=== PATIENT | female | born 1945 | race Caucasian/White ===

== ENCOUNTER 2020-09-21 19:47 | Emergency (ER) | payer MEDICARE, OTHER, SELFPAY ==
[2020-09-21] VITALS (7 sets, daily range): BP systolic 141–183; BP diastolic 70–119; PULSE 61–80; RESP 14–19; TEMP 36.8; O2SAT 96–98; BMI 27.3
--- NOTE | 2020-09-21 20:21 | XR_ITS ---
WS: [id number] Portable AP upright chest, 09/21/2020 Clinical Data: cp Comparison: PA and lateral chest, 03/04/2018. Findings: No nodules, masses or effusions are seen. The heart is normal. The pulmonary vascularity is not increased. No pneumonia or pneumothorax is seen. The aortic arch and descending aorta show tortu osity XR/XR chest 1V portable [id number] Impression: Atherosclerosis.
--- NOTE | 2020-09-21 20:22 | ECG_ITS ---
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: 1945 Requested By: Awa Carrion Order Number: [id number] Reading MD: KOJO CEDILLO Measurements Intervals [place] Rate: 66 P: 72 CO: 173 QRS: -56 QRSD: 91 T: 26 QT: 383 QTc: 404 Interpretive Statements SINUS RHYTHM POSSIBLE LEFT ATRIAL ENLARGEMENT [-0.1mV P WAVE IN V1/V2] LEFT ANTERIOR FASCICULAR BLOCK [QRS AXIS <= -45, QR IN I, RS IN II] ANTEROSEPTAL MYOCARDIAL INFARCTION [40+ ms Q WAVE IN V1-V4], OF INDETERMINATE AGE No previous ECG available for comparison Electronically Signed On 09-22-2020 18:02:01 VEHICLE CHECK IN CLERK by KOJO CEDILLO [email or web address] Semiconductorwinston medical centerNanotether Discovery Servicesselect [email or web address]/[id number]
[2020-09-21] MEDS: labetalol 5 mg/mL SDV 20mL 10 MG IVP (20:55)
[2020-09-21 21:33] LABS: Alanine Aminotransferase 20 U/L (0-33); Albumin Level 4.1 g/dL (3.5-5.2); Alkaline Phosphatase 79 IU/L (35-105); Anion Gap 12.2 (5-19); Aspartate Amino Transferase 21 U/L (0-32); Blood Urea Nitrogen 13 mg/dL (8-23); Calcium 9.2 mg/dL (8.5-10.5); Carbon Dioxide 30 mmol/L (22-29); Chloride 97 mmol/L (98-107); Globulin 2.6 g/dL (1.3-4.6); Glucose 130 mg/dL (65-115); Osmolality Calculated 282 mOsm/kg (285-295); Potassium 4.2 mmol/L (3.5-5.1); Sodium 135 mmol/L (136-145); Total Bilirubin 0.2 mg/dL (0.15-1.2); Total Protein 6.7 g/dL (6.6-8.7)
--- NOTE | 2020-09-21 21:41 | W.ED.GENADLT ---
HPI - General Adult General: Chief complaint: General Medical Stated complaint: elevated BP Time Seen by Provider: 09/21/20 20:20 Source: patient Mode of arrival: ambulatory Limitations: no limitations History of Present Illness: Associated symptoms: Reports chest pain; Deny dyspnea, headache(s), nausea, rash or vomiting Review of Systems Const: Denies: fever(s), chills, body aches or change in appetite Eyes: Denies: blurry vision or eye discomfort ENMT: Denies: throat pain or dental pain Card: Reports: chest pain Resp: Denies: dyspnea GI: Denies: abdominal pain, nausea, vomiting or diarrhea : Denies: dysuria Musc: Denies: neck pain or back pain Skin/Breast: Denies: rash Neuro: Denies: headache(s) Psych: Denies: depression Rojelio/Lymph: Denies: easy bruising All/Imm: Denies: urticaria PFSH ED PFSH: Medical History Anxiety Chest pressure Cholecystectomy planned VERONICA on CPAP Palpitations Panic disorder SVT (supraventricular tachycardia) Tonsillectomy planned Surgical History History of facelift S/P breast biopsy S/P D&C (status post dilation and curettage) Family History Mother Hypertension Social History Smoking and tobacco status: former smoker Alcohol intake: never Household members: spouse Marital status: service: No Current occupational status: retired Current gender identity: Female Lee Ann/Catholic: Zoroastrianism Physical Exam Const: COMMON NORMALS: no acute distress, patient oriented x3 and healthy appearing HENMT: COMMON NORMALS: normocephalic and atraumatic HEAD & SCALP: normocephalic and atraumatic Eye: COMMON NORMALS: Equal, round and reactive pupils present and EOMs intact bilaterally PUPIL: Yes Equal, round and reactive pupils present Neck/C-Spine: COMMON NORMALS: full ROM and supple Chest: COMMONS NORMALS: normal inspection of the chest and normal palpation of entire chest wall Resp: COMMON NORMALS: normal respiratory effort, No retractions, No use of accessory muscles and clear to auscultation bilaterally AUSCULTATION: clear to auscultation bilaterally Cardio: COMMON NORMALS: regular rate, regular rhythm and No murmurs present (Cardio) RATE: regular rate RHYTHM: regular rhythm GI: COMMON NORMALS: Normal to inspection, nondistended, normoactive bowel sounds present, Soft to palpation, non-tender and no masses PALPATION: Yes Soft to palpation Extremity: COMMON NORMALS: normal to inspection and full ROM Neuro: COMMON NORMALS: patient oriented x3, moves all extremities and no focal motor deficits Psych: COMMON NORMALS: mental status grossly normal, Normal thought process present and cooperative THOUGHT PROCESS: Normal thought process present Skin: COMMON NORMALS: no rashes or lesions noted and no wounds GENERAL SKIN EXAM: no rashes or lesions noted Course Vital Signs: Vital signs: Vital Signs Temperature 98.3 F 09/21/20 20:15 Pulse Rate 65 09/21/20 22:54 Respiratory Rate 14 09/21/20 22:54 Blood Pressure 183/73 09/21/20 22:54 Pulse Oximetry 97 09/21/20 22:54 MDM - General Adult MDM Narrative: Medical decision making narrative: Sheri presents here with chest pain ulnar syncope that is atypical in nature. She is pain-free here. She is stable for discharge at this time. Patient's initial repeat troponins are normal. She has no signs of pulmonary Dania. She is stable for discharge and is return if worsening. We will start her on lisinopril for her hypertension. Lab Data: Labs: Lab Results 09/21/20 09/21/20 09/21/20 Range/Units 20:49 20:49 20:49 WBC 9.2 (4.0-10.0) 10^3/ uL RBC 4.10 (4.1-5.3) 10^6/u L Hgb 12.7 (11.5-15.3) g/dL Hct 38.3 (37.0-47.0) % MCV 93.4 (81-99) fL MCH 31.0 (28.0-34.0) pg MCHC 33.2 (30.0-36.0) g/dL RDW 13.0 (12.1-15.1) % Plt Count 313 (130-400) 10^3/c mm MPV 10.5 H (7.4-10.4) fL Neut % (Auto) 70.6 % Lymph % (Auto) 20.2 % [place] % (Auto) 7.0 % Eos % (Auto) 1.3 % Baso % (Auto) 0.5 % Neut # (Auto) 6.49 (1.8-7.7) 10^3/u L Lymph # (Auto) 1.9 (0.8-4.8) 10^3/u L [place] # (Auto) 0.6 (0.2-0.9) 10^3/u L Eos # (Auto) 0.1 (0.0-0.8) 10^3/u L Baso # (Auto) 0.1 (0.0-0.1) 10^3/u L Nucleated RBC % (a uto) 0 % Nucleated RBCs # 0.0 /100WBC Sodium 135 L (136-145) mmol/L Potassium 4.2 (3.5-5.1) mmol/L Chloride 97 L (98-107) mmol/L Carbon Dioxide 30 H (22-29) mmol/L Anion Gap 12.2 (5-19) BUN 13 (8-23) mg/dL Creatinine 0.7 (0.5-0.9) mg/dL GFR Calculation Not Reportable Glucose 130 H (65-115) mg/dL Calculated Osmolal ity 282 L (285-295) mOsm/k g Calcium 9.2 (8.5-10.5) mg/dL Total Bilirubin 0.2 (0.15-1.2) mg/dL AST 21 (0-32) U/L ALT 20 (0-33) U/L Alkaline Phosphata se 79 (35-105) IU/L Troponin T Baselin e 7 (0-10) ng/L Troponin T 120 Min nancy (0-10) ng/L Delta Troponin T (0-10) ABS# Total Protein 6.7 (6.6-8.7) g/dL Albumin 4.1 (3.5-5.2) g/dL Globulin 2.6 (1.3-4.6) g/dL 09/21/20 Range/Units 22:35 WBC (4.0-10.0) 10^3/ uL RBC (4.1-5.3) 10^6/u L Hgb (11.5-15.3) g/dL Hct (37.0-47.0) % MCV (81-99) fL MCH (28.0-34.0) pg MCHC (30.0-36.0) g/dL RDW (12.1-15.1) % Plt Count (130-400) 10^3/c mm MPV (7.4-10.4) fL Neut % (Auto) % Lymph % (Auto) % [place] % (Auto) % Eos % (Auto) % Baso % (Auto) % Neut # (Auto) (1.8-7.7) 10^3/u L Lymph # (Auto) (0.8-4.8) 10^3/u L [place] # (Auto) (0.2-0.9) 10^3/u L Eos # (Auto) (0.0-0.8) 10^3/u L Baso # (Auto) (0.0-0.1) 10^3/u L Nucleated RBC % (a uto) % Nucleated RBCs # /100WBC Sodium (136-145) mmol/L Potassium (3.5-5.1) mmol/L Chloride (98-107) mmol/L Carbon Dioxide (22-29) mmol/L Anion Gap (5-19) BUN (8-23) mg/dL Creatinine (0.5-0.9) mg/dL GFR Calculation Glucose (65-115) mg/dL Calculated Osmolal ity (285-295) mOsm/k g Calcium (8.5-10.5) mg/dL Total Bilirubin (0.15-1.2) mg/dL AST (0-32) U/L ALT (0-33) U/L Alkaline Phosphata se (35-105) IU/L Troponin T Baselin e (0-10) ng/L Troponin T 120 Min nancy 7.72 (0-10) ng/L Delta Troponin T 0.72 (0-10) ABS# Total Protein (6.6-8.7) g/dL Albumin (3.5-5.2) g/dL Globulin (1.3-4.6) g/dL Imaging Data^: CXR: Attestation: I personally reviewed and interpreted this imaging study as follows: My impression: no acute abnormality EKG Data^: EKG 1: Attestation: I personally reviewed and interpreted this EKG as follows: EKG interpretation date: 09/21/20 EKG interpretation time: 20:14 Interpretation: nsr hr [address] or t wave abnormalities qrs 91 qtc 397 Discharge Plan Discharge Patient Disposition: Home Clinical Impression: Chest pain Qualifiers: Chest pain type: unspecified Qualified Code(s): R07.9 - Chest pain, unspecified Hypertension Qualifiers: Hypertension type: unspecified Qualified Code(s): I10 - Essential (primary) hypertension Condition: Stable Prescriptions: New lisinopril 10 mg tablet 10 mg PO DAILY Qty: 30 RF: 0 No Action fluoxetine [Prozac] 20 mg capsule 20 mg PO DAILY@0700 RF: 0 nadolol 40 mg tablet 40 mg PO DAILY@0700 RF: 0 cetirizine [Zyrtec] 10 mg tablet 5 mg PO DAILY@0700 RF: 0 ketorolac 0.5 % drops 0.5 drp ophthalmic (eye) DAILY@0700 RF: 0 Multivitamin 50 Plus Tablet 1 tab PO DAILY@0700 RF: 0 Collagen Plus Vitamin C 125-740 mg Capsule 1 cap PO DAILY@0700 RF: 0 Immunicare 15-15-10 mg-unit-mcg Capsule 1 cap PO DAILY@0700 RF: 0 Glucosamine 1 tab PO DAILY@0700 RF: 0 Vitamin D3 1 tab PO DAILY@0700 RF: 0 Discharge Orders: Discharge ED (Routine); Ordered 09/21/20 Ordered By: Awa Carrion Referrals: Mikayla Webb DO [Primary Care Provider] - 1-3 days Discharge Diet: Advance as tolerated Discharge Activity: Resume usual activity Patient Instructions: Chest Pain (ED) Coding Level of Care Code ED Ladle Pourer for Chg Fwd Exam Comprehensive
[2020-09-21 21:42] LABS: Troponin(5th) Baseline 7 ng/L (0-10)
[2020-09-21 21:45] LABS: Basophils # 0.1 10^3/uL (0.0-0.1); Basophils % 0.5 %; Eosinophils # 0.1 10^3/uL (0.0-0.8); Eosinophils % 1.3 %; Hematocrit 38.3 % (37.0-47.0); Hemoglobin 12.7 g/dL (11.5-15.3); Lymphocytes # 1.9 10^3/uL (0.8-4.8); Lymphocytes % 20.2 %; Mean Corpuscular HGB Conc 33.2 g/dL (30.0-36.0); Mean Corpuscular Volume 93.4 fL (81-99); Mean Platelet Volume 10.5 fL (7.4-10.4); Monocytes # 0.6 10^3/uL (0.2-0.9); Neutrophils # 6.49 10^3/uL (1.8-7.7); Neutrophils % 70.6 %; Nucleated Red Blood Cells % 0 %; Platelet Count 313 10^3/cmm (130-400); White Blood Count 9.2 10^3/uL (4.0-10.0)
[2020-09-21 23:02] LABS: Troponin 5 2HR 7.72 ng/L (0-10); Troponin 5 2HR Delta 0.72 ABS# (0-10)
== END 2020-09-21 23:18 | disposition home or self-care (01) ==
PROVIDERS: Emergency Provider Emergency Medicine; PCP Family Medicine
DX: I10 Essential (primary) hypertension (principal); R07.9 Chest pain, unspecified; Z87.891 Personal history of nicotine dependence
CPT/HCPCS: 12345; 36415; 71045; 80053; 84484; 85025; 93005; 96374; 99283; J3490

== ENCOUNTER → 2021-02-10 12:11 | Outpatient (BNVA) | payer MEDICARE, OTHER, SELFPAY | PROVIDERS: PCP Family Medicine; Visit Provider Internal Medicine Pulmonary Disease | DX: Z01.812 Encounter for preprocedural laboratory examination (principal); Z20.822 Contact with and (suspected) exposure to COVID-19 | CPT/HCPCS: 87635 ==

== ENCOUNTER 2021-02-16 08:03 | Outpatient (CLI) | payer MEDICARE, OTHER, SELFPAY ==
--- NOTE | 2021-02-16 08:52 | PFTS_ITS ---
Date of Study:02/16/21 Date of Dictation: 02/21/21 MECHANICS: Pre bronchodilator Forced vital capacity (FVC) is normal . Pre bronchodilator Forced expiratory volume in one second (FEV1) is mildly reduced 69% FEV1/FVC is reduced. There is no post bronchodialator study. FLOW VOLUME LOOP: normal . LUNG VOLUMES: Not measured DIFFUSING CAPACITY FOR CARBON MONOXIDE: normal . INTERPRETATION: The Spirometry suggestive mild obstructive ventilatory defect. Lung volumes are not measured. Normal gas transfer. Clinical correlation recommended. MTDD
== END 2021-02-16 08:04 | disposition home or self-care (01) ==
LOC: RT 08:07
PROVIDERS: PCP Family Medicine; Visit Provider Internal Medicine Pulmonary Disease
DX: R06.00 Dyspnea, unspecified (principal)
CPT/HCPCS: 94010; 94729

== ENCOUNTER 2021-05-29 12:53 | Outpatient (CLI) | payer MEDICARE, OTHER, SELFPAY ==
--- NOTE | 2021-05-29 12:30 | CT_ITS ---
WS: [id number] CT ABDOMEN PELVIS TECHNIQUE: Contrast-enhanced CT of the abdomen and pelvis with coronal and sagittal reformatted image s. CLINICAL INFORMATION: NAUSEA, BILATERAL PPER ABDOMINAL PAIN COMPARISON: DLP: 852.[address] scans at [facility] use at least one of these dose optimization techniques: automated e xposure control; mA and/or kV adjustment per patient size (includes targeted exams where dose is matc hed to clinical indication); or iterative reconstruction. FINDINGS: Diffuse fatty infiltration of the liver. Prior cholecystectomy. Dilated common bile duct unchanged si nce 2010 likely physiologic postcholecystectomy. Lung bases are well aerated. Pectus excavatum. Cardiomegaly. Normal GE junction. Adrenal glands are n ormal. Normal portal vein and splenic vein. Fatty atrophy of the pancreas. Normal renal parenchymal e nhancement. No hydronephrosis. A few tiny renal cysts. Exophytic left renal cyst measuring 15 mm. Normal caliber abdominal aorta. Urine distended bladder. No abdominal or pelvic lymphadenopathy. No i nguinal lymphadenopathy. Disc space narrowing L5-S1. CT/CT abdomen pelvis w con* [id number] IMPRESSION: 1. Mild diffuse fatty infiltration of the liver 2. Prior cholecystectomy. Stable dilatation common bile duct unchanged since 3. Exophytic left renal cyst measuring 15 mm. 4. No hydronephrosis in either kidney. 5. No evidence of high-grade small or large bowel obstruction. 6. Cardiomegaly with pectus excavatum.
[2021-05-29] MEDS: iohexol 300 mg/mL 50 mL Btl PO (13:23)
[2021-05-29] MEDS: iohexol 300 mg/mL 100 mL Btl IV (14:06)
[2021-05-29 15:02] LABS: Blood Urea Nitrogen 7 mg/dL (8-23)
== END 2021-05-29 12:54 | disposition home or self-care (01) ==
PROVIDERS: PCP Family Medicine; Visit Provider Family Medicine
DX: R10.11 Right upper quadrant pain (principal); R10.12 Left upper quadrant pain; R11.0 Nausea; K76.0 Fatty (change of) liver, not elsewhere classified; N28.1 Cyst of kidney, acquired; I51.7 Cardiomegaly
CPT/HCPCS: 74177; 82565; 84520; Q9967

== ENCOUNTER 2021-07-25 09:36 | Outpatient (CLI) | payer MEDICARE, OTHER, SELFPAY ==
--- NOTE | 2021-07-25 09:30 | USCV_ITS ---
Sheri Lopez Age: 75 Gender: F : 1945 Exam Date: 07/25/2021 10:02 Ordering Phys: Pipo Tamayo M.D ([email or web address]) Technologist: Real Reynoso Exam Location: [facility] [place] Indication: SOB BP: 160 / 74 HR: 81 Rhythm: Sinus Technical Quality: Adequate MEASUREMENTS (Male / Female) Normal Values 2D ECHO LV Diastolic Diameter PLAX 2.8 cm 4.2 - 5.9 / 3.9 - 5.3 cm LV Systolic Diameter PLAX 2.0 cm IVS Diastolic Thickness 0.9 cm 0.6 - 1.0 / 0.6 - 0.9 cm IVS Systolic Thickness 1.0 cm LVPW Diastolic Thickness 1.6 cm 0.6 - 1.0 / 0.6 - 0.9 cm LVPW Systolic Thickness 1.8 cm LVOT Diameter 2.0 cm LV Ejection Fraction 2D Teich 55.7 % LV Ejection Fraction MOD 2C 58.9 % LV Ejection Fraction 2C AL 59.6 % LA Diameter 3.2 cm LA Width 3.3 cm LA Height 4.0 cm RA Width 3.3 cm RA Height 4.4 cm Aorta at Sinotubular Diameter 2.7 cm M-MODE MV E Point Septal Separation 0.8 cm DOPPLER AV Peak Velocity 142.0 cm/s LVOT Peak Velocity 113.0 cm/s AV Area Cont Eq vti 2.7 cm squared AV Area Cont Eq pk 2.5 cm squared MV Area PHT 5.0 cm squared Mitral E to A Ratio 1.1 MV E' Velocity 32.0 cm/s Mitral E to LV E' Lateral Ratio 8.3 TR Peak Velocity 265.4 cm/s TR Peak Gradient 28.2 mmHg TR Mean Velocity 171.7 cm/s TR Mean Gradient 13.8 mmHg TR Velocity Time Integral 61.5 cm RV Acceleration Time 0.2 s RV Ejection Time 0.3 s RV AcT/ET 0.5 FINDINGS Left Ventricle Normal left ventricular size. LV systolic function is normal with EF of 55-60%. No regional wall motion abnormalities. Normal diastolic filling pattern. Right Ventricle The right ventricle is normal in size and function. Right Atrium The right atrium is normal in size. Left Atrium The left atrium is normal in size. Mitral Valve Structurally normal mitral valve without significant stenosis or prolapse. There is mild mitral regurgitation. Aortic Valve Structurally normal aortic valve without significant sclerosis or stenosis. There is no aortic regurgitation. Tricuspid Valve Structurally normal tricuspid valve without significant stenosis. Trace tricuspid regurgitation. Insufficient TR jet to calculate RVSP Pulmonic Valve Structurally normal pulmonic valve without significant stenosis. There is no pulmonic regurgitation. Pericardium Normal pericardium without effusion. Aorta Normal ascending aorta dimension. CONCLUSIONS LV systolic function is normal with EF of 55-60% Disatolic function is normal Mild mitral regurgitation No comparison studies are available Pipo Tamayo MD (Electronically Signed) Final Date: 02 August 2021 18:08 S
== END 2021-07-25 09:37 | disposition home or self-care (01) ==
LOC: US 09:37
PROVIDERS: PCP Family Medicine; Visit Provider Internal Medicine
DX: R06.02 Shortness of breath (principal); I34.0 Nonrheumatic mitral (valve) insufficiency
CPT/HCPCS: 93306

== ENCOUNTER 2021-07-26 13:26 | Outpatient (CLI) | payer MEDICARE, OTHER, SELFPAY ==
--- NOTE | 2021-07-26 13:33 | US_ITS ---
WS: [id number] RENAL ULTRASOUND HISTORY: RENAL CYST COMPARISON: CT abdomen 05/29/2021 TECHNIQUE: 2-D and color Doppler imaging of the kidney submitted. Right kidney: 9.4 cm x 4.1 cm x 4.6 cm. Normal echogenicity with no hydronephrosis or mass. Left kidney: 11.1 cm x 5.3 cm x 3.8 cm. Normal echogenicity with no hydronephrosis or mass. Benign exophytic cyst from the inferior pole neal ures 1.5 x 1.5 x 1.4 cm. Stable since 05/29/2021. Aorta: Not visualized. Urinary Bladder: Normal distention. US/US renal BI* [id number] IMPRESSION: 1. No hydronephrosis or solid mass. 2. Stable exophytic LEFT renal cyst measures 1.5 cm.
== END 2021-07-26 13:27 | disposition home or self-care (01) ==
LOC: US 13:27
PROVIDERS: PCP Family Medicine; Visit Provider Family Medicine
DX: N28.1 Cyst of kidney, acquired (principal)
CPT/HCPCS: 76770

== ENCOUNTER → 2021-08-17 10:50 | Outpatient (BNVA) | payer MEDICARE, OTHER, SELFPAY | PROVIDERS: PCP Family Medicine; Visit Provider Internal Medicine | DX: Z01.812 Encounter for preprocedural laboratory examination (principal) | CPT/HCPCS: 87635 ==

== ENCOUNTER 2021-11-14 06:52 | Emergency (ER) | payer MEDICARE, OTHER, SELFPAY ==
[2021-11-14 06:59] VITALS: BP 164/74; PULSE 117; RESP 18; TEMP 35.9; O2SAT 99; BMI 26.9
[2021-11-14 07:06] VITALS: BP 137/77; PULSE 105; RESP 22; O2SAT 96
--- NOTE | 2021-11-14 07:29 | ECG_ITS ---
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 Measurements Intervals [place] Rate: 103 P: 73 WI: 148 QRS: -75 QRSD: 93 T: 61 QT: 338 QTc: 443 Interpretive Statements SINUS TACHYCARDIA WITH OCCASIONAL VENTRICULAR PREMATURE COMPLEXES LEFT ANTERIOR FASCICULAR BLOCK [QRS AXIS <= -45, QR IN I, RS IN II] ANTEROSEPTAL MYOCARDIAL INFARCTION , OF INDETERMINATE AGE [40+ ms Q WAVE IN V1-V4] Compared to ECG 09/21/2020 20:14:04 Ventricular premature complex(es) now present Sinus rhythm no longer present Myocardial infarct finding still present Electronically Signed On 11-15-2021 18:49:55 CDT by Pipo Tamayo M.D. [id number]
--- NOTE | 2021-11-14 07:29 | XR_ITS ---
WS: [id number] XR chest 1V portable [id number] REASON FOR EXAM: dyspnea/cough FINDINGS: The chest is unchanged compared to 09/21/2020. Normal aorta for age. Heart size at the upper limits of normal. Calcified granulomatous disease in both hemithoraces. 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 No acute pulmonary parenchymal or pleural abnormality. Chronic interstitial opacities in both lower l lizzette langford. Moderate degenerative spondylosis in the mid and lower thoracic spine. Moderate to severe osteoarthri tis arthropathy in both shoulder joints. XR/XR chest 1V portable [id number] IMPRESSION: No acute chest abnormality.
--- NOTE | 2021-11-14 07:29 | ED_ITS ---
HPI - Arrhythmia/Palpitations General: Chief Complaint: Arrhythmia/Palpitations Stated Complaint: Heart problem Time Seen by Provider: 11/14/21 07:18 Source: patient Mode of arrival: ambulatory Limitations: no limitations History of Present Illness: 76-year-old female presents to the emergency room with complaints of palpitations. She said problems in the past remotely with SVT per her report but more recently she had a Holter monitor that showed short runs of V. tach 1 was 9 seconds the other was 5 beats. She was previously on nadolol that did seem to control it better more recently she has been switched to Toprol and they had added a low-dose of diltiazem. Her initial dose was quite a bit higher than a change to the lower dose because she could not tolerate a higher dose. She not had any chest pain or shortness of breath but she has almost felt presyncopal at times. On arrival here she has episodes of PVCs and PACs but there is no V. tach. She not been ill recently she is not had any shortness of breath or chest pain. MD complaint: rapid heart beat and heart racing Onset (ago): month(s) Duration: intermittent Severity: mild Context: occurred during rest Arrhythmia history: SVT and other (Nonsustained V. tach on Holter monitor) Associated symptoms: Reports anxiety, pre-syncope and sense of impending doom; Deny cough, diaphoresis, muscle cramps, nausea, paresthesias or vomiting Treatments prior to arrival: beta-ravi Review of Systems Const: Denies: diaphoresis ENMT: Denies: throat pain, ear or mastoid pain, nasal discharge or nasal conge stion Card: Reports: pre-syncope Resp: Denies: dyspnea, productive cough or non-productive cough GI: Denies: nausea or vomiting : Denies: flank pain, difficulty voiding, dysuria, urinary frequency or urinary urgency Musc: Denies: muscle cramps Skin/Breast: Denies: rash or pruritus Psych: Reports: anxiety PFSH ED PFSH: Medical History Anxiety VERONICA on CPAP Panic disorder SVT (supraventricular tachycardia) Surgical History History of colonoscopy with polypectomy 2005 History of esophagogastroduodenoscopy (EGD) 2016 History of facelift S/P breast biopsy S/P D&C (status post dilation and curettage) S/P tonsillectomy Status post laparoscopic cholecystectomy Family History Mother Hypertension Social History Smoking and tobacco status: former smoker Quit status (tobacco): has quit using tobacco Year quit tobacco: 1995 [id number] Second hand smoke exposure: No Smoking risk assessment/counseling performed?: Yes Alcohol intake: never Lives independently: Yes Household members: spouse Marital status: service: No Current occupational status: retired Pets and animals: Yes History of recent travel: No Current gender identity: Female Lee Ann/Jewish: Zoroastrianism Physical Exam Const: GENERAL APPEARANCE: cooperative and comfortable ORIENTATION/CONSCIOUSNESS: Yes awake, Yes oriented to person, Yes oriented to place and Yes oriented to time HENMT: COMMON NORMALS: normocephalic, atraumatic and hearing grossly normal b ilaterally HEAD & SCALP: normocephalic and atraumatic Neck/C-Spine: COMMON NORMALS: full ROM, no lymphadenopathy, supple and no JVD Cardio: COMMON NORMALS: no JVD, regular rate, regular rhythm and No murmurs present (Cardio) RATE: regular rate RHYTHM: regular rhythm Extremity: COMMON NORMALS: normal to inspection, capillary refill normal, no clubbing, cyanosis or edema, no calf tenderness and no pedal edema Neuro: SENSORIUM/ORIENTATION: Yes oriented to person, Yes oriented to place and Yes oriented to time Skin: COMMON NORMALS: no rashes or lesions noted GENERAL SKIN EXAM: no rashes or lesions noted Course Vital Signs: Vital signs: Vital Signs Temperature 96.7 F L 11/14/21 06:59 Pulse Rate 82 11/14/21 08:30 Respiratory Rate 16 11/14/21 08:30 Blood Pressure 149/60 11/14/21 08:30 Pulse Oximetry 99 11/14/21 08:30 MDM - Arrhythmia/Palpitations Medical Decision Making EKG does not show anything acute. She had several PVCs and PACs while here but no V. tach episodes. Since the nadolol seem to work well in the past we will increase her Toprol to 37-1/2 daily. Certainly is room in her blood pressure and her heart rate for the increase. Encourage her to follow-up with cardiology within the next week. We will also get her set up for a Holter monitor to make sure she is not having recurrences of SVT or more prolonged episodes of's ventricular tachycardia. Medical Records I reviewed the patient's medical records. Lab Data I reviewed the patient's lab results. : 11/14/21 07:20 11/14/21 07:20 Radiology Impressions Chest X-Ray 11/14/21 07:29 IMPRESSION: No acute chest abnormality. Laboratory Results WBC 6.4 10^3/uL (4.0-10.0) 11/14/21 07:20 RBC 4.66 10^6/uL (4.1-5.3) 11/14/21 07:20 Hgb 14.1 g/dL (11.5-15.3) 11/14/21 07:20 Hct 43.2 % (37.0-47.0) 11/14/21 07:20 MCV 92.7 fl (81-99) 11/14/21 07:20 MCH 30.3 pg (28.0-34.0) 11/14/21 07:20 MCHC 32.6 g/dL (30.0-36.0) 11/14/21 07:20 RDW 12.8 % (12.1-15.1) 11/14/21 07:20 Plt Count 348 10^3/cmm (130-400) 11/14/21 07:20 MPV 9.8 fL (7.4-10.4) 11/14/21 07:20 Neut % (Auto) 68.6 % 11/14/21 07:20 Lymph % (Auto) 21.8 % 11/14/21 07:20 [place] % (Auto) 6.6 % 11/14/21 07:20 Eos % (Auto) 2.0 % 11/14/21 07:20 Baso % (Auto) 0.8 % 11/14/21 07:20 Neut # (Auto) 4.39 10^3/uL (1.8-7.7) 11/14/21 07:20 Lymph # (Auto) 1.4 10^3/uL (0.8-4.8) 11/14/21 07:20 [place] # (Auto) 0.4 10^3/uL (0.2-0.9) 11/14/21 07:20 Eos # (Auto) 0.1 10^3/uL (0.0-0.8) 11/14/21 07:20 Baso # (Auto) 0.1 10^3/uL (0.0-0.1) 11/14/21 07:20 Nucleated RBC % (auto) 0 % 11/14/21 07:20 Nucleated RBCs # 0.0 /100WBC 11/14/21 07:20 Sodium 138 mmol/L (136-145) 11/14/21 07:20 Potassium 3.6 mmol/L (3.5-5.1) 11/14/21 07:20 Chloride 100 mmol/L (98-107) 11/14/21 07:20 Carbon Dioxide 28 mmol/L (22-29) 11/14/21 07:20 Anion Gap 13.6 (5-19) 11/14/21 07:20 BUN 7 mg/dL (8-23) L 11/14/21 07:20 Creatinine 0.6 mg/dL (0.5-0.9) 11/14/21 07:20 GFR Calculation Not Reportable 11/14/21 07:20 Glucose 115 mg/dL (65-115) 11/14/21 07:20 Calculated Osmolality 285 mOsm/kg (285-295) 11/14/21 07:20 Calcium 9.2 mg/dL (8.5-10.5) 11/14/21 07:20 Discharge Plan Discharge Patient Disposition: Home Clinical Impression: Ventricular premature beats Condition: Stable Prescriptions: Changed metoprolol succinate 25 mg tablet extended release 24 hr 37.5 mg PO DAILY Qty: 90 3RF No Action diltiazem HCl 30 mg tablet 30 mg PO Q8H PRN (Reason: SVT) Qty: 30 2RF Rx Instructions: can take as often as three times in a day fluticasone propionate [Flonase Allergy Relief] 50 mcg/actuation spra y,suspension 1 spray intranasal BID Qty: 50 3RF Rx Instructions: administer into each nostril Zyrtec 10 mg capsule 10 mg PO DAILY PRN (Reason: allergy symptoms) Qty: 20 2RF lactulose 10 gram/15 mL solution 15 ml PO BID Qty: 473 0RF ketorolac 0.5 % drops 0.5 drp ophthalmic (eye) DAILY@0700 0RF Multivitamin 50 Plus Tablet 1 tab PO DAILY@0700 0RF Collagen Plus Vitamin C 125-740 mg Capsule 1 cap PO DAILY@0700 0RF Immunicare 15-15-10 mg-unit-mcg Capsule 1 cap PO DAILY@0700 0RF Vitamin D3 1 tab PO DAILY@0700 0RF Discharge Orders: Discharge ED (Routine); Ordered 11/14/21 Ordered By: Jon Leonard Referrals: Mikayla Webb, [Primary Care Provider] - Discharge Diet: Usual diet Discharge Activity: Resume usual activity Patient Instructions: Opioid Safety Activity Restrictions/Additional Instructions: legal operations manager will make arrangements for you to have another Holter monitor and then follow-up with cardiology. Increase your metoprolol to 37-1/2 mg (1 1/2 tablets) daily. 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
[2021-11-14 07:36] LABS: Basophils # 0.1 10^3/uL (0.0-0.1); Basophils % 0.8 %; Eosinophils # 0.1 10^3/uL (0.0-0.8); Hematocrit 43.2 % (37.0-47.0); Hemoglobin 14.1 g/dL (11.5-15.3); Lymphocytes # 1.4 10^3/uL (0.8-4.8); Lymphocytes % 21.8 %; Mean Corpuscular HGB Conc 32.6 g/dL (30.0-36.0); Mean Corpuscular Hemoglobin 30.3 pg (28.0-34.0); Mean Corpuscular Volume 92.7 fl (81-99); Mean Platelet Volume 9.8 fL (7.4-10.4); Monocytes # 0.4 10^3/uL (0.2-0.9); Monocytes % 6.6 %; Neutrophils # 4.39 10^3/uL (1.8-7.7); Neutrophils % 68.6 %; Nucleated Red Blood Cells % 0 %; Platelet Count 348 10^3/cmm (130-400); Red Blood Count 4.66 10^6/uL (4.1-5.3); Red Cell Distribution Width 12.8 % (12.1-15.1); White Blood Count 6.4 10^3/uL (4.0-10.0)
[2021-11-14 07:42] VITALS: BP 137/77; PULSE 105; RESP 22; O2SAT 96
[2021-11-14 07:57] LABS: Anion Gap 13.6 (5-19); Blood Urea Nitrogen 7 mg/dL (8-23); Calcium 9.2 mg/dL (8.5-10.5); Carbon Dioxide 28 mmol/L (22-29); Chloride 100 mmol/L (98-107); Glucose 115 mg/dL (65-115); Osmolality Calculated 285 mOsm/kg (285-295); Potassium 3.6 mmol/L (3.5-5.1); Sodium 138 mmol/L (136-145)
[2021-11-14] MEDS: metoprolol succinate ER (24 HR) 25 mg Tablet 12.5 MG PO (08:21)
[2021-11-14] MEDS: metoprolol tartrate 1 mg/1 mL SDV 5 mL 2.5 MG IVP (08:22)
[2021-11-14 08:30] VITALS: BP 149/60; PULSE 82; RESP 16; O2SAT 99
--- NOTE | 2021-11-16 06:57 | DCPLANNER ---
Addendum entered by Nena Vasquez 11/30/21 08:53: Patient had an appointment scheduled for 11.21.21 with [facility] - patient did attend appointment. Addendum entered by Nena Vasquez 11/21/21 08:05: Patient has a follow up appointment scheduled for Sunday, November 21, 2021 at 2:[facility] for a 30 day event monitor. Clinic will call patient with appointment information. Original Note: enterprise services manager had message to schedule an outpatient 30 day event monitor for patient. enterprise services manager faxed signed order to [facility], who will call patient with appointment information.
== END 2021-11-14 08:50 | disposition home or self-care (01) ==
PROVIDERS: Emergency Provider Family Medicine; PCP Family Medicine
DX: I49.3 Ventricular premature depolarization (principal); Z87.891 Personal history of nicotine dependence
CPT/HCPCS: 71045; 80048; 85025; 93005; 96374; 99284; J3490

== ENCOUNTER → 2021-11-21 14:06 | Outpatient (BNVA) | payer MEDICARE, OTHER, SELFPAY | PROVIDERS: PCP Family Medicine; Visit Provider Internal Medicine Cardiovascular Disease | DX: I49.3 Ventricular premature depolarization (principal); Z87.891 Personal history of nicotine dependence | CPT/HCPCS: 99213 ==

== ENCOUNTER → 2022-02-15 11:30 | Outpatient (BNVA) | payer MEDICARE, OTHER, SELFPAY | PROVIDERS: PCP Family Medicine; Visit Provider Internal Medicine | DX: R00.2 Palpitations (principal); R55 Syncope and collapse; R00.0 Tachycardia, unspecified; R00.1 Bradycardia, unspecified | CPT/HCPCS: 93229 ==

== ENCOUNTER → 2022-03-14 10:24 | Outpatient (BNVA) | payer MEDICARE, OTHER, SELFPAY | PROVIDERS: PCP Family Medicine; Visit Provider Internal Medicine Pulmonary Disease | DX: G47.33 Obstructive sleep apnea (adult) (pediatric) (principal); J98.4 Other disorders of lung; R00.2 Palpitations | CPT/HCPCS: 99214 ==

== ENCOUNTER 2022-05-10 10:38 | Outpatient (CLI) | payer MEDICARE, OTHER, SELFPAY ==
--- NOTE | 2022-05-10 10:53 | US_ITS ---
WS: [id number] ULTRASOUND RENAL TECHNIQUE: Ultrasound examination of both kidneys. CLINICAL INFORMATION: RENAL CYST COMPARISON: Ultrasound July 26, 2021 FINDINGS: RIGHT: Right kidney is normal in size and appearance. Echogenicity: Normal. Cortical thickness: 1.0 cm; Normal. Hydronephrosis: None. Perinephric fluid: None. Right kidney measures: 10.8 cm x 5.1 cm x 3.9 cm. LEFT: Inferior pole simple LEFT renal cyst measuring 1.3 x 1.2 x 1.6 CM. Left kidney is normal in size and appearance. Echogenicity: Normal. Cortical thickness: 1.0 cm; Normal. Hydronephrosis: None. Perinephric fluid: None. Left kidney measures: 10.7 cm x 4.4 cm x 4.6 cm. Normal visualized aorta. Moderate amount of echogenic debris or hematoma within the bladder. Recommen d correlation for UTI. US/US renal BI* [id number] IMPRESSION: 1. Both kidneys are normal in appearance. No hydronephrosis. 2. Inferior pole simple LEFT renal cyst measuring 1.3 x 1.2 x 1.6 CM unchanged 3. Moderate amount of echogenic material within the dependent bladder may repr esent proteinaceous debris or hematoma. Recommend correlation for UTI. This is new since July 26, 2021
== END 2022-05-10 10:39 | disposition home or self-care (01) ==
LOC: RAD 10:41
PROVIDERS: PCP Family Medicine; Visit Provider Family Medicine
DX: N28.1 Cyst of kidney, acquired (principal)
CPT/HCPCS: 76770

== ENCOUNTER 2022-05-16 08:03 | Emergency (ER) | payer MEDICARE, OTHER, SELFPAY ==
--- NOTE | 2022-05-16 08:19 | XR_ITS ---
WS: [id number] XR chest 1V portable [id number] REASON FOR EXAM: dyspnea FINDINGS: Compared to the examination of 11/14/2021, there is increased opacity in the left lower chest which ap pears to be a combination of lung consolidation/atelectasis and left pleural effusion. The right lung field is clear however there may be a small right pleural effusion. No other significant interval change or new finding compared to the previous study. XR/XR chest 1V portable [id number] IMPRESSION: Interval development of opacity in the left lower chest as above.
--- NOTE | 2022-05-16 08:24 | ECG_ITS ---
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 Measurements Intervals [place] Rate: 122 P: 81 OR: 164 QRS: -71 QRSD: 101 T: 80 QT: 306 QTc: 436 Interpretive Statements SINUS TACHYCARDIA LEFT ANTERIOR FASCICULAR BLOCK [QRS AXIS <= -45, QR IN I, RS IN II] ANTEROSEPTAL MYOCARDIAL INFARCTION , OF INDETERMINATE AGE [40+ ms Q WAVE IN V1-V4] Compared to ECG 11/14/2021 07:13:44 Ventricular premature complex(es) no longer present Myocardial infarct finding still present Electronically Signed On 05-17-2022 10:36:40 CDT by Pipo Tamayo M.D. [id number] f
[2022-05-16 08:31] VITALS: BP 116/74; PULSE 115; RESP 16; TEMP 36.9; O2SAT 94; BMI 26.6
--- NOTE | 2022-05-16 08:41 | ED_ITS ---
HPI - General Adult General: Chief complaint: General Medical Stated complaint: SOB, possible heart problems Time Seen by Provider: 05/16/22 08:19 Source: patient Mode of arrival: ambulatory Limitations: no limitations History of Present Illness: 76 yo female Onset (ago): minute(s) Severity: mild Quality: burning Pain Consistency: constant Relieving factors: none Exacerbating factors: none Associated symptoms: Deny chest pain, confusion, cough, diaphoresis, decreased appetite, dyspnea, fevers/chills, headache(s), malaise, nausea, rash, palpitations, seizures, short of breath, syncope, vomiting or weakness Treatments prior to arrival: none Review of Systems Const: Denies: fever(s), chills, fatigue, malaise or diaphoresis ENMT: Denies: throat pain, ear or mastoid pain, nasal discharge or nasal congestion Card: Denies: chest pain, palpitations or syncope Resp: Denies: dyspnea GI: Denies: abdominal pain, nausea or vomiting : Denies: flank pain, difficulty voiding, dysuria, urinary frequency or urinary urgency Skin/Breast: Denies: rash Neuro: Denies: headache(s) or confusion PFSH ED PFSH: Medical History Anxiety VERONICA on CPAP Panic disorder SVT (supraventricular tachycardia) Surgical History History of colonoscopy with polypectomy 2005 History of esophagogastroduodenoscopy (EGD) 2015 History of facelift S/P breast biopsy S/P D&C (status post dilation and curettage) S/P tonsillectomy Status post laparoscopic cholecystectomy Family History Mother Hypertension Social History Smoking and tobacco status: former smoker Quit status (tobacco): has quit using tobacco Year quit tobacco: 1995 [id number] Second hand smoke exposure: No Smoking risk assessment/counseling performed?: Yes Alcohol intake: never Lives independently: Yes Household members: spouse Marital status: service: No Current occupational status: retired Pets and animals: Yes History of recent travel: No Current gender identity: Female [place]/Lutheran: Evangelical Physical Exam Const: COMMON NORMALS: no acute distress GENERAL APPEARANCE: cooperative and comfortable ORIENTATION/CONSCIOUSNESS: Yes awake, Yes oriented to person, Yes oriented to place and Yes oriented to time HENMT: COMMON NORMALS: normocephalic, atraumatic and hearing grossly normal bilaterally HEAD & SCALP: normocephalic and atraumatic Resp: AUSCULTATION: crackles Laterality: bilateral Cardio: COMMON NORMALS: regular rate, regular rhythm and No murmurs present (Cardio) RATE: regular rate RHYTHM: regular rhythm GI: COMMON NORMALS: Soft to palpation and No hepatosplenomegaly present A USCULTATION: Yes normoactive bowel sounds PALPATION: Yes Soft to palpation, No Tenderness to palpation present (GI), No Guarding due to palpation present (GI) and Yes No hepatosplenomegaly present Extremity: COMMON NORMALS: normal to inspection, capillary refill normal, no clubbing, cyanosis or edema, no calf tenderness and no pedal edema Neuro: SENSORIUM/ORIENTATION: Yes oriented to person, Yes oriented to place and Yes oriented to time Skin: COMMON NORMALS: no rashes or lesions noted GENERAL SKIN EXAM: no rashes or lesions noted Course Vital Signs: Vital signs: Vital Signs Temperature 98.4 F 05/16/22 08:31 Pulse Rate 102 H 05/16/22 13:36 Respiratory Rate 17 05/16/22 13:36 Blood Pressure 121/81 05/16/22 13:36 Pulse Oximetry 100 05/16/22 13:36 Oxygen Delivery Me thod 05/16/22 11:39 MDM - General Adult Medical Decision Making cardiomegaly on CXR. D dimer is elevated. CTA is negative for PE. Pericardial efusion present on the echocardiogram. Discused with Dr. Rodriguez. HE recomme nds low dose lasix and follow up int he office next week. REviewed with patient. Medical Records I reviewed the patient's medical records. Lab Data I reviewed the patient's lab results. : 05/16/22 09:15 05/16/22 09:15 Radiology Impressions Chest X-Ray 05/16/22 08:19 IMPRESSION: Interval development of opacity in the left lower chest as above. Chest CTA 05/16/22 09:49 IMPRESSION: 1. No pulmonary embolism. 2. Moderate circumferential pericardial effusion measuring up to 1.8 cm. 3. Small bilateral pleural effusions. 4. LEFT lower lobe volume loss due to subsegmental atelectasis. Laboratory Results WBC 10.2 10^3/uL (4.0-10.0) H 05/16/22 09:15 RBC 3.69 10^6/uL (4.1-5.3) L 05/16/22 09:15 Hgb 11.4 g/dL (11.5-15.3) L 05/16/22 09:15 Hct 34.6 % (37.0-47.0) L 05/16/22 09:15 MCV 93.8 fl (81-99) 05/16/22 09:15 MCH 30.9 pg (28.0-34.0) 05/16/22 09:15 MCHC 32.9 g/dL (30.0-36.0) 05/16/22 09:15 RDW 12.8 % (12.1-15.1) 05/16/22 09:15 Plt Count 444 10^3/cmm (130-400) H 05/16/22 09:15 MPV 9.7 fL (7.4-10.4) 05/16/22 09:15 Neut % (Auto) 85.8 % 05/16/22 09:15 Lymph % (Auto) 6.2 % 05/16/22 09:15 [place] % (Auto) 7.3 % 05/16/22 09:15 Eos % (Auto) 0.0 % 05/16/22 09:15 Baso % (Auto) 0.3 % 05/16/22 09:15 Neut # (Auto) 8.76 10^3/uL (1.8-7.7) H 05/16/22 09:15 Lymph # (Auto) 0.6 10^3/uL (0.8-4.8) L 05/16/22 09:15 [place] # (Auto) 0.7 10^3/uL (0.2-0.9) 05/16/22 09:15 Eos # (Auto) 0.0 10^3/uL (0.0-0.8) 05/16/22 09:15 Baso # (Auto) 0.0 10^3/uL (0.0-0.1) 05/16/22 09:15 Nucleated RBC % (auto) 0 % 05/16/22 09:15 Nucleated RBCs # 0.0 /100WBC 05/16/22 09:15 ESR 68 mm/hr (0-15) H 05/16/22 09:15 D-Dimer 3.37 ug/mIFEU (0-0.59) H 05/16/22 09:15 Sodium 129 mmol/L (136-145) L 05/16/22 09:15 Potassium 4.2 mmol/L (3.5-5.1) 05/16/22 09:15 Chloride 94 mmol/L (98-107) L 05/16/22 09:15 Carbon Dioxide 22 mmol/L (22-29) 05/16/22 09:15 Anion Gap 17.2 (5-19) 05/16/22 09:15 BUN 11 mg/dL (8-23) 05/16/22 09:15 Creatinine 0.7 mg/dL (0.5-0.9) 05/16/22 09:15 GFR Calculation Not Reportable 05/16/22 09:15 Glucose 145 mg/dL (65-115) H 05/16/22 09:15 Calculated Osmolality 270 mOsm/kg (285-295) L 05/16/22 09:15 Calcium 9.0 mg/dL (8.5-10.5) 05/16/22 09:15 Troponin T Baseline 21 ng/L (0-10) H 05/16/22 09:15 Troponin T 120 Minute 19.90 ng/L (0-10) H 05/16/22 11:08 Delta Troponin T -1.10 ABS# (0-10) L 05/16/22 11:08 NT-Pro-B Natriuret Pep 1622 pg/mL (0-125) H 05/16/22 09:15 Discharge Plan Discharge Patient Disposition: Home Clinical Impression: Pericardial effusion, Cystitis Condition: Stable Prescriptions: New Macrobid 100 mg capsule 100 mg PO BID 7 Days Qty: 14 0RF Rx Instructions: must administer with a meal/food Lasix 20 mg tablet 20 mg PO .QOD Qty: 15 0RF No Action oxymetazoline [Afrin (oxymetazoline)] 0.05 % spray,non-aerosol 2 spray intranasal Q12H PRN (Reason: Allergy Symptoms) alprazolam [Xanax] 0.25 mg tablet 0.125 mg PO .EVERY 5 DAYS PRN (Reason: Anxiety) Multivitamin 50 Plus Tablet 1 tab PO QAM Immunicare 15-15-10 mg-unit-mcg Capsule 1 cap PO QAM doxycycline hyclate 100 mg capsule 100 mg PO BID Rx Instructions: for 10 days (rx filled 05/14/22 pt states never started) prednisone 20 mg tablet 40 mg PO DAILY Rx Instructions: for 5 days (rx filled 05/14/22 pt states never started) Calcium + D 600 mg-5 mcg (200 unit) Tablet 1 tab PO QAM cephalexin 500 mg capsule 500 mg PO BID Nexium 40 mg Capsule,Delayed Release(Dr/Ec) 40 mg PO QPM Vitamin D3 25 mcg (1,000 unit) Tablet 25 mcg PO QAM metoprolol succinate 25 mg tablet extended release 24 hr 37.5 mg PO QAM Xopenex HFA 45 mcg/actuation HFA aerosol inhaler 2 inh inhalation Q6H PRN (Reason: Shortness Of Breath) Discharge Orders: Discharge ED (Routine); Ordered 05/16/22 Ordered By: Jon Leonard Referrals: Mikayla Webb DO [Primary Care Provider] - Discharge Diet: Usual diet Discharge Activity: Limit activity as instructed Patient Instructions: Opioid Safety, Pain Management Coding Level of Care Code ED [employer]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
[2022-05-16 09:05] VITALS: BP 121/69; PULSE 111; RESP 16; O2SAT 95
--- NOTE | 2022-05-16 09:13 | PC.PHAR ---
pt states she takes care of her own medications-pt states she is not taking cymbalta 30mg states she never started taking it ext med history shows last filled 03/12/22 90d/s-ext med history shows prednisone 20mg take 2 tabs daily for 5 days and doxycycline hyclate 100mg bid for 10 days both filled on 05/14/22 pt states she never started either of them-pt states she took the kelfex 500mg bid filled 05/15/22 7d/s states she took on 05/15/22 and states it made her sick-notes are made in the pharmacy comments
[2022-05-16] MEDS: sodium chloride 0.9% 1,000 ML 999 ML IV (09:24)
[2022-05-16 09:34] LABS: Basophils % 0.3 %; Hematocrit 34.6 % (37.0-47.0); Hemoglobin 11.4 g/dL (11.5-15.3); Lymphocytes # 0.6 10^3/uL (0.8-4.8); Lymphocytes % 6.2 %; Mean Corpuscular HGB Conc 32.9 g/dL (30.0-36.0); Mean Corpuscular Hemoglobin 30.9 pg (28.0-34.0); Mean Corpuscular Volume 93.8 fl (81-99); Mean Platelet Volume 9.7 fL (7.4-10.4); Monocytes # 0.7 10^3/uL (0.2-0.9); Monocytes % 7.3 %; Neutrophils # 8.76 10^3/uL (1.8-7.7); Neutrophils % 85.8 %; Nucleated Red Blood Cells % 0 %; Platelet Count 444 10^3/cmm (130-400); Red Blood Count 3.69 10^6/uL (4.1-5.3); Red Cell Distribution Width 12.8 % (12.1-15.1); White Blood Count 10.2 10^3/uL (4.0-10.0)
[2022-05-16 09:43] LABS: D Dimer 3.37 ug/mIFEU (0-0.59)
--- NOTE | 2022-05-16 09:49 | CT_ITS ---
WS: [id number] CT CHEST ANGIOGRAPHY WITH REFORMATS HISTORY: Conversational dyspnea chest pain shortness of breath TECHNIQUE: Contiguous axial images are obtained through the chest during arterial injection of intrav enous contrast. Images are reconstructed to evaluate the pulmonary arteries. MIP imaging also reviewe d. All CT scans at [facility] use at least one of these dose optimization techniques: automat ed exposure control; mA and/or kV adjustment per patient size (includes targeted exams where dose is matched to clinical indication); or iterative reconstruction. CONTRAST: Omnipaque 350; 95 mL IV. DLP: 280.45 mGy.cm COMPARISON: None available. Good opacification of the pulmonary arteries. No filling defects or pulmonary embolism. Normal-sized thoracic aorta. Very mild atherosclerotic plaque within the aorta. Mild pectus excavatum deformity is causing AP narrowing of the thorax. Resulting in mild deformity of the heart. No RIGHT heart strain. There is a moderate-sized pericardial effusion. Pericardial effusion measures 1.8 cm posteriorly. Al so noted are small bilateral pleural effusions. Compressive atelectasis is subsegmental LEFT lower lo be. No mediastinal or hilar adenopathy. Imaging through the upper abdomen demonstrates no abnormality. Mild curvature thoracic spine and degenerative disc disease. CT/CT angio chest PE protcl [id number] IMPRESSION: 1. No pulmonary embolism. 2. Moderate circumferential pericardial effusion measuring up to 1.8 cm. 3. Small bilateral pleural effusions. 4. LEFT lower lobe volume loss due to subsegmental atelectasis.
[2022-05-16 10:20] LABS: Anion Gap 17.2 (5-19); Blood Urea Nitrogen 11 mg/dL (8-23); Carbon Dioxide 22 mmol/L (22-29); Chloride 94 mmol/L (98-107); Glucose 145 mg/dL (65-115); NT Pro B Type Natriuretic Pept 1622 pg/mL (0-125); Osmolality Calculated 270 mOsm/kg (285-295); Potassium 4.2 mmol/L (3.5-5.1); Sodium 129 mmol/L (136-145); Troponin(5th) Baseline 21 ng/L (0-10)
--- NOTE | 2022-05-16 10:39 | PC.NURSE ---
pt is on security monitor and first EKG complete
[2022-05-16] MEDS: iohexol 350 mg/mL 100 mL Btl IV (10:47)
[2022-05-16 10:52] VITALS: BP 115/80; PULSE 102; RESP 18; O2SAT 98
--- NOTE | 2022-05-16 11:35 | USCV_ITS ---
Sheri Lopez Age: 76 Gender: F : 1945 Exam Date: 05/16/2022 11:45 Ordering Phys: Jon Leonard DO Technologist: Peng Cortez Exam Location: [facility] [place] Indication: percard effusion BP: 107 / 77 HR: 97 Rhythm: Sinus Technical Quality: Adequate MEASUREMENTS (Male / Female) Normal Values 2D ECHO LV Diastolic Diameter PLAX 3.9 cm 4.2 - 5.9 / 3.9 - 5.3 cm LV Systolic Diameter PLAX 2.2 cm IVS Diastolic Thickness 1.0 cm 0.6 - 1.0 / 0.6 - 0.9 cm IVS Systolic Thickness 1.3 cm LVPW Diastolic Thickness 0.9 cm 0.6 - 1.0 / 0.6 - 0.9 cm LVPW Systolic Thickness 1.2 cm LVOT Diameter 2.1 cm LV Ejection Fraction 2D Teich 75.0 % LV Ejection Fraction MOD 2C 71.3 % LV Ejection Fraction 2C AL 70.5 % LA Diameter 3.9 cm IVC Diameter 2.7 cm M-MODE Aortic Annulus Diameter 3.2 cm LA Ao Ratio MM 1.3 MV E Point Septal Separation 0.8 cm DOPPLER AV Peak Velocity 144.0 cm/s LVOT Peak Velocity 103.0 cm/s AV Area Cont Eq vti 2.5 cm squared AV Area Cont Eq pk 2.4 cm squared MV Area PHT 5.0 cm squared Mitral E to A Ratio 0.9 MV E' Velocity 37.0 cm/s Mitral E to MV E' Ratio 8.6 Mitral E to LV E' Lateral Ratio 9.6 Mitral E to LV E' Septal Ratio 7.8 TR Peak Velocity 152.8 cm/s TR Peak Gradient 9.3 mmHg TV Peak E Velocity 95.0 cm/s Right Atrial Pressure 3.0 mmHg Pulmonary Artery Systolic Pressu 12.3 mmHg RV Acceleration Time 0.1 s FINDINGS Left Ventricle Left ventricle is normal in size. LV systolic function is normal with EF of 55-60%. No regional wall motion abnormality seen. Right Ventricle Normal in size Right Atrium Normal in size Left Atrium Normal in size Mitral Valve Grossly normal. No significant stenosis or regurgitation. Aortic Valve Grossly normal. No significant stenosis or regurgitation seen Tricuspid Valve Trace tricuspid regurgitation. Insufficient TR jet to calculate RVSP Pulmonic Valve Not well-visualized Pericardium Small to medium sized pericardial effusion Aorta Normal in size IVC IVC appears to be normal CONCLUSIONS LV systolic function is normal with EF 55 to 60%. Trace tricuspid regurgitation. Small to medium sized pericardial effusion is seen. Compared to prior echocardiogram from 07/2021, patient now has small to medium sized pericardial effusion Pipo Tamayo MD (Electronically Signed) Final Date: 16 May 2022 18:58 S
[2022-05-16 11:39] VITALS: BP 107/77; PULSE 96; RESP 18; O2SAT 99
[2022-05-16 12:35] VITALS: BP 114/75; PULSE 95; RESP 18; O2SAT 97
[2022-05-16 12:48] LABS: Erythrocyte Sedimentation Rate 68 mm/hr (0-15)
[2022-05-16 13:36] VITALS: BP 121/81; PULSE 102; RESP 17; O2SAT 100
== END 2022-05-16 13:41 | disposition home or self-care (01) ==
PROVIDERS: Emergency Provider Family Medicine; PCP Family Medicine
DX: I31.3 Pericardial effusion (noninflammatory) (principal); J90 Pleural effusion, not elsewhere classified; I51.7 Cardiomegaly; R79.1 Abnormal coagulation profile; N30.90 Cystitis, unspecified without hematuria; G47.33 Obstructive sleep apnea (adult) (pediatric); Z87.891 Personal history of nicotine dependence
CPT/HCPCS: 36415; 71045; 71275; 80048; 83880; 84484; 85025; 85378; 85651; 87040; 93005; 93306; 96360; 99285; J7030; Q9967

== ENCOUNTER 2022-05-23 07:19 | Inpatient (IN) | payer MEDICARE, OTHER, SELFPAY ==
[2022-05-23] VITALS (59 sets, daily range): BP systolic 80–144; BP diastolic 50–90; PULSE 70–152; RESP 17–42; TEMP 36.6–36.8; O2SAT 81–100; BMI 26.6
--- NOTE | 2022-05-23 07:30 | XRR_ITS ---
PROCEDURE INFORMATION: Exam: XR Chest Exam date and time: 05/23/2022 7:41 AM Age: 76 years old Clinical indication: Cough and dyspnea; Patient HX: Rapid breathing, SOB; Additional info: Dyspnea/cough TECHNIQUE: Imaging protocol: Radiologic exam of the chest. Views: 1 view. Total images: 1 COMPARISON: CR XR chest 1V portable [id number] 05/16/2022 8:39 AM FINDINGS: Lungs: Benign granulomatous disease of the lung is noted. Interval worsening of left pleuroparenchymal disease. Pleural spaces: No pneumothorax. There is blunting of the right costophrenic angle, likely indicating a small pleural effusion. Heart/Mediastinum: Unremarkable. No cardiomegaly. Bones/joints: Osseous structures are unchanged from the prior exam. XR/XR chest 1V portable [id number] IMPRESSION: 1. Interval worsening of left pleuroparenchymal disease. 2. There is blunting of the right costophrenic angle, likely indicating a small pleural effusion.
--- NOTE | 2022-05-23 07:30 | ECG_ITS ---
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 Measurements Intervals [place] Rate: 163 P: AL: QRS: -53 QRSD: 101 T: 85 QT: 268 QTc: 441 Interpretive Statements ATRIAL FIBRILLATION WITH RAPID VENTRICULAR RESPONSE LEFT AXIS DEVIATION [QRS AXIS < -30] LOW QRS VOLTAGE IN PRECORDIAL LEADS [QRS DEFLECTION < 1.0 mV IN CHEST LEADS] ANTEROSEPTAL MYOCARDIAL INFARCTION , OF INDETERMINATE AGE Compared to ECG 05/16/2022 08:24:30 Left-axis deviation now present Low QRS voltage now present Sinus tachycardia no longer present Left anterior fascicular block no longer present Myocardial infarct finding still present Electronically Signed On 05-23-2022 12:46:40 CDT by Jenny Wang M.D. [id number]
[2022-05-23] MEDS: dilTIAZem 5 mg/mL SDV 5 mL 20 MG IVP (07:37)
--- NOTE | 2022-05-23 07:37 | ED_ITS ---
HPI - Arrhythmia/Palpitations General: Chief Complaint: Shortness of Breath/Dyspnea Stated Complaint: afib rvr Time Seen by Provider: 05/23/22 07:27 Source: patient Mode of arrival: EMS History of Present Illness: 76-year-old female presents emergency room via EMS. She has a history of A. fib with RVR. She was seen last week for a cystitis. At that time she was also found to have a pericardial effusion which was relatively minor. She was discharged home was to follow-up with cardiology. That is scheduled for tomorrow. This morning patient went to get out of bed suddenly became diaphoretic and very very weak she said she has been continuously weak for the since we last seen her. Is difficult to get her to differentiate her symptoms. In talking to her she states she is feels like she has been in this rhythm since we seen her last time. Time we seen her last time she was not in A. fib with RVR. She has not taken her metoprolol yet this morning. She is complaining of continuous chest discomfort with this is been going on since she had COVID several weeks ago. She not had any fever sweats chills or productive cough recently. MD complaint: rapid heart beat and heart racing Onset (ago): hour(s) Duration: constant Severity: severe Context: occurred during rest Arrhythmia history: atrial fibrillation and other (Pericardial effusion) Associated symptoms: Reports anxiety and short of breath; Deny cough, diaphoresis, muscle cramps, nausea, paresthesias, pre-syncope, sense of impending doom, syncope or vomiting Review of Systems Const: Denies: fever(s), chills, fatigue, malaise or diaphoresis ENMT: Denies: throat pain, ear or mastoid pain, nasal discharge or nasal congestion Card: Reports: palpitations, irregular heart rhythm, dyspnea on exertion and orthopnea; Denies: chest pain, syncope or pre-syncope Resp: Denies: dyspnea, productive cough or non-productive cough GI: Denies: nausea or vomiting : Denies: flank pain, difficulty voiding, dysuria, urinary frequency or ur inary urgency Musc: Denies: neck pain, back pain or muscle cramps Skin/Breast: Denies: rash or pruritus Psych: Reports: anxiety PFSH ED PFSH: Medical History Anxiety VERONICA on CPAP Panic disorder SVT (supraventricular tachycardia) Surgical History History of colonoscopy with polypectomy 2005 History of esophagogastroduodenoscopy (EGD) 2016 History of facelift S/P breast biopsy S/P D&C (status post dilation and curettage) S/P tonsillectomy Status post laparoscopic cholecystectomy Family History Mother Hypertension Social History Smoking and tobacco status: former smoker Quit status (tobacco): has quit using tobacco Year quit tobacco: 1995 [id number] Second hand smoke exposure: No Smoking risk assessment/counseling performed?: Yes Alcohol intake: never Lives independently: Yes Household members: spouse Marital status: service: No Current occupational status: retired Pets and animals: Yes History of recent travel: No Current gender identity: Female Lee Ann/Buddhism: Druze Physical Exam Const: COMMON NORMALS: no acute distress GENERAL APPEARANCE: cooperative and comfortable ORIENTATION/CONSCIOUSNESS: Yes awake, Yes oriented to person, Yes oriented to place and Yes oriented to time HENMT: COMMON NORMALS: normocephalic, atraumatic and hearing grossly normal bilaterally HEAD & SCALP: normocephalic and atraumatic Resp: COMMON NORMALS: normal respiratory effort, No retractions, No use of accessory muscles and clear to auscultation bilaterally AUSCULTATION: clear to auscultation bilaterally Cardio: RATE: tachycardic RHYTHM: abnormal rhythm irregularly irregular GI: COMMON NORMALS: Soft to palpation and No hepatosplenomegaly present AUSCULTATION: Yes normoactive bowel sounds PALPATION: Yes Soft to palpation, No Tenderness to palpation present (GI), No Guarding due to palpation present (GI) and Yes No hepatosplenomegaly present Extremity: COMMON NORMALS: normal to inspection, capillary refill normal and no calf tenderness GENERAL: Yes edema Neuro: SENSORIUM/ORIENTATION: Yes oriented to person, Yes oriented to place and Yes oriented to time Skin: COMMON NORMALS: no rashes or lesions noted GENERAL SKIN EXAM: no rashes or lesions noted Course Vital Signs: Vital signs: Vital Signs Temperature 98 F 05/23/22 07:21 Pulse Rate 116 H 05/23/22 09:30 Respiratory Rate 22 H 05/23/22 09:30 Blood Pressure 80/60 05/23/22 09:30 Pulse Oximetry 96 05/23/22 09:30 Oxygen Delivery Me thod 05/23/22 09:30 Oxygen Flow Rate 2 05/23/22 09:30 MDM - Arrhythmia/Palpitations Medical Decision Making A. fib with RVR rate is now controlled with Cardizem. Will consult cardiology admit with hospitalist orders written. May need further evaluation with the pericardial effusion and pleural effusion as well. Medical Records I reviewed the patient's medical records. Lab Data I reviewed the patient's lab results. : 05/23/22 07:02 05/23/22 07:02 Radiology Impressions Chest X-Ray 05/23/22 07:30 IMPRESSION: 1. Interval worsening of left pleuroparenchymal disease. 2. There is blunting of the right costophrenic angle, likely indicating a small pleural effusion. Laboratory Results WBC 16.3 10^3/uL (4.0-10.0) H 05/23/22 07:02 RBC 3.97 10^6/uL (4.1-5.3) L 05/23/22 07:02 Hgb 12.1 g/dL (11.5-15.3) 05/23/22 07:02 Hct 38.8 % (37.0-47.0) 05/23/22 07:02 MCV 97.7 fl (81-99) 05/23/22 07:02 MCH 30.5 pg (28.0-34.0) 05/23/22 07:02 MCHC 31.2 g/dL (30.0-36.0) 05/23/22 07:02 RDW 13.3 % (12.1-15.1) 05/23/22 07:02 Plt Count 672 10^3/cmm (130-400) H 05/23/22 07:02 MPV 9.8 fL (7.4-10.4) 05/23/22 07:02 Neut % (Auto) 75.9 % 05/23/22 07:02 Lymph % (Auto) 16.1 % 05/23/22 07:02 [place] % (Auto) 6.9 % 05/23/22 07:02 Eos % (Auto) 0.0 % 05/23/22 07:02 Baso % (Auto) 0.2 % 05/23/22 07:02 Neut # (Auto) 12.37 10^3/uL (1.8-7.7) H 05/23/22 07:02 Lymph # (Auto) 2.6 10^3/uL (0.8-4.8) 05/23/22 07:02 [place] # (Auto) 1.1 10^3/uL (0.2-0.9) H 05/23/22 07:02 Eos # (Auto) 0.0 10^3/uL (0.0-0.8) 05/23/22 07:02 Baso # (Auto) 0.0 10^3/uL (0.0-0.1) 05/23/22 07:02 Nucleated RBC % (auto) 0 % 05/23/22 07:02 Nucleated RBCs # 0.0 /100WBC 05/23/22 07:02 Sodium 131 mmol/L (136-145) L 05/23/22 07:02 Potassium 3.8 mmol/L (3.5-5.1) 05/23/22 07:02 Chloride 90 mmol/L (98-107) L 05/23/22 07:02 Carbon Dioxide 17 mmol/L (22-29) L 05/23/22 07:02 Anion Gap 27.8 (5-19) H 05/23/22 07:02 BUN 15 mg/dL (8-23) 05/23/22 07:02 Creatinine 1.0 mg/dL (0.5-0.9) H 05/23/22 07:02 GFR Calculation Not Reportable 05/23/22 07:02 Glucose 276 mg/dL (65-115) H 05/23/22 07:02 Calculated Osmolality 283 mOsm/kg (285-295) L 05/23/22 07:02 Calcium 9.2 mg/dL (8.5-10.5) 05/23/22 07:02 Magnesium 2.5 mg/dL (1.7-2.3) H 05/23/22 07:02 Total Bilirubin 0.9 mg/dL (0.15-1.2) 05/23/22 07:02 AST 51 U/L (0-32) H 05/23/22 07:02 ALT 71 U/L (0-33) H 05/23/22 07:02 Alkaline Phosphatase 174 U/L (35-105) H 05/23/22 07:02 Troponin T Baseline 18 ng/L (0-10) H 05/23/22 07:02 Total Protein 7.2 g/dL (6.6-8.7) 05/23/22 07:02 Albumin 3.7 g/dL (3.5-5.2) 05/23/22 07:02 Globulin 3.5 g/dL (1.3-4.6) 05/23/22 07:02 TSH 1.26 uIU/mL (0.27-4.20) 05/23/22 07:02 Discharge Plan Discharge Patient Disposition: Admitted As Inpatient Clinical Impression: Atrial fibrillation with rapid ventricular response, Pericardial effusion, Pleural effusion Condition: Stable Prescriptions: No Action oxymetazoline [Afrin (oxymetazoline)] 0.05 % spray,non-aerosol 2 spray intranasal Q12H PRN (Reason: Allergy Symptoms) alprazolam [Xanax] 0.25 mg tablet 0.125 mg PO .EVERY 5 DAYS PRN (Reason: Anxiety) Multivitamin 50 Plus Tablet 1 tab PO QAM Immunicare 15-15-10 mg-unit-mcg Capsule 1 cap PO QAM calcium carbonate-vitamin D3 [Calcium + D] 600 mg-5 mcg (200 unit) Tablet 1 tab PO QAM esomeprazole magnesium [Nexium] 40 mg Capsule,Delayed Release(Dr/Ec) 40 mg PO QPM cholecalciferol (vitamin D3) [Vitamin D3] 25 mcg (1,000 unit) Tablet 25 mcg PO QAM metoprolol succinate 25 mg tablet extended release 24 hr 37.5 mg PO QAM levalbuterol tartrate [Xopenex HFA] 45 mcg/actuation HFA aerosol inhaler 2 inh inhalation Q6H PRN (Reason: Shortness Of Breath) Lasix 20 mg tablet 20 mg PO EVERY OTHER DAY Referrals: Mikayla Webb DO [Primary Care Provider] - Patient Instructions: Opioid Safety, Pain Management Coding Level of Care Code ED 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
[2022-05-23 07:43] LABS: Basophils % 0.2 %; Hematocrit 38.8 % (37.0-47.0); Hemoglobin 12.1 g/dL (11.5-15.3); Lymphocytes # 2.6 10^3/uL (0.8-4.8); Lymphocytes % 16.1 %; Mean Corpuscular HGB Conc 31.2 g/dL (30.0-36.0); Mean Corpuscular Hemoglobin 30.5 pg (28.0-34.0); Mean Corpuscular Volume 97.7 fl (81-99); Mean Platelet Volume 9.8 fL (7.4-10.4); Monocytes # 1.1 10^3/uL (0.2-0.9); Monocytes % 6.9 %; Neutrophils # 12.37 10^3/uL (1.8-7.7); Neutrophils % 75.9 %; Nucleated Red Blood Cells % 0 %; Platelet Count 672 10^3/cmm (130-400); Red Blood Count 3.97 10^6/uL (4.1-5.3); Red Cell Distribution Width 13.3 % (12.1-15.1); White Blood Count 16.3 10^3/uL (4.0-10.0)
[2022-05-23] MEDS: metoprolol succinate ER (24 HR) 25 mg Tablet 37.5 MG PO (07:47)
[2022-05-23 07:58] LABS: Alanine Aminotransferase 71 U/L (0-33); Albumin Level 3.7 g/dL (3.5-5.2); Alkaline Phosphatase 174 U/L (35-105); Anion Gap 27.8 (5-19); Aspartate Amino Transferase 51 U/L (0-32); Blood Urea Nitrogen 15 mg/dL (8-23); Calcium 9.2 mg/dL (8.5-10.5); Carbon Dioxide 17 mmol/L (22-29); Chloride 90 mmol/L (98-107); Globulin 3.5 g/dL (1.3-4.6); Glucose 276 mg/dL (65-115); Osmolality Calculated 283 mOsm/kg (285-295); Potassium 3.8 mmol/L (3.5-5.1); Sodium 131 mmol/L (136-145); Total Bilirubin 0.9 mg/dL (0.15-1.2); Total Protein 7.2 g/dL (6.6-8.7)
[2022-05-23] MEDS: sodium chloride 0.9% 1,000 ML 999 ML IV (09:29)
--- NOTE | 2022-05-23 09:30 | ECG_ITS ---
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 Measurements Intervals [place] Rate: 115 P: [place]: QRS: -49 QRSD: 111 T: 84 QT: 327 QTc: 454 Interpretive Statements ATRIAL FIBRILLATION WITH RAPID VENTRICULAR RESPONSE LOW QRS VOLTAGE IN PRECORDIAL LEADS [QRS DEFLECTION < 1.0 mV IN CHEST LEADS] LEFT ANTERIOR FASCICULAR BLOCK [QRS AXIS <= -45, QR IN I, RS IN II] ANTEROSEPTAL MYOCARDIAL INFARCTION , OF INDETERMINATE AGE [40+ ms Q WAVE IN V1-V4] Compared to ECG 05/16/2022 08:24:30 Low QRS voltage now present Sinus tachycardia no longer present Myocardial infarct finding still present Electronically Signed On 05-23-2022 12:46:10 CDT by Jenny Wang M.D. [id number]
--- NOTE | 2022-05-23 09:51 | PC.PHAR ---
pt states she takes care of her own medications-pt states she never started the macrobid 100mg bid filled 05/16/22 7d/s-pt also states she never took the doxycycline hyclate 100mg bid filled 05/14/22,prednisone 20mg take 40mg daily filled 05/14/22 5d/s-pt states that she took some cephalexin 500mg bid filled 05/15/22 7d/s states it made her feel in she was going to pass out states she wants it added to her allergy list-ext med history shows cymbalta 30mg daily filled 03/12/22 90d/s pt states she never started taking it-
[2022-05-23 10:18] LABS: Troponin(5th) Baseline 18 ng/L (0-10)
--- NOTE | 2022-05-23 10:22 | P.HP_ITS ---
Providers/Chief Complaint Admitting Physician: Ney Andres MD Primary Care Provider: Mikayla Webb DO Chief Complaint: afib rvr History of Present Illness Sheri Lopez is a 76 year old female presenting with illness for the last 20 days. She reports she first got a viral syndrome, and coughed quite a bit. She had some low-grade temperatures 99 to 100 ?F. She was tested for COVID by her primary care provider and negative. She has not had any antibiotics until rec ently when she had 1 dose or 2 doses of Keflex for possible UTI. She reports for the last week she has been more short of breath, especially with exertion. She has noted her resting heart rate has been over 100 usually. She reports history of SVT in the past so this was not completely surprising for her. She reports some nausea, and occasional dry heaves but no diarrhea. Occasionally will notice a slight amount of blood in her stool. No black or tarry stools. No blood alone. Reports her chest discomfort is described as tight, substernal, and relatively unremitting. She states it changes a little bit when she breathes in deep. She cannot really get relief by sitting forward. She was lightheaded with ambulation today. In the emergency department Cardizem was started for atrial fibrillation with rapid ventricular rate, dose of metoprolol was given, she received IV fluids. When I evaluated her I was concerned regarding cardiac tamponade, and stat echo was ordered. Cardiology is currently intervening with pericardial drainage. Review of Systems General: Reports: 10 or more systems reviewed and unremarkable except in HPI and below Const: Reports: fever(s), chills and malaise Eyes: Denies: change in vision ENMT: Denies: throat pain Card: Reports: chest pain and lightheadedness; Denies: edema Resp: Reports: dyspnea and non-productive cough GI: Reports: nausea, vomiting and hematochezia; Denies: abdominal pain : Denies: flank pain Musc: Denies: neck pain Skin/Breast: Denies: rash Neuro: Denies: headache(s) Psych: Denies: anxiety or depression Endo: Denies: polyuria Rojelio/Lymph: Denies: easy bruising All/Imm: Denies: urticaria Medications/Allergies Home Medications Medication Instructions Recorded Confirmed Last Taken Type [id number] 1 tab PO QAM 09/21/20 05/23/22 09/21/20 History tablet (Multivitamin 50 Plus) vitamin C 15 mg-vit E 15 1 cap PO QAM 09/21/20 05/23/22 09/21/20 History unit-selenium 10 mcg-herbal no.191 capsule (Immunicare) alprazolam 0.25 mg tablet (Xanax) 0.125 mg PO .EVERY 5 DAYS PRN 02/09/22 05/23/22 Unknown History Anxiety oxymetazoline 0.05 % nasal spray 2 spray intranasal Q12H PRN 03/14/22 05/23/22 Unknown History (Afrin (oxymetazoline)) Allergy Symptoms calcium carbonate 600 mg-vitamin 1 tab PO QAM 05/16/22 05/23/22 Unknown History D3 5 mcg (200 unit) tablet cholecalciferol (vitamin D3) 25 25 mcg PO QAM 05/16/22 05/23/22 Unknown History mcg (1,000 unit) tablet (Vitamin D3) esomeprazole magnesium 40 mg 40 mg PO QPM 05/16/22 05/23/22 Unknown History capsule,delayed release (Nexium) levalbuterol tartrate 45 2 inh inhalation Q6H PRN Shortness 05/16/22 05/23/22 Unknown History mcg/actuation aerosol inhaler Of Breath (Xopenex HFA) metoprolol succinate 25 mg 37.5 mg PO QAM 05/16/22 05/23/22 05/16/22 History tablet,extended release 24 hr threw up after takin furosemide 20 mg tablet (Lasix) 20 mg PO EVERY OTHER DAY 05/23/22 05/23/22 05/20/22 History Allergies Allergy/AdvReac Type Severity Reaction Status Date / Time Penicillins Allergy Severe ALGY-Anaphy Verified 05/23/22 09:34 laxis vancomycin Allergy Severe unknown Verified 05/23/22 09:34 influenza virus vaccine, Allergy Unknown Unknown Verified 05/23/22 09:34 specific meperidine [From Demerol] Allergy Unknown Unknown Verified 05/23/22 09:34 penicillin G Allergy Unknown Unknown Verified 05/23/22 09:34 Sulfa (Sulfonamide Allergy Unknown Unknown Verified 05/23/22 09:34 Antibiotics) cephalexin [From Keflex] Allergy feels like Verified 05/23/22 09:34 shes going to pass out all vaccines Allergy Unknown Uncoded 05/16/22 09:02 PFSH Acute PFSH: Medical History Anxiety VERONICA on CPAP Panic disorder SVT (supraventricular tachycardia) Surgical History History of colonoscopy with polypectomy 2005 History of esophagogastroduodenoscopy (EGD) 2015 History of facelift S/P breast biopsy S/P D&C (status post dilation and curettage) S/P tonsillectomy Status post laparoscopic cholecystectomy Family History Mother Hypertension Social History Smoking and tobacco status: former smoker Quit status (tobacco): has quit using tobacco Year quit tobacco: 1995 [id number] Second hand smoke exposure: No Smoking risk assessment/counseling performed?: Yes Alcohol intake: never Lives independently: Yes Household members: spouse Marital status: service: No Current occupational status: retired Pets and animals: Yes History of recent travel: No Current gender identity: Female Lee Ann/Episcopalian: Moravian Vitals/I&O/Wt Last Vital Signs Temp 98 F 05/23/22 07:21 Pulse 116 H 05/23/22 09:30 Resp 22 H 05/23/22 09:30 BP 80/60 05/23/22 09:30 Pulse Ox 96 05/23/22 09:30 O2 Del Method 05/23/22 09:30 O2 Flow Rate 2 05/23/22 09:30 05/22/22 05/23/22 05/23/22 22:59 06:59 14:59 Intake Total 10.800 / 10.800 Balance 10.800 / 10.800 Weight last 48 hrs Weight 81.647 kg Physical Exam Narrative: General exam demonstrates a white female, sitting upright in bed, currently with mild tachycardia, tachypnea. HEENT: Atraumatic and normocephalic. Pupils equally round. Oropharynx clear. Neck is supple no lymphadenopathy thyromegaly Cardiovascular regular currently, tachycardic, heart sounds distant, no murmur. I do not auscultate a rub. It appears from telemetry that she is currently in sinus rhythm. Lungs diminished breath sounds left. No wheezes or crackles Abdomen is soft nontender positive bowel sounds. No obvious organomegaly exams deferred Extremities no cyanosis clubbing or edema, cap refill brisk Skin no rash Neuro no obvious focal deficits. Data : 05/23/22 07:02 05/23/22 07:02 Other Labs: Chest x-ray with cardiomegaly, likely left pleural effusion. Mild right pleural effusion with slight blunting LFTs slightly high with AST of 51, ALT of 71, alk phos of 174. Troponin 18 TSH, albumin normal Calcium 9.2 Chest ultrasound demonstrated a small bilateral effusions Chest CTA performed May 16 demonstrated no pulmonary embolism, mild to moderate pericardial effusion, small effusion Echocardiogram May 16 demonstrated small to medium pericardial effusion, preserved EF A&P Assessment and plan (1) Pericardial effusion: Patient presents with worsening of her pericardial effusion, with symptomatology concerning for impending tamponade. Cardiology has been consulted, and pericardiocentesis is currently being performed. Appropriate studies will be ordered on this. Status: Acute (2) Atrial fibrillation with rapid ventricular response: Patient presented with atrial fibrillation with rapid ventricular rate. Cardizem was initiated. Hold anticoagulation currently in face of pericardiocentesis Likely can restart patient's long-acting beta-ravi following pericardiocentesis. Rate with atrial fibrillation is likely being driven by significant pericardial effusion. Will review indications for anticoagulation later after pericardiocentesis TSH was checked and normal. Magnesium level was checked and not low. Status: Acute (3) Cystitis: Patient with past history of cystitis. Check UA. Status: Acute (4) Pneumonia: Possible left-sided pneumonia, starting 20 days ago. She has a very small pleural effusion. Her white blood cell count is elevated. Initiate Levaquin. Sputum culture, MRSA PCR. Oxygen as needed. Status: Acute Plan Transaminitis. May be related to some fluid overload symptoms from significant pericardial effusion and impending tamponade. Check hepatitis panel. Repeat LFTs tomorrow. Full code Anticoagulation will be initiated following pericardiocentesis Attestations Medical Necessity Statement*: Will require greater than 2 midnight stay for evaluation and treatment of pericardial effusion, large associated pneumonia Critical Care Time: The high probability of a clinically significant, sudden or life threatening deterioration of the patient's [cardiac, pulmonary, infectious disease] system(s) required my full and direct attention, intervention and personal management. The critical care time is as shown. This time is in addition to time spent performing any reported procedures but includes the following: [x] Data and vital sign review and interpretation [x] Patient assessment, examination and intervention [x] Documentation [x] Medication orders and management Critical Care Time (min): 62 Coding Level of Care Code Acute Infrastructure Project Manager for [facility] Fwd Diagnoses Pericardial effusion I31.3 Atrial fibrillation with rapid ventricular response I48.91 Cystitis N30.90 Pneumonia J18.9
[2022-05-23 10:24] LABS: Magnesium 2.5 mg/dL (1.7-2.3); Thyroid Stimulating Hormone 1.26 uIU/mL (0.27-4.20)
--- NOTE | 2022-05-23 10:28 | US_ITS ---
WS: [id number] Ultrasound bilateral chest. HISTORY: Evaluate for pleural effusions. COMPARISON: Radiograph 05/23/[address] 05/16/2022. Small bilateral pleural effusions are identified. Atelectatic lung is noted within the pleural effusi ons. The dense area of consolidation seen on the radiograph is probably a combination of atelectasis, small LEFT pleural effusion and also an enlarged heart with the pericardial effusion. Only a small a mount of pleural fluid was noted on the prior CT. US/ chest [id number] IMPRESSION: 1. Small bilateral pleural effusions. 2. Dense area of consolidation in the LEFT thorax is probably combination of at electatic lung, small effusion and the pericardial effusion.
--- NOTE | 2022-05-23 10:28 | USCV_ITS ---
Sheri Lopez Age: 76 Gender: F : 1945 Exam Date: 05/23/2022 10:40 Ordering Phys: Ney Andres MD Technologist: DARIEN [place]am [place] [facility] [place]: SHORTNESS OF BREATH, EVAL FOR TAMPONADE BP: 124 / 71 HR: Rhythm: Sinus Technical Quality: Suboptimal MEASUREMENTS (Male / Female) Normal Values 2D ECHO IVC Diameter 2.5 cm DOPPLER Right Atrial Pressure 15.0 mmHg FINDINGS Left Ventricle Right Ventricle Right Atrium Left Atrium Mitral Valve Aortic Valve Tricuspid Valve Pulmonic Valve Pericardium Aorta IVC CONCLUSIONS There is a large in size pericardial effusion. This is compressing on RV and RA. Partial diastolic collapse seen. Early echo signs of pericardial tamponade are seen. IVC does not collapse Compared to prior echocardiogram from 05/16/2022, pericardial effusion has significantly increased and is now compressing RA and RV. Pipo Tamayo MD (Electronically Signed) Final Date: 25 May 2022 15:32 S
--- NOTE | 2022-05-23 11:21 | PM.CONSULT ---
Providers/Reason For Consult Consulting Physician/Specialty*: Pipo Tamayo MD/Interventional Cardiology Reason for Consult*: Pericardial effusion/ tamponade Requesting Physician: Dr Leonard Attending Physician: Dr Andres Primary Care Provider: Mikayla Webb DO History of Present Illness History of Present Illness Sheri Lopez is a 76 year old female with past medical history of SVT was recently seen in the emergency room for worsening shortness of breath. At that time had small to moderate sized pericardial effusion. She is not feeling well for the last 1 month with low-grade fevers. She was also treated for UTI in the recent past. She presented today to the emergency room with feeling shortness of breath, chest discomfort and lightheadedness with ambulation. Stat echocardiogram was performed in the emergency room that showed large sized pericardial effusion with early signs of pericardial tamponade. Plan to perform urgent pericardiocentesis. Patient brought to the cardiac Ground Control Approach Technician. Review of Systems General: Reports: 10 or more systems reviewed and unremarkable except in HPI and below Const: Reports: fever(s), chills and malaise Eyes: Denies: change in vision ENMT: Denies: throat pain Card: Reports: chest pain and lightheadedness; Denies: edema Resp: Reports: dyspnea and non-productive cough GI: Reports: nausea, vomiting and hematochezia; Denies: abdominal pain : Denies: flank pain Musc: Denies: neck pain Skin/Breast: Denies: rash Neuro: Denies: headache(s) Psych: Denies: anxiety or depression Endo: Denies: polyuria Rojelio/Lymph: Denies: easy bruising All/Imm: Denies: urticaria Medications/Allergies Home Medications Medication Instructions Recorded Confirmed Last Taken Type vsbabfwdzdbl-izgpswor-tbaaez 1 tab PO QAM 09/21/20 05/23/22 09/21/20 History tablet (Multivitamin 50 Plus) vitamin C 15 mg-vit E 15 1 cap PO QAM 09/21/20 05/23/22 09/21/20 History unit-selenium 10 mcg-herbal no.191 capsule (Immunicare) alprazolam 0.25 mg tablet (Xanax) 0.125 mg PO .EVERY 5 DAYS PRN 02/09/22 05/23/22 Unknown History Anxiety oxymetazoline 0.05 % nasal spray 2 spray intranasal Q12H PRN 03/14/22 05/23/22 Unknown History (Afrin (oxymetazoline)) Allergy Symptoms calcium carbonate 600 mg-vitamin 1 tab PO QAM 05/16/22 05/23/22 Unknown History D3 5 mcg (200 unit) tablet cholecalciferol (vitamin D3) 25 25 mcg PO QAM 05/16/22 05/23/22 Unknown History mcg (1,000 unit) tablet (Vitamin D3) esomeprazole magnesium 40 mg 40 mg PO QPM 05/16/22 05/23/22 Unknown History capsule,delayed release (Nexium) levalbuterol tartrate 45 2 inh inhalation Q6H PRN Shortness 05/16/22 05/23/22 Unknown History mcg/actuation aerosol inhaler Of Breath (Xopenex HFA) metoprolol succinate 25 mg 37.5 mg PO QAM 05/16/22 05/23/22 05/16/22 History tablet,extended release 24 hr threw up after takin furosemide 20 mg tablet (Lasix) 20 mg PO EVERY OTHER DAY 05/23/22 05/23/22 05/20/22 History Allergies Allergy/AdvReac Type Severity Reaction Status Date / Time Penicillins Allergy Severe ALGY-Anaphy Verified 05/23/22 09:34 laxis vancomycin Allergy Severe unknown Verified 05/23/22 09:34 influenza virus vaccine, Allergy Unknown Unknown Verified 05/23/22 09:34 specific meperidine [From Demerol] Allergy Unknown Unknown Verified 05/23/22 09:34 penicillin G Allergy Unknown Unknown Verified 05/23/22 09:34 Sulfa (Sulfonamide Allergy Unknown Unknown Verified 05/23/22 09:34 Antibiotics) cephalexin [From Keflex] Allergy feels like Verified 05/23/22 09:34 shes going to pass out all vaccines Allergy Unknown Uncoded 05/16/22 09:02 Current Medications Generic Name Dose Route Start Last Admin Trade Name Freq PRN Reason Stop Dose Admin Diltiazem HCl 50 mg/ Sodium 50 mls @ 0 mls/hr 05/23/22 07:30 05/23/22 09:13 Chloride IV 15 mg/hr .Q0M ROOSEVELT 15 mls/hr Titration Protocol Per Protocol PFSH Acute PFSH: Medical History Anxiety VERONICA on CPAP Panic disorder SVT (supraventricular tachycardia) Surgical History History of colonoscopy with polypectomy 2005 History of esophagogastroduodenoscopy (EGD) 2016 History of facelift S/P breast biopsy S/P D&C (status post dilation and curettage) S/P tonsillectomy Status post laparoscopic cholecystectomy Family History Mother Hypertension Social History Smoking and tobacco status: former smoker Quit status (tobacco): has quit using tobacco Year quit tobacco: 1995 [id number] Second hand smoke exposure: No Smoking risk assessment/counseling performed?: Yes Alcohol intake: never Lives independently: Yes Household members: spouse Marital status: service: No Current occupational status: retired Pets and animals: Yes History of recent travel: No Current gender identity: Female Lee Ann/Episcopal: Hindu Vitals/I&O/Wt Last Vital Signs Temp 98 F 05/23/22 07:21 Pulse 102 H 05/23/22 11:15 Resp 34 H 05/23/22 11:15 BP 144/83 05/23/22 11:15 Pulse Ox 81 L 05/23/22 11:15 O2 Del Method 05/23/22 09:30 O2 Flow Rate 2 05/23/22 09:30 05/22/22 05/23/22 05/23/22 22:59 06:59 14:59 Intake Total 10.800 / 10.800 Balance 10.800 / 10.800 Weight last 48 hrs Weight 180 lb Physical Exam Narrative: GENERAL: Patient is alert, awake and oriented x3. [] NECK: No jugular vein distension. [] HEENT: No cyanosis. No icterus. No pallor. [] HEART: Tachycardic, irregularly irregular. Muffled heart sounds. LUNGS: Clear to auscultate bilaterally. [] ABDOMEN: Soft, nontender and nondistended. Positive bowel sounds. No guarding, rebound or tenderness. [] CENTRAL NERVOUS SYSTEM: Grossly nonfocal. [] EXTREMITIES: Lower extremities with no edema bilaterally. Pulses palpable in the lower extremities, both dorsalis pedis and posterior tibial. [] Data : 05/24/22 03:46 05/24/22 03:46 Micro: Microbiology 05/23/22 10:50 Blood Culture - Preliminary Blood SPECIMEN COLLECTED A&P Assessment and plan (1) Atrial fibrillation with rapid ventricular response: Status: Acute (2) Pericardial effusion: Status: Acute (3) Palpitations: Status: Acute Plan Patient has presented with a large sized pericardial effusion with early signs of cardiac tamponade on echocardiogram. Also blood pressure is transiently dropping. We will proceed with urgent pericardiocentesis. Risks and benefits discussed with the patient. She understands the risks and benefits and wants to proceed with it. Her symptoms are consistent with pericarditis. We will proceed with treatment based on analysis of pericardial fluid. Thank you for involving us with care of this patient. We will continue to follow. Please call with questions. Consult Attestations Medical Necessity Statement: Care expected to cross 2 midnights. Coding Level of Care Code Acute Manager Fine Dining for Serafin Delgadillo Diagnoses Atrial fibrillation with rapid ventricular response I48.91 Pericardial effusion I31.3 Palpitations R00.2
--- NOTE | 2022-05-23 11:33 | USCV_ITS ---
John Sheri Age: 76 Gender: F : 1945 Exam Date: 05/23/2022 11:38 Ordering Phys: Pipo Tamayo M.D ([email or web address]) Technologist: DARIEN [place] [facility] [place]: ASSIST WITH DRAIN PLACEMENT Conclusions This is limited echocardiogram performed post pericardiocentesis and pericardial drain placement. Pericardial effusion has decreased significantly and patient only has minimal amount of effusion noted now. Pipo Tamayo MD (Electronically Signed) Final Date: 27 May 2022 17:34 S
[2022-05-23 13:35] LABS: Erythrocyte Sedimentation Rate 18 mm/hr (0-15)
[2022-05-23 13:36] LABS: C Reactive Protein 108.8 mg/L (0.0-4.9)
[2022-05-23 13:58] LABS: Cyto Order Verification Order Verified
[2022-05-23] MEDS: levofloxacin-dextrose 5 % 750 MG/150 ML PREMIX 100 MG IV (14:17)
[2022-05-23] MEDS: sodium chloride 0.9% 1,000 ML 75 ML IV (14:19)
[2022-05-23 15:12] LABS: LDH Body Fluid 1372 U/L
--- NOTE | 2022-05-23 16:24 | PM.PROC ---
Procedure Note: Date of procedure: 05/23/22 Pre-procedure diagnosis: Large pericardial effusion/ early cardiac tamponade Post-procedure diagnosis: same Procedure: Pericardiocentesis and pericardial drain placement Using sterile technique, under ultrasound and fluoroscopic guidance, we advanced a pericardiocentesis needle into pericardial space. Placement was confirmed with saline bubbles and contrast injection. We then advanced a J-wire into pericardial space. This was followed by placement of pericardial drain. 700 cc of bloody fluid was drained in the Tire And Lube Technician. Fluid was sent for lab evaluation. Drain was left in place for further evacuation. Patient left the Tire And Lube Technician in a stable condition Performing Provider: Pipo Tamayo Complications: None Disposition: ICU Coding Level of Care Code Acute Line Manager for Serafin Delgadillo
[2022-05-23 17:07] LABS: Hepatitis A Antibody IgM Non-Reactive (Nonreactive); Hepatitis B Core IgM Non-Reactive (Nonreactive); Hepatitis B Surface Antigen Non-Reactive (Nonreactive); Hepatitis C Virus Antibody Non-Reactive (Nonreactive)
[2022-05-23 17:16] LABS: Troponin 5 6HR 26.72 ng/L (0-10)
[2022-05-23 17:19] LABS: Troponin 5 6HR Delta 8.72 ng/L (0-12)
[2022-05-23] MEDS: pantoprazole DR 40 mg Tablet PO (17:43)
[2022-05-23 18:47] LABS: Polynuclear # Cells, Peri 2.851 10^3/uL; RBC Pericardial Fluid 453 10^3/uL; WBC Pericardial Fluid 3841 /uL
[2022-05-23 18:48] LABS: Pericardial Fluid Appearance Bloody (Clear); Pericardial Fluid Color Red (Pale Yellow)
--- NOTE | 2022-05-23 19:03 | PC.NURSE ---
Patient had 70ml of Sanguineous drainage from pericardial drain at 1800.
[2022-05-23 19:12] LABS: Pericardial Fluid Spec Gravity 1.015
[2022-05-23 19:13] LABS: Pericardial Fluid Total Prot 4.9 g/dL
[2022-05-23 19:40] LABS: Add Urine Culture? No; Bacteria Urine TRACE /hpf; Bilirubin Urine Neg (Negative); Blood Urine Neg (Negative); Glucose Urine UA Norm (Normal); Ketones Urine Negative (Negative); Leukocyte Esterase Urine Negative (Negative); Mucus Urine TRACE /hpf; Nitrate Urine Negative (Negative); Protein Urine Neg (Negative); RBC Urine 0-4 /hpf (0-2); Specific Gravity, Urine 1.015 (1.005-1.030); Squamous Epithelial Cell Urine 0-4 /hpf (0-5); Urine Appearance Clear (CLEAR); Urine Color Yellow (Yellow); Urobilinogen Urine Norm (Negative); WBC Urine 0-4 /hpf (0-5); pH Urine 6 (5-7)
[2022-05-24] VITALS (71 sets, daily range): BP systolic 100–166; BP diastolic 49–104; PULSE 68–154; RESP 16–35; TEMP 36.6–37.1; O2SAT 92–100; BMI 26.6
[2022-05-24 04:11] LABS: Basophils % 0.3 %; Eosinophils % 0.2 %; Hematocrit 32.2 % (37.0-47.0); Hemoglobin 10.3 g/dL (11.5-15.3); Lymphocytes # 1.8 10^3/uL (0.8-4.8); Lymphocytes % 14.9 %; Mean Corpuscular Hemoglobin 30.4 pg (28.0-34.0); Mean Platelet Volume 9.4 fL (7.4-10.4); Monocytes % 8.6 %; Neutrophils # 9.04 10^3/uL (1.8-7.7); Neutrophils % 75.4 %; Nucleated Red Blood Cells % 0 %; Platelet Count 489 10^3/cmm (130-400); Red Blood Count 3.39 10^6/uL (4.1-5.3); Red Cell Distribution Width 13.3 % (12.1-15.1)
[2022-05-24 04:41] LABS: Alanine Aminotransferase 83 U/L (0-33); Albumin Level 2.7 g/dL (3.5-5.2); Alkaline Phosphatase 135 U/L (35-105); Aspartate Amino Transferase 54 U/L (0-32); Blood Urea Nitrogen 15 mg/dL (8-23); Calcium 8.2 mg/dL (8.5-10.5); Carbon Dioxide 26 mmol/L (22-29); Chloride 102 mmol/L (98-107); Glucose 104 mg/dL (65-115); Osmolality Calculated 287 mOsm/kg (285-295); Sodium 138 mmol/L (136-145); Total Bilirubin 0.4 mg/dL (0.15-1.2); Total Protein 5.7 g/dL (6.6-8.7)
[2022-05-24] MEDS: metoprolol succinate ER (24 HR) 25 mg Tablet 37.5 MG PO (05:28)
[2022-05-24] MEDS: sodium chloride 0.9% 1,000 ML 75 ML IV (05:29)
--- NOTE | 2022-05-24 07:19 | P.PN_ITS ---
Subjective Subjective: Sheri reports that she is doing well. Not short of breath currently. Chest discomfort now is very minor. No nausea. Medications: Reviewed: Yes Vitals/I&O/Wt Last Vital Signs Temp 97.9 F 05/24/22 00:00 Pulse 85 05/24/22 05:54 Resp 28 H 05/24/22 05:30 BP 132/62 05/24/22 05:30 Pulse Ox 96 05/24/22 05:30 O2 Del Method 05/23/22 18:00 O2 Flow Rate 4 05/23/22 20:00 05/23/22 05/24/22 05/24/22 22:59 06:59 14:59 Intake Total 492 / 9049.004 4807 / 2502.800 Output Total 270 / 270 750 / 1020 Balance 222 / 1232.800 250 / 1482.800 Weight last 48 hrs Weight 81.647 kg Weight 81.647 kg Weight 81.647 kg Physical Exam Narrative: General exam demonstrates a white female, no distress. 70 cc out of pericardial drain since yesterday but only 10 or so cc in the last shift. Neck is supple no lymphadenopathy thyromegaly Cardiovascular regular rate and rhythm without murmur. Telemetry demonstrates no arrhythmias since admission to ICU. Lungs diminished breath sounds left. No wheezes or crackles Abdomen is soft nontender positive bowel sounds. No obvious organomegaly exams deferred Extremities no cyanosis clubbing or edema, cap refill brisk Skin no rash Data : 05/24/22 03:46 05/24/22 03:46 Other Labs: Pericardial fluid cultures sent and pending as well as cytology. Micro: Microbiology 05/23/22 14:06 Blood Culture - Preliminary Blood SPECIMEN COLLECTED 05/23/22 10:50 Blood Culture - Preliminary Blood SPECIMEN COLLECTED A&P Assessment and plan (1) Pericardial effusion: Patient presents with worsening of her pericardial effusion, with symptomatology concerning for impending tamponade. Cardiology has been consulted, and pericardiocentesis is currently was performed. Approximately 700 cc drained. Studies sent. Status: Inactive (2) Atrial fibrillation with rapid ventricular response: Patient presented with atrial fibrillation with rapid ventricular rate. Car dizem was initiated. Somewhat bloody drainage from pericardiocentesis. Cardizem has been discontinued and patient converted to sinus rhythm. Continue patient's long-acting beta-ravi. Will review indications for anticoagulation with cardiology. Likely start DVT prophylaxis today. TSH was checked and normal. Magnesium level was checked and not low. Status: Acute (3) Cystitis: Patient with past history of cystitis. Urinalysis not currently indicative of infection. Status: Inactive (4) Pneumonia: Possible left-sided pneumonia, starting 20 days ago. She has a very small pleural effusion. Her white blood cell count is elevated on admission but now improving. Continue Levaquin. Wean oxygen. Await sputum culture and MRSA PCR Status: Acute Plan Transaminitis. May be related to some fluid overload symptoms from significant pericardial effusion and impending tamponade. Hepatitis panel negative. LFTs no worse. I believe these will likely be improved by tomorrow. Acute kidney injury, resolved. This was present on admission. Full code Likely start DVT anticoagulation today. Will discuss with cardiology. May transfer to CSU Attestations Medical Necessity Statement*: Needs continued hospitalization for close follow-up of significant pericardial effusion with impending tamponade status post pericardiocentesis in this patient still with pigtail catheter in. Coding Level of Care Code Acute Cobol Mainframe Developer for Chg Fwd Diagnoses Pericardial effusion I31.3 Atrial fibrillation with rapid ventricular response I48.91 Cystitis N30.90 Pneumonia J18.9
--- NOTE | 2022-05-24 07:21 | XR_ITS ---
WS: [id number] Portable AP semiupright chest, 05/24/2022 Clinical Data: follow up pneumonia Comparison: Portable chest, 05/23/2022 Findings: The opacity of the left lower lung which probably represents effusion, atelectasis and poss ible pneumonia has not changed. The pulmonary vascularity has increased slightly. There is a small ri ght effusion. The heart is probably enlarged. No pneumothorax is seen. Monitor leads are on the chest wall. There is a catheter overlying the upper abdomen with the tip adjacent to the left costophrenic angle. XR/XR chest 1V portable [id number] Impression: 1. No change in left lung opacity 2. Right pleural effusion. 3. In recent pulmonary vascular congestion.
--- NOTE | 2022-05-24 10:15 | PM.PN ---
Subjective Subjective: Patient is feeling much better. Since Computer Network Support Specialist visit, 80 cc for more fluid drained. Vitals/I&O/Wt Last Vital Signs Temp 97.9 F 05/24/22 00:00 Pulse 154 H 05/24/22 08:15 Resp 24 H 05/24/22 08:15 BP 139/63 05/24/22 08:15 Pulse Ox 98 05/24/22 08:15 O2 Del Method 05/24/22 08:15 O2 Flow Rate 1 05/24/22 08:15 05/23/22 05/24/22 05/24/22 22:59 06:59 14:59 Intake Total 492 / 9641.024 4769 / 2502.800 222 / 222 Output Total 270 / 270 750 / 1020 200 / 200 Balance 222 / 1232.800 250 / 1482.800 Weight last 48 hrs Weight 180 lb Weight 180 lb Weight 180 lb Physical Exam Narrative: GENERAL: Patient is alert, awake and oriented x3. [] NECK: No jugular vein distension. [] HEENT: No cyanosis. No icterus. No pallor. [] HEART: Regular rate and rhythm. S1 plus S2. Pericardial drain is noted. LUNGS: Clear to auscultate bilaterally. [] ABDOMEN: Soft CENTRAL NERVOUS SYSTEM: Grossly nonfocal. [] EXTREMITIES: Lower extremities with no edema bilaterally. Pulses palpable in the lower extremities, both dorsalis pedis and posterior tibial. [] Data : 05/25/22 03:28 05/25/22 03:28 Micro: Microbiology 05/23/22 14:06 Blood Culture - Preliminary Blood SPECIMEN COLLECTED 05/23/22 10:50 Blood Culture - Preliminary Blood SPECIMEN COLLECTED A&P Assessment and plan (1) Atrial fibrillation with rapid ventricular response: Status: Acute (2) Pericardial effusion: Status: Acute (3) Palpitations: Status: Acute (4) Pericarditis: Status: Acute Plan Patient had about 700 cc of bloody effusion drained yesterday. She is feeling much better. Another 80 cc was drained later. We will keep the drain in today. Plan for limited transthoracic echocardiogram tomorrow prior to drain removal. Effusion appears to be exudative on analysis. Cytology is still pending. Will start on treatment for pericarditis. We will initiate high-dose ibuprofen 800 mg 3 times daily. Can also put on colchicine 0.6 mg twice daily. Thank you for involving us with care of this patient. We will continue to follow. Please call with questions. Attestations Medical Necessity Statement*: Care expected to cross 2 midnights. Coding Level of Care Code Acute Annealing Torch Operator for Serafin Delgadillo Diagnoses Atrial fibrillation with rapid ventricular response I48.91 Pericardial effusion I31.3 Palpitations R00.2 Pericarditis I31.9
[2022-05-24] MEDS: levofloxacin-dextrose 5 % 750 MG/150 ML PREMIX 100 MG IV (13:14)
[2022-05-24] MEDS: enoxaparin 40 mg/0.4 mL Syringe SUBCUT (13:38)
[2022-05-24] MEDS: ibuprofen 200 mg Tablet 400 MG PO ×2 (14:40→15:20)
--- NOTE | 2022-05-24 14:48 | PC.NURSE ---
Patient requested 800mg of ibuprofen be changed to a 400mg dose one hour apart. Dr. Andres notified and order edited for patient comfort.
[2022-05-24] MEDS: colchicine 0.6 mg Tablet PO (18:03)
[2022-05-24] MEDS: pantoprazole DR 40 mg Tablet PO (18:04)
[2022-05-24] MEDS: ALPRAZolam 0.5 mg Tablet 0.25 MG PO (21:47)
[2022-05-25] VITALS (10 sets, daily range): BP systolic 124–161; BP diastolic 72–84; PULSE 83–146; RESP 16–24; TEMP 36.7; O2SAT 94–98
[2022-05-25 03:42] LABS: Basophils % 0.4 %; Eosinophils # 0.1 10^3/uL (0.0-0.8); Eosinophils % 1.4 %; Hematocrit 34.6 % (37.0-47.0); Lymphocytes # 1.4 10^3/uL (0.8-4.8); Lymphocytes % 14.2 %; Mean Corpuscular HGB Conc 31.8 g/dL (30.0-36.0); Mean Corpuscular Hemoglobin 30.2 pg (28.0-34.0); Mean Corpuscular Volume 95.1 fl (81-99); Mean Platelet Volume 9.3 fL (7.4-10.4); Monocytes # 0.7 10^3/uL (0.2-0.9); Monocytes % 7.3 %; Neutrophils # 7.73 10^3/uL (1.8-7.7); Neutrophils % 76.2 %; Nucleated Red Blood Cells % 0 %; Platelet Count 551 10^3/cmm (130-400); Red Blood Count 3.64 10^6/uL (4.1-5.3); Red Cell Distribution Width 13.2 % (12.1-15.1); White Blood Count 10.1 10^3/uL (4.0-10.0)
[2022-05-25 04:09] LABS: Alanine Aminotransferase 83 U/L (0-33); Albumin Level 2.7 g/dL (3.5-5.2); Alkaline Phosphatase 125 U/L (35-105); Anion Gap 12.6 (5-19); Aspartate Amino Transferase 44 U/L (0-32); Blood Urea Nitrogen 10 mg/dL (8-23); Calcium 8.5 mg/dL (8.5-10.5); Carbon Dioxide 28 mmol/L (22-29); Chloride 103 mmol/L (98-107); Globulin 3.3 g/dL (1.3-4.6); Glucose 104 mg/dL (65-115); Osmolality Calculated 289 mOsm/kg (285-295); Potassium 3.6 mmol/L (3.5-5.1); Sodium 140 mmol/L (136-145); Total Bilirubin 0.4 mg/dL (0.15-1.2)
[2022-05-25] MEDS: metoprolol succinate ER (24 HR) 25 mg Tablet 37.5 MG PO (04:22)
--- NOTE | 2022-05-25 07:54 | USCV_ITS ---
Sheri Lopez Age: 76 Gender: F : 1945 Exam Date: 05/25/2022 10:36 Ordering Phys: Pipo Tamayo M.D ([email or web address]) Technologist: Peng Cortez Exam Location: [facility] [place] Indication: pericard eff BP: / HR: Rhythm: Sinus Technical Quality: Adequate MEASUREMENTS (Male / Female) Normal Values FINDINGS Left Ventricle Right Ventricle Right Atrium Left Atrium Mitral Valve Aortic Valve Tricuspid Valve Pulmonic Valve Pericardium Aorta IVC CONCLUSIONS This is a limited echocardiogram performed to assess for pericardial effusion. LV systolic function is normal. Small sized posterior pericardial effusion is seen. Pleural effusion is noted. Pipo Tamayo MD (Electronically Signed) Final Date: 25 May 2022 15:08 S
[2022-05-25] MEDS: metoprolol succinate ER (24 HR) 25 mg Tablet 12.5 MG PO (08:57)
[2022-05-25] MEDS: colchicine 0.6 mg Tablet PO ×2 (08:58→17:37)
--- NOTE | 2022-05-25 08:59 | PC.NURSE ---
Per Dr. Andres- wean patient off oxygen today. She was 99% on 1 L. Nasal canula removed and patient remains at 96%.
--- NOTE | 2022-05-25 11:21 | PM.PN ---
Subjective Subjective: Sheri reports she feels like her breathing is doing very well. No significant cough. No nausea or vomiting. No significant chest discomfort. Medications: Reviewed: Yes Vitals/I&O/Wt Last Vital Signs Temp 98.1 F 05/25/22 11:08 Pulse 111 H 05/25/22 11:08 Resp 18 05/25/22 11:08 BP 161/78 05/25/22 11:08 Pulse Ox 95 05/25/22 11:08 O2 Del Method 05/25/22 11:08 O2 Flow Rate 1 05/25/22 07:20 05/24/22 05/25/22 05/25/22 22:59 06:59 14:59 Intake Total 222 / 1417.25 800 / 2217.25 240 / 240 Output Total 250 / 450 0 / 450 Balance -28 / 967.25 800 / 1767.25 240 / 240 Weight last 48 hrs Weight 92.306 kg Weight 81.647 kg Weight 81.647 kg Physical Exam Narrative: General no distress, no significant drainage from pericardial drain. Neck is supple no lymphadenopathy thyromegaly Cardiovascular regular rate and rhythm without murmur. Telemetry demonstrates no arrhythmias Lungs diminished breath sounds left. No wheezes or crackles Abdomen is soft nontender positive bowel sounds. No obvious organomegaly exams deferred Extremities no cyanosis clubbing or edema, cap refill brisk Skin no rash Data : 05/25/22 03:28 05/25/22 03:28 Micro: Microbiology 05/23/22 14:06 Blood Culture - Preliminary Blood NEGATIVE TO DATE 05/23/22 15:30 MRSA Culture - Final Nose 05/23/22 13:00 Body Fluid Culture - Preliminary Pericardial Fluid 05/23/22 10:50 Blood Culture - Preliminary Blood NEGATIVE TO DATE A&P Assessment and plan (1) Pericardial effusion: Patient presents with worsening of her pericardial effusion, with symptomatology concerning for impending tamponade. Cardiology has been consulted, and pericardiocentesis is was performed on May 23. Approximately 700 cc drained. Studies sent and consistent with exudate. No growth from cultures currently. Drain will likely be removed today. Echocardiogram has been ordered to recheck and make sure no accumulation of pericardial fluid is noted prior to the removal of the drain. Ibuprofen 400 mg 3 times daily and colchicine were initiated. Patient is tolerating this well. CRP decreasing. Sedimentation rate was not significantly elevated. Other rheumatologic studies pending. Status: Inactive (2) Atrial fibrillation with rapid ventricular response: Patient presented with atrial fibrillation with rapid ventricular rate. Cardizem was initiated. Somewhat bloody drainage from pericardiocentesis. Cardizem has been discontinued and patient converted to sinus rhythm. Continue patient's long-acting beta-ravi. TSH was checked and normal. Magnesium level was checked and not low. Status: Acute (3) Cystitis: Patient with past history of cystitis. Urinalysis not currently indicative of infection. Status: Inactive (4) Pneumonia: Possible left-sided pneumonia, starting 20 days ago. She has a very small pleural effusion not amenable to thoracentesis. Her white blood cell count is elevated on admission but now improving. Continue Levaquin. Wean oxygen. Await sputum culture. MRSA PCR negative. White blood cell count decreasing significantly Status: Acute Plan Transaminitis. May be related to some fluid overload symptoms from significant pericardial effusion and impending tamponade. Hepatitis panel negative. LFTs slightly improving Acute kidney injury, resolved. This was present on admission. Full code Lovenox for DVT prophylaxis Probable discharge tomorrow. Upon discharge will need follow-up with cardiology in 2 weeks. Attestations Medical Necessity Statement*: Needs continued hospitalization for close monitoring following impending pericardial tamponade, pericardiocentesis in this patient still with a pigtail drain in the pericardium. Coding Level of Care Code Acute Funeral Car Chauffeur for Chg Jellyd Diagnoses Pericardial effusion I31.3 Atrial fibrillation with rapid ventricular response I48.91 Cystitis N30.90 Pneumonia J18.9
[2022-05-25] MEDS: ibuprofen 200 mg Tablet 400 MG PO ×2 (12:32→17:37)
[2022-05-25] MEDS: enoxaparin 40 mg/0.4 mL Syringe SUBCUT (12:33)
[2022-05-25] MEDS: levofloxacin-dextrose 5 % 750 MG/150 ML PREMIX 100 MG IV (13:10)
--- NOTE | 2022-05-25 14:22 | PM.PN ---
Subjective Subjective: Patient is overall doing well. Limited echocardiogram was performed today that showed minimal pericardial effusion. Pericardial drain was removed. Vitals/I&O/Wt Last Vital Signs Temp 98.1 F 05/25/22 11:08 Pulse 111 H 05/25/22 11:08 Resp 18 05/25/22 11:08 BP 161/78 05/25/22 11:08 Pulse Ox 95 05/25/22 11:08 O2 Del Method 05/25/22 11:08 O2 Flow Rate 1 05/25/22 07:20 05/24/22 05/25/22 05/25/22 22:59 06:59 14:59 Intake Total 222 / 1417.25 800 / 2217.25 480 / 480 Output Total 250 / 450 0 / 450 Balance -28 / 967.25 800 / 1767.25 480 / 480 Weight last 48 hrs Weight 203 lb 8 oz Weight 180 lb Weight 180 lb Physical Exam Narrative: GENERAL: Patient is alert, awake and oriented x3. [] NECK: No jugular vein distension. [] HEENT: No cyanosis. No icterus. No pallor. [] HEART: Regular rate and rhythm. S1 plus S2. Pericardial drain is noted. LUNGS: Clear to auscultate bilaterally. [] ABDOMEN: Soft CENTRAL NERVOUS SYSTEM: Grossly nonfocal. [] EXTREMITIES: Lower extremities with no edema bilaterally. Pulses palpable in the lower extremities, both dorsalis pedis and posterior tibial. [] Data : 05/26/22 01:59 05/26/22 01:59 Micro: Microbiology 05/23/22 13:00 Gram Stain - Final Pericardial Fluid Body Fluid Culture - Preliminary 05/23/22 14:06 Blood Culture - Preliminary Blood NEGATIVE TO DATE 05/23/22 15:30 MRSA Culture - Final Nose 05/23/22 10:50 Blood Culture - Preliminary Blood NEGATIVE TO DATE A&P Assessment and plan (1) Atrial fibrillation with rapid ventricular response: Status: Acute (2) Pericardial effusion: Status: Acute (3) Palpitations: Status: Acute (4) Pericarditis: Status: Acute Plan Pericardial drain removed as no significant effusion seen on a limited echocardiogram today. Patient is overall stable. Patient can be started on metoprolol. Continue pericarditis treatment with ibuprofen and colchicine Thank you for involving us with care of this patient. We will continue to follow. Please call with questions. Attestations Medical Necessity Statement*: Care expected to cross 2 midnights Coding Level of Care Code Acute Divisional Merchandising Manager for g Fwd Diagnoses Atrial fibrillation with rapid ventricular response I48.91 Pericardial effusion I31.3 Palpitations R00.2 Pericarditis I31.9
--- NOTE | 2022-05-25 15:30 | PC.NURSE ---
Pericardial drain removed Dr Tamayo at bedside. Assisted him in removing the drain. pigtail catheter intact. pressure held for 15 mins on mid chest. pt tolerated the removal of cath well. repositioned to high fowlers for her comfort and breathing. instructed pt to notify nurse for any unusual pain, or increasing SOb. pt verbalizes understanding.
[2022-05-25] MEDS: pantoprazole DR 40 mg Tablet PO (17:37)
[2022-05-25] MEDS: triamcinolone 0.1% cream 15 gm 1 APPLIC TOPICAL (17:39)
[2022-05-26] VITALS (14 sets, daily range): BP systolic 135–163; BP diastolic 77–108; PULSE 68–156; RESP 16–25; TEMP 36.7–36.9; O2SAT 91–98
--- NOTE | 2022-05-26 | PC.NURSE ---
Patient awakened with palpitations and rapid heart rate. 12 lead EKG ordered stat and Dr. barker contacted via secure messaging. 12 lead sjhows atrial fib with RVR. Orderes received for IV metoprolol and then if no response IV cardizem.Patient is currently hypertensive and anxious.
--- NOTE | 2022-05-26 00:14 | ECG_ITS ---
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 Measurements Intervals [place] Rate: 145 P: [place]: QRS: -68 QRSD: 106 T: 95 QT: 287 QTc: 446 Interpretive Statements ATRIAL FIBRILLATION WITH RAPID VENTRICULAR RESPONSE LEFT ANTERIOR FASCICULAR BLOCK [QRS AXIS <= -45, QR IN I, RS IN II] ANTEROSEPTAL MYOCARDIAL INFARCTION , OF INDETERMINATE AGE [40+ ms Q WAVE IN V1-V4] Compared to ECG 05/23/2022 09:39:10 No significant changes Electronically Signed On 05-26-2022 18:10:46 CDT by Alfred Art M.D. [id number]
[2022-05-26] MEDS: metoprolol tartrate 1 mg/1 mL SDV 5 mL 5 MG IVP (00:17)
--- NOTE | 2022-05-26 00:45 | PC.NURSE ---
Diltiazem infusion increased to 15mg.
--- NOTE | 2022-05-26 01:50 | PC.NURSE ---
Patient converted to SR/ST Rate 98 -105. Hospitalist notofied. Order to be tapering diltiazem infusion and to give 0600 dose of metoprolol when diltiazem if off.
[2022-05-26 02:35] LABS: Basophils % 0.3 %; Eosinophils # 0.3 10^3/uL (0.0-0.8); Eosinophils % 2.7 %; Hematocrit 36.8 % (37.0-47.0); Hemoglobin 11.6 g/dL (11.5-15.3); Lymphocytes # 1.2 10^3/uL (0.8-4.8); Lymphocytes % 11.4 %; Mean Corpuscular HGB Conc 31.5 g/dL (30.0-36.0); Mean Corpuscular Hemoglobin 29.5 pg (28.0-34.0); Mean Corpuscular Volume 93.6 fl (81-99); Mean Platelet Volume 9.4 fL (7.4-10.4); Monocytes # 0.8 10^3/uL (0.2-0.9); Monocytes % 7.9 %; Neutrophils # 8.03 10^3/uL (1.8-7.7); Neutrophils % 77.3 %; Nucleated Red Blood Cells % 0 %; Platelet Count 596 10^3/cmm (130-400); Red Blood Count 3.93 10^6/uL (4.1-5.3); Red Cell Distribution Width 13.1 % (12.1-15.1); White Blood Count 10.4 10^3/uL (4.0-10.0)
[2022-05-26 02:56] LABS: Alanine Aminotransferase 67 U/L (0-33); Albumin Level 2.9 g/dL (3.5-5.2); Alkaline Phosphatase 125 U/L (35-105); Anion Gap 13.1 (5-19); Aspartate Amino Transferase 27 U/L (0-32); Blood Urea Nitrogen 7 mg/dL (8-23); C Reactive Protein 66.2 mg/L (0.0-4.9); Calcium 8.7 mg/dL (8.5-10.5); Carbon Dioxide 28 mmol/L (22-29); Chloride 101 mmol/L (98-107); Globulin 3.3 g/dL (1.3-4.6); Glucose 118 mg/dL (65-115); Osmolality Calculated 287 mOsm/kg (285-295); Potassium 3.1 mmol/L (3.5-5.1); Sodium 139 mmol/L (136-145); Total Bilirubin 0.4 mg/dL (0.15-1.2); Total Protein 6.2 g/dL (6.6-8.7)
[2022-05-26] MEDS: metoprolol succinate ER (24 HR) 50 mg Tablet PO (04:36)
--- NOTE | 2022-05-26 08:38 | PC.SOCIAL ---
IMM update IMM Updated with patient. Verbalized an understanding. Copy Pg 2 provided. Initialled, dated, timed, and placed in chart.
[2022-05-26] MEDS: colchicine 0.6 mg Tablet PO (09:06)
[2022-05-26] MEDS: triamcinolone 0.1% cream 15 gm 1 APPLIC TOPICAL (09:06)
--- NOTE | 2022-05-26 09:58 | P.PN_ITS ---
Subjective Subjective: Patient had afib with RVR last night. Was put on cardizem gtt briefly. Now off of it and in sinus rhythm Vitals/I&O/Wt Last Vital Signs Temp 98.2 F 05/26/22 08:00 Pulse 98 05/26/22 08:00 Resp 18 05/26/22 08:00 BP 151/83 05/26/22 08:00 Pulse Ox 93 05/26/22 08:00 O2 Del Method 05/26/22 08:00 O2 Flow Rate 1 05/25/22 07:20 05/25/22 05/26/22 05/26/22 22:59 06:59 14:59 Intake Total 1430 / 1910 990.167 / 2900.167 360 / 360 Output Total 0 / 0 Balance 1430 / 1910 990.167 / 2900.167 360 / 360 Weight last 48 hrs Weight 205 lb 9.6 oz Weight 203 lb 8 oz Physical Exam Narrative: GENERAL: Patient is alert, awake and oriented x3. [] NECK: No jugular vein distension. [] HEENT: No cyanosis. No icterus. No pallor. [] HEART: Regular rate and rhythm. S1 plus S2. LUNGS: Clear to auscultate bilaterally. [] ABDOMEN: Soft CENTRAL NERVOUS SYSTEM: Grossly nonfocal. [] EXTREMITIES: Lower extremities with no edema bilaterally. Pulses palpable in the lower extremities, both dorsalis pedis and posterior tibial. [] Data : 05/27/22 02:33 05/27/22 02:33 Micro: Microbiology 05/23/22 13:00 Gram Stain - Final Pericardial Fluid Body Fluid Culture - Preliminary A&P Assessment and plan (1) Atrial fibrillation with rapid ventricular response: (2) Pericardial effusion: (3) Palpitations: (4) Pericarditis: Plan Patient had afib with RVR. We will uptitrate metoprolol tartarate to 50mg BID. Will keep her in the hospital for monitoring today Continue Ibuprofen and colchicine Will need outpatient event monitor Thank you for involving us with care of this patient. We will continue to follow. Please call with questions. Attestations Medical Necessity Statement*: Care expected to cross 2 midnights. Coding Level of Care Code Acute Strip Machine Operator for Serafin Delgadillo Diagnoses Atrial fibrillation with rapid ventricular response I48.91 Pericardial effusion I31.3 Palpitations R00.2 Pericarditis I31.9
--- NOTE | 2022-05-26 10:40 | XRR_ITS ---
PROCEDURE INFORMATION: Exam: XR Chest Exam date and time: 05/26/2022 11:58 AM Age: 76 years old Clinical indication: Condition or disease; Lung condition and disease; Pleural effusion; Influenza; Additional info: Pl effussion TECHNIQUE: Imaging protocol: Radiologic exam of the chest. Views: 1 view. COMPARISON: CR XR chest 1V portable [id number] 05/24/2022 7:27 AM FINDINGS: Lungs: There is left lower lobe consolidation with air bronchogram formation. This could be due to pneumonia or dense atelectasis. Prior pulmonary granulomatous disease. Pleural spaces: No discernible change in the moderate size left pleural effusion. There has been increase in size of the small right pleural effusion. No pneumothorax. Heart/Mediastinum: The left heart border is silhouetted out. Difficult to determine if the heart is enlarged or not. The mediastinal contours are normal. Bones/joints: Thoracic spondylosis. XR/XR chest 1V portable [id number] IMPRESSION: 1. No change in the left pleural effusion. 2. Increased volume of the small right pleural effusion. 3. Left lower lobe consolidation, pneumonia versus dense atelectasis.
--- NOTE | 2022-05-26 11:21 | PM.PN ---
Subjective Subjective: Patient has required Cardizem drip overnight I have increased her metoprolol to 50 mg twice daily Patient is reluctant to try Cardizem She was asking about the side effects of the medication Anxious about adding more medications Cardiology recommended metoprolol for now She will stay 1 more day Potassium to be repleted check magnesium level Patient stating that she has had irregular heart rhythm since she was 20 years old and she was diagnosed with A. fib a week ago she is not taking any anticoagulating agent outpatient Repeating chest x-ray for her pleural effusion assessment She is on room air diminished airflow bilaterally Vitals/I&O/Wt Last Vital Signs Temp 98.2 F 05/26/22 08:00 Pulse 98 05/26/22 08:00 Resp 18 05/26/22 08:00 BP 151/83 05/26/22 08:00 Pulse Ox 93 05/26/22 08:00 O2 Del Method 05/26/22 08:00 O2 Flow Rate 1 05/25/22 07:20 05/25/22 05/26/22 05/26/22 22:59 06:59 14:59 Intake Total 1430 / 1910 990.167 / 2900.167 360 / 360 Output Total 0 / 0 Balance 1430 / 1910 990.167 / 2900.167 360 / 360 Weight last 48 hrs Weight 93.259 kg Weight 92.306 kg Physical Exam Narrative: Patient was sitting comfortably in her bed Currently on room air Bilateral breath sounds with diminished airflow bilateral lung bases left greater than right S1, S2 variable heart rate ranging between 90-1 10 Looks euvolemic No active chest pain Abdomen soft Nonfocal neuro exam Intermittent A. fib Data : 05/26/22 01:59 05/26/22 01:59 Micro: Microbiology 05/23/22 13:00 Gram Stain - Final Pericardial Fluid Body Fluid Culture - Preliminary A&P Assessment and plan (1) Pericarditis: (2) Pneumonia: (3) Atrial fibrillation with rapid ventricular response: (4) Pericardial effusion: (5) Pleural effusion: (6) Restrictive lung disease: (7) Anxiety: (8) VERONICA on CPAP: (9) Palpitations: (10) SVT (supraventricular tachycardia): (11) A-fib: Plan Pericarditis Continue colchicine and ibuprofen Pericardial effusion status post drainage Hemodynamically stable No active chest pain or shortness of breath Community-acquired pneumonia with pericardial effusion and pleural effusion Change antibiotics to p.o. Levaquin, discontinue IV Chest x-ray to be repeated today for evaluation of pleural effusion She is on room air No active shortness of breath Will add low-dose Lasix Intermittent A. fib [id number] Will discuss with cardiology regarding anticoagulating agent at the time of discharge I will add metoprolol 50 mg twice daily Target heart rate less than 110 on ambulation If heart rate remains above 110 we will add Cardizem 30 mg every 6 hours DVT prophylaxis Lovenox Regular diet Full code Patient will be discharged tomorrow if stable No signs of active UTI Attestations Medical Necessity Statement*: 1 more day in the hospital for evaluation of A. fib RVR Time Spent in Patient Care: 40 Coding Level of Care Code Acute Planetarium Technician for Chg Fwd Diagnoses Pericarditis I31.9 Pneumonia J18.9 Atrial fibrillation with rapid ventricular response I48.91 Pericardial effusion I31.3 Pleural effusion J90 Restrictive lung disease J98.4 Anxiety F41.9 VERONICA on CPAP G47.33; Z99.89 Palpitations R00.2 SVT (supraventricular tachycardia) I47.1 A-fib I48.91
[2022-05-26 12:03] LABS: Magnesium 1.9 mg/dL (1.7-2.3)
[2022-05-26] MEDS: enoxaparin 40 mg/0.4 mL Syringe SUBCUT (12:20)
[2022-05-26] MEDS: ibuprofen 200 mg Tablet 400 MG PO ×2 (12:20→18:04)
[2022-05-26] MEDS: potassium chloride ER 20 mEq Tablet 40 MEQ PO (18:04)
[2022-05-26] MEDS: ALPRAZolam 0.5 mg Tablet 0.25 MG PO (18:04)
[2022-05-26] MEDS: pantoprazole DR 40 mg Tablet PO (18:05)
[2022-05-26] MEDS: metoprolol tartrate 50 mg Tablet PO (20:49)
[2022-05-27] VITALS: BP 150/80; PULSE 86; RESP 18; TEMP 36.5; O2SAT 96
[2022-05-27 03:51] LABS: Basophils % 0.2 %; Eosinophils # 0.4 10^3/uL (0.0-0.8); Eosinophils % 4.2 %; Hematocrit 33.1 % (37.0-47.0); Hemoglobin 10.6 g/dL (11.5-15.3); Lymphocytes # 1.5 10^3/uL (0.8-4.8); Lymphocytes % 15.9 %; Mean Corpuscular Hemoglobin 30.3 pg (28.0-34.0); Mean Corpuscular Volume 94.6 fl (81-99); Mean Platelet Volume 9.5 fL (7.4-10.4); Monocytes # 0.8 10^3/uL (0.2-0.9); Monocytes % 8.8 %; Neutrophils # 6.53 10^3/uL (1.8-7.7); Neutrophils % 70.6 %; Nucleated Red Blood Cells % 0 %; Platelet Count 549 10^3/cmm (130-400); Red Cell Distribution Width 13.3 % (12.1-15.1); White Blood Count 9.3 10^3/uL (4.0-10.0)
[2022-05-27 04:00] VITALS: BP 137/72; PULSE 77; RESP 21; TEMP 36.6; O2SAT 93
[2022-05-27 04:17] LABS: Anion Gap 10.7 (5-19); Blood Urea Nitrogen 8 mg/dL (8-23); Calcium 8.6 mg/dL (8.5-10.5); Carbon Dioxide 30 mmol/L (22-29); Chloride 108 mmol/L (98-107); Glucose 118 mg/dL (65-115); Osmolality Calculated 299 mOsm/kg (285-295); Potassium 3.7 mmol/L (3.5-5.1); Sodium 145 mmol/L (136-145)
[2022-05-27 06:00] VITALS: PULSE 79
[2022-05-27 07:58] VITALS: BP 131/92; PULSE 93; RESP 18; TEMP 36.7; O2SAT 95
--- NOTE | 2022-05-27 08:48 | P.DS_ITS ---
Discharge Providers Date of Admission: 05/23/22 13:30 Date of Discharge: May 27, 2022 Attending Provider at Admission: Pipo Tamayo M.D Attending Provider at Discharge: Idalia Paul MD Primary Care Provider: Mikayla Webb DO Diagnoses at Discharge Discharge Diagnosis (1) Pericarditis: Status: Inactive (2) Pneumonia: Status: Inactive (3) Atrial fibrillation with rapid ventricular response: Status: Inactive (4) Pericardial effusion: Status: Inactive (5) Pleural effusion: Status: Inactive (6) Restrictive lung disease: Status: Inactive (7) Anxiety: Status: Inactive (8) VERONICA on CPAP: Status: Inactive (9) Palpitations: Status: Inactive (10) SVT (supraventricular tachycardia): Status: Inactive (11) A-fib: Status: Inactive Reason for Visit Reason for Visit: afib rvr Hospital Course Hospital Course 76-year-old female who was admitted on 05/23 with symptomatology related to viral illness she was diagnosed with pericardial effusion, pleural effusion intermittent A. fib RVR, cardiology was consulted for pericardiocentesis that was performed on May 23 approximately 200 cc was drained which was exudative in nature no signs of malignancy. Pericardial drain was removed on 05/25, patient's symptoms improved significantly. She remained afebrile she was given colchicine and ibuprofen therapeutic regimen. She did well on room air. She does have left-sided pleural effusion however it has not worsened, she is denying chest pain or worsening of shortness of breath. She will get low-dose Lasix along potassium supplementation, I am also giving her prescription for thoracentesis in case she gets symptomatic with pleural effusion. She will get long-term treatment for her pericarditis with colchicine and ibuprofen. Close follow-up with syrup mixer assistant. Her abnormal transaminases were secondary to volume overload, hepatitis panel negative. ROLY resolved. I have asked patient to follow-up with syrup mixer assistant regarding anticoagulating agent her [id number] is 3 for intermittent A. fib. Currently she is doing well on metoprolol 50 mg twice daily. Physical Exam Narrative: Patient is awake and alert Currently on room air No active symptoms or chest pain or shortness of breath Abdomen soft Bilateral breath sounds diminished left side She is on room air No conversational dyspnea S1, S2 Sinus rhythm Looks euvolemic EOMI PERRLA Nonfocal neuro exam Discharge Data Studies Completed and Pending Completed Studies During Hospitalization Category Date Time Status PROPELLANT ASSEMBLER request for service Stat Exams 05/23/22 11:17 Completed XR chest 1V portable [id number] Routine Exams 05/24/22 07:21 Completed XR chest 1V portable [id number] Routine Exams 05/26/22 10:40 Completed XR chest 1V portable [id number] Stat Exams 05/23/22 07:30 Completed Cytology [PTH] Routine Pth 05/23/22 13:29 Completed CV. echo limited [id number] Routine Ultrasound 05/25/22 07:54 Completed CV. echo limited [id number] Stat Ultrasound 05/23/22 10:28 Completed US chest [id number] Stat Ultrasound 05/23/22 10:28 Completed Pending at discharge Category Date Time Status AFB [Mycobacteria, Culture w/Fluor] Routine Lab 05/23/22 13:00 Received VASILIY SCREEN [VASILIY Profile Rheumatology] Routine Lab 05/25/22 08:41 Received Blood Culture Stat Lab 05/23/22 14:06 Results Body Fluid Culture & GS Routine Lab 05/23/22 13:00 Results Fungal Culture not HR/SK/BL Routine Lab 05/23/22 13:00 Received Sputum Culture and Gram Stain Routine Lab 05/23/22 10:23 Uncollected US echo limited [CV. echo limited [id number]] Stat Ultrasound 05/23/22 11:33 Taken Radiology Impressions Chest Ultrasound 05/23/22 10:28 IMPRESSION: 1. Small bilateral pleural effusions. 2. Dense area of consolidation in the LEFT thorax is probably combination of atelectatic lung, small effusion and the pericardial effusion. Chest X-Ray 05/26/22 10:40 IMPRESSION: 1. No change in the left pleural effusion. 2. Increased volume of the small right pleural effusion. 3. Left lower lobe consolidation, pneumonia versus dense atelectasis. Laboratory Results WBC 9.3 10^3/uL (4.0-10.0) 05/27/22 02:33 RBC 3.50 10^6/uL (4.1-5.3) L 05/27/22 02:33 Hgb 10.6 g/dL (11.5-15.3) L 05/27/22 02:33 Hct 33.1 % (37.0-47.0) L 05/27/22 02:33 MCV 94.6 fl (81-99) 05/27/22 02:33 MCH 30.3 pg (28.0-34.0) 05/27/22 02:33 MCHC 32.0 g/dL (30.0-36.0) 05/27/22 02:33 RDW 13.3 % (12.1-15.1) 05/27/22 02:33 Plt Count 549 10^3/cmm (130-400) H 05/27/22 02:33 MPV 9.5 fL (7.4-10.4) 05/27/22 02:33 Neut % (Auto) 70.6 % 05/27/22 02:33 Lymph % (Auto) 15.9 % 05/27/22 02:33 Waller % (Auto) 8.8 % 05/27/22 02:33 Eos % (Auto) 4.2 % 05/27/22 02:33 Baso % (Auto) 0.2 % 05/27/22 02:33 Neut # (Auto) 6.53 10^3/uL (1.8-7.7) 05/27/22 02:33 Lymph # (Auto) 1.5 10^3/uL (0.8-4.8) 05/27/22 02:33 Waller # (Auto) 0.8 10^3/uL (0.2-0.9) 05/27/22 02:33 Eos # (Auto) 0.4 10^3/uL (0.0-0.8) 05/27/22 02:33 Baso # (Auto) 0.0 10^3/uL (0.0-0.1) 05/27/22 02:33 Nucleated RBC % (auto) 0 % 05/27/22 02:33 Nucleated RBCs # 0.0 /100WBC 05/27/22 02:33 ESR 18 mm/hr (0-15) H 05/23/22 07:02 Sodium 145 mmol/L (136-145) 05/27/22 02:33 Potassium 3.7 mmol/L (3.5-5.1) 05/27/22 02:33 Chloride 108 mmol/L (98-107) H 05/27/22 02:33 Carbon Dioxide 30 mmol/L (22-29) H 05/27/22 02:33 Anion Gap 10.7 (5-19) 05/27/22 02:33 BUN 8 mg/dL (8-23) 05/27/22 02:33 Creatinine 0.5 mg/dL (0.5-0.9) 05/27/22 02:33 GFR Calculation Not Reportable 05/27/22 02:33 Glucose 118 mg/dL (65-115) H 05/27/22 02:33 Calculated Osmolality 299 mOsm/kg (285-295) H 05/27/22 02:33 Calcium 8.6 mg/dL (8.5-10.5) 05/27/22 02:33 Magnesium 1.9 mg/dL (1.7-2.3) 05/26/22 01:59 Total Bilirubin 0.4 mg/dL (0.15-1.2) 05/26/22 01:59 AST 27 U/L (0-32) 05/26/22 01:59 ALT 67 U/L (0-33) H 05/26/22 01:59 Alkaline Phosphatase 125 U/L (35-105) H 05/26/22 01:59 Troponin T Baseline 18 ng/L (0-10) H 05/23/22 07:02 Troponin T Hi Sens 6Hr 26.72 ng/L (0-10) H 05/23/22 14:06 Troponin T Hi Sens 6Hr Delta 8.72 ng/L (0-12) 05/23/22 14:06 C-Reactive Protein 66.2 mg/L (0.0-4.9) H 05/26/22 01:59 Total Protein 6.2 g/dL (6.6-8.7) L 05/26/22 01:59 Albumin 2.9 g/dL (3.5-5.2) L 05/26/22 01:59 Globulin 3.3 g/dL (1.3-4.6) 05/26/22 01:59 TSH 1.26 uIU/mL (0.27-4.20) 05/23/22 07:02 Urine Color Yellow (Yellow) 05/23/22 16:50 Urine Appearance Clear (CLEAR) 05/23/22 16:50 Urine pH 6 (5-7) 05/23/22 16:50 Ur Specific Bowie 1.015 (1.005-1.030) 05/23/22 16:50 Urine Protein Neg (Negative) 05/23/22 16:50 Urine Glucose (UA) Norm (Normal) 05/23/22 16:50 Urine Ketones Negative (Negative) 05/23/22 16:50 Urine Blood Neg (Negative) 05/23/22 16:50 Urine Nitrate Negative (Negative) 05/23/22 16:50 Urine Bilirubin Neg (Negative) 05/23/22 16:50 Urine Urobilinogen Norm mg/dL (Negative) 05/23/22 16:50 Ur Leukocyte Esterase Negative (Negative) 05/23/22 16:50 Urine RBC 0-4 /hpf (0-2) H 05/23/22 16:50 Urine WBC 0-4 /hpf (0-5) H 05/23/22 16:50 Ur Squamous Epith Cells 0-4 /hpf (0-5) H 05/23/22 16:50 Amorphous Sediment Not Reportable 05/23/22 16:50 Urine Bacteria Trace /hpf (NONE) 05/23/22 16:50 Urine Mucus Trace /hpf 05/23/22 16:50 Fluid LDH 1372 U/L 05/23/22 13:00 Pericard Color Red (Pale Yellow) 05/23/22 13:00 Pericard Appearance Bloody (Clear) 05/23/22 13:00 Pericard Spec Bowie 1.015 05/23/22 13:00 Pericard WBC 3841 /uL 05/23/22 13:00 Pericard RBC 453 10^3/uL 05/23/22 13:00 Pericar Polynuclear WBC 2.851 10^3/uL 05/23/22 13:00 Pericar Polynuc WBCs % 74.200 % 05/23/22 13:00 Peric Mononuc WBCs % 25.800 % 05/23/22 13:00 Peric Mononuc WBC #Auto 0.990 10^3/uL 05/23/22 13:00 Pericard Total Protein 4.9 g/dL 05/23/22 13:00 Rheumatoid Factor 13.0 IU/mL (0-14) 05/23/22 16:03 Hepatitis A IgM Ab Non-reactive (Nonreactive) 05/23/22 14:06 Hep Bs Antigen Non-reactive (Nonreactive) 05/23/22 14:06 Hep B Core IgM Ab Non-reactive (Nonreactive) 05/23/22 14:06 Hepatitis C Antibody Non-reactive (Nonreactive) 05/23/22 14:06 Vitals Last Vital Signs Temp 98.0 F 05/27/22 07:58 Pulse 93 05/27/22 07:58 Resp 18 05/27/22 07:58 BP 131/92 05/27/22 07:58 Pulse Ox 95 05/27/22 07:58 O2 Del Method 05/27/22 07:58 O2 Flow Rate 1 05/25/22 07:20 Discharge Plan Discharge Patient Disposition: Home Condition: Stable Prescriptions: New Klor-Con M20 20 mEq Tablet,Er Particles/Crystals 20 meq PO DAILY Qty: 60 2RF metoprolol tartrate 50 mg Tablet 50 mg PO BID@0900,2100 Qty: 120 3RF ibuprofen 200 mg Tablet 400 mg PO TIDWM Qty: 90 0RF furosemide 20 mg Tablet 20 mg PO DAILY@0800 Qty: 60 3RF colchicine 0.6 mg Tablet 0.6 mg PO BID Qty: 180 0RF pantoprazole 40 mg Tablet,Delayed Release (Dr/Ec) 20 mg PO BID Qty: 120 3RF levofloxacin 750 mg tablet 750 mg PO DAILY 5 Days Qty: 5 0RF Continued oxymetazoline [Afrin (oxymetazoline)] 0.05 % spray,non-aerosol 2 spray intranasal Q12H PRN (Reason: Allergy Symptoms) alprazolam [Xanax] 0.25 mg tablet 0.125 mg PO .EVERY 5 DAYS PRN (Reason: Anxiety) Multivitamin 50 Plus Tablet 1 tab PO QAM Immunicare 15-15-10 mg-unit-mcg Capsule 1 cap PO QAM calcium carbonate-vitamin D3 600 mg-5 mcg (200 unit) Tablet 1 tab PO QAM esomeprazole magnesium [Nexium] 40 mg Capsule,Delayed Release(Dr/Ec) 40 mg PO QPM cholecalciferol (vitamin D3) [Vitamin D3] 25 mcg (1,000 unit) Tablet 25 mcg PO QAM levalbuterol tartrate [Xopenex HFA] 45 mcg/actuation HFA aerosol inhaler 2 inh inhalation Q6H PRN (Reason: Shortness Of Breath) Discontinued metoprolol succinate 25 mg tablet extended release 24 hr 37.5 mg PO QAM furosemide [Lasix] 20 mg tablet 20 mg PO EVERY OTHER DAY Discharge Orders: Discharge Order (Routine); Ordered 05/27/22 Ordered By: Idalia Paul Other Ambulatory Orders: US thoracentesis [id number] (Routine) Timeframe: 2 Weeks Facility: [facility] - Location: Radiology Ordered By: Idalia Paul Referrals: Pipo Tamayo M.D [Physician] - 2 weeks (Please call and make a follow up appointment on Monday 05/28) Mikayla Webb DO [Primary Care Provider] - 1 week (Please call and make a follow up appointment on Monday 05/28) Discharge Diet: Cardiac Discharge Activity: Increase activity as tolerated Patient Instructions: Metoprolol (By mouth), Furosemide (By mouth) (Lasix), Potassium Chloride (By mouth), Colchicine (By mouth), Levofloxacin (By mouth), Pantoprazole (By mouth), A-fib (Atrial Fibrillation) (DC), Viral Pneumonia (DC), Acute Pericarditis (DC), Pericardial Effusion (DC), Opioid Safety, Pain Management Discharge Attestations Time Spent in Discharge Care*: less than 30 min Quality Metrics Clinical Quality Measures [ No reported AMI, CVA or VTE this stay] Coding Level of Care Code Acute Chg FW DC note Diagnoses Pericarditis I31.9 Pneumonia J18.9 Atrial fibrillation with rapid ventricular response I48.91 Pericardial effusion I31.3 Pleural effusion J90 Restrictive lung disease J98.4 Anxiety F41.9 VERONICA on CPAP G47.33; Z99.89 Palpitations R00.2 SVT (supraventricular tachycardia) I47.1 A-fib I48.91
[2022-05-27] MEDS: colchicine 0.6 mg Tablet PO (09:19)
[2022-05-27] MEDS: FUROsemide 20 mg Tablet PO (09:19)
[2022-05-27] MEDS: metoprolol tartrate 50 mg Tablet PO (09:19)
[2022-05-27] MEDS: potassium chloride ER 20 mEq Tablet 40 MEQ PO (09:21)
[2022-05-27] MEDS: ibuprofen 200 mg Tablet 400 MG PO (09:21)
[2022-05-27] MEDS: magnesium oxide 400 mg tablet PO (09:21)
[2022-05-27] MEDS: triamcinolone 0.1% cream 15 gm 1 APPLIC TOPICAL (09:23)
[2022-05-27 09:56] VITALS: PULSE 112; RESP 16; O2SAT 96
--- NOTE | 2022-05-27 10:14 | PM.PN ---
Subjective Subjective: Patient is stable. In the fluid analysis, no malignant cells reported Vitals/I&O/Wt Last Vital Signs Temp 98.0 F 05/27/22 07:58 Pulse 93 05/27/22 07:58 Resp 18 05/27/22 07:58 BP 131/92 05/27/22 07:58 Pulse Ox 95 05/27/22 07:58 O2 Del Method 05/27/22 07:58 O2 Flow Rate 1 05/25/22 07:20 05/26/22 05/27/22 05/27/22 22:59 06:59 14:59 Intake Total 600 / 1200 1401 / 2601 240 / 240 Balance 600 / 1200 1401 / 2601 240 / 240 Weight last 48 hrs Weight 191 lb Weight 205 lb 9.6 oz Physical Exam Narrative: GENERAL: Patient is alert, awake and oriented x3. [] NECK: No jugular vein distension. [] HEENT: No cyanosis. No icterus. No pallor. [] HEART: Regular rate and rhythm. S1 plus S2. LUNGS: Clear to auscultate bilaterally. [] ABDOMEN: Soft CENTRAL NERVOUS SYSTEM: Grossly nonfocal. [] EXTREMITIES: Lower extremities with no edema bilaterally. Pulses palpable in the lower extremities, both dorsalis pedis and posterior tibial. [] Data : 05/27/22 02:33 05/27/22 02:33 Micro: Microbiology 05/23/22 13:00 Gram Stain - Final Pericardial Fluid Body Fluid Culture - Preliminary Coag negative Staphylococcus A&P Assessment and plan (1) Atrial fibrillation with rapid ventricular response: (2) Pericardial effusion: (3) Palpitations: (4) Pericarditis: Plan Patient had afib with RVR. Continue metoprolol Continue Ibuprofen. Colchicine dose reduced as patient complains of abdominal symptoms with it Will need outpatient event monitor Thank you for involving us with care of this patient. She is stable to be discharged from cardiology standpoint. Please call with questions. Attestations Medical Necessity Statement*: Care expected to cross 2 midnights. Coding Level of Care Code Acute Low Pressure Kettle Operator for Serafin Delgadillo Diagnoses Atrial fibrillation with rapid ventricular response I48.91 Pericardial effusion I31.3 Palpitations R00.2 Pericarditis I31.9
[2022-05-27 11:18] VITALS: PULSE 112; RESP 16; O2SAT 96
--- NOTE | 2022-05-27 12:08 | PC.NURSE ---
1.5 hours after metoprolol given..pt ambulated about room.heart rate remained below 100.discharge instructions given and explained.pt verb understanding of instructions.discharged via w/c to exit.spouse to drive pt home
[2022-05-28 11:18] LABS: COMPLEMENT COMPONENT C3C 143 mg/dL (83-193); COMPLEMENT COMPONENT C4C 28 mg/dL (15-57)
[2022-05-28 11:34] LABS: THYROID PEROXIDASE ANTIBODIES 1 IU/mL (<9)
[2022-05-28 12:33] LABS: COMPLEMENT, TOTAL (CH50) 56 U/mL (31-60)
[2022-05-28 16:18] LABS: ANA SCREEN, IFA NEGATIVE (NEGATIVE)
[2022-05-29 12:57] LABS: CENTROMERE B ANTIBODY <1.0 NEG AI (<1.0 NEG); JO-1 ANTIBODY <1.0 NEG AI (<1.0 NEG); RNP ANTIBODY <1.0 NEG AI (<1.0 NEG); SCL-70 ANTIBODY <1.0 NEG AI (<1.0 NEG); SJOGREN'S ANTIBODY (SS-A) <1.0 NEG AI (<1.0 NEG); SM ANTIBODY <1.0 NEG AI (<1.0 NEG); SS-B <1.0 NEG AI (<1.0 NEG)
[2022-05-29 15:56] LABS: DNA AB (DS) CRITHIDIA,IFA NEGATIVE (NEGATIVE)
== END 2022-05-27 12:10 | disposition home or self-care (01) | DRG 314 ==
LOC: ER 11:12 → ICU 13:24 → MEDSURG 05-24 19:06
PROVIDERS: Internal Medicine; Admitting Provider Internal Medicine; Emergency Provider Family Medicine; PCP Family Medicine; Visit Provider Internal Medicine
PROC: 0W9D30Z Drainage of Pericardial Cavity with Drainage Device, Percutaneous Approach (ICD-10-PCS; principal; 2022-05-23 11:00)
DX: I31.9 Disease of pericardium, unspecified (principal); J18.9 Pneumonia, unspecified organism; J91.8 Pleural effusion in other conditions classified elsewhere; I47.1 Supraventricular tachycardia; N17.9 Acute kidney failure, unspecified; I31.4 Cardiac tamponade; I48.91 Unspecified atrial fibrillation; R74.01 Elevation of levels of liver transaminase levels; F41.9 Anxiety disorder, unspecified; J98.4 Other disorders of lung; G47.30 Sleep apnea, unspecified; Z87.891 Personal history of nicotine dependence; Z87.448 Personal history of other diseases of urinary system; Z99.89 Dependence on other enabling machines and devices
CPT/HCPCS: 33010; 36415; 71045; 76604; 80048; 80053; 80074; 80503; 81001; 83615; 83735; 84157; 84315; 84443; 84484; 85025; 85651; 86140; 86160; 86162; 86235; 86255; 86376; 86431; 87015; 87040; 87070; 87075; 87077; 87102; 87116; 87186; 87205; 87206; 87641; 87801; 88108; 89050; 93005; 93308; 96360; 96361; 96365; 96366; 96367; 96372; 96375; 99152; 99153; 99291; C1729; C1769; C1887; C1894; J1644; J1650; J1956; J2250; J3010; J3490; J7030; Q9967

== ENCOUNTER 2022-06-06 17:13 | Outpatient (CLI) | payer MEDICARE, OTHER, SELFPAY ==
--- NOTE | 2022-06-06 17:29 | XR_ITS ---
WS: [id number] XR chest 2V* [id number] REASON FOR EXAM: PLEURAL EFFUSION, CHEST PAIN ON BREATHING FINDINGS: Compared to previous examination of 05/26/2022, the opacification in the left lower chest is unchanged . Small pleural effusion on the right unchanged. No new lung opacities. XR/XR chest 2V* [id number] IMPRESSION: Stable abnormal chest. Findings in the left chest are due to pleural effusion a nd lung consolidation/atelectasis.
== END 2022-06-06 17:14 | disposition home or self-care (01) ==
LOC: RAD 17:21
PROVIDERS: PCP Family Medicine; Visit Provider Family Medicine
DX: J18.9 Pneumonia, unspecified organism (principal); J91.8 Pleural effusion in other conditions classified elsewhere; R07.1 Chest pain on breathing
CPT/HCPCS: 71046

== ENCOUNTER → 2022-06-08 09:23 | Outpatient (BNVA) | payer MEDICARE, OTHER, SELFPAY | PROVIDERS: PCP Family Medicine; Visit Provider Internal Medicine | DX: R00.2 Palpitations (principal); G47.33 Obstructive sleep apnea (adult) (pediatric); Z99.89 Dependence on other enabling machines and devices; I47.1 Supraventricular tachycardia; Z87.891 Personal history of nicotine dependence; I31.39 Other pericardial effusion (noninflammatory) | CPT/HCPCS: 99213; 99214 ==

== ENCOUNTER 2022-06-15 09:08 | Outpatient (CLI) | payer MEDICARE, OTHER, SELFPAY ==
[2022-06-15 10:45] LABS: Basophils # 0.1 10^3/uL (0.0-0.1); Basophils % 0.4 %; Hematocrit 40.1 % (37.0-47.0); Lymphocytes # 1.2 10^3/uL (0.8-4.8); Lymphocytes % 5.4 %; Mean Corpuscular HGB Conc 32.4 g/dL (30.0-36.0); Mean Corpuscular Hemoglobin 29.8 pg (28.0-34.0); Mean Platelet Volume 9.4 fL (7.4-10.4); Monocytes # 1.7 10^3/uL (0.2-0.9); Monocytes % 7.6 %; Neutrophils # 19.08 10^3/uL (1.8-7.7); Neutrophils % 85.3 %; Nucleated Red Blood Cells % 0 %; Platelet Count 626 10^3/cmm (130-400); Red Blood Count 4.36 10^6/uL (4.1-5.3); Red Cell Distribution Width 13.8 % (12.1-15.1); White Blood Count 22.4 10^3/uL (4.0-10.0)
--- NOTE | 2022-06-15 10:50 | XR_ITS ---
WS: [id number] Chest 2 views, 06/15/2022 Clinical Data: PNEUMONIA OF LEFT LOWER LOBE,ACUTE VIRAL PERICARDITIS Comparison: None. Findings: No nodules or masses are seen. The moderate left pleural effusion and small right pleural e ffusion remain the same. There is a recording device over the central chest. The heart is normal. The pulmonary vascularity is not increased. No pneumonia or pneumothorax is seen. XR/XR chest 2V* [id number] Impression: No change in moderate left pleural effusion and small right effusion.
[2022-06-15 11:23] LABS: C Reactive Protein 164.5 mg/L (0.0-4.9); NT Pro B Type Natriuretic Pept 1133 pg/mL (0-125)
== END 2022-06-15 09:09 | disposition home or self-care (01) ==
PROVIDERS: PCP Family Medicine; Visit Provider Family Medicine
DX: J18.9 Pneumonia, unspecified organism (principal); J91.8 Pleural effusion in other conditions classified elsewhere; I30.1 Infective pericarditis
CPT/HCPCS: 36415; 71046; 83880; 84443; 85025; 86140; 86431

== ENCOUNTER 2022-06-16 12:48 | Inpatient (IN) | payer MEDICARE, OTHER, SELFPAY ==
[2022-06-16] VITALS (9 sets, daily range): BP systolic 104–147; BP diastolic 63–97; PULSE 112–127; RESP 16–20; TEMP 36.7–37.1; O2SAT 90–97; BMI 25.7
--- NOTE | 2022-06-16 13:03 | XRR_ITS ---
PROCEDURE INFORMATION: Exam: XR Chest Exam date and time: 06/16/2022 1:27 PM Age: 76 years old Clinical indication: Shortness of breath; Prior surgery; Surgery type: Gb; Additional info: Cough TECHNIQUE: Imaging protocol: Radiologic exam of the chest. Views: 2 views. COMPARISON: CR XR chest 2V* [id number] 06/15/2022 10:58 AM FINDINGS: Lungs: Left upper lobe and right lung are expanded and clear. Pleural spaces: Large opacity is seen in the left mid and lower lobe consistent with a pleural effusion . This finding is seen on prior examination and appears stable. No pneumothorax. Heart/Mediastinum: Unremarkable. No cardiomegaly. Bones/joints: Unremarkable. XR/XR chest 2V* [id number] IMPRESSION: 1. Large effusion left lower lobe stable since prior 2. Otherwise negative chest examination.
--- NOTE | 2022-06-16 13:21 | CTR_ITS ---
PROCEDURE INFORMATION: Exam: CTA Chest With Contrast Exam date and time: 06/16/2022 1:37 PM Age: 76 years old Clinical indication: Shortness of breath; Prior surgery; Surgery type: Gb; Additional info: SOB TECHNIQUE: Imaging protocol: Computed tomographic angiography of the chest with contrast. 3D rendering (Not supervised by radiologist): MIP and/or 3D reconstructed images were created by the technologist. Radiation optimization: All CT scans at this facility use at least one of these dose optimization techniques: automated exposure control; mA and/or kV adjustment per patient size (includes targeted exams where dose is matched to clinical indication); or iterative reconstruction. Contrast material: OMNI 350; Contrast volume: 100 ml; Contrast route: INTRAVENOUS (IV); COMPARISON: CT angio chest PE protcl [id number] 05/16/2022 10:36 AM RADIATION DOSE METRICS: Total DLP (mGy-cm): 274.34 FINDINGS: Pulmonary arteries: There are multiple intraluminal filling defects in the pulmonary arteries in the right middle lobe, right lower lobe, and left upper lobe. These findings were not present on prior CTA examination of the chest. These findings are consistent with a positive radiographic diagnosis of pulmonary embolism. Aorta: Unremarkable. No aortic aneurysm. No aortic dissection. Lungs: Calcified granuloma posterolateral right upper lobe measuring 4 mm a 2nd granuloma is seen in the anterior aspect of the right middle lobe measuring 3.8 mm these findings were present on prior examination and appears similar. No consolidation. No masses. Pleural spaces: Unremarkable. No pneumothorax. Bilateral lower lobe pleural effusions seen larger in volume on the left side. These effusions were present on prior examination hand have now increased in volume. Heart: Unremarkable. No cardiomegaly. There is fluid density around the heart this finding is suspicious for pericardial effusion. Cardiac echo examination is suggested to clarify this finding. Lymph nodes: Unremarkable. No enlarged lymph nodes. Bones/joints: Unremarkable. No acute fracture. Soft tissues: Unremarkable. CT/CT angio chest PE protcl [id number] IMPRESSION: 1. Positive examination for pulmonary embolism. 2. Negative for right heart strain. 3. Bilateral lower lobe pleural effusions larger in volume on the left. 4. Possible pericardial effusion. 5. Calcified granulomas in the right lung.
[2022-06-16 13:37] LABS: Basophils # 0.1 10^3/uL (0.0-0.1); Basophils % 0.3 %; Hematocrit 41.4 % (37.0-47.0); Hemoglobin 13.2 g/dL (11.5-15.3); Lymphocytes # 1.3 10^3/uL (0.8-4.8); Lymphocytes % 5.7 %; Mean Corpuscular HGB Conc 31.9 g/dL (30.0-36.0); Mean Platelet Volume 9.4 fL (7.4-10.4); Monocytes # 1.8 10^3/uL (0.2-0.9); Monocytes % 7.7 %; Neutrophils # 19.92 10^3/uL (1.8-7.7); Neutrophils % 85.1 %; Nucleated Red Blood Cells % 0 %; Platelet Count 524 10^3/cmm (130-400); Red Blood Count 4.55 10^6/uL (4.1-5.3); Red Cell Distribution Width 13.9 % (12.1-15.1); White Blood Count 23.4 10^3/uL (4.0-10.0)
[2022-06-16] MEDS: iohexol 350 mg/mL 100 mL Btl IV (13:45)
[2022-06-16 14:03] LABS: Alanine Aminotransferase 32 U/L (0-33); Albumin Level 2.9 g/dL (3.5-5.2); Alkaline Phosphatase 131 U/L (35-105); Anion Gap 19.4 (5-19); Aspartate Amino Transferase 29 U/L (0-32); Blood Urea Nitrogen 11 mg/dL (8-23); Carbon Dioxide 21 mmol/L (22-29); Chloride 91 mmol/L (98-107); Creatinine Clr Calc Pharmacy 69.4335; Globulin 4.2 g/dL (1.3-4.6); Glucose 145 mg/dL (65-115); Osmolality Calculated 266 mOsm/kg (285-295); Potassium 4.4 mmol/L (3.5-5.1); Sodium 127 mmol/L (136-145); Total Protein 7.1 g/dL (6.6-8.7)
[2022-06-16 14:04] LABS: Lactate (Lactic Acid level) 2.4 mmol/L (0.5-2.2)
--- NOTE | 2022-06-16 14:26 | W.ED.GENADLT ---
HPI - General Adult General: Chief complaint: General Medical Stated complaint: Weak and sick Time Seen by Provider: 06/16/22 13:01 History of Present Illness: 76-year-old female presenting today with shortness of breath. Patient notes that she had worsening shortness of breath since being discharged from the hospital. Symptoms were getting gradually worse. Notes acute worsening of symptoms 1 week ago. Was seen by primary care at that time. Started on antibiotics. She notes despite the antibiotic she is becoming increasingly short of breath. Shortness of breath is worse with exertion. Somewhat relieved at rest. She denies pain or swelling her lower extremities. She denies history of blood clots. She denies recent travel recent surgeries. She is not on blood thinners at this time. Review of Systems General: Reports: 10 or more systems reviewed and unremarkable except in HPI and below PFSH ED PFSH: Medical History A-fib Anxiety Atrial fibrillation with rapid ventricular response VERONICA on CPAP Palpitations Panic disorder Pericardial effusion Pericarditis Pleural effusion Pneumonia Restrictive lung disease SVT (supraventricular tachycardia) Surgical History History of colonoscopy with polypectomy 2005 History of esophagogastroduodenoscopy (EGD) 2016 History of facelift S/P breast biopsy S/P D&C (status post dilation and curettage) S/P tonsillectomy Status post laparoscopic cholecystectomy Family History Mother Hypertension Social History Smoking and tobacco status: former smoker Quit status (tobacco): has quit using tobacco Year quit tobacco: 1995 [id number] Second hand smoke exposure: No Smoking risk assessment/counseling performed?: Yes Alcohol intake: never Lives independently: Yes Household members: spouse Marital status: service: No Current occupational status: retired Pets and animals: Yes History of recent travel: No Current gender identity: Female Lee Ann/Jehovah'S Witness: Hoahaoism Physical Exam Const: COMMON NORMALS: no acute distress, patient oriented x3 and alert GENERAL APPEARANCE: cooperative ORIENTATION/CONSCIOUSNESS: Yes awake, Yes oriented to person, Yes oriented to place and Yes oriented to time HENMT: COMMON NORMALS: normocephalic, atraumatic, external ears normal, Normal external nose present and moist oral mucous membranes HEAD & SCALP: normal to inspection, normocephalic and atraumatic NOSE: Normal external nose present GENERAL EAR: hearing grossly impaired EXTERNAL EAR: Yes external ears normal Eye: COMMON NORMALS: Equal, round and reactive pupils present, EOMs intact bilaterally, conjunctivae normal and no scleral icterus GENERAL EYE: appearance normal, both eyes and all related structures EYELID: eyelids normal CONJUNCTIVA: Yes conjunctivae normal SCLERA: sclerae normal PUPIL: Yes Equal, round and reactive pupils present Neck/C-Spine: COMMON NORMALS: full ROM, supple and no JVD GENERAL: Yes normal visual inspection Lymph: LYMPHATIC: no lymphadenopathy noted and no lymphedema noted Chest: COMMONS NORMALS: normal inspection of the chest Resp: COMMON NORMALS: normal respiratory effort, No retractions and No use of accessory muscles Cardio: COMMON NORMALS: no JVD, regular rate and regular rhythm RATE: regular rate RHYTHM: regular rhythm GI: COMMON NORMALS: Normal to inspection, nondistended, normoactive bowel sounds present : COMMON NORMALS: Yes no CVA tenderness BLADDER/KIDNEY EXAM: Yes no CVA tenderness Back/Pelvis: COMMON NORMALS: no CVA tenderness and thoracic and lumbar spine normal to inspection Extremity: COMMON NORMALS: normal to inspection, full ROM and capillary refill normal GENERAL: Yes normal exam except as noted Neuro: COMMON NORMALS: patient oriented x3, CN's II-XII intact bilaterally, moves all extremities, no focal motor deficits, no sensory deficits noted and gait normal SENSORIUM/ORIENTATION: Yes alert, Yes oriented to person, Yes oriented to place and Yes oriented to time Psych: COMMON NORMALS: mental status grossly normal, Normal thought process present, cooperative and normal affect THOUGHT PROCESS: Normal thought process present Skin: COMMON NORMALS: no rashes or lesions noted and no wounds GENERAL SKIN EXAM: no rashes or lesions noted Course Vital Signs: Vital signs: Vital Signs Temperature 98.1 F 06/16/22 12:54 Pulse Rate 115 H 06/16/22 12:54 Blood Pressure 104/71 06/16/22 12:54 Pulse Oximetry 94 06/16/22 12:54 Oxygen Delivery Id thod 06/16/22 12:54 [facility] - General Adult Medical Decision Making 76-year-old female presenting today with shortness of breath. CTA performed demonstrating multiple pulmonary embolus on the right side. No evidence of right ventricular heart strain. No evidence of pneumonia. Patient started on heparin. Will admit to the hospital for further evaluation management patient admitted in stable condition. Lab Data : 06/16/22 13:32 06/16/22 13:32 Radiology Impressions Chest X-Ray 06/16/22 13:03 IMPRESSION: 1. Large effusion left lower lobe stable since prior 2. Otherwise negative chest examination. Chest CTA 06/16/22 13:21 IMPRESSION: 1. Positive examination for pulmonary embolism. 2. Negative for right heart strain. 3. Bilateral lower lobe pleural effusions larger in volume on the left. 4. Possible pericardial effusion. 5. Calcified granulomas in the right lung. ADDENDUM: 06/16/22 1503 Findings were discussed with Peter Costa at 06/16/2022 3:01 PM CDT. Laboratory Results WBC 23.4 10^3/uL (4.0-10.0) H 06/16/22 13:32 RBC 4.55 10^6/uL (4.1-5.3) 06/16/22 13:32 Hgb 13.2 g/dL (11.5-15.3) 06/16/22 13:32 Hct 41.4 % (37.0-47.0) 06/16/22 13:32 MCV 91.0 fl (81-99) 06/16/22 13:32 MCH 29.0 pg (28.0-34.0) 06/16/22 13:32 MCHC 31.9 g/dL (30.0-36.0) 06/16/22 13:32 RDW 13.9 % (12.1-15.1) 06/16/22 13:32 Plt Count 524 10^3/cmm (130-400) H 06/16/22 13:32 MPV 9.4 fL (7.4-10.4) 06/16/22 13:32 Neut % (Auto) 85.1 % 06/16/22 13:32 Lymph % (Auto) 5.7 % 06/16/22 13:32 [place] % (Auto) 7.7 % 06/16/22 13:32 Eos % (Auto) 0.0 % 06/16/22 13:32 Baso % (Auto) 0.3 % 06/16/22 13:32 Neut # (Auto) 19.92 10^3/uL (1.8-7.7) H 06/16/22 13:32 Lymph # (Auto) 1.3 10^3/uL (0.8-4.8) 06/16/22 13:32 [place] # (Auto) 1.8 10^3/uL (0.2-0.9) H 06/16/22 13:32 Eos # (Auto) 0.0 10^3/uL (0.0-0.8) 06/16/22 13:32 Baso # (Auto) 0.1 10^3/uL (0.0-0.1) 06/16/22 13:32 Nucleated RBC % (auto) 0 % 06/16/22 13:32 Nucleated RBCs # 0.0 /100WBC 06/16/22 13:32 Sodium 127 mmol/L (136-145) L 06/16/22 13:32 Potassium 4.4 mmol/L (3.5-5.1) 06/16/22 13:32 Chloride 91 mmol/L (98-107) L 06/16/22 13:32 Carbon Dioxide 21 mmol/L (22-29) L 06/16/22 13:32 Anion Gap 19.4 (5-19) H 06/16/22 13:32 BUN 11 mg/dL (8-23) 06/16/22 13:32 Creatinine 0.6 mg/dL (0.5-0.9) 06/16/22 13:32 GFR Calculation Not Reportable 06/16/22 13:32 Glucose 145 mg/dL (65-115) H 06/16/22 13:32 Calculated Osmolality 266 mOsm/kg (285-295) L 06/16/22 13:32 Lactate 2.4 mmol/L (0.5-2.2) H 06/16/22 13:32 Calcium 9.0 mg/dL (8.5-10.5) 06/16/22 13:32 Total Bilirubin 1.0 mg/dL (0.15-1.2) 06/16/22 13:32 AST 29 U/L (0-32) 06/16/22 13:32 ALT 32 U/L (0-33) 06/16/22 13:32 Alkaline Phosphatase 131 U/L (35-105) H 06/16/22 13:32 Total Protein 7.1 g/dL (6.6-8.7) 06/16/22 13:32 Albumin 2.9 g/dL (3.5-5.2) L 06/16/22 13:32 Globulin 4.2 g/dL (1.3-4.6) 06/16/22 13:32 Discharge Plan Discharge Patient Disposition: Admitted As Inpatient Clinical Impression: Pulmonary embolism Condition: Stable Coding Level of Care Code ED Shower Enclosure Installer for Serafin Delgadillo
--- NOTE | 2022-06-16 16:03 | PM.HP ---
Providers/Chief Complaint Primary Care Provider: Mikayla Webb DO Chief Complaint: Weak and sick History of Present Illness Sheri Lopez is a 76 year old female who was recently discharged from the hospital after pericardial fluid drainage, her symptoms were attributed to a viral etiology, she had ROLY abnormal transaminases which improved with IV fluid hydration, her [id number] is 3 for intermittent A. fib she was discharged on Holter monitor presenting today with chief signs of worsening shortness of breath. Patient is stating that for last 1 month because of her symptoms and pneumonia she has been leading a sedentary lifestyle, and last 3 to 4 days her symptoms have been getting worse she has been experiencing more shortness of breath she has not noticed any fever, chest pain, hemoptysis. 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 , She is hemodynamically stable she has severe leukocytosis Hyponatremia Review of Systems Const: Denies: fever(s) Eyes: Denies: change in vision ENMT: Denies: throat pain Card: Denies: chest pain Resp: Reports: dyspnea GI: Denies: abdominal pain : Denies: flank pain Musc: Denies: neck pain Skin/Breast: Denies: rash Neuro: Denies: headache(s) Psych: Denies: anxiety Endo: Denies: polyuria Rojelio/Lymph: Denies: easy bruising All/Imm: Denies: urticaria Medications/Allergies Home Medications Medication Instructions Recorded Confirmed Last Taken Type ljfgfrrovrlq-[id number] 1 tab PO QAM 09/21/20 06/16/22 06/16/22 History tablet (Multivitamin 50 Plus tablet) alprazolam 0.25 mg tablet (Xanax) 0.125 mg PO DAILY PRN Anxiety 02/09/22 06/16/22 Unknown History oxymetazoline 0.05 % nasal spray 2 spray intranasal Q12H PRN 03/14/22 06/16/22 Unknown History (Afrin (oxymetazoline)) Allergy Symptoms esomeprazole magnesium 40 mg 40 mg PO QPM PRN Heartburn 05/16/22 06/16/22 Unknown History capsule,delayed release (Nexium) metoprolol tartrate 50 mg tablet 50 mg PO BID@0900,2100 #120 tabs 05/27/22 06/16/22 06/16/22 Rx Allergies Allergy/AdvReac Type Severity Reaction Status Date / Time Penicillins Allergy Severe ALGY-Anaphy Verified 05/23/22 09:34 laxis vancomycin Allergy Severe unknown Verified 05/23/22 09:34 influenza virus vaccine, Allergy Unknown Unknown Verified 05/23/22 09:34 specific meperidine [From Demerol] Allergy Unknown Unknown Verified 05/23/22 09:34 penicillin G Allergy Unknown Unknown Verified 05/23/22 09:34 Sulfa (Sulfonamide Allergy Unknown Unknown Verified 05/23/22 09:34 Antibiotics) cephalexin [From Keflex] Allergy feels like Verified 05/23/22 09:34 shes going to pass out all vaccines Allergy Unknown Uncoded 05/16/22 09:02 PFSH Acute PFSH: Medical History A-fib Anxiety Atrial fibrillation with rapid ventricular response VERONICA on CPAP Palpitations Panic disorder Pericardial effusion Pericarditis Pleural effusion Pneumonia Restrictive lung disease SVT (supraventricular tachycardia) Surgical History History of colonoscopy with polypectomy 2005 History of esophagogastroduodenoscopy (EGD) 2016 History of facelift S/P breast biopsy S/P D&C (status post dilation and curettage) S/P tonsillectomy Status post laparoscopic cholecystectomy Family History Mother Hypertension Social History Smoking and tobacco status: former smoker Quit status (tobacco): has quit using tobacco Year quit tobacco: 1995 [id number] Second hand smoke exposure: No Smoking risk assessment/counseling performed?: Yes Alcohol intake: never Lives independently: Yes Household members: spouse Marital status: service: No Current occupational status: retired Pets and animals: Yes History of recent travel: No Current gender identity: Female Lee Ann/Latter Day: Uatsdin Vitals/I&O/Wt Last Vital Signs Temp 98.1 F 06/16/22 12:54 Pulse 115 H 06/16/22 12:54 BP 104/71 06/16/22 12:54 Pulse Ox 94 06/16/22 12:54 O2 Del Method 06/16/22 12:54 Weight last 48 hrs Weight 78.925 kg Physical Exam Narrative: 76-year female very pleasant cooperative Well-groomed Currently no active symptoms No shortness of breath Currently on room air Hemoglobin stable Sinus tachycardia Awake and alert Euvolemic No signs of edema of legs Abdomen soft Bilateral breath sound without acute rhonchi or crackles Data : 06/16/22 13:32 06/16/22 13:32 A&P Assessment and plan (1) Pulmonary embolism: (2) Chronic hyponatremia: Plan Acute provoked pulmonary embolism Symptomatic PE, multiple filling defects right middle, right lower lobe and left upper lobe No signs of right heart strain Check BNP, troponin and echo Recently she was discharged after pericardial fluid drainage No previous history of cancer Patient is denying fever, night sweats, significant weight loss Lung is showing calcified granulomas no consolidation or masses Left-sided pleural effusion left seems to be getting worse as compared to right Patient has been leading a sedentary lifestyle Currently on heparin drip Cardiac diet Full code Check VASILIY Rule out autoimmune disease Attestations Medical Necessity Statement*: More than 2 midnights anticipated for symptomatic PE pericardial fusion and pleural effusion Time Spent in Patient Care: 40 Coding Level of Care Code Acute Credit Operations Specialist for Serafin Delgadillo Diagnoses Pulmonary embolism I26.99 Chronic hyponatremia E87.1
[2022-06-16 16:24] LABS: Partial Thromboplastin Time 27.6 SECONDS (23.9-36.7)
[2022-06-16] MEDS: heparin 5,000 unit/mL INJ 1 mL IV (16:34)
[2022-06-16] MEDS: heparin drip 25,000 UNIT/500 ML PREMIX 22.1 UNIT IV (16:40)
[2022-06-16 16:42] LABS: Protein Urine 1+ (Negative); Specific Gravity, Urine 1.015 (1.005-1.030); Urine Appearance Clear (CLEAR); Urine Color Yellow (Yellow); pH Urine 6.5 (5-7)
[2022-06-16 16:43] LABS: Add Urine Microscopic? YES; Bilirubin Urine 1+ (Negative); Blood Urine 2+ (Negative); Glucose Urine UA Norm (Normal); Ketones Urine 1+ (Negative); Leukocyte Esterase Urine Negative (Negative); Nitrate Urine Negative (Negative); Urobilinogen Urine Norm (Negative)
[2022-06-16 16:44] LABS: Add Urine Culture? No; Bacteria Urine TRACE /hpf; RBC Urine 0-4 /hpf (0-2); Squamous Epithelial Cell Urine RARE /hpf (0-5); WBC Urine 0-4 /hpf (0-5)
--- NOTE | 2022-06-16 18:14 | ECG_ITS ---
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 Measurements Intervals [place] Rate: 116 P: 72 TN: 152 QRS: -73 QRSD: 99 T: 94 QT: 319 QTc: 444 Interpretive Statements SINUS TACHYCARDIA POSSIBLE LEFT ATRIAL ENLARGEMENT [-0.1mV P-WAVE IN V1/V2] LEFT ANTERIOR FASCICULAR BLOCK [QRS AXIS <= -45, QR IN I, RS IN II] LEFT VENTRICULAR HYPERTROPHY AND ST-T CHANGE [VOLTAGE CRITERIA PLUS ST/T ABNORMALITY] POSSIBLE ANTEROSEPTAL MYOCARDIAL INFARCTION , OF INDETERMINATE AGE [30 ms Q WAVE IN V1-V4] Compared to ECG 05/26/2022 00:03:33 Left ventricular hypertrophy now present ST (T wave) deviation now present Atrial fibrillation no longer present Myocardial infarct finding still present Electronically Signed On 06-17-2022 22:00:04 CDT by Pipo Tamayo M.D. [id number]
--- NOTE | 2022-06-16 18:19 | PC.PHAR ---
Vancomycin is dosed at 1250mg IVPB every 12 hours to produce a predicted trough level of 15.78 (population based pharmacokinetic analysis). A trough level has been ordered from the lab to be obtained before the fourth dose to confirm and adjust if needed.
[2022-06-16 18:24] LABS: Troponin(5th) Baseline 20 ng/L (0-10)
--- NOTE | 2022-06-16 19:10 | PC.PHAR ---
Vancomycin is discontinued due to reported allergy of Vancomycin analogs.
--- NOTE | 2022-06-16 19:53 | USCV_ITS ---
Sheri Lopez Age: 76 Gender: F : 1945 Exam Date: 06/16/2022 22:57 Ordering Phys: Idalia Paul MD Technologist: Kendal Ferreira Exam Location[place] [facility] [place] Indication: PE BP: 113 / 72 HR: 92 Rhythm: Sinus Technical Quality: Adequate MEASUREMENTS (Male / Female) Normal Values 2D ECHO LV Diastolic Diameter PLAX 3.3 cm 4.2 - 5.9 / 3.9 - 5.3 cm LV Systolic Diameter PLAX 3.4 cm LV Chamber Size 3.1 cm IVS Diastolic Thickness 1.0 cm 0.6 - 1.0 / 0.6 - 0.9 cm IVS Systolic Thickness 1.1 cm LVPW Diastolic Thickness 1.2 cm 0.6 - 1.0 / 0.6 - 0.9 cm LVPW Systolic Thickness 1.3 cm RV Chamber Size 1.6 cm LVOT Diameter 2.1 cm LV Ejection Fraction 2D Teich 38.6 % LV Ejection Fraction MOD 2C 34.6 % LV Ejection Fraction 2C AL 38.9 % LA Diameter 2.5 cm LA Width 2.4 cm LA Height 2.9 cm RA Width 2.1 cm RA Height 3.1 cm Aorta at Sinotubular Diameter 2.8 cm IVC Diameter 1.8 cm M-MODE Aortic Annulus Diameter 3.5 cm LA Ao Ratio MM 0.8 MV E Point Septal Separation 0.5 cm DOPPLER AV Peak Velocity 119.0 cm/s LVOT Peak Velocity 103.0 cm/s AV Area Cont Eq vti 3.0 cm squared AV Area Cont Eq pk 2.9 cm squared MV Area PHT 4.1 cm squared Mitral E to A Ratio 2.1 MV E' Velocity 96.0 cm/s Mitral E to LV E' Septal Ratio 14.5 TR Peak Velocity 110.4 cm/s TR Peak Gradient 4.9 mmHg TR Mean Velocity 73.8 cm/s TR Mean Gradient 2.5 mmHg TR Velocity Time Integral 20.9 cm TV Peak E Velocity 55.0 cm/s RV Acceleration Time 0.1 s RV Ejection Time 0.3 s RV AcT/ET 0.4 FINDINGS Left Ventricle Left ventricle is normal size. LV systolic function abnormal with EF of 50 to 55%. No regional motion abnormalities are seen. Right Ventricle Normal in size and function Right Atrium Normal in size Left Atrium Normal in size Mitral Valve Grossly normal. Aortic Valve Structurally normal aortic valve. No significant stenosis or regurgitation Tricuspid Valve Mild tricuspid regurgitation. Insufficient TR jet to evaluate RVSP Pulmonic Valve Not well-visualized Pericardium There is a small sized pericardial effusion noted. No echocardiographic features of cardiac tamponade. Significant pleural effusion is noted. Aorta Normal in size IVC Not well-visualized CONCLUSIONS LV systolic function is normal with EF of 50 to 55%. Mild tricuspid regurgitation Small sized pericardial effusion is noted. No echocardiographic features of cardiac tamponade. Significant pleural effusion is seen. Compared to prior echocardiogram from 05/25/2022, no significant changes seen. Pipo Tamayo MD (Electronically Signed) Final Date: 17 June 2022 08:56 S
--- NOTE | 2022-06-16 19:58 | ECG_ITS ---
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 Measurements Intervals [place] Rate: 122 P: 61 MT: 146 QRS: -67 QRSD: 96 T: 91 QT: 313 QTc: 446 Interpretive Statements SINUS TACHYCARDIA LEFT ANTERIOR FASCICULAR BLOCK [QRS AXIS <= -45, QR IN I, RS IN II] LEFT VENTRICULAR HYPERTROPHY AND ST-T CHANGE [VOLTAGE CRITERIA PLUS ST/T ABNORMALITY] ANTEROSEPTAL MYOCARDIAL INFARCTION , OF INDETERMINATE AGE [40+ ms Q WAVE IN V1-V4] Compared to ECG 06/16/2022 18:14:19 No significant changes Electronically Signed On 06-17-2022 22:08:52 CDT by Pipo Tamayo M.D. [id number]
[2022-06-16 20:48] LABS: Lactate (Lactic Acid level) 1.9 mmol/L (0.5-2.2)
[2022-06-16] MEDS: sodium chloride 0.9% 1,000 ML 75 ML IV (20:50)
[2022-06-16] MEDS: aztreonam 1,000 MG in sodium chloride 0.9% (plus) 50 ML 100 MG IV (20:51)
[2022-06-16] MEDS: metoprolol tartrate 50 mg Tablet 25 MG PO (20:58)
[2022-06-16] MEDS: metroNIDAZOLE 500 MG Tablet PO (20:59)
[2022-06-16] MEDS: metoprolol tartrate 25 mg Tablet PO (21:20)
[2022-06-16 21:44] LABS: Troponin 5 6HR 23.13 ng/L (0-10)
[2022-06-16 21:49] LABS: Troponin 5 6HR Delta 3.13 ng/L (0-12)
[2022-06-16 22:01] LABS: Vitamin B12 527 pg/mL (232-1245)
[2022-06-16] MEDS: sodium chloride 0.9% 1,000 ML 999 ML IV (22:47)
[2022-06-16 23:48] LABS: Partial Thromboplastin Time 67.9 SECONDS (23.9-36.7)
[2022-06-17] VITALS (9 sets, daily range): BP systolic 102–130; BP diastolic 62–75; PULSE 85–105; RESP 15–18; TEMP 36.4–37; O2SAT 92–98
[2022-06-17 05:04] LABS: Basophils % 0.3 %; Eosinophils % 0.1 %; Hematocrit 33.6 % (37.0-47.0); Hemoglobin 10.8 g/dL (11.5-15.3); Lymphocytes # 1.1 10^3/uL (0.8-4.8); Lymphocytes % 7.1 %; Mean Corpuscular HGB Conc 32.1 g/dL (30.0-36.0); Mean Corpuscular Hemoglobin 29.3 pg (28.0-34.0); Mean Corpuscular Volume 91.3 fl (81-99); Mean Platelet Volume 9.5 fL (7.4-10.4); Monocytes # 1.2 10^3/uL (0.2-0.9); Monocytes % 8.1 %; Neutrophils # 12.59 10^3/uL (1.8-7.7); Neutrophils % 83.7 %; Nucleated Red Blood Cells % 0 %; Platelet Count 419 10^3/cmm (130-400); Red Blood Count 3.68 10^6/uL (4.1-5.3)
[2022-06-17 05:21] LABS: Lactic Sepsis W/Reflex 0.9 mmol/L (0.5-2.2)
[2022-06-17 05:26] LABS: Partial Thromboplastin Time 69.7 SECONDS (23.9-36.7)
[2022-06-17 05:42] LABS: Anion Gap 13.1 (5-19); Blood Urea Nitrogen 12 mg/dL (8-23); Calcium 8.4 mg/dL (8.5-10.5); Carbon Dioxide 27 mmol/L (22-29); Chloride 102 mmol/L (98-107); Creatinine Clr Calc Pharmacy 69.4335; Glucose 117 mg/dL (65-115); Magnesium 2.2 mg/dL (1.7-2.3); NT Pro B Type Natriuretic Pept 1140 pg/mL (0-125); Osmolality Calculated 287 mOsm/kg (285-295); Potassium 4.1 mmol/L (3.5-5.1); Sodium 138 mmol/L (136-145)
[2022-06-17] MEDS: aztreonam 1,000 MG in sodium chloride 0.9% (plus) 50 ML 100 MG IV ×2 (05:50→18:08)
[2022-06-17] MEDS: metoprolol tartrate 50 mg Tablet PO ×2 (08:33→20:47)
--- NOTE | 2022-06-17 10:55 | P.PN_ITS ---
Subjective Subjective: Echo did not show cardiac tamponade Left-sided pleural effusion Will request thoracentesis for tomorrow morning I will asked nurse to stop heparin drip at midnight She does not need to become n.p.o. after midnight Awake and alert currently on 4 L Vitals/I&O/Wt Last Vital Signs Temp 98.1 F 06/17/22 08:00 Pulse 96 06/17/22 08:00 Resp 16 06/17/22 08:00 BP 129/70 06/17/22 08:00 Pulse Ox 92 06/17/22 08:00 O2 Del Method 06/17/22 08:00 O2 Flow Rate 23 06/17/22 07:46 06/16/22 06/17/22 06/17/22 22:59 06:59 14:59 Intake Total 280.508 / 228.536 0282 / 1330.508 240 / 240 Balance 280.508 / 887.397 3659 / 1330.508 240 / 240 Weight last 48 hrs Weight 78.925 kg Physical Exam Narrative: Patient is endorsing feeling better However she is on 4 L which is a new requirement Left-sided diminished breath sounds No acute respite distress Emily stable S1, S2 Abdomen soft No signs of edema In good spirits Nonfocal neuro exam Data : 06/17/22 04:53 06/17/22 04:53 Micro: Microbiology 06/16/22 18:39 Blood Culture - Preliminary Blood SPECIMEN COLLECTED 06/16/22 18:30 Blood Culture - Preliminary Blood SPECIMEN COLLECTED A&P Assessment and plan (1) Chronic hyponatremia: (2) Pulmonary embolism: (3) Pleural effusion: Plan Acute pulmonary embolism No signs of cardiac tamponade No right heart strain Echo unremarkable Lisinopril. Acute hypoxia requiring 4 L Will request thoracentesis Patient will need hematology outpatient follow-up I will plan to discharge her on Saturday after her thoracentesis Wean her oxygen down Discontinue ibuprofen and colchicine Plan to stop her heparin drip for thoracentesis in the morning Will discharge on Eliquis Attestations Medical Necessity Statement*: Discharge tomorrow Time Spent in Patient Care: 30 Coding Level of Care Code Acute Political Analyst for [employer] Fwd Diagnoses Chronic hyponatremia E87.1 Pulmonary embolism I26.99 Pleural effusion J90
[2022-06-17 11:24] LABS: Partial Thromboplastin Time 67.2 SECONDS (23.9-36.7)
[2022-06-17] MEDS: heparin drip 25,000 UNIT/500 ML PREMIX 22 UNIT IV (18:09)
[2022-06-17 18:35] LABS: Partial Thromboplastin Time 46.7 SECONDS (23.9-36.7)
[2022-06-17] MEDS: heparin 5,000 unit/mL INJ 1 mL IV (19:00)
[2022-06-18] VITALS (12 sets, daily range): BP systolic 111–145; BP diastolic 66–83; PULSE 73–150; RESP 16–20; TEMP 36.4–36.7; O2SAT 94–100
[2022-06-18] MEDS: ALPRAZolam 0.5 mg Tablet 0.25 MG PO (02:35)
--- NOTE | 2022-06-18 02:47 | ECG_ITS ---
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 Measurements Intervals [place] Rate: 118 P: [place]: QRS: -65 QRSD: 104 T: 118 QT: 292 QTc: 410 Interpretive Statements ATRIAL FIBRILLATION WITH RAPID VENTRICULAR RESPONSE LEFT ANTERIOR FASCICULAR BLOCK [QRS AXIS <= -45, QR IN I, RS IN II] MINIMAL VOLTAGE CRITERIA FOR LVH, CONSIDER NORMAL VARIANT [MEETS CRITERIA IN ONE OF: R(aVL), S(V1), R(V5), R(V5/V6)+S(V1)] ANTEROSEPTAL MYOCARDIAL INFARCTION , OF INDETERMINATE AGE [40+ ms Q WAVE IN V1-V4] MODERATE T-WAVE ABNORMALITY, CONSIDER LATERAL ISCHEMIA [-0.1+ mV T-WAVE IN I/aVL/V5/V6] Compared to ECG 06/16/2022 20:16:16 T-wave abnormality now present Possible ischemia now present Sinus tachycardia no longer present ST (T wave) deviation no longer present Myocardial infarct finding still present Electronically Signed On 06-18-2022 17:21:41 CDT by Pipo Tamayo M.D. [email or web address].[id number]
[2022-06-18] MEDS: dilTIAZem 5 mg/mL SDV 5 mL 10 MG IVP (03:04)
--- NOTE | 2022-06-18 04:00 | US_ITS ---
WS: [id number] ULTRASOUND-GUIDED THORACENTESIS, LEFT HISTORY: LEFT pleural effusion. Procedure, risks, and complications were explained to the patient. With the patient in an upright pos ition, the skin over the LEFT posterior thorax was cleansed with ChloraPrep and anesthetized with 1% buffered lidocaine. A 5 Albanian Yueh needle is inserted into the pleural fluid without complication. A pproximately 1000 cc of clear light brown pleural fluid is removed without difficulty. Pleural fluid specimen collected for analysis as requested. / thoracentesis [id number] IMPRESSION: 1. LEFT thoracentesis yielding 1000 cc of fluid. 2. Chest radiograph to follow to evaluate for pneumothorax. 3. Specimen collected for analysis as requested.
[2022-06-18] MEDS: aztreonam 1,000 MG in sodium chloride 0.9% (plus) 50 ML 100 MG IV (05:24)
[2022-06-18 05:56] LABS: Basophils % 0.3 %; Eosinophils # 0.1 10^3/uL (0.0-0.8); Eosinophils % 0.8 %; Hematocrit 33.7 % (37.0-47.0); Hemoglobin 10.9 g/dL (11.5-15.3); Lymphocytes # 1.4 10^3/uL (0.8-4.8); Lymphocytes % 10.7 %; Mean Corpuscular HGB Conc 32.3 g/dL (30.0-36.0); Mean Corpuscular Volume 92.8 fl (81-99); Mean Platelet Volume 9.7 fL (7.4-10.4); Monocytes # 0.9 10^3/uL (0.2-0.9); Monocytes % 6.5 %; Nucleated Red Blood Cells % 0 %; Platelet Count 441 10^3/cmm (130-400); Red Blood Count 3.63 10^6/uL (4.1-5.3); White Blood Count 13.2 10^3/uL (4.0-10.0)
[2022-06-18 06:09] LABS: INR 0.99 (0.8-1.2)
[2022-06-18 06:24] LABS: Anion Gap 12.4 (5-19); Blood Urea Nitrogen 9 mg/dL (8-23); Calcium 8.7 mg/dL (8.5-10.5); Carbon Dioxide 26 mmol/L (22-29); Chloride 102 mmol/L (98-107); Glucose 104 mg/dL (65-115); Osmolality Calculated 283 mOsm/kg (285-295); Potassium 3.4 mmol/L (3.5-5.1); Sodium 137 mmol/L (136-145)
[2022-06-18 06:25] LABS: Creatinine Clr Calc Pharmacy 69.4335
[2022-06-18 06:55] LABS: Vancomycin Trough < 4.0 ug/mL (10-15)
[2022-06-18] MEDS: metoprolol tartrate 50 mg Tablet PO (08:49)
--- NOTE | 2022-06-18 09:28 | PC.NURSE ---
Physician orders to give PO liquid potassium 40mEq ONCE>
[2022-06-18] MEDS: potassium chloride oral liq 20 mEq/15 mL UDC 40 MEQ PO (09:52)
--- NOTE | 2022-06-18 11:09 | PC.NURSE ---
Notified Dr. Paul that [facility] has no beds available.
--- NOTE | 2022-06-18 11:11 | PC.NURSE ---
Notified patient and family at bedside that [facility] does not have any beds available at this time. We can try and call back in a couple hours and see then. Patient states, Oh well I will just go home then. I explained to the patient that she has a broken hip so she will not be able to walk or stand on it. Patient states, They took x-rays and said it wa not broke. I explained to the patient that the x-rays were repeated in the emergency room and it did show that her hip was broken. Patient still states, It is not broken and I will just go home. Left patient to talk with family about the situation.
--- NOTE | 2022-06-18 11:28 | PM.DCS ---
Discharge Providers Date of Admission: 06/16/22 19:42 Date of Discharge: June 18, 2022 Attending Provider at Admission: Alden You MD Attending Provider at Discharge: Idalia Paul MD Primary Care Provider: Mikayla Webb DO Diagnoses at Discharge Discharge Diagnosis (1) Chronic hyponatremia: Status: Acute (2) Pulmonary embolism: Status: Acute (3) Pleural effusion: Status: Acute Reason for Visit Reason for Visit: Weak and sick Hospital Course Hospital Course 76-year female who was recently discharged from the hospital after pericardial effusion drainage by Dr. Tamayo, her symptomatology was consistent with viral infection however culture shows staph hominis( was dc'd on levaquin which is sensitive as per C&S), she returned with worsening of shortness of breath at this visit she has been diagnosed with acute bilateral PE she was started on heparin drip, left-sided pleural effusion has gotten worse, I requested thoracentesis, she remained afebrile, she was treated as sepsis secondary to community-acquired pneumonia and received antibiotics, she is allergic to multiple antibiotics and is reluctant to take most of them, she has finished her colchicine and ibuprofen course for pericardial effusion. For A. fib RVR she will get Eliquis 10 mg twice daily for 7 days and then will start 5 mg twice daily regimen because of leukocytosis and recurrent pleural effusion she will need pulmonary consult to see if she would qualify for pleurodesis. Pathology result from 05/25 pericardial fluid is negative for malignancy, her most of autoimmune work-up was negative except rheumatoid factor I have requested anti-CCP antibodies she does not have any signs of rheumatoid arthritis. We will send pleural fluid for cytology and analysis I will be planning to discharging her on Augmentin 5-day course. Patient stating that she is allergic to most of the medication when I asked her about allergy she states every time she takes antibiotics she gets nausea and vomiting. Never had any skin rash to them, she is stating that with vancomycin she developed anaphylactic reaction. During hospitalization she required 4 L of oxygen, we were able to wean her down to room air gradually. 1L was removed from left pleura. I have given her Augmentin in the hospital she has not developed any side effect of nausea, vomiting or anaphylaxis. She is willing to try a 5-day course of Augmentin for now. OP close f/u w Dr Datar Physical Exam Narrative: Awake and alert Currently on 1 L nasal cannula Bilateral breath sound diminished on the left Awake and alert Nonfocal neuro exam S1, S2 variable Abdomen soft Looks euvolemic Discharge Data Studies Completed and Pending Completed Studies During Hospitalization Category Date Time Status CT angio chest PE protcl [id number] Stat Cat Scan 06/16/22 13:21 Completed XR chest 2V* [id number] Stat Exams 06/16/22 13:03 Completed CV. echo complete* [id number] Routine Ultrasound 06/16/22 19:53 Completed Pending at discharge Category Date Time Status VASILIY Screen w/ Reflex Routine Lab 06/16/22 21:05 Received Blood Culture Stat Lab 06/16/22 18:39 Results CCP [Cyclic Citrullinated Peptide] Routine Lab 06/16/22 18:23 Received Glucose Pleural Fluid Routine Lab 06/17/22 10:53 Uncollected LDH Pleural Fluid Routine Lab 06/17/22 10:53 Uncollected Platelet Count Q2D Lab 06/20/22 04:00 Ordered Pleural [Left Pleural Fluid Analysis] Routine Lab 06/17/22 10:53 Uncollected Total Protein Pleural Fluid Routine Lab 06/17/22 10:53 Uncollected pH Pleural Fluid Routine Lab 06/17/22 10:53 Uncollected US thoracentesis [id number] Routine Ultrasound 06/18/22 04:00 Ordered Radiology Impressions Chest X-Ray 06/16/22 13:03 IMPRESSION: 1. Large effusion left lower lobe stable since prior 2. Otherwise negative chest examination. Chest CTA 06/16/22 13:21 IMPRESSION: 1. Positive examination for pulmonary embolism. 2. Negative for right heart strain. 3. Bilateral lower lobe pleural effusions larger in volume on the left. 4. Possible pericardial effusion. 5. Calcified granulomas in the right lung. ADDENDUM: 06/16/22 1503 Findings were discussed with Peter Costa at 06/16/2022 3:01 PM CDT. Laboratory Results WBC 13.2 10^3/uL (4.0-10.0) H 06/18/22 05:38 RBC 3.63 10^6/uL (4.1-5.3) L 06/18/22 05:38 Hgb 10.9 g/dL (11.5-15.3) L 06/18/22 05:38 Hct 33.7 % (37.0-47.0) L 06/18/22 05:38 MCV 92.8 fl (81-99) 06/18/22 05:38 MCH 30.0 pg (28.0-34.0) 06/18/22 05:38 MCHC 32.3 g/dL (30.0-36.0) 06/18/22 05:38 RDW 14.0 % (12.1-15.1) 06/18/22 05:38 Plt Count 441 10^3/cmm (130-400) H 06/18/22 05:38 MPV 9.7 fL (7.4-10.4) 06/18/22 05:38 Neut % (Auto) 81.0 % 06/18/22 05:38 Lymph % (Auto) 10.7 % 06/18/22 05:38 [place] % (Auto) 6.5 % 06/18/22 05:38 Eos % (Auto) 0.8 % 06/18/22 05:38 Baso % (Auto) 0.3 % 06/18/22 05:38 Neut # (Auto) 10.70 10^3/uL (1.8-7.7) H 06/18/22 05:38 Lymph # (Auto) 1.4 10^3/uL (0.8-4.8) 06/18/22 05:38 [place] # (Auto) 0.9 10^3/uL (0.2-0.9) 06/18/22 05:38 Eos # (Auto) 0.1 10^3/uL (0.0-0.8) 06/18/22 05:38 Baso # (Auto) 0.0 10^3/uL (0.0-0.1) 06/18/22 05:38 Nucleated RBC % (auto) 0 % 06/18/22 05:38 Nucleated RBCs # 0.0 /100WBC 06/18/22 05:38 PT 13.40 SECONDS (12.1-14.9) 06/18/22 05:38 INR 0.99 (0.8-1.2) 06/18/22 05:38 APTT 46.7 SECONDS (23.9-36.7) H 06/17/22 17:50 Sodium 137 mmol/L (136-145) 06/18/22 05:38 Potassium 3.4 mmol/L (3.5-5.1) L 06/18/22 05:38 Chloride 102 mmol/L (98-107) 06/18/22 05:38 Carbon Dioxide 26 mmol/L (22-29) 06/18/22 05:38 Anion Gap 12.4 (5-19) 06/18/22 05:38 BUN 9 mg/dL (8-23) 06/18/22 05:38 Creatinine 0.4 mg/dL (0.5-0.9) L 06/18/22 05:38 GFR Calculation Not Reportable 06/18/22 05:38 Glucose 104 mg/dL (65-115) 06/18/22 05:38 Calculated Osmolality 283 mOsm/kg (285-295) L 06/18/22 05:38 Lactic Acid 0.9 mmol/L (0.5-2.2) 06/17/22 04:53 Lactate 1.9 mmol/L (0.5-2.2) 06/16/22 20:05 Calcium 8.7 mg/dL (8.5-10.5) 06/18/22 05:38 Magnesium 2.2 mg/dL (1.7-2.3) 06/17/22 04:53 Total Bilirubin 1.0 mg/dL (0.15-1.2) 06/16/22 13:32 AST 29 U/L (0-32) 06/16/22 13:32 ALT 32 U/L (0-33) 06/16/22 13:32 Alkaline Phosphatase 131 U/L (35-105) H 06/16/22 13:32 Troponin T Baseline 20 ng/L (0-10) H 06/16/22 13:32 Troponin T Hi Sens 6Hr 23.13 ng/L (0-10) H 06/16/22 21:05 Troponin T Hi Sens 6Hr Delta 3.13 ng/L (0-12) 06/16/22 21:05 NT-Pro-B Natriuret Pep 1140 pg/mL (0-125) H 06/17/22 04:53 Total Protein 7.1 g/dL (6.6-8.7) 06/16/22 13:32 Albumin 2.9 g/dL (3.5-5.2) L 06/16/22 13:32 Globulin 4.2 g/dL (1.3-4.6) 06/16/22 13:32 Vitamin B12 527 pg/mL (232-1245) 06/16/22 21:05 Urine Color Yellow (Yellow) 06/16/22 16:16 Urine Appearance Clear (CLEAR) 06/16/22 16:16 Urine pH 6.5 (5-7) 06/16/22 16:16 Ur Specific [place] 1.015 (1.005-1.030) 06/16/22 16:16 Urine Protein 1+ (Negative) H 06/16/22 16:16 Urine Glucose (UA) Norm (Normal) 06/16/22 16:16 Urine Ketones 1+ (Negative) H 06/16/22 16:16 Urine Blood 2+ (Negative) H 06/16/22 16:16 Urine Nitrate Negative (Negative) 06/16/22 16:16 Urine Bilirubin 1+ (Negative) H 06/16/22 16:16 Urine Urobilinogen Norm mg/dL (Negative) 06/16/22 16:16 Ur Leukocyte Esterase Negative (Negative) 06/16/22 16:16 Urine RBC 0-4 /hpf (0-2) H 06/16/22 16:16 Urine WBC 0-4 /hpf (0-5) H 06/16/22 16:16 Ur Squamous Epith Cells Rare /hpf (0-5) 06/16/22 16:16 Amorphous Sediment Not Reportable 06/16/22 16:16 Urine Bacteria Trace /hpf (NONE) 06/16/22 16:16 Vancomycin Trough < 4.0 ug/mL (-15) L 06/18/22 05:38 Vitals Last Vital Signs Temp 97.9 F 06/18/22 07:53 Pulse 101 H 06/18/22 08:53 Resp 18 06/18/22 08:53 BP 123/66 06/18/22 07:53 Pulse Ox 96 06/18/22 08:53 O2 Del Method 06/18/22 08:53 O2 Flow Rate 1 06/18/22 08:53 Discharge Plan Discharge Patient Disposition: Home Condition: Stable Prescriptions: New amoxicillin-pot clavulanate 875-125 mg Tablet 1 tab PO BID Qty: 10 0RF Eliquis DVT-PE Treat 30D Start 5 mg (74 tabs) tablets,dose pack 5 mg PO BID Qty: 74 0RF Rx Instructions: 10 mg twice daily for 7 days then 5 mg daily on board albuterol sulfate 90 mcg/actuation HFA aerosol inhaler 2 inh inhalation Q8H PRN (Reason: shortness of breath or wheezing) Qty: 8.5 1RF Continued oxymetazoline [Afrin (oxymetazoline)] 0.05 % spray,non-aerosol 2 spray intranasal Q12H PRN (Reason: Allergy Symptoms) alprazolam [Xanax] 0.25 mg tablet 0.125 mg PO DAILY PRN (Reason: Anxiety) Multivitamin 50 Plus Tablet 1 tab PO QAM esomeprazole magnesium [Nexium] 40 mg Capsule,Delayed Release(Dr/Ec) 40 mg PO QPM PRN (Reason: Heartburn) metoprolol tartrate 50 mg Tablet 50 mg PO BID@0900,2100 Qty: 120 3RF Discharge Orders: Discharge Order (Routine); Ordered 06/18/22 Ordered By: Idalia Paul Referrals: Rashad Dove MD [Physician] - 1 week Mikayla Webb DO [Primary Care Provider] - 4-7 days Jessica Quiroz MD [Staff Physician] - 6 Weeks (Acute pulmonary embolism) Discharge Diet: Cardiac Discharge Activity: Increase activity as tolerated Patient Instructions: Opioid Safety Discharge Attestations Time Spent in Discharge Care*: less than 30 min Quality Metrics Clinical Quality Measures [ No reported AMI, CVA or VTE this stay] Coding Level of Care Code Acute Chg FW DC note Diagnoses Chronic hyponatremia E87.1 Pulmonary embolism I26.99 Pleural effusion J90
--- NOTE | 2022-06-18 12:05 | XR_ITS ---
WS: [id number] PORTABLE CHEST HISTORY: post thoracentesis, LEFT COMPARISON: 06/16/2022 Persistent but moderately improved opacification at the LEFT lung base. Moderate improvement in the L EFT pleural effusion. No pneumothorax is identified. There is also a very small RIGHT pleural effusion. Cardiac size: Mildly enlarged cardiac silhouette. Cardiac loop recorder over the mid thorax. Mediastinum/Aorta: Mild atherosclerosis aorta. No osseous abnormality seen. XR/XR chest 1V portable [id number] IMPRESSION: 1. Moderate improvement in the LEFT pleural effusion. 2. No LEFT pneumothorax. 3. Small bilateral pleural effusions.
[2022-06-18] MEDS: amoxicillin-clav 875-125 mg Tablet 1 TAB PO (12:30)
[2022-06-18 13:33] LABS: Mononuclear %, Pleural Fluid 83 %; Mononuclear, Pleural Fluid # 0.952 10^3/uL; Polynuclear Cells, Pleural # 0.198 10^3/uL; Polynuclear Cells, Pleural % 17 %
[2022-06-18 13:43] LABS: Appearance, Pleural Fluid CLEAR (CLEAR); Color, Pleural Fluid Pale Yellow (Pale Yellow)
[2022-06-18 14:07] LABS: Cyclic Citrullinated Peptide <16 UNITS
[2022-06-18 14:16] LABS: Cyto Order Verification Order Verified
[2022-06-18 14:17] LABS: Left Pleural Fluid Analysis Left Lung
--- NOTE | 2022-06-18 18:27 | PC.NURSE ---
Discharge Note Patient discharged to home via private vehicle accompanied by family. Discharge instructions reviewed with patient and/or admitting representative. Mobile pharmacy medications and/or prescriptions provided. Belongings/home medications returned.
[2022-06-19 00:47] LABS: Lactate Dehydrogenase 135 U/L (135-214)
[2022-06-19 05:42] LABS: LDH Pleural Fluid 132 U/L; Total Protein Pleural Fluid 3.6 g/dL
[2022-06-20 14:23] LABS: Anti-Nuclear Antibody Screen NEGATIVE (NEGATIVE)
== END 2022-06-18 18:27 | disposition home or self-care (01) | DRG 176 ==
LOC: ER 15:33 → MEDSURG 19:42
PROVIDERS: Admitting Provider Internal Medicine; Emergency Provider Emergency Medicine; PCP Family Medicine; Visit Provider Internal Medicine
DX: I26.99 Other pulmonary embolism without acute cor pulmonale (principal); E87.1 Hypo-osmolality and hyponatremia; I31.39 Other pericardial effusion (noninflammatory); J90 Pleural effusion, not elsewhere classified; I48.91 Unspecified atrial fibrillation; Z87.01 Personal history of pneumonia (recurrent); F41.9 Anxiety disorder, unspecified; G47.33 Obstructive sleep apnea (adult) (pediatric); Z99.89 Dependence on other enabling machines and devices; Z87.891 Personal history of nicotine dependence; Z88.0 Allergy status to penicillin; Z88.2 Allergy status to sulfonamides; Z88.7 Allergy status to serum and vaccine; Z88.1 Allergy status to other antibiotic agents
CPT/HCPCS: 32555; 36415; 71045; 71046; 71275; 80048; 80053; 80202; 80503; 81001; 82607; 82945; 83605; 83615; 83735; 83880; 83986; 84157; 84443; 84484; 85025; 85610; 85730; 86038; 86140; 86200; 86431; 87040; 88108; 88305; 89050; 93005; 93306; 96365; 96366; 96375; 99285; J1644; J3490; J7030; Q9967

== ENCOUNTER 2022-06-25 09:58 | Inpatient (IN) | payer MEDICARE, OTHER, SELFPAY ==
[2022-06-25] VITALS (32 sets, daily range): BP systolic 92–133; BP diastolic 54–87; PULSE 96–123; RESP 13–31; TEMP 36.7–36.8; O2SAT 94–98; BMI 25.7
--- NOTE | 2022-06-25 10:45 | ECG_ITS ---
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 Measurements Intervals [place] Rate: 99 P: 58 HI: 152 QRS: -70 QRSD: 101 T: 23 QT: 334 QTc: 429 Interpretive Statements SINUS RHYTHM LEFT ATRIAL ENLARGEMENT [-0.15mV P-WAVE IN V1/V2] LEFT ANTERIOR FASCICULAR BLOCK [QRS AXIS <= -45, QR IN I, RS IN II] POSSIBLE LEFT VENTRICULAR HYPERTROPHY [VOLTAGE CRITERIA PLUS LAE OR QRS WIDENING] POSSIBLE ANTEROSEPTAL MYOCARDIAL INFARCTION , OF INDETERMINATE AGE [30 ms Q WAVE IN V1-V4] Compared to ECG 06/18/2022 02:47:54 Atrial abnormality now present Atrial fibrillation no longer present T-wave abnormality no longer present Possible ischemia no longer present Myocardial infarct finding still present Electronically Signed On 06-25-2022 22:54:42 CDT by Jenny Wang M.D. [email or web address]
--- NOTE | 2022-06-25 10:45 | XR_ITS ---
WS: [id number] Exam: XR chest 1V portable [id number] Date/Time of Exam: 06/25/2022 10:47 AM Reason For Exam: dyspnea/cough Comparison 06/18/2022. Increasing left pleural effusion now occupies the lower 50% of the left pleural cavity. Compressive a telectasis of the left lower lobe. No pneumothorax is seen. The right lung is clear and fully inflate d. The mediastinal silhouette is normal in appearance. A battery pack superimposes the mediastinum. M onitoring leads are noted over the chest. Bony structures are intact. XR/XR chest 1V portable [id number] IMPRESSION: 1. Increasing left-sided pleural effusion with compressive atelectasis of the l eft lower lobe.
--- NOTE | 2022-06-25 10:54 | W.ED.WEAKNES ---
Documented by User: Jon Leonard DO 07/06/22 07:32 HPI - Weakness General: Chief complaint: Weakness Stated complaint: Weakness Time Seen by Provider: 06/25/22 10:45 Source: patient Mode of arrival: ambulatory History of Present Illness: 76 yo male presents with complains of shortness of breath. Presents emergency room complaining of generalized weakness and some shortness of breath. She was hospitalized on 1014 and discharged on 1016. She not had any fever sweats or chills does complain of this chronic weakness. She denied any hematochezia melena hematemesis or coffee-ground emesis. She did have a previous hospitalization for hyponatremia as well as for a pericardial effusion. She was initially seen on 05/16 and found to have a pericardial effusion Dr. Cash has scheduled outpatient follow-up with her it became worse she was hospitalized and it was drained she was later admitted for Pulmonary embolism and hyponatremia on 1014. She is continuing to take her Eliquis. MD Complaint: generalized weakness Onset (ago): week(s) Duration: constant Location: generalized Severity: severe Quality: tingling Relieving factors: none Exacerbating factors: none Associated symptoms: Denies chest pain, chills, confusion, melena, decreased appetite, diaphoresis, dysuria, easy bruising, fever(s), headache(s), myalgias, nausea, rash, short of breath, syncope or vomiting Review of Systems Const: Reports: fatigue and malaise; Denies: fever(s), chills or diaphoresis ENMT: Denies: throat pain, ear or mastoid pain, nasal discharge or nasal congestion Card: Denies: chest pain or syncope Resp: Reports: dyspnea; Denies: productive cough, non-productive cough or wheezing GI: Denies: abdominal pain, nausea, vomiting or melena : Denies: dysuria Skin/Breast: Denies: rash or pruritus Neuro: Denies: headache(s) or confusion [place]/Lymph: Denies: easy bruising PFS ED PFSH: Medical History (Updated 07/06/22 @ 07:32 by Jon Leonard DO) A-fib Anxiety Atrial fibrillation Chronic hyponatremia Generalized weakness Hyponatremia Leukocytosis VERONICA on CPAP Palpitations Panic disorder Pericardial effusion Pericarditis Pleural effusion Pleural effusion Pneumonia Pulmonary embolism Recurrent left pleural effusion Restrictive lung disease SVT (supraventricular tachycardia) Surgical History History of colonoscopy with polypectomy 2005 History of esophagogastroduodenoscopy (EGD) 2016 History of facelift S/P breast biopsy S/P D&C (status post dilation and curettage) S/P tonsillectomy Status post laparoscopic cholecystectomy Family History (Updated 06/25/22 @ 19:34 by Chapo Veras MD) Mother Hypertension Dementia Atrial fibrillation Father Parkinson's disease Social History Smoking and tobacco status: former smoker Quit status (tobacco): has quit using tobacco Year quit tobacco: 1995 [id number] Second hand smoke exposure: No Smoking risk assessment/counseling performed?: Yes Alcohol intake: never Lives independently: Yes Household members: spouse Marital status: service: No Current occupational status: retired Pets and animals: Yes History of recent travel: No Current gender identity: Female [place]/Hinduism: [employer] Physical Exam Const: GENERAL APPEARANCE: cooperative and comfortable ORIENTATION/CONSCIOUSNESS: Yes awake, Yes oriented to person, Yes oriented to place and Yes oriented to time HENMT: COMMON NORMALS: normocephalic, atraumatic and hearing grossly normal bilaterally HEAD & SCALP: normocephalic and atraumatic Resp: COMMON NORMALS: normal respiratory effort, No retractions and No use of accessory muscles AUSCULTATION: breath sounds absent on th left (Lower two thirds dullness to percussion with egophony) and egophony left lower Cardio: COMMON NORMALS: regular rate, regular rhythm and No murmurs present (Cardio) RATE: regular rate RHYTHM: regular rhythm GI: COMMON NORMALS: Soft to palpation and No hepatosplenomegaly present AUSCULTATION: Yes normoactive bowel sounds PALPATION: Yes Soft to palpation, No Tenderness to palpation present (GI), No Guarding due to palpation present (GI) and Yes No hepatosplenomegaly present Extremity: COMMON NORMALS: normal to inspection, capillary refill normal, no clubbing, cyanosis or edema, no calf tenderness and no pedal edema Neuro: SENSORIUM/ORIENTATION: Yes oriented to person, Yes oriented to place and Yes oriented to time Skin: COMMON NORMALS: no rashes or lesions noted GENERAL SKIN EXAM: no rashes or lesions noted Course Vital Signs: Vital signs: Vital Signs Temperature 97.7 F 06/28/22 13:34 Pulse Rate 81 06/28/22 13:34 Respiratory Rate 15 06/28/22 13:34 Blood Pressure 124/65 06/28/22 13:34 Pulse Oximetry 95 06/28/22 13:34 Oxygen Delivery Me thod 06/28/22 11:38 MDM - Weakness Medical Decision Making Discussed with hospitalist. Patient is severely weak. She recently was hospitalized with pericardial effusion and pleural effusion pleural effusion is beginning to reaccumulate also small at this time. She has leukocytosis possible underlying pneumonia. She has a known pulmonary embolism and hyponatremia as well. Discussed with hospitalist orders written. Medical Records I reviewed the patient's medical records. Lab Data I reviewed the patient's lab results. : 06/27/22 00:37 06/27/22 00:37 Radiology Impressions Chest Ultrasound 06/25/22 13:43 IMPRESSION: 1. Small LEFT pleural effusion. 2. Very tiny RIGHT pleural effusion. Chest/Abdomen/Pelvis CT 06/27/22 13:49 IMPRESSION: 1. Small bilateral pleural effusions, smaller than on 06/16/2022. 2. Compressive atelectasis both lower lobes 3. Small pericardial effusion. IMPRESSION: No acute findings in the abdomen or pelvis. Chest X-Ray 06/28/22 05:00 IMPRESSION: 1. Left-sided pleural effusion and left lower lobe atelectasis showing little change since the last exam. 2. Cardiac enlargement. Laboratory Results WBC 13.1 10^3/uL (4.0-10.0) H 06/26/22 04:50 RBC 4.02 10^6/uL (4.1-5.3) L 06/26/22 04:50 Hgb 11.7 g/dL (11.5-15.3) 06/26/22 04:50 Hct 36.0 % (37.0-47.0) L 06/26/22 04:50 MCV 89.6 fl (81-99) 06/26/22 04:50 MCH 29.1 pg (28.0-34.0) 06/26/22 04:50 MCHC 32.5 g/dL (30.0-36.0) 06/26/22 04:50 RDW 14.5 % (12.1-15.1) 06/26/22 04:50 Plt Count 508 10^3/cmm (130-400) H 06/26/22 04:50 MPV 9.1 fL (7.4-10.4) 06/26/22 04:50 Neut % (Auto) 80.8 % 06/26/22 04:50 Lymph % (Auto) 10.2 % 06/26/22 04:50 [place] % (Auto) 7.7 % 06/26/22 04:50 Eos % (Auto) 0.2 % 06/26/22 04:50 Baso % (Auto) 0.3 % 06/26/22 04:50 Neut # (Auto) 10.57 10^3/uL (1.8-7.7) H 06/26/22 04:50 Lymph # (Auto) 1.3 10^3/uL (0.8-4.8) 06/26/22 04:50 [place] # (Auto) 1.0 10^3/uL (0.2-0.9) H 06/26/22 04:50 Eos # (Auto) 0.0 10^3/uL (0.0-0.8) 06/26/22 04:50 Baso # (Auto) 0.0 10^3/uL (0.0-0.1) 06/26/22 04:50 Nucleated RBC % (auto) 0 % 06/26/22 04:50 Nucleated RBCs # 0.0 /100WBC 06/26/22 04:50 APTT 93.8 SECONDS (23.9-36.7) H 06/26/22 10:38 Sodium 130 mmol/L (136-145) L 06/26/22 04:50 Potassium 4.8 mmol/L (3.5-5.1) 06/26/22 04:50 Chloride 93 mmol/L (98-107) L 06/26/22 04:50 Carbon Dioxide 25 mmol/L (22-29) 06/26/22 04:50 Anion Gap 16.8 (5-19) 06/26/22 04:50 BUN 9 mg/dL (8-23) 06/26/22 04:50 Creatinine 0.6 mg/dL (0.5-0.9) 06/26/22 04:50 GFR Calculation Not Reportable 06/26/22 04:50 Glucose 122 mg/dL (65-115) H 06/26/22 04:50 Calculated Osmolality 270 mOsm/kg (285-295) L 06/26/22 04:50 Calcium 8.6 mg/dL (8.5-10.5) 06/26/22 04:50 Phosphorus 2.9 mg/dL (2.5-4.5) 06/26/22 04:50 Magnesium 2.0 mg/dL (1.7-2.3) 06/26/22 04:50 Total Bilirubin 0.6 mg/dL (0.15-1.2) 06/26/22 04:50 AST 14 U/L (0-32) 06/26/22 04:50 ALT 22 U/L (0-33) 06/26/22 04:50 Alkaline Phosphatase 110 U/L (35-105) H 06/26/22 04:50 Lactate Dehydrogenase 148 U/L (135-214) 06/25/22 12:46 C-Reactive Protein 238.6 mg/L (0.0-4.9) H 06/25/22 12:46 NT-Pro-B Natriuret Pep 945 pg/mL (0-125) H 06/25/22 12:46 Total Protein 6.2 g/dL (6.6-8.7) L 06/26/22 04:50 Albumin 2.8 g/dL (3.5-5.2) L 06/26/22 04:50 Globulin 3.4 g/dL (1.3-4.6) 06/26/22 04:50 Procalcitonin 0.06 ng/mL (0-0.5) 06/25/22 12:46 Urine Color Yellow (Yellow) 06/26/22 05:45 Urine Appearance Clear (CLEAR) 06/26/22 05:45 Urine pH 5 (5-7) 06/26/22 05:45 Ur Specific [place] 1.020 (1.005-1.030) 06/26/22 05:45 Urine Protein Neg (Negative) 06/26/22 05:45 Urine Glucose (UA) Norm (Normal) 06/26/22 05:45 Urine Ketones 1+ (Negative) H 06/26/22 05:45 Urine Blood Neg (Negative) 06/26/22 05:45 Urine Nitrate Negative (Negative) 06/26/22 05:45 Urine Bilirubin Neg (Negative) 06/26/22 05:45 Urine Urobilinogen 1 mg/dL (Negative) H 06/26/22 05:45 Ur Leukocyte Esterase Negative (Negative) 06/26/22 05:45 SARS-CoV-2 Ag (Rapid) negative (Negative) 06/25/22 17:12 Discharge Plan Discharge Patient Disposition: Admitted As Inpatient Admit Provider: Ari Rodriguez Clinical Impression: Pulmonary embolism, Leukocytosis, Recurrent left pleural effusion, Effusion, pericardium, Weakness, Atrial fibrillation Condition: Stable Coding Level of Care Code ED Hot Dip Galvanizer for Chg Fwd Exam Detailed Documented by User: Ari Rodriguez MD 06/26/22 09:50 HPI - Weakness General: Chief complaint: Weakness Stated complaint: Weakness Time Seen by Provider: 06/25/22 10:45 PFS ED PFSH: Medical History (Updated 07/06/22 @ 07:32 by Jon Leonard DO) A-fib Anxiety Atrial fibrillation Chronic hyponatremia Generalized weakness Hyponatremia Leukocytosis VERONICA on CPAP Palpitations Panic disorder Pericardial effusion Pericarditis Pleural effusion Pleural effusion Pneumonia Pulmonary embolism Recurrent left pleural effusion Restrictive lung disease SVT (supraventricular tachycardia) Surgical History History of colonoscopy with polypectomy 2005 History of esophagogastroduodenoscopy (EGD) 2016 History of facelift S/P breast biopsy S/P D&C (status post dilation and curettage) S/P tonsillectomy Status post laparoscopic cholecystectomy Family History (Updated 06/25/22 @ 19:34 by Chapo Veras MD) Mother Hypertension Dementia Atrial fibrillation Father Parkinson's disease Social History Smoking and tobacco status: former smoker Quit status (tobacco): has quit using tobacco Year quit tobacco: 1995 [id number] Second hand smoke exposure: No Smoking risk assessment/counseling performed?: Yes Alcohol intake: never Lives independently: Yes Household members: spouse Marital status: service: No Current occupational status: retired Pets and animals: Yes History of recent travel: No Current gender identity: Female [place]/Hinduism: [employer] Vital Signs: Vital signs: Vital Signs Temperature 97.7 F 06/28/22 13:34 Pulse Rate 81 06/28/22 13:34 Respiratory Rate 15 06/28/22 13:34 Blood Pressure 124/65 06/28/22 13:34 Pulse Oximetry 95 06/28/22 13:34 Oxygen Delivery Me thod 06/28/22 11:38 MDM - Weakness Medical Decision Making Patient is being admitted for observation due to severe generalized weakness, recurrent pleural effusion of unknown etiology, and recent pericardial effusion with workup requiring echocardiogram, telemetry monitoring, oncology and cardiology consults. Lab Data : 06/27/22 00:37 06/27/22 00:37 Radiology Impressions Chest Ultrasound 06/25/22 13:43 IMPRESSION: 1. Small LEFT pleural effusion. 2. Very tiny RIGHT pleural effusion. Chest/Abdomen/Pelvis CT 06/27/22 13:49 IMPRESSION: 1. Small bilateral pleural effusions, smaller than on 06/16/2022. 2. Compressive atelectasis both lower lobes 3. Small pericardial effusion. IMPRESSION: No acute findings in the abdomen or pelvis. Chest X-Ray 06/28/22 05:00
[2022-06-25 11:22] LABS: Basophils # 0.1 10^3/uL (0.0-0.1); Basophils % 0.3 %; Eosinophils % 0.1 %; Hematocrit 41.6 % (37.0-47.0); Hemoglobin 13.5 g/dL (11.5-15.3); Lymphocytes # 1.3 10^3/uL (0.8-4.8); Lymphocytes % 7.6 %; Mean Corpuscular HGB Conc 32.5 g/dL (30.0-36.0); Mean Corpuscular Hemoglobin 29.2 pg (28.0-34.0); Mean Corpuscular Volume 89.8 fl (81-99); Mean Platelet Volume 9.8 fL (7.4-10.4); Monocytes # 1.1 10^3/uL (0.2-0.9); Monocytes % 6.6 %; Neutrophils # 14.49 10^3/uL (1.8-7.7); Neutrophils % 84.5 %; Nucleated Red Blood Cells % 0 %; Platelet Count 612 10^3/cmm (130-400); Red Blood Count 4.63 10^6/uL (4.1-5.3); Red Cell Distribution Width 14.9 % (12.1-15.1); White Blood Count 17.2 10^3/uL (4.0-10.0)
[2022-06-25 13:14] LABS: Alanine Aminotransferase 28 U/L (0-33); Albumin Level 3.1 g/dL (3.5-5.2); Alkaline Phosphatase 128 U/L (35-105); Anion Gap 16.7 (5-19); Aspartate Amino Transferase 24 U/L (0-32); Blood Urea Nitrogen 9 mg/dL (8-23); Calcium 9.2 mg/dL (8.5-10.5); Carbon Dioxide 27 mmol/L (22-29); Chloride 89 mmol/L (98-107); Creatinine Clr Calc Pharmacy 69.4335; Globulin 4.1 g/dL (1.3-4.6); Glucose 126 mg/dL (65-115); Osmolality Calculated 266 mOsm/kg (285-295); Potassium 4.7 mmol/L (3.5-5.1); Sodium 128 mmol/L (136-145); Total Bilirubin 0.8 mg/dL (0.15-1.2); Total Protein 7.2 g/dL (6.6-8.7)
--- NOTE | 2022-06-25 13:43 | US_ITS ---
WS: [id number] Chest ultrasound. HISTORY: Evaluate for pleural effusion. COMPARISON: 06/18/2022. There is a small LEFT pleural effusion. Smaller than on the prior study of 06/18/2022. There is a isidro y tiny RIGHT pleural effusion. US/US chest [id number] IMPRESSION: 1. Small LEFT pleural effusion. 2. Very tiny RIGHT pleural effusion.
[2022-06-25] MEDS: sodium chloride 0.9% 500 ML 999 ML IV (14:50)
[2022-06-25 15:51] LABS: NT Pro B Type Natriuretic Pept 945 pg/mL (0-125); Procalcitonin 0.06 ng/mL (0-0.5)
[2022-06-25] MEDS: pantoprazole DR 40 mg Tablet PO (15:52)
[2022-06-25 16:18] LABS: LAB Peripheral Smear Sent for Review
[2022-06-25 16:20] LABS: C Reactive Protein 238.6 mg/L (0.0-4.9); Lactate Dehydrogenase 148 U/L (135-214)
--- NOTE | 2022-06-25 16:22 | P.HP_ITS ---
Providers/Chief Complaint Admitting Physician: Ari Rodriguez MD Primary Care Provider: Mikayla Webb DO Chief Complaint: Weakness History of Present Illness Sheri Lopez is a 76 year old female with a past medical history significant for recent pericardial effusion, recurrent left-sided pleural effusion, right- sided pleural effusion, recent pulmonary embolism on apixaban, obstructive sleep apnea, and restrictive lung disease who presents to the emergency department with severe generalized weakness. She reports she was in her usual state of health until the beginning of May when she developed viral symptoms. She was evaluated and admitted on 05/23 for shortness of breath exacerbated by exertion, found to have pericardial effusion and atrial fibrillation with rapid ventricular rate. She underwent pericardiocentesis with removal of 200 mL of exudative fluid with fluid culture growing Staphlocuccus hominis treated with Levaquin. Fluid analysis negative for malignancy. She was treated with colchicine and ibuprofen. She was found to have left-sided pleural effusion at that time. After discharged she followed up in [place] for thoracentesis with repeat echo showing no recurrence of pericardial effusion. She was treated for pneumonia. She followed up in cardiology clinic on 06/08. She again presented and was admitted on 06/16 after presenting with shortness of breath. She was found to have a pulmonary embolism. She underwent left-sided thoracentesis on 06/18 with removal of 1000 mL of exudative fluid. Fluid cultures negative. Fluid cytology negative for malignancy. Rheumatology panel obtained and unremarkable. She was discharged on Augmentin on 06/18. Patient presents today with severe weakness, generalized malaise, fatigue, and dyspnea on exertion. She states she can barely walk between rooms in her house now. She states prior to May, she was very active without any physical limitations. She is tearful and expresses frustrations over her current condition. She endorses a low grade fever of around 99 degrees. Denies chills or night sweats. Denies alleviating symptoms. Denies personal or family history of malignancy. 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 Review of Systems Narrative: A complete review of systems was obtained and is negative except as stated in HPI. Medications/Allergies Home Medications Medication Instructions Recorded Confirmed Last Taken Type alprazolam 0.25 mg tablet (Xanax) 0.125 mg PO DAILY PRN Anxiety 02/09/22 06/25/22 06/24/22 History oxymetazoline 0.05 % nasal spray 2 spray intranasal Q12H PRN 03/14/22 06/25/22 Unknown History (Afrin (oxymetazoline)) Allergy Symptoms esomeprazole magnesium 40 mg 40 mg PO QPM PRN Heartburn 05/16/22 06/25/22 Unknown History capsule,delayed release (Nexium) metoprolol tartrate 50 mg tablet 50 mg PO BID@0900,2100 #120 tabs 05/27/22 06/25/22 06/25/22 Rx albuterol sulfate 90 mcg/actuation 2 inh inhalation Q8H PRN shortness 06/18/22 06/25/22 Unknown Rx aerosol inhaler of breath or wheezing #8.5 grams apixaban 5 mg (74 tabs) tablets in 5 mg PO DAILY 06/25/22 06/25/22 06/25/22 History a dose pack (Eliquis DVT-PE Treat 30D Start) ondansetron 4 mg disintegrating 4 mg PO Q8H PRN Nausea And Vomiting 06/25/22 06/25/22 Unknown History tablet Allergies Allergy/AdvReac Type Severity Reaction Status Date / Time Penicillins Allergy Severe ALGY-Anaphy Verified 06/25/22 11:32 laxis influenza virus vaccine, Allergy Unknown Unknown Verified 06/25/22 11:32 specific meperidine [From Demerol] Allergy Unknown Unknown Verified 06/25/22 11:32 penicillin G Allergy Unknown Unknown Verified 06/25/22 11:32 Sulfa (Sulfonamide Allergy Unknown Unknown Verified 06/25/22 11:32 Antibiotics) cephalexin [From Keflex] Allergy feels like Verified 06/25/22 11:32 shes going to pass out vancomycin Allergy ALGY-Anaphy Verified 06/25/22 11:32 laxis all vaccines Allergy Unknown Uncoded 05/16/22 09:02 PFSH Acute PFSH: Medical History (Updated 06/25/22 @ 16:41 by Ari Rodriguez MD) A-fib Anxiety Chronic hyponatremia VERONICA on CPAP Palpitations Panic disorder Pericardial effusion Pericarditis Pleural effusion Pleural effusion Pneumonia Pulmonary embolism Restrictive lung disease SVT (supraventricular tachycardia) Surgical History History of colonoscopy with polypectomy 2005 History of esophagogastroduodenoscopy (EGD) 2016 History of facelift S/P breast biopsy S/P D&C (status post dilation and curettage) S/P tonsillectomy Status post laparoscopic cholecystectomy Family History Mother Hypertension Social History Smoking and tobacco status: former smoker Quit status (tobacco): has quit using tobacco Year quit tobacco: 1995 [id number] Second hand smoke exposure: No Smoking risk assessment/counseling performed?: Yes Alcohol intake: never Lives independently: Yes Household members: spouse Marital status: service: No Current occupational status: retired Pets and animals: Yes History of recent travel: No Current gender identity: Female Lee Ann/Hinduism: Cheondoism Vitals/I&O/Wt Last Vital Signs Temp 98.0 F 06/25/22 10:21 Pulse 105 H 06/25/22 14:30 Resp 22 H 06/25/22 14:30 BP 105/65 06/25/22 14:30 Pulse Ox 96 06/25/22 14:30 Weight last 48 hrs Weight 78.925 kg Physical Exam Narrative: General: Patient is awake. Anxious. Tearful. Head: Normocephalic. Atraumatic. EOM intact. Neck: No JVD. Cardiovascular: Regular rhythm. Tachycardic. No gallops. No murmurs. No peripheral edema. Lungs: Breath sounds are diminished in left lung base. No use of accessory muscles, no crackles or wheezes. Skin: No jaundice. No rashes. Abdomen: Normal bowel sounds, abdomen soft and nontender. Genito Urinary: Genital exam not performed since complaints not related. Rectal: Rectal exam not performed since no symptoms indicated blood loss. Extremeties: No cyanosis or clubbing. Musculoskeletal: 5/5 strength, normal range of motion, no swollen or sherita thematous joints. Neurological: Moves all 4 extremities. No myoclonus. Data : 06/25/22 10:55 06/25/22 12:46 Micro: Microbiology 06/25/22 11:05 Blood Culture - Preliminary Blood SPECIMEN COLLECTED 06/25/22 10:55 Blood Culture - Preliminary Blood SPECIMEN COLLECTED CXR: My impression: Personally reviewed Radiologist's impression: Increasing left-sided pleural effusion with compressive atelectasis of the left lower lobe. 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 [-0.15mV P-WAVE IN V1/V2] LEFT ANTERIOR FASCICULAR BLOCK? [QRS AXIS <= -45, QR IN I, RS IN II] POSSIBLE LEFT VENTRICULAR HYPERTROPHY? [VOLTAGE CRITERIA PLUS LAE OR QRS WIDENING] POSSIBLE ANTEROSEPTAL MYOCARDIAL INFARCTION , OF INDETERMINATE AGE [30 ms Q WAVE IN V1-V4] Compared to ECG 06/18/2022 02:47:54 Atrial abnormality now present Atrial fibrillation no longer present T-wave abnormality no longer present Possible ischemia no longer present Myocardial infarct finding still present EKG computer-generated impression: Chest X-Ray 06/25/22 10:45 IMPRESSION: 1. Increasing left-sided pleural effusion with compressive atelectasis of the left lower lobe. Chest Ultrasound 06/25/22 13:43 IMPRESSION: 1. Small LEFT pleural effusion. 2. Very tiny RIGHT pleural effusion. A&P Assessment and plan (1) Leukocytosis: Persistent leukocytosis with left shift and thrombocytosis BCx obtained Procal and CRP ordered Legionella and pneumococcal urinary ag ordered Peripheral smear Has outpatient appt w/ Dr Veras, will request consult Start emperic levofloxacin (2) Recurrent left pleural effusion: And very small right-sided effusion Status post multiple recent thoracentesis Pathology on pleural fluid negative for cancer Pathology from thoracentesis in [place] unknown Recent rheumatology work up unremarkable Discussed with pulmonary, Dr. Dove, will consult (3) Generalized weakness: Associated with debility and deconditioning Recent TSH within normal limits Not anemic Occult infection and malignancy remain in the differential Urinalysis Work up as above (4) Pulmonary embolism: Recently diagnosed Continue apixaban (5) Pericardial effusion: History of pericardiocentesis with 200 mL removed CXR reviewed, cardiac silhouette not markedly enlarged Limited TTE (6) Hyponatremia: Na 128 Obtain legionella Continue to monitor (7) Anxiety: Continue home Xanax (8) Atrial fibrillation: Continue home metoprolol Continue home Xanax Plan DVT ppx: Apixaban Code status: Full Code Attestations Medical Necessity Statement*: Patient presents with severe generalized weakness of unclear etiology, found to have persistent leukocytosis and recurrent left-sided pleural effusion with expected hospitalization not to cross 2 midnights. Coding Level of Care Code Acute Life Assurance Representative for Chg Fwd Diagnoses Leukocytosis D72.829 Recurrent left pleural effusion J90 Generalized weakness R53.1 Pulmonary embolism I26.99 Pericardial effusion I31.3 Hyponatremia E87.1 Anxiety F41.9 Atrial fibrillation I48.91
--- NOTE | 2022-06-25 16:23 | USCV_ITS ---
Sheri Lopez Age: 76 Gender: F : 1945 Exam Date: 06/25/2022 18:13 Ordering Phys: Ari Rodriguez MD Technologist: KAYLEE Exam Location: [facility] [place] Indication: re-evaluate pericardial effusion s/p pericardiocentesis May 23. Patient also has bilateral pleural effusions. BP: 116 / 58 HR: 116 Rhythm: Sinus Technical Quality: Adequate MEASUREMENTS (Male / Female) Normal Values FINDINGS Left Ventricle Normal left ventricular size and systolic function, EF66%.no regional wall motion abnormalities. Right Ventricle Normal right ventricular size and systolic function. Right Atrium Normal chamber sizes Left Atrium Normal chamber sizes Mitral Valve No gross abnormalities noted. Aortic Valve No gross abnormalities noted Tricuspid Valve No gross abnormalities noted Pulmonic Valve Pulmonic valve not well visualized. Pericardium Features of moderate left-sided pleural effusion.trivial pericardial effusion. Aorta Normal aortic annulus size. IVC Inferior vena cava not visualized. CONCLUSIONS Normal left ventricular size and systolic function, EF66%.no regional wall motion abnormalities. Features of moderate left-sided pleural effusion. Trivial pericardial effusion. There are no intracardiac masses. Compared to the study from 06/16/2022 the pericardial effusion appears to be's minimal Dr Alfred Art MD FACC (Electronically Signed) Final Date: 25 June 2022 23:43 S
[2022-06-25] MEDS: levofloxacin-dextrose 5 % 750 MG/150 ML PREMIX 100 MG IV (17:04)
--- NOTE | 2022-06-25 17:25 | PC.NURSE ---
Patient report itching and redness at IV site after antibiotics infusion began. Infusion stopped, ER provider notified. Verbal order for 50 mg Benadryl IVP to be given.
[2022-06-25] MEDS: diphenhydrAMINE 50 mg/mL SDV 1mL IVP (17:33)
[2022-06-25 17:51] LABS: SARS Covid-2 Antigen negative (Negative)
--- NOTE | 2022-06-25 18:57 | PC.NURSE ---
report called to EMIGDIO Jim.
--- NOTE | 2022-06-25 19:22 | PM.CONSULT ---
Providers/Reason For Consult Consulting Physician/Specialty*: Hematology/oncology Reason for Consult*: Pulmonary emboli and recurrent effusions. Requesting Physician: Ari Rodriguez MD Attending Physician: Ari Rodriguez MD Primary Care Provider: Mikayla Webb DO History of Present Illness History of Present Illness This is a 76 year old woman with recurrent/persistent pericardial and pleural effusions. She recently was found to have pulmonary emboli. She had been in very good general health until May of this year when she developed what was presumed to have been a viral syndrome. By her recollection, her main complaint at that time was shortness of breath. She was initially seen in the emergency room on 05/16/2022. Her echocardiogram at that time showed normal left ventricular systolic function with ejection fraction 55 to 60%, but she was noted to have a small to medium sized pericardial effusion. On 05/23/2022 she was admitted to the hospital with worsening symptoms and with echocardiogram showing a large increase in the size of the pericardial effusion with associated compression of the right ventricle and right atrium. There were early echo signs of pericardial tamponade. She underwent pericardiocentesis with removal of 200 mL of exudative fluid. The pericardial fluid cytology was negative. The fluid culture grew Staph hominis. She was discharged home on oral Levaquin and on a combination of ibuprofen and colchicine. During subsequent follow-up she had a thoracentesis procedure done in [place]. That report is not available, but the patient indicates it also grew bacterium on culture. On 06/16/2022 she returned to the emergency room with increased shortness of breath. Her CT pulmonary angiogram at that time showed multiple intraluminal filling defects in the pulmonary arteries in the right middle, right lower, and left upper lobes, consistent with pulmonary emboli. These were new compared to the prior study from 05/16/2022. There were noted to be bilateral lower lobe pleural effusions, larger on the left, and increased from the prior study. She began on anticoagulation with heparin, and with subsequent transition to apixaban. She underwent left thoracentesis, again with negative cytology. There is no report on any culture from the pleural fluid, but multiple blood cultures were negative. During the hospitalization she developed atrial fibrillation. She was discharged home 1 week ago on apixaban and on antibiotic coverage with Augmentin. She returned to the emergency room today with increased weakness and shortness of breath. She has very limited activity tolerance. ECOG score is 3. She has been running a slight fever in the range of 99 200 degrees about every 4 to 5 days. Her appetite had been good until just a few days ago. She has had a weight loss in the range of 15 pounds since the onset of this illness. She is short of breath with any activity. She has had just a mild, dry cough, and she has not been having any chest pain. She recently has had some nausea. She has had no other GI or complaints. She reports having osteoarthritis, but not bad, and she has not recently had any increase in joint or bone pain. She has had occasional mild headaches. She has no focal neurologic symptoms. Review of Systems Narrative: Constitutional: She feels generally weak, and she has very limited activity. Appetite has been good until the last few days. Her weight is down 15 pounds since the beginning of this illness. She has had low-grade fever in the range of 99 200 degrees about every 4 to 5 days. No night sweating. ECOG score is 3. Eyes:?No change in vision. ENMT: She is hard of hearing. No sinus congestion/drainage. No mouth sores. No sore throat or difficulty swallowing. Hematologic/Lymphatic: No abnormal bruising or bleeding. Respiratory: She has shortness of breath. Recently she has had a dry cough. No pleuritic pain or hemoptysis. Cardiovascular: No angina pain. She has had SVT dating back to age 20. She recently developed atrial fibrillation. Gastrointestinal: She recently has been having some nausea. She has had occasional acid reflux symptoms. No diarrhea or constipation. No blood in the stool or black stools. Genitourinary: No dysuria or hematuria. No urinary frequency. No urgency or incontinence. Musculoskeletal: She has some osteoarthritis, but not bad. Integumentary: No skin rash or other skin changes. Neurologic: She has had occasional mild headaches. No dizziness. No numbness or tingling. No other focal neurologic symptoms. Psych:?She has longstanding anxiety, but not depression. No insomnia. Medications/Allergies Home Medications Medication Instructions Recorded Confirmed Last Taken Type alprazolam 0.25 mg tablet (Xanax) 0.125 mg PO DAILY PRN Anxiety 02/09/22 06/25/22 06/24/22 History oxymetazoline 0.05 % nasal spray 2 spray intranasal Q12H PRN 03/14/22 06/25/22 Unknown History (Afrin (oxymetazoline)) Allergy Symptoms esomeprazole magnesium 40 mg 40 mg PO QPM PRN Heartburn 05/16/22 06/25/22 Unknown History capsule,delayed release (Nexium) metoprolol tartrate 50 mg tablet 50 mg PO BID@0900,2100 #120 tabs 05/27/22 06/25/22 06/25/22 Rx albuterol sulfate 90 mcg/actuation 2 inh inhalation Q8H PRN shortness 06/18/22 06/25/22 Unknown Rx aerosol inhaler of breath or wheezing #8.5 grams apixaban 5 mg (74 tabs) tablets in 5 mg PO DAILY 06/25/22 06/25/22 06/25/22 History a dose pack (Eliquis DVT-PE Treat 30D Start) ondansetron 4 mg disintegrating 4 mg PO Q8H PRN Nausea And Vomiting 06/25/22 06/25/22 Unknown History tablet Allergies Allergy/AdvReac Type Severity Reaction Status Date / Time Penicillins Allergy Severe ALGY-Anaphy Verified 06/25/22 11:32 laxis influenza virus vaccine, Allergy Unknown Unknown Verified 06/25/22 11:32 specific meperidine [From Demerol] Allergy Unknown Unknown Verified 06/25/22 11:32 penicillin G Allergy Unknown Unknown Verified 06/25/22 11:32 Sulfa (Sulfonamide Allergy Unknown Unknown Verified 06/25/22 11:32 Antibiotics) cephalexin [From Keflex] Allergy feels like Verified 06/25/22 11:32 shes going to pass out vancomycin Allergy ALGY-Anaphy Verified 06/25/22 11:32 laxis all vaccines Allergy Unknown Uncoded 05/16/22 09:02 Current Medications Generic Name Dose Route Start Last Admin Trade Name Freq PRN Reason Stop Dose Admin Levofloxacin/Dextrose 750 mg in 150 mls @ 100 mls/hr 06/25/22 16:33 06/25/22 17:26 Levaquin-D5w IV 0 mls/hr DAILY [facility] Infusion Protocol PFSH Acute PFSH: Medical History (Updated 06/25/22 @ 16:41 by Ari Rodriguez MD) A-fib Anxiety Chronic hyponatremia VERONICA on CPAP Palpitations Panic disorder Pericardial effusion Pericarditis Pleural effusion Pleural effusion Pneumonia Pulmonary embolism Restrictive lung disease SVT (supraventricular tachycardia) Surgical History History of colonoscopy with polypectomy 2005 History of esophagogastroduodenoscopy (EGD) 2016 History of facelift S/P breast biopsy S/P D&C (status post dilation and curettage) S/P tonsillectomy Status post laparoscopic cholecystectomy Family History (Updated 06/25/22 @ 19:34 by Chapo Veras MD) Mother Hypertension Dementia Atrial fibrillation Father Parkinson's disease Social History Smoking and tobacco status: former smoker Quit status (tobacco): has quit using tobacco Year quit tobacco: 1995 [id number] Second hand smoke exposure: No Smoking risk assessment/counseling performed?: Yes Alcohol intake: never Lives independently: Yes Household members: spouse Marital status: service: No Current occupational status: retired Pets and animals: Yes History of recent travel: No Current gender identity: Female Lee Ann/Restorationism: Rastafarian Vitals/I&O/Wt Last Vital Signs Temp 98.0 F 06/25/22 10:21 Pulse 117 H 06/25/22 18:30 Resp 29 H 06/25/22 18:30 BP 133/67 06/25/22 18:30 Pulse Ox 97 06/25/22 18:30 06/25/22 06/25/22 06/25/22 06:59 14:59 22:59 Intake Total 536.667 / 536.667 Balance 536.667 / 536.667 Weight last 48 hrs Weight 78.925 kg Physical Exam Narrative: Constitutional:?She appears generally healthy, but she does appear short of breath with effort. Eyes: Sclerae nonicteric. Conjunctivae clear. ENMT: No lesions noted in the oral cavity. Neck: Neck shows no mass or thyromegaly. Hematologic/Lymphatic: No cervical, clavicular, or axillary adenopathy. Respiratory: Lungs sound clear with slightly diminished air movement on the left. Cardiovascular: Heart rhythm is regular with a mild tachycardia. There is no murmur, gallop, or rub noted. Abdomen: Mildly distended but soft. Liver and spleen are not enlarged. There is no abdominal mass or ascites noted and there is no inguinal adenopathy. Extremities: No edema. Both feet are cool to touch. Dorsalis pedis pulses are palpable bilaterally. Neurologic: No focal neurologic deficits noted. Data : 06/25/22 10:55 06/25/22 12:46 Micro: Microbiology 06/25/22 11:05 Blood Culture - Preliminary Blood SPECIMEN COLLECTED 06/25/22 10:55 Blood Culture - Preliminary Blood SPECIMEN COLLECTED A&P Assessment and plan (1) Pulmonary embolism: Patient recently diagnosed with multiple pulmonary emboli which developed in the setting of an acute illness characterized by pericardial and pleural effusions. A definite cause for the underlying illness has not been determined. Culture obtained from the initial pericardiocentesis procedure did grow staph hominis and the patient indicates that a left thoracentesis procedure which was done in [place] also showed bacterium on culture. Thus far she has not improved clinically on antibiotic therapy, though treatment has been problematic due to multiple antibiotic allergies/intolerances. Her evaluation for an underlying inflammatory process has been unrevealing. There is obvious concern about the possibility of underlying malignancy, particularly with her also having pulmonary embolism. However, both pericardial and pleural fluid cytologies have been negative, and there has been no evidence for malignancy by CT imaging. In the absence of any bleeding complication, she is recommended to continue anticoagulation indefinitely, as she also has atrial fibrillation. She will require ongoing monitoring for possibility of underlying malignancy, but at this point I do not have any specific recommendations regarding further evaluation. Consult Attestations Medical Necessity Statement: Not applicable. Coding Level of Care Code Acute Nut Tightener for Serafin Delgadillo Diagnoses Pulmonary embolism I26.99
--- NOTE | 2022-06-25 20:45 | PC.NURSE ---
rounded on patient.. Spoke with nurse regarding holding eliquis and starting heparin drip so patient can have thorocentisis on Saturday. Made aware that patient had a reaction to levaquin in the ED but was still ordered and no other antibiotic was started. Due to patients mutiple allergies said patient can be started on PO Doxy.
[2022-06-25] MEDS: sennosides 8.6 mg Tablet 17.2 MG PO (22:00)
[2022-06-25] MEDS: metoprolol tartrate 50 mg Tablet PO (22:00)
--- NOTE | 2022-06-25 22:10 | PM.CONSULT ---
Providers/Reason For Consult Consulting Physician/Specialty*: Rashad Dove MD/ Pulmonary Critical Care Reason for Consult*: Left pleural effusion Requesting Physician: Ari Rodriguez MD Attending Physician: Ari Rodriguez MD Primary Care Provider: Mikayla Webb DO History of Present Illness History of Present Illness Ms. Sheri Lopez in my clinic patient. Last time I saw her was in March 2022. She started seeing me in January 2021 and she is self-referred for VERONICA on CPAP. She has past medical history of?anxiety, VERONICA on CPAP, palpitations, panic disorder, SVT. At that point she reported smoking 1 pack/day for 20 years and quit in 1995. She reported having allergies to dust mites. She had a PFT in 2017 which showed moderate obstruction on spirometry with mild gas transfer defect.Later her PFT in January 2021 showed spirometry suggestive of moderate obstructive ventilatory defect with FEV1 1.72 L 69% predicted and normal gas transfer-images interpreted and as mild COPD/mild asthma overlap syndrome and patient was given Xopenex to use as needed, but due to insurance issues she did not receive Xopenex. She was taking metoprolol for chronic palpitations and manager paper previously recommended SVT ablation but patient opted for medical therapy. After her last visit with me in clinic in March 2021-patient had an viral infection-followed by ER visit and hospital admission on May 23 2022 for left pleural effusion as well as large pericardial effusion with early signs of pericardial tamponade causing shortness of breath. She underwent pericardiocentesis and pericardial drain placement on 05/23/2022-drained 700 cc of bloody fluid and it was exudative with total protein 4.9. Cytology negative for malignancy. Cultures are growing Staph hominis for which patient was discharged with Augmentin. Her symptoms improved significantly and she was given colchicine and ibuprofen and she was discharged on 05/27/2022. She could not tolerate the colchicine and ibuprofen due to GI symptoms. After discharge-patient had an outpatient thoracentesis in [place]. Patient again admitted on 06/16/2022 for worsening shortness of breath-failed outpatient antibiotic therapy for suspected pneumonia. CTA demonstrated multiple pulmonary embolus bilaterally with no evidence of right ventricular heart strain. She was initially started on heparin drip and later transitioned to Eliquis for bilateral PE as well as A. fib with RVR. She had worsening left pleural effusion which was drained 06/18/2022 yielding 1000 cc fluid which showed a lymphocyte predominant leukocytosis, transudative per lights criteria with total protein 3.6/. LDH was 132 and pleural glucose 144. Cytology from pleural fluid reported negative for malignancy. And cultures were negative. She was discharged with a 5-day course of Augmentin, Eliquis. Her CRP significantly elevated, rheumatoid factor positive, anti-CCP negative and rest of the autoimmune work-up was negative. She was discharged on 06/19/2022. She comes back to hospital on 06/25/2022 due to worsening generalized weakness, severe weakness and dyspnea on exertion. Normally she is very active person but lately she says that she barely walks between rooms in her house. Denied any chills, night sweats. Reported her mammogram last year was negative, she does not need to do her Pap smears, reported she does not do colonoscopies as bowel prep has caused a severe reaction and does annual Cologuard testing and it was negative last year. She is due in August 2022. Also endorsed weight loss. Pulmonary consulted for recurrent left pleural effusion. I have seen patient at bedside, she is on room air and appeared comfortable, anxious to know what is happening to her. Bedside ultrasound showed significant left pleural effusion. She is currently taking Eliquis for her atrial fibrillation RVR as well as bilateral PE seen on CT chest 10 days ago. Medications/Allergies Home Medications Medication Instructions Recorded Confirmed Last Taken Type alprazolam 0.25 mg tablet (Xanax) 0.125 mg PO DAILY PRN Anxiety 02/09/22 06/25/22 06/24/22 History oxymetazoline 0.05 % nasal spray 2 spray intranasal Q12H PRN 03/14/22 06/25/22 Unknown History (Afrin (oxymetazoline)) Allergy Symptoms esomeprazole magnesium 40 mg 40 mg PO QPM PRN Heartburn 05/16/22 06/25/22 Unknown History capsule,delayed release (Nexium) metoprolol tartrate 50 mg tablet 50 mg PO BID@0900,2100 #120 tabs 05/27/22 06/25/22 06/25/22 Rx albuterol sulfate 90 mcg/actuation 2 inh inhalation Q8H PRN shortness 06/18/22 06/25/22 Unknown Rx aerosol inhaler of breath or wheezing #8.5 grams apixaban 5 mg (74 tabs) tablets in 5 mg PO DAILY 06/25/22 06/25/22 06/25/22 History a dose pack (Eliquis DVT-PE Treat 30D Start) ondansetron 4 mg disintegrating 4 mg PO Q8H PRN Nausea And Vomiting 06/25/22 06/25/22 Unknown History tablet Allergies Allergy/AdvReac Type Severity Reaction Status Date / Time Penicillins Allergy Severe ALGY-Anaphy Verified 06/25/22 11:32 laxis influenza virus vaccine, Allergy Unknown Unknown Verified 06/25/22 11:32 specific meperidine [From Demerol] Allergy Unknown Unknown Verified 06/25/22 11:32 penicillin G Allergy Unknown Unknown Verified 06/25/22 11:32 Sulfa (Sulfonamide Allergy Unknown Unknown Verified 06/25/22 11:32 Antibiotics) cephalexin [From Keflex] Allergy feels like Verified 06/25/22 11:32 shes going to pass out vancomycin Allergy ALGY-Anaphy Verified 06/25/22 11:32 laxis all vaccines Allergy Unknown Uncoded 05/16/22 09:02 Current Medications Generic Name Dose Route Start Last Admin Trade Name Freq PRN Reason Stop Dose Admin Apixaban 5 mg 06/26/22 20:00 06/25/22 21:41 Apixaban 5 Mg Tablet PO Not Given Q12H ROO[facility]T Doxycycline Monohydrate 100 mg 06/25/22 21:38 06/25/22 22:01 Doxycycline 100 Mg Tablet PO Not Given BID R[facility]T Protocol Metoprolol Tartrate 50 mg 06/25/22 21:00 06/25/22 22:00 Metoprolol Tartrate 50 Mg Tablet PO 50 mg BID@0900,2100 R[facility]T Administration Senna 17.2 mg 06/25/22 21:00 06/25/22 22:00 Sennosides 8.6 Mg Tablet PO 17.2 mg BEDTIME R[facility]T Administration PFSH Acute PFSH: Medical History (Updated 06/26/22 @ 09:50 by Ari Rodriguez MD) A-fib Anxiety Chronic hyponatremia VERONICA on CPAP Palpitations Panic disorder Pericardial effusion Pericarditis Pleural effusion Pleural effusion Pneumonia Pulmonary embolism Restrictive lung disease SVT (supraventricular tachycardia) Surgical History History of colonoscopy with polypectomy 2005 History of esophagogastroduodenoscopy (EGD) 2016 History of facelift S/P breast biopsy S/P D&C (status post dilation and curettage) S/P tonsillectomy Status post laparoscopic cholecystectomy Family History (Updated 06/25/22 @ 19:34 by Chapo Veras MD) Mother Hypertension Dementia Atrial fibrillation Father Parkinson's disease Social History Smoking and tobacco status: former smoker Quit status (tobacco): has quit using tobacco Year quit tobacco: 1995 [id number] Second hand smoke exposure: No Smoking risk assessment/counseling performed?: Yes Alcohol intake: never Lives independently: Yes Household members: spouse Marital status: service: No Current occupational status: retired Pets and animals: Yes History of recent travel: No Current gender identity: Female Lee Ann/Sabianism: Denominational Vitals/I&O/Wt Last Vital Signs Temp 98.2 F 06/25/22 20:00 Pulse 123 H 06/25/22 20:00 Resp 17 06/25/22 20:00 BP 128/73 06/25/22 20:00 Pulse Ox 94 06/25/22 20:00 06/25/22 06/25/22 06/25/22 06:59 14:59 22:59 Intake Total 536.667 / 536.667 Balance 536.667 / 536.667 Weight last 48 hrs Weight 171 lb 1 oz Weight 174 lb Physical Exam Narrative: General: alert, NAD HEENT: conj clear, EOMI, PERRL, mmm, Neck: supple, no meningismus Heme: no cervical LAP Pulmonary: Reduced breath sounds to left lower lung zone Cardiovascular: rrr, nl s1s2, no mrg Abdomen: soft, nt, nd, no r/g, bs+ Extremities: pulses +, no edema, no c/c : no CVA tenderness Skin: intact, no rash MSK: no back or neck pain Neurologic: grossly intact Data : 06/26/22 04:50 06/26/22 04:50 Other Labs: Radiology Impressions Chest X-Ray 06/25/22 10:45 IMPRESSION: 1. Increasing left-sided pleural effusion with compressive atelectasis of the left lower lobe. Chest Ultrasound 06/25/22 13:43 IMPRESSION: 1. Small LEFT pleural effusion. 2. Very tiny RIGHT pleural effusion. Laboratory Results WBC 13.1 10^3/uL (4.0-10.0) H 06/26/22 04:50 RBC 4.02 10^6/uL (4.1-5.3) L 06/26/22 04:50 Hgb 11.7 g/dL (11.5-15.3) 06/26/22 04:50 Hct 36.0 % (37.0-47.0) L 06/26/22 04:50 MCV 89.6 fl (81-99) 06/26/22 04:50 MCH 29.1 pg (28.0-34.0) 06/26/22 04:50 MCHC 32.5 g/dL (30.0-36.0) 06/26/22 04:50 RDW 14.5 % (12.1-15.1) 06/26/22 04:50 Plt Count 508 10^3/cmm (130-400) H 06/26/22 04:50 MPV 9.1 fL (7.4-10.4) 06/26/22 04:50 Neut % (Auto) 80.8 % 06/26/22 04:50 Lymph % (Auto) 10.2 % 06/26/22 04:50 Ada % (Auto) 7.7 % 06/26/22 04:50 Eos % (Auto) 0.2 % 06/26/22 04:50 Baso % (Auto) 0.3 % 06/26/22 04:50 Neut # (Auto) 10.57 10^3/uL (1.8-7.7) H 06/26/22 04:50 Lymph # (Auto) 1.3 10^3/uL (0.8-4.8) 06/26/22 04:50 Ada # (Auto) 1.0 10^3/uL (0.2-0.9) H 06/26/22 04:50 Eos # (Auto) 0.0 10^3/uL (0.0-0.8) 06/26/22 04:50 Baso # (Auto) 0.0 10^3/uL (0.0-0.1) 06/26/22 04:50 Nucleated RBC % (auto) 0 % 06/26/22 04:50 Nucleated RBCs # 0.0 /100WBC 06/26/22 04:50 APTT 53.3 SECONDS (23.9-36.7) H 06/26/22 17:48 Sodium 130 mmol/L (136-145) L 06/26/22 04:50 Potassium 4.8 mmol/L (3.5-5.1) 06/26/22 04:50 Chloride 93 mmol/L (98-107) L 06/26/22 04:50 Carbon Dioxide 25 mmol/L (22-29) 06/26/22 04:50 Anion Gap 16.8 (5-19) 06/26/22 04:50 BUN 9 mg/dL (8-23) 06/26/22 04:50 Creatinine 0.6 mg/dL (0.5-0.9) 06/26/22 04:50 GFR Calculation Not Reportable 06/26/22 04:50 Glucose 122 mg/dL (65-115) H 06/26/22 04:50 Calculated Osmolality 270 mOsm/kg (285-295) L 06/26/22 04:50 Calcium 8.6 mg/dL (8.5-10.5) 06/26/22 04:50 Phosphorus 2.9 mg/dL (2.5-4.5) 06/26/22 04:50 Magnesium 2.0 mg/dL (1.7-2.3) 06/26/22 04:50 Total Bilirubin 0.6 mg/dL (0.15-1.2) 06/26/22 04:50 AST 14 U/L (0-32) 06/26/22 04:50 ALT 22 U/L (0-33) 06/26/22 04:50 Alkaline Phosphatase 110 U/L (35-105) H 06/26/22 04:50 Lactate Dehydrogenase 148 U/L (135-214) 06/25/22 12:46 C-Reactive Protein 238.6 mg/L (0.0-4.9) H 06/25/22 12:46 NT-Pro-B Natriuret Pep 945 pg/mL (0-125) H 06/25/22 12:46 Total Protein 6.2 g/dL (6.6-8.7) L 06/26/22 04:50 Albumin 2.8 g/dL (3.5-5.2) L 06/26/22 04:50 Globulin 3.4 g/dL (1.3-4.6) 06/26/22 04:50 Procalcitonin 0.06 ng/mL (0-0.5) 06/25/22 12:46 Urine Color Yellow (Yellow) 06/26/22 05:45 Urine Appearance Clear (CLEAR) 06/26/22 05:45 Urine pH 5 (5-7) 06/26/22 05:45 Ur Specific [place] 1.020 (1.005-1.030) 06/26/22 05:45 Urine Protein Neg (Negative) 06/26/22 05:45 Urine Glucose (UA) Norm (Normal) 06/26/22 05:45 Urine Ketones 1+ (Negative) H 06/26/22 05:45 Urine Blood Neg (Negative) 06/26/22 05:45 Urine Nitrate Negative (Negative) 06/26/22 05:45 Urine Bilirubin Neg (Negative) 06/26/22 05:45 Urine Urobilinogen 1 mg/dL (Negative) H 06/26/22 05:45 Ur Leukocyte Esterase Negative (Negative) 06/26/22 05:45 SARS-CoV-2 Ag (Rapid) negative (Negative) 06/25/22 17:12 Micro: Microbiology 06/25/22 11:05 Blood Culture - Preliminary Blood SPECIMEN COLLECTED 06/25/22 10:55 Blood Culture - Preliminary Blood SPECIMEN COLLECTED A&P Assessment and plan (1) Recurrent left pleural effusion: (2) Pulmonary embolism: (3) Leukocytosis: (4) Generalized weakness: (5) Atrial fibrillation: Plan #Recurrent left pleural effusion #Recent CTA 06/16/2022 showed multiple intraluminal filling defects in pulmonary arteries and right middle lobe, right lower lobe, left upper lobe #On anticoagulation Eliquis for bilateral nonocclusive PE as well as A. fib RVR -Patient reported having left-sided thoracentesis after her May discharge in [place]-I do not have the results of pleural fluid analysis from there -However she had another session of left side thoracentesis-yielding 1000 cc fluid on 06/18/2022-findings suggestive of transudative effusion but lymphocyte predominant, cytology reported negative for malignancy, cultures were negative -Her recent echocardiogram on 06/25/2022 showed normal LV size systolic function with EF 66%. Trivial pericardial effusion. Moderate left pleural effusion. -My bedside ultrasound examination, chest x-ray-again showed significant left pleural effusion -With normal cardiac function on echocardiogram, autoimmune panel was negative, no suspicious nodules on CT angiogram,-at this point it is uncertain what is causing her recurrent pleural effusion -Lately patient has been having hypoalbuminemia-which can be a cause. -I will hold Eliquis-bridged with heparin for 48 hours-and plan to do repeat thoracentesis and will again send for pleural fluid analysis as well as cytology and cultures -If the fluid is again transudative-I will recommend protein supplementation as hypomagnesemia may be the cause of her transudative effusion -She may eventually need [place] drain placement if she has recurrent pleural effusion-however we do not have #Generalized weakness, elevated CRP, weight loss, fatigue, unprovoked PE-suspect occult malignancy -Patient reported doing annual Cologuard testing and her last test was -1-year ago and she is due in August 2022. She had allergic reaction to bowel perforation few years ago and could not do her colonoscopy since then. -Informed her mammogram was normal last year -She does not need Pap smears as she is 76 but she denied any discharge -CTA 06/16/2022 did not show any suspicious nodules -I will recommend CT abdomen pelvis to rule out any masses/lymphadenopathy. PET/CT outpatient if approved can also be helpful -We will send for tumor markers AFP, CA 19-9, CEA #Hypoalbuminemia-etiology unknown-likely reduced in nutrition due to loss of appetite -UA did not show any significant proteinuria -Recommended protein supplements I will discuss recommendations with hospitalist taking care of the patient Consult Attestations Medical Necessity Statement: Currently held Eliquis today and started on on heparin drip and will plan for thoracentesis after 48 hours Time Spent in Patient Care: Greater than 35 minutes (>than 50% of time spent in counselling and/or direct pt care on unit). Coding Level of Care Code New Pt Acute Pharmaceutical Specialty Representative for Chg Fwd Patient Type New History Comprehensive Exam Comprehensive Medical Decision Making Moderate Complexity Diagnoses Recurrent left pleural effusion J90 Pulmonary embolism I26.99 Leukocytosis D72.829 Generalized weakness R53.1 Atrial fibrillation I48.91 Time Spent (min) 50 Comment Including bedside ultrasound examination
[2022-06-25 22:25] LABS: Platelet Count 499 10^3/cmm (130-400)
[2022-06-25 22:38] LABS: Partial Thromboplastin Time 34.6 SECONDS (23.9-36.7)
[2022-06-25] MEDS: heparin drip 25,000 UNIT/500 ML PREMIX 22 UNIT IV (23:01)
[2022-06-26] VITALS (9 sets, daily range): BP systolic 97–114; BP diastolic 62–73; PULSE 96–123; RESP 12–18; TEMP 36.6–36.8; O2SAT 92–96
--- NOTE | 2022-06-26 01:39 | PC.NURSE ---
Made aware of patient refusing PO doxy tonight because she is concerned that it may be an abt that she has had a previous reaction to. It is not listed in her allergies. said he will pass it on to the day team.
[2022-06-26 05:02] LABS: Basophils % 0.3 %; Eosinophils % 0.2 %; Hemoglobin 11.7 g/dL (11.5-15.3); Lymphocytes # 1.3 10^3/uL (0.8-4.8); Lymphocytes % 10.2 %; Mean Corpuscular HGB Conc 32.5 g/dL (30.0-36.0); Mean Corpuscular Hemoglobin 29.1 pg (28.0-34.0); Mean Corpuscular Volume 89.6 fl (81-99); Mean Platelet Volume 9.1 fL (7.4-10.4); Monocytes % 7.7 %; Neutrophils # 10.57 10^3/uL (1.8-7.7); Neutrophils % 80.8 %; Nucleated Red Blood Cells % 0 %; Platelet Count 508 10^3/cmm (130-400); Red Blood Count 4.02 10^6/uL (4.1-5.3); Red Cell Distribution Width 14.5 % (12.1-15.1); White Blood Count 13.1 10^3/uL (4.0-10.0)
[2022-06-26 05:10] LABS: Partial Thromboplastin Time 65.5 SECONDS (23.9-36.7)
[2022-06-26 05:20] LABS: Alanine Aminotransferase 22 U/L (0-33); Albumin Level 2.8 g/dL (3.5-5.2); Alkaline Phosphatase 110 U/L (35-105); Anion Gap 16.8 (5-19); Aspartate Amino Transferase 14 U/L (0-32); Blood Urea Nitrogen 9 mg/dL (8-23); Calcium 8.6 mg/dL (8.5-10.5); Carbon Dioxide 25 mmol/L (22-29); Chloride 93 mmol/L (98-107); Globulin 3.4 g/dL (1.3-4.6); Glucose 122 mg/dL (65-115); Osmolality Calculated 270 mOsm/kg (285-295); Phosphorus 2.9 mg/dL (2.5-4.5); Potassium 4.8 mmol/L (3.5-5.1); Sodium 130 mmol/L (136-145); Total Bilirubin 0.6 mg/dL (0.15-1.2); Total Protein 6.2 g/dL (6.6-8.7)
[2022-06-26 05:59] LABS: Add Urine Microscopic? NO; Charge for UA Resulting for Rev
[2022-06-26 06:04] LABS: Bilirubin Urine Neg (Negative); Blood Urine Neg (Negative); Glucose Urine UA Norm (Normal); Ketones Urine 1+ (Negative); Leukocyte Esterase Urine Negative (Negative); Nitrate Urine Negative (Negative); Protein Urine Neg (Negative); Urine Appearance Clear (CLEAR); Urine Color Yellow (Yellow); Urobilinogen Urine 1 mg/dL (Negative); pH Urine 5 (5-7)
[2022-06-26] MEDS: metoprolol tartrate 50 mg Tablet PO ×2 (09:26→20:34)
[2022-06-26] MEDS: calcium carbonate 500 mg Chew Tablet 1000 MG PO (09:34)
--- NOTE | 2022-06-26 09:50 | P.PN_ITS ---
Subjective Subjective: Patient reportedly had rash with levofloxacin in the ED yesterday, although she has completed a course of levofloxacin just recently. Patient endorses generalized weakness, malaise, and fatigue. Reports that she slept okay. She refused the doxycycline, thinking she has had it before with a nega tive reverse reaction. I do not see it listed in her allergy list. She has multiple allergies to antibiotics. She denies fevers, chills, chest pain or abdominal pains. Medications: Reviewed: Yes Vitals/I&O/Wt Last Vital Signs Temp 97.9 F 06/26/22 07:15 Pulse 114 H 06/26/22 07:15 Resp 18 06/26/22 07:15 BP 103/65 06/26/22 07:15 Pulse Ox 94 06/26/22 07:15 O2 Del Method 06/25/22 19:35 06/25/22 06/26/22 06/26/22 22:59 06:59 14:59 Intake Total 656.667 / 656.667 360 / 360 Output Total 200 / 200 Balance 656.667 / 656.667 -200 / 456.667 360 / 360 Weight last 48 hrs Weight 83.461 kg Weight 77.593 kg Weight 78.925 kg Physical Exam Narrative: General: Patient i s awake.? Anxious. Head:? Normoceph alic. Atraumatic. EOM intact. Neck: No JVD. Cardiovasc ular: Regular rhyt hm.? Tachycardic. No gallops. No mur murs. No periphera l edema. Lungs: Br eath sounds are di minished in left l lizzette base similiar to prior exam. No use of accessory m uscles, no crackle s or wheezes. Skin : No jaundice. No rashes. Abdomen: N ormal bowel sounds , abdomen soft and nontender. Genito Urinary: Genital exam not performed since complaints not related. Recta l: Rectal exam not performed since n o symptoms indicat ed blood loss. Ext remeties: No cyano sis or clubbing. M usculoskeletal: No swollen or erythe matous joints. Lux rological: Moves a ll 4 extremities. No myoclonus. Data : 06/26/22 04:50 06/26/22 04:50 Micro: Microbiology 06/26/22 05:45 Bacterial Antigens - Final Urine,Clean Catch 06/26/22 05:45 Legionella Urinary Antigen - Final Urine,Voided 06/25/22 11:05 Blood Culture - Preliminary Blood SPECIMEN COLLECTED 06/25/22 10:55 Blood Culture - Preliminary Blood SPECIMEN COLLECTED A&P Assessment and plan (1) Leukocytosis: Persistent leukocytosis with left shift and thrombocytosis BCx pending CRP markedly elevated at 238.6 Procalcitonin unremarkable at 0.06 Legionella and pneumococcal urinary antigens negative Peripheral smear pending Hem-Onc, Dr. Veras consulted, appreciate recommendations Rash with levofloxacin infusion on 06/25 Currently refusing doxycycline Will discuss what antibiotics she tolerated in the past with pharmacy (2) Recurrent left pleural effusion: And very small right-sided effusion Status post 2 recent thoracentesis Pathology on pleural fluid negative for cancer Pathology from thoracentesis in [place] unknown Recent rheumatology work up unremarkable Pulmonary, Dr. Dove, following Anticipate thoracentesis on 06/27 (3) Generalized weakness: Associated with debility and deconditioning Recent TSH within normal limits Not anemic Urinalysis unremarkable Work up as above (4) Pulmonary embolism: Recently diagnosed Continue heparin drip, will need held prior to thoracentesis on 06/27 Holding home apixaban (5) Pericardial effusion: History of pericardiocentesis with 200 mL removed CXR reviewed, cardiac silhouette not markedly enlarged Limited TTE (06/25) with trivial pericardial effusion, LVEF 66%, no RWMA, no intracardiac masses (6) Hyponatremia: Na 130 Obtain serum osm in AM (7) Anxiety: Continue home Xanax (8) Atrial fibrillation: Continue home metoprolol Anticoagulation as above Plan DVT ppx: Heparin drip Code status: Full Code Attestations Medical Necessity Statement*: Patient requires ongoing hospitalization for bridging of antiocoagulation for thoracentesis, infectious workup, and pulmonary/hem-onc work up with expected hospitalization now expected to cross two midnights. Coding Level of Care Code Acute Radio Commentator for Chg Fwd Diagnoses Leukocytosis D72.829 Recurrent left pleural effusion J90 Generalized weakness R53.1 Pulmonary embolism I26.99 Pericardial effusion I31.3 Hyponatremia E87.1 Anxiety F41.9 Atrial fibrillation I48.91
--- NOTE | 2022-06-26 11:11 | PC.CHAP ---
Pastoral Care Encounter/Spiritual Assessment Type of Contact [] Declined dye machine tender visit [] Patient/Family/Request visit [] Outpatient visit [] Follow-up visit [] Physician referral [] Code/Alert [x] Routine visit [] Staff referral [] Actively dying [x] Patient sleeping [] Family support [] [] Out of room [] Palliative care [] [] Receiving care in room [] Pre-surgical visit [] Trauma [] Long length of stay [] ICU visit [] Other: Relational/Emotional Strength [] Patient feels connected with others/family/visitors/staff [] Distress [] Loneliness/isolation [] Abandonment Spirituality of Patient [] Person of Lee Ann [] Attends Moravian of their [place] [] Believes in Prayer [] Reads Bible or Taoism materials [] There are Spiritual issues to be addressed Cash Processing Specialist Interventions [] Prayer [] Active listening [] Non-anxious presence [] Spiritual/emotional support [] Crisis/trauma care [] Spiritual counseling [] Bereavement support [] Provided bereavement packet [] Provided Bible/devotional materials [] Provided toy/stuffed animal, coloring book to patient or family member [] Provided Communion [] Anointing/[place] [] Salvation [] Completed spiritual assessment [] Other: Impact on Illness or Injury [] Angry [] Fearful [] Anxious [] Often cries [] Exhaustion [] Unable to work [] Unable to attend alevism [] Unable to walk/stand [] Unable to read [] Unable to drive [] Unable to eat/drink [] Unable to sleep [] Unable to be with family [] Patient intubated [] Other: Summary Time spent with patient
[2022-06-26 11:13] LABS: Partial Thromboplastin Time 93.8 SECONDS (23.9-36.7)
[2022-06-26] MEDS: amoxicillin-clav 875-125 mg Tablet 1 TAB PO (11:40)
[2022-06-26 18:41] LABS: Partial Thromboplastin Time 53.3 SECONDS (23.9-36.7)
[2022-06-26] MEDS: heparin drip 25,000 UNIT/500 ML PREMIX 21 UNIT IV (20:34)
[2022-06-26] MEDS: amoxicillin-clav 500-125 mg Tablet 1 TAB PO (21:24)
--- NOTE | 2022-06-26 22:46 | PC.NURSE ---
Spoke with Dr Becker regarding patient being on Nexium at home, having upset stomach with antibiotics, and patient states it might help if she were on her Nexium. ordered PO Protonix to start tonight. Patient refused dose tonight, states she will start taking it in the morning.
[2022-06-27] VITALS (7 sets, daily range): BP systolic 99–131; BP diastolic 62–72; PULSE 97–116; RESP 14–16; TEMP 36.6–36.9; O2SAT 95–98
[2022-06-27 00:44] LABS: Basophils # 0.1 10^3/uL (0.0-0.1); Basophils % 0.4 %; Eosinophils # 0.1 10^3/uL (0.0-0.8); Eosinophils % 0.8 %; Hematocrit 34.9 % (37.0-47.0); Hemoglobin 11.4 g/dL (11.5-15.3); Lymphocytes # 1.3 10^3/uL (0.8-4.8); Lymphocytes % 11.1 %; Mean Corpuscular HGB Conc 32.7 g/dL (30.0-36.0); Mean Corpuscular Hemoglobin 29.5 pg (28.0-34.0); Mean Corpuscular Volume 90.2 fl (81-99); Mean Platelet Volume 9.2 fL (7.4-10.4); Monocytes # 0.9 10^3/uL (0.2-0.9); Monocytes % 8.3 %; Neutrophils # 8.88 10^3/uL (1.8-7.7); Neutrophils % 78.6 %; Nucleated Red Blood Cells % 0 %; Platelet Count 510 10^3/cmm (130-400); Red Blood Count 3.87 10^6/uL (4.1-5.3); Red Cell Distribution Width 14.6 % (12.1-15.1); White Blood Count 11.3 10^3/uL (4.0-10.0)
[2022-06-27 01:22] LABS: Carcinoembryonic Antigen 1.2 ng/mL (0.0-4.7); Tumor Marker Alpha Fetoprotein 1.8 ng/mL (0-8.3)
[2022-06-27 02:10] LABS: Albumin Level 2.9 g/dL (3.5-5.2); Anion Gap 12.3 (5-19); Blood Urea Nitrogen 10 mg/dL (8-23); Calcium 8.7 mg/dL (8.5-10.5); Carbon Dioxide 27 mmol/L (22-29); Chloride 95 mmol/L (98-107); Glucose 119 mg/dL (65-115); Phosphorus 3.1 mg/dL (2.5-4.5); Potassium 4.3 mmol/L (3.5-5.1); Sodium 130 mmol/L (136-145)
[2022-06-27 03:36] LABS: Cancer Antigen 19 9 2.82 U/mL (0-35)
[2022-06-27 06:56] LABS: Partial Thromboplastin Time 67.1 SECONDS (23.9-36.7)
--- NOTE | 2022-06-27 07:51 | P.PN_ITS ---
Subjective Subjective: Patient was seen and examined this morning, blood pressure has been running slightly soft today, am dose of metoprolol has been held, she is due for thoracentesis today, 1 dose of albumin today. Medications: Reviewed: Yes Medication Review Details: Generic Name Dose Route Start Last Admin Trade Name Brownq PRN Reason Stop Dose Admin Amoxicillin/Clavul anate Potassium 1 tab 06/26/22 21:00 06/26/22 21:24 Amoxicillin-Clav 500-125 Mg Tablet PO 1 tab TID ROOSEVELT Administration Protocol Apixaban 5 mg 06/26/22 20:00 06/25/22 21:41 Apixaban 5 Mg Ta blet PO Not Given Q12H ROOSEVELT Calcium Carbonate 1,000 mg 06/25/22 15:09 06/26/22 09:34 Calcium Carbonat e 500 Mg Chew Tabl et PO 1,000 mg Q4H PRN Administration DYSPEPSI Heparin Sodium/Sod ium Chloride 25,000 unit in 50 0 mls @ 0 mls/hr 06/25/22 21:45 06/27/22 07:00 Heparin Drip IV 0 unit/kg/hr .Q0M ROOSEVELT 0 mls/hr Titration Protocol Per Protocol Metoprolol Tartrat e 50 mg 06/25/22 21:00 06/26/22 20:34 Metoprolol Tartr ate 50 Mg Tablet PO 50 mg BID@0900,2100 ROOSEVELT Administration Pantoprazole Sodiu m 40 mg 06/26/22 21:55 06/26/22 22:[address] 40 Mg Tablet PO Not Given DAILY [facility] Senna 17.2 mg 06/25/22 21:00 06/26/22 21:12 Sennosides 8.6 M g Tablet PO Not Given BEDTIME [facility] Vitals/I&O/Wt Last Vital Signs Temp 98.2 F 06/27/22 04:00 Pulse 106 H 06/27/22 04:00 Resp 14 06/27/22 04:00 BP 106/66 06/27/22 04:00 Pulse Ox 95 06/27/22 04:00 O2 Del Method 06/27/22 04:00 06/26/22 06/27/22 06/27/22 22:59 06:59 14:59 Intake Total 479.067 / 1470.034 320 / 1790.034 219.1 / 219.1 Output Total 900 / 900 Balance 479.067 / 1470.034 -580 / 890.034 219.1 / 219.1 Weight last 48 hrs Weight 82.696 kg Weight 83.461 kg Weight 77.593 kg Weight 78.925 kg Physical Exam Const: COMMON NORMALS: patient oriented x3 Resp: COMMON NORMALS: clear to auscultation bilaterally EFFORT & INSPECTION: Yes symmetric chest movement AUSCULTATION: clear to auscultation bilaterally Cardio: COMMON NORMALS: regular rate, regular rhythm, S1 normal heart sound present, S2 normal heart sound present, No gallops present (Cardio), No murmurs present (Cardio), No rub (Cardio) and Peripheral pulses 2+ throughout RATE: regular rate RHYTHM: regular rhythm HEART SOUNDS: S1 normal heart sound present and S2 normal heart sound present PERIPHERAL PULSES: Peripheral pulses 2+ throughout GI: COMMON NORMALS: Normal to inspection, nondistended, normoactive bowel sounds present, Soft to palpation, non-tender, No hepatosplenomegaly present and no masses AUSCULTATION: Yes normoactive bowel sounds PALPATION: Yes Soft to palpation and Yes No hepatosplenomegaly present RECTAL EXAM: deferred Extremity: COMMON NORMALS: no clubbing, cyanosis or edema and no pedal edema Neuro: COMMON NORMALS: patient oriented x3 Data : 06/27/22 00:37 06/27/22 00:37 Micro: Microbiology 06/25/22 11:05 Blood Culture - Preliminary Blood NEGATIVE TO DATE 06/25/22 10:55 Blood Culture - Preliminary Blood NEGATIVE TO DATE 06/26/22 05:45 Bacterial Antigens - Final Urine,Clean Catch 06/26/22 05:45 Legionella Urinary Antigen - Final Urine,Voided A&P Assessment and plan (1) Recurrent left pleural effusion: (2) Pulmonary embolism: (3) Leukocytosis: (4) Generalized weakness: (5) Atrial fibrillation: Plan 76-year-old female with no significant past medical history up until recently till May, except for likely inappropriate sinus tachycardia, also recently diagnosed with intermittent A. fib, she was Admitted recently for pericardial effusion s/p pericardiocentesis, pericardial effusion was attributed to viral etiology, exudative fluid with fluid culture growing Staphlocuccus hominis treated with Levaquin. patient also has history of recurrent left pleural effusion, status post thoracentesis, last pleural fluid analysis was consistent with transudative effusion, with lymphocyte predominance, negative for malignancy, recent history of pulmonary embolism discharged on Eliquis came in this time again with generalized weakness fatigue dyspnea on exertion. Currently she is being managed for: Assessment Recurrent left-sided pleural effusion: History of recent pulmonary embolism Leukocytosis History of atrial fibrillation Chronic hyponatremia: Hypoalbuminemia Plan: Recent CTA chest:?multiple intraluminal filling defects in the pulmonary arteries in the right middle lobe, right lower lobe, and left upper lobe. No lymphadenopathy, no mass. Follow repeat CT chest abdomen and pelvis: Possible PET/CT as an outpatient X-ray chest: Increasing left-sided pleural effusion with compressive atelectasis of the left lower lobe. US chest?: Significant LEFT pleural effusion. Very tiny RIGHT pleural effusion. Recent 2D echo: normal LV size systolic function with EF 66%. Trivial pericardial effusion. Moderate left pleural effusion. Autoimmune panel negative. AFP: 1.8 , CA 19-9:2.82 CEA:1.2 Elevated CRP Procalcitonin normal Legionella antigen negative Bacterial antigen panel negative Blood cultures negative Patient is due for left-sided thoracentesis today, follow-up repeat pleural fluid analysis, cytology as well as culture. Given her overall presentation, recurrent left pleural effusion, unprovoked PE, weight loss, occult malignancy is always possibility. Currently patient was bridged with heparin drip, keeping Eliquis on hold for thoracentesis. Will resume Eliquis on discharge, she will need to be on Eliquis indefinitely given her PE and A. fib, provided she continues to tolerate Eliquis, without any complication. Continue empirically on Augmentin, patient had developed drug reaction to Levaquin. If patient continues to have recurrent pleural effusion patient will likely need Pleurx catheter. Pulmonary on board #Hypoalbuminemia-etiology unknown-likely reduced in nutrition due to loss of appetite -UA did not show any significant proteinuria -We will put her on regular diet, protein supplements Attestations Medical Necessity Statement*: Patient is to be in hospital for management of recurrent pleural effusion. Time Spent in Patient Care: Greater than 35 minutes (>than 50% of time spent in counselling and/or direct pt care on unit) . Coding Level of Care Code Acute Infectious Diseases Physician for [facility] Fwd Exam Detailed Diagnoses Recurrent left pleural effusion J90 Pulmonary embolism I26.99 Leukocytosis D72.829 Generalized weakness R53.1 Atrial fibrillation I48.91
[2022-06-27] MEDS: pantoprazole DR 40 mg Tablet PO (09:46)
[2022-06-27] MEDS: amoxicillin-clav 500-125 mg Tablet 1 TAB PO ×2 (09:46→16:25)
--- NOTE | 2022-06-27 13:20 | XR_ITS ---
WS: [id number] Exam: XR chest 1V portable [id number] Date/Time of Exam: 06/27/2022 1:26 PM Reason For Exam: s/p thoracentesis Comparison 06/25/2022. Decreased left-sided pleural effusion apparently secondary to thoracentesis. No pneumothorax is seen. The right lung is clear and fully expanded. Mild cardiac enlargement. The mediastinum is normal in c ontour. A battery pack superimposes the midline. XR/XR chest 1V portable [id number] IMPRESSION: 1. Reduced left-sided pleural effusion secondary to thoracentesis. No pneumotho rax is seen. 2. Mild cardiac enlargement unchanged.
--- NOTE | 2022-06-27 13:39 | P.PCN_ITS ---
Procedure/Consent Time out: Time Out Performed: Yes Consent: Consent for Procedure: Consent obtained from patient Procedure Narrative: Pulmonary & Critical Care Medicine Procedure - Ultrasound guided Thoracentesis Procedure: Ultrasound guided left-sided thoracentesis Indication: Left pleural effusion Digital Product Specialist(s): Rashad Dove MD Consent: Signed and placed in chart Anesthesia: 10 cc 1% lidocaine without epinephrine Description: Chest X ray reviewed and large left pleural effusion was localized using ultrasound guidance and the appropriate site was marked accordingly. A time out was performed. My hands were washed immediately prior to the procedure. I wore a surgical cap, mask with protective eyewear, sterile gown and sterile gloves throughout the procedure. The patient was placed in appropriate position, area of interest was sterilized with chlorhexidine skin prep and draped in a sterile manner. 1% lidocaine was used to anesthesize the skin, subcutaneous tissue, superior aspect of the rib periosteum and parietal pleura. A finder needle was then introduced over the superior aspect of the rib to locate the pleural fluid; 5 cc [id number] fluid was aspirated. A 10-blade scalpel was used to viktoria the skin at the insertion site. The Anru-r-Fkjdanqj needle was then introduced through the skin incision into the pleural space using negative aspiration pressure and the red colormetric indicator to confirm appropriate positioning of the needle. The thoracentesis catheter was then threaded without difficulty. 700 CC straw colored fluid was removed and then patient started complaining of pleuritic pain, stopped further drainage. Ultrasound examination at that point showed still there is some residual fluid but as patient complained of pleuritic chest pain, the catheter was then removed. No immediate complications were noted during the procedure. The fluid will be sent for studies. Estimated blood loss is 5 - 10 CC. Ultrasound guidance used: Yes Complications: None; the fact that patient complained of pleuritic pain-I suspect trapped lung physiology PCXR: A post-procedure chest x-ray did not show pneumothorax. Acute Procedures Epistaxis Control: Time out performed: Yes
--- NOTE | 2022-06-27 13:49 | CTR_ITS ---
PROCEDURE INFORMATION: Exam: CT Chest With Contrast; Diagnostic Exam date and time: 06/27/2022 5:16 PM Age: 76 years old Clinical indication: Abdominal pain; Generalized; Other: Central; Additional info: Chronic hyponatremia, weight loss, weakness, low blood counts TECHNIQUE: Imaging protocol: Diagnostic computed tomography of the chest with contrast. Radiation optimization: All CT scans at this facility use at least one of these dose optimization techniques: automated exposure control; mA and/or kV adjustment per patient size (includes targeted exams where dose is matched to clinical indication); or iterative reconstruction. Contrast material: OMNIPAQUE 350; Contrast volume: 95 ml; Contrast route: INTRA-ARTERIAL (ARTERIAL); COMPARISON: CT angio chest PE protcl [id number] 06/16/2022 1:37 PM RADIATION DOSE METRICS: Total DLP (mGy-cm): 759.81 FINDINGS: Lungs: There is partial atelectasis of both lower lobes. There is calcified granuloma in the right upper lobe. Pleural spaces: There are small bilateral pleural effusions. There are small bilateral pleural effusions left larger than right. Heart: Heart is within normal limits of size. There is small pericardial effusion. Lymph nodes: There is a mildly prominent precarinal lymph node measuring 12 x 16 mm. Otherwise no adenopathy within the chest. Vasculature: There is no thoracic aortic aneurysm or dissection. Pulmonary emboli demonstrated on 06/16/2022 not identified on the present exam. 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 Soft tissues: Unremarkable. PROCEDURE INFORMATION: Exam: CT Abdomen And Pelvis With Contrast Exam date and time: 06/27/2022 5:16 PM Age: 76 years old Clinical indication: Abdominal pain; Generalized; Other: Central; Additional info: Chronic hyponatremia, weight loss, weakness, low blood counts TECHNIQUE: Imaging protocol: Computed tomography of the abdomen and pelvis with contrast. Radiation optimization: All CT scans at this facility use at least one of these dose optimization techniques: automated exposure control; mA and/or kV adjustment per patient size (includes targeted exams where dose is matched to clinical indication); or iterative reconstruction. Contrast material: OMNIPAQUE 350; Contrast volume: 95 ml; Contrast route: INTRA-ARTERIAL (ARTERIAL); COMPARISON: CT abdomen pelvis w con* [id number] 05/29/2021 2:02 PM RADIATION DOSE METRICS: Total DLP (mGy-cm): 759.81 FINDINGS: Liver: There is no focal abnormality within the liver. Gallbladder and bile ducts: There has been a cholecystectomy. Common bile duct measures 5 mm. Pancreas: The pancreas is normal. Spleen: The spleen is normal. Adrenal glands: Normal. No mass. Kidneys and ureters: There is a 1.5 cm sized cyst arising from the lateral aspect of the left kidney. The right kidney is normal. There is no evidence of hydronephrosis. There is no evidence of renal or ureteral calcifications. Stomach and bowel: There is no evidence of intestinal obstruction. Appendix: A normal appendix is identified. Intraperitoneal space: There is no evidence of free intraperitoneal fluid. Vasculature: The aorta is normal. Lymph nodes: There is no evidence of lymphadenopathy. Urinary bladder: Unremarkable as visualized. Reproductive: Unremarkable as visualized. Bones/joints: Unremarkable. No acute fracture. Soft tissues: Unremarkable. CT/CT chest abd pel w con* IMPRESSION: 1. Small bilateral pleural effusions, smaller than on 06/16/2022. 2. Compressive atelectasis both lower lobes 3. Small pericardial effusion. IMPRESSION: No acute findings in the abdomen or pelvis.
[2022-06-27 14:12] LABS: Body Fluid Polynuclear #Cells 0.133; Body Fluid WBC 485 /uL; Monocytes # Body Fluid 0.352
[2022-06-27 14:16] LABS: Apprearance, Body Fluid CLEAR; Color, Body Fluid YELLOW
[2022-06-27 14:17] LABS: Body Fluid Specific Gravity 1.005
[2022-06-27 14:45] LABS: Cyto Order Verification Order Verified
[2022-06-27 14:51] LABS: Albumin Body Fluid 2.2 g/dL; Amylase Body Fluid 46 U/L; Cholesterol Body Fluid 95 mg/dL (0-200); Fluid Alkaline Phos. 56 IU/L; LDH Body Fluid 139 U/L
[2022-06-27 14:52] LABS: Triglycerides Body Fluid 36 mg/dL (0-150); Uric Acid Body Fluid 3 mg/dL
[2022-06-27 15:10] LABS: Total Protein Pleural Fluid 4.2 g/dL
[2022-06-27 16:13] LABS: Partial Thromboplastin Time 30.6 SECONDS (23.9-36.7)
[2022-06-27] MEDS: iohexol 350 mg/mL 100 mL Btl IV (17:21)
--- NOTE | 2022-06-27 20:08 | PC.NURSE ---
Called Dr Dove regarding patient asking if he was coming back to round on her and asked when to restart eliquis dose. would see the patient again in the morning, order to stop Heparin at 5am and restart Eliquis dose at 9am.
[2022-06-27] MEDS: metoprolol tartrate 50 mg Tablet PO (21:21)
[2022-06-27] MEDS: sennosides 8.6 mg Tablet 17.2 MG PO (21:22)
[2022-06-27 23:22] LABS: Partial Thromboplastin Time 40.2 SECONDS (23.9-36.7)
[2022-06-27] MEDS: heparin 5,000 unit/mL INJ 1 mL IV (23:29)
--- NOTE | 2022-06-27 23:37 | PC.NURSE ---
Messaged and made aware of patient refusing antibiotic tonight. No new orders.
[2022-06-28 04:00] VITALS: BP 127/72; PULSE 86; RESP 15; TEMP 37; O2SAT 98
--- NOTE | 2022-06-28 05:00 | XR_ITS ---
WS: [id number] Exam: XR chest 1V portable [id number] Date/Time of Exam: 06/28/2022 5:41 AM Reason For Exam: S/P thoracentesis Comparison 06/27/2022. Left basal pleural effusion noted. Probable left lower lobe atelectasis. Remaining lung langford are cl ear. No pneumothorax. Cardiac enlargement unchanged. The mediastinum is normal in contour. Monitoring leads superimpose the chest. Bony structures are intact. XR/XR chest 1V portable [id number] IMPRESSION: 1. Left-sided pleural effusion and left lower lobe atelectasis showing little c hange since the last exam. 2. Cardiac enlargement.
[2022-06-28 08:00] VITALS: BP 140/71; PULSE 103; RESP 16; TEMP 36.6; O2SAT 99
--- NOTE | 2022-06-28 08:52 | PM.PN ---
Subjective Subjective: -Seen patient at bedside today -Reported that she slept well, still has some discomfort in that area -She underwent thoracentesis yesterday-drained 700 cc straw-colored fluid-by lights criteria effusion is exudative in nature with pleural protein by effusion protein ratio >0.5. 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 Soriano-it appears there is some left lower lobe atelectasis which might be contributing to her pleural fluid accumulation. The concerning findings on the CT chest are pericardial effusion but she had pericardial effusion last month for which she underwent pericardiocentesis. Medications: Reviewed: Yes Medication Review Details: Generic Name Dose Route Start Last Admin Trade Name Freq PRN Reason Stop Dose Admin Amoxicillin/Clavul anate Potassium 1 tab 06/26/22 21:00 06/26/22 21:24 Amoxicillin-Clav 500-125 Mg Tablet PO 1 tab TID ROOSEVELT Administration Protocol Apixaban 5 mg 06/26/22 20:00 06/25/22 21:41 Apixaban 5 Mg Ta blet PO Not Given Q12H ROO[place]VELT Calcium Carbonate 1,000 mg 06/25/22 15:09 06/26/22 09:34 Calcium Carbonat e 500 Mg Chew Tabl et PO 1,000 mg Q4H PRN Administration DYSPEPSI Heparin Sodium/Sod ium Chloride 25,000 unit in 50 0 mls @ 0 mls/hr 06/25/22 21:45 06/27/22 07:00 Heparin Drip IV 0 unit/kg/hr .Q0M ROOSEVELT 0 mls/hr Titration Protocol Per Protocol Metoprolol Tartrat e 50 mg 06/25/22 21:00 06/26/22 20:34 Metoprolol Tartr ate 50 Mg Tablet PO 50 mg BID@0900,2100 ROOSEVELT Administration Pantoprazole Sodiu m 40 mg 06/26/22 21:55 06/26/22 22:[address] 40 Mg Tablet PO Not Given DAILY ROOSEVELT Senna 17.2 mg 06/25/22 21:00 06/26/22 21:12 Sennosides 8.6 M g Tablet PO Not Given BEDTIME ROOSEVELT Vitals/I&O/Wt Last Vital Signs Temp 97.9 F 06/28/22 08:00 Pulse 103 H 06/28/22 08:00 Resp 16 06/28/22 08:00 BP 140/71 06/28/22 08:00 Pulse Ox 99 06/28/22 08:00 O2 Del Method 06/28/22 08:00 06/27/22 06/28/22 06/28/22 22:59 06:59 14:59 Intake Total 440 / 1099.1 443.9 / 1543.0 Output Total 800 / 800 600 / 1400 Balance -360 / 299.1 -156.1 / 143.0 Weight last 48 hrs Weight 168 lb Weight 168 lb 0.7 oz Weight 182 lb 5 oz Physical Exam Narrative: General: alert, NAD HEENT: conj clear, EOMI, PERRL, mmm, Neck: supple, no meningismus Heme: no cervical LAP Pulmonary: Reduced breath sounds to left lower lung zone Cardiovascular: rrr, nl s1s2, no mrg Abdomen: soft, nt, nd, no r/g, bs+ Extremities: pulses +, no edema, no c/c : no CVA tenderness Skin: intact, no rash MSK: no back or neck pain Neurologic: grossly intact Data : 06/27/22 00:37 06/27/22 00:37 Other Labs: Radiology Impressions Chest Ultrasound 06/25/22 13:43 IMPRESSION: 1. Small LEFT pleural effusion. 2. Very tiny RIGHT pleural effusion. Chest/Abdomen/Pelvis CT 06/27/22 13:49 IMPRESSION: 1. Small bilateral pleural effusions, smaller than on 06/16/2022. 2. Compressive atelectasis both lower lobes 3. Small pericardial effusion. IMPRESSION: No acute findings in the abdomen or pelvis. Chest X-Ray 06/28/22 05:00 IMPRESSION: 1. Left-sided pleural effusion and left lower lobe atelectasis showing little change since the last exam. 2. Cardiac enlargement. Laboratory Results WBC 11.3 10^3/uL (4.0-10.0) H 06/27/22 00:37 RBC 3.87 10^6/uL (4.1-5.3) L 06/27/22 00:37 Hgb 11.4 g/dL (11.5-15.3) L 06/27/22 00:37 Hct 34.9 % (37.0-47.0) L 06/27/22 00:37 MCV 90.2 fl (81-99) 06/27/22 00:37 MCH 29.5 pg (28.0-34.0) 06/27/22 00:37 MCHC 32.7 g/dL (30.0-36.0) 06/27/22 00:37 RDW 14.6 % (12.1-15.1) 06/27/22 00:37 Plt Count 510 10^3/cmm (130-400) H 06/27/22 00:37 MPV 9.2 fL (7.4-10.4) 06/27/22 00:37 Neut % (Auto) 78.6 % 06/27/22 00:37 Lymph % (Auto) 11.1 % 06/27/22 00:37 [place] % (Auto) 8.3 % 06/27/22 00:37 Eos % (Auto) 0.8 % 06/27/22 00:37 Baso % (Auto) 0.4 % 06/27/22 00:37 Neut # (Auto) 8.88 10^3/uL (1.8-7.7) H 06/27/22 00:37 Lymph # (Auto) 1.3 10^3/uL (0.8-4.8) 06/27/22 00:37 [place] # (Auto) 0.9 10^3/uL (0.2-0.9) 06/27/22 00:37 Eos # (Auto) 0.1 10^3/uL (0.0-0.8) 06/27/22 00:37 Baso # (Auto) 0.1 10^3/uL (0.0-0.1) 06/27/22 00:37 Nucleated RBC % (auto) 0 % 06/27/22 00:37 Nucleated RBCs # 0.0 /100WBC 06/27/22 00:37 APTT 40.2 SECONDS (23.9-36.7) H 06/27/22 22:19 Sodium 130 mmol/L (136-145) L 06/27/22 00:37 Potassium 4.3 mmol/L (3.5-5.1) 06/27/22 00:37 Chloride 95 mmol/L (98-107) L 06/27/22 00:37 Carbon Dioxide 27 mmol/L (22-29) 06/27/22 00:37 Anion Gap 12.3 (5-19) 06/27/22 00:37 BUN 10 mg/dL (8-23) 06/27/22 00:37 Creatinine 0.6 mg/dL (0.5-0.9) 06/27/22 00:37 GFR Calculation Not Reportable 06/27/22 00:37 Glucose 119 mg/dL (65-115) H 06/27/22 00:37 Serum Osmolality 271 mOsm/kg (278-305) L 06/27/22 00:37 Calculated Osmolality 270 mOsm/kg (285-295) L 06/26/22 04:50 Calcium 8.7 mg/dL (8.5-10.5) 06/27/22 00:37 Phosphorus 3.1 mg/dL (2.5-4.5) 06/27/22 00:37 Magnesium 2.0 mg/dL (1.7-2.3) 06/26/22 04:50 Total Bilirubin 0.6 mg/dL (0.15-1.2) 06/26/22 04:50 AST 14 U/L (0-32) 06/26/22 04:50 ALT 22 U/L (0-33) 06/26/22 04:50 Alkaline Phosphatase 110 U/L (35-105) H 06/26/22 04:50 Lactate Dehydrogenase 148 U/L (135-214) 06/25/22 12:46 C-Reactive Protein 238.6 mg/L (0.0-4.9) H 06/25/22 12:46 NT-Pro-B Natriuret Pep 945 pg/mL (0-125) H 06/25/22 12:46 Total Protein 6.2 g/dL (6.6-8.7) L 06/26/22 04:50 Albumin 2.9 g/dL (3.5-5.2) L 06/27/22 00:37 Globulin 3.4 g/dL (1.3-4.6) 06/26/22 04:50 Tumor Marker AFP 1.8 ng/mL (0-8.3) 06/27/22 00:37 Carcinoembryonic Ag 1.2 ng/mL (0.0-4.7) 06/27/22 00:37 CA 19-9 Antigen 2.82 U/mL (0-35) 06/27/22 00:37 Procalcitonin 0.06 ng/mL (0-0.5) 06/25/22 12:46 Urine Color Yellow (Yellow) 06/26/22 05:45 Urine Appearance Clear (CLEAR) 06/26/22 05:45 Urine pH 5 (5-7) 06/26/22 05:45 Ur Specific [place] 1.020 (1.005-1.030) 06/26/22 05:45 Urine Protein Neg (Negative) 06/26/22 05:45 Urine Glucose (UA) Norm (Normal) 06/26/22 05:45 Urine Ketones 1+ (Negative) H 06/26/22 05:45 Urine Blood Neg (Negative) 06/26/22 05:45 Urine Nitrate Negative (Negative) 06/26/22 05:45 Urine Bilirubin Neg (Negative) 06/26/22 05:45 Urine Urobilinogen 1 mg/dL (Negative) H 06/26/22 05:45 Ur Leukocyte Esterase Negative (Negative) 06/26/22 05:45 Fluid Color Yellow 06/27/22 13:23 Fluid Appearance Clear 06/27/22 13:23 Fluid Specific Grav 1.005 06/27/22 13:23 Fluid pH 7.0 06/27/22 13:23 Fluid WBC 485 /uL 06/27/22 13:23 Fluid RBC 1.000 10^3/uL 06/27/22 13:23 Fld Polynuclear WBCs # 0.133 06/27/22 13:23 Fld Polynuclear WBCs % 27.500 % 06/27/22 13:23 Fl Mononucl WBCs #(Auto) 0.352 06/27/22 13:23 Fl Mononuclear % Auto 72.500 % 06/27/22 13:23 Fluid Glucose 137.0 mg/dL 06/27/22 13:23 Fluid Albumin 2.2 g/dL 06/27/22 13:23 Fluid LDH 139 U/L 06/27/22 13:23 Fluid Amylase 46 U/L 06/27/22 13:23 Fluid Alk Phosphatase 56 IU/L 06/27/22 13:23 Fluid Cholesterol 95 mg/dL (0-200) 06/27/22 13:23 Fluid Triglycerides 36 mg/dL (0-150) 06/27/22 13:23 Fluid Uric Acid 3 mg/dL 06/27/22 13:23 Pleural Total Protein 4.2 g/dL 06/27/22 13:23 SARS-CoV-2 Ag (Rapid) negative (Negative) 06/25/22 17:12 A&P Assessment and plan (1) Recurrent left pleural effusion: (2) Pulmonary embolism: (3) Leukocytosis: (4) Generalized weakness: (5) Atrial fibrillation: Plan #Recurrent left pleural effusion #Recent CTA 06/16/2022 showed multiple intraluminal filling defects in pulmonary arteries and right middle lobe, right lower lobe, left upper lobe #On anticoagulation Eliquis for bilateral nonocclusive PE as well as A. fib RVR -Patient reported having left-sided thoracentesis after her May discharge in [place]-I do not have the results of pleural fluid analysis from there -However she had another session of left side thoracentesis-yielding 1000 cc fluid on 06/18/2022-findings suggestive of transudative effusion but lymphocyte predominant, cytology reported negative for malignancy, cultures were negative -Her recent echocardiogram on 06/25/2022 showed normal LV size systolic function with EF 66%. Trivial pericardial effusion. Moderate left pleural effusion. -My bedside ultrasound examination, chest x-ray-again showed significant left pleural effusion -With normal cardiac function on echocardiogram, autoimmune panel was negative, no suspicious nodules on CT angiogram,-at this point it is uncertain what is causing her recurrent pleural effusion -Lately patient has been having hypoalbuminemia-which can be a cause. -I held her Eliquis-bridged with heparin for 48 hours-and did thoracentesis yesterday-drained 700 cc straw-colored fluid-by lights criteria effusion is exudative in nature with pleural protein by effusion protein ratio >0.5. 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 Soriano-it appears there is some left lower lobe atelectasis which might be contributing to her pleural fluid accumulation. The concerning findings on the CT chest are pericardial effusion but she had pericardial effusion last month for which she underwent pericardiocentesis. -Fluid is exudative by lights criteria - with protein 4.2 and ratio > 0.5 - again raising suspicion for occult malignancy vs inflammatory -Recommended protein supplementation as pt has hypoalbuminemia -I will follow up in clinic and if pt has recurrent effusion I will refer for VATS and pleural biopsy - She may eventually need Smyer drain placement if she has recurrent pleural effusion; #Generalized weakness, elevated CRP, weight loss, fatigue, unprovoked PE-suspect occult malignancy -Patient reported doing annual Cologuard testing and her last test was -1-year ago and she is due in August 2022. She had allergic reaction to bowel perforation few years ago and could not do her colonoscopy since then. -Informed her mammogram was normal last year -She does not need Pap smears as she is 76 but she denied any discharge -CTA 06/16/2022 did not show any suspicious nodules -I will recommend CT abdomen pelvis to rule out any masses/lymphadenopathy. PET/CT outpatient if approved can also be helpful -Tumor markers AFP, CA 19-9, CEA - are within normal #Hypoalbuminemia-etiology unknown-likely reduced in nutrition due to loss of appetite -UA did not show any significant proteinuria -Recommended protein supplements I will follow up pt as outpt Attestations Medical Necessity Statement*: defer to the hospitalist Time Spent in Patient Care: Greater than 35 minutes (>than 50% of time spent in counselling and/or direct pt care on unit). Coding Level of Care Code Established Pt Acute Modeling Director for Serafin Delgadillo Patient Type Established History Comprehensive Exam Comprehensive Medical Decision Making Moderate Complexity Diagnoses Recurrent left pleural effusion J90 Pulmonary embolism I26.99 Leukocytosis D72.829 Generalized weakness R53.1 Atrial fibrillation I48.91 Time Spent (min) 38
[2022-06-28] MEDS: metoprolol tartrate 50 mg Tablet PO (09:03)
[2022-06-28] MEDS: amoxicillin-clav 500-125 mg Tablet 1 TAB PO (09:04)
[2022-06-28] MEDS: apixaban 5 mg Tablet PO (09:04)
[2022-06-28] MEDS: pantoprazole DR 40 mg Tablet PO (09:04)
--- NOTE | 2022-06-28 10:51 | PM.DCS ---
Discharge Providers Date of Admission: 06/26/22 14:45 Date of Discharge: June 28, 2022 Attending Provider at Admission: Ari Rodriguez MD Attending Provider at Discharge: Alden You MD Primary Care Provider: Mikayla Webb DO Diagnoses at Discharge Discharge Diagnosis (1) Recurrent left pleural effusion: Status: Acute (2) Pulmonary embolism: Status: Acute (3) Leukocytosis: Status: Acute (4) Generalized weakness: Status: Acute (5) Atrial fibrillation: Status: Acute Reason for Visit Reason for Visit: Weakness Hospital Course Hospital Course 76-year-old female with no significant past medical history up until recently till May, except for likely inappropriate sinus tachycardia, also recently diagnosed with intermittent A. fib, she was Admitted recently for pericardial effusion s/p pericardiocentesis, pericardial effusion was attributed to viral etiology, exudative fluid with fluid culture growing Staphlocuccus hominis treated with Levaquin. patient also has history of recurrent left pleural effusion, status post thoracentesis, last pleural fluid analysis was consistent with exudative effusion, with lymphocyte predominance, negative for malignancy, recent history of pulmonary embolism discharged on Eliquis came in this time again with generalized weakness fatigue dyspnea on exertion. She was admitted for the management of recurrent left-sided pleural effusion of unclear etiology underwent left-sided thoracentesis with removal of 700 cc clear pleural effusion:Exudative in nature, Autoimmune panel negative.AFP: 1.8 , CA 19-9:2.82? CEA:1.2Elevated CRP,Procalcitonin normal Legionella antigen negative,Bacterial antigen panel negative ,Blood cultures negative.Recent 2D echo:?normal LV size systolic function with EF 66%.? Trivial pericardial effusion.? Moderate left pleural effusion. Repeat CT chest abdomen pelvis done during the hospital stay: Small bilateral pleural effusions, Compressive atelectasis both lower lobes.Small pericardial effusion.No acute findings in the abdomen or pelvis. Patient was empirically kept on Augmentin during the hospital stay, clinical suspicion for pneumonia is low given her overall presentation, she was not discharged on any oral antibiotics. Pleural fluid culture is pending. Pleural fluid cytology is pending. Patient overall has responded well to above medical management At the time of discharge she was not complaining of any shortness of breath. She was discharged in stable condition to home. She will continue to follow, pulmonary, as well as oncology as outpatient. Physical Exam Const: COMMON NORMALS: patient oriented x3 Resp: COMMON NORMALS: clear to auscultation bilaterally EFFORT & INSPECTION: Yes symmetric chest movement AUSCULTATION: clear to auscultation bilaterally Cardio: COMMON NORMALS: regular rate, regular rhythm, S1 normal heart sound present, S2 normal heart sound present, No gallops present (Cardio), No murmurs present (Cardio), No rub (Cardio) and Peripheral pulses 2+ throughout RATE: regular rate RHYTHM: regular rhythm HEART SOUNDS: S1 normal heart sound present and S2 normal heart sound present PERIPHERAL PULSES: Peripheral pulses 2+ throughout GI: COMMON NORMALS: Normal to inspection, nondistended, normoactive bowel sounds present, Soft to palpation, non-tender, No hepatosplenomegaly present and no masses AUSCULTATION: Yes normoactive bowel sounds PALPATION: Yes Soft to palpation and Yes No hepatosplenomegaly present RECTAL EXAM: deferred Extremity: COMMON NORMALS: no clubbing, cyanosis or edema and no pedal edema Neuro: COMMON NORMALS: patient oriented x3 Discharge Data Studies Completed and Pending Completed Studies During Hospitalization Category Date Time Status CT chest abdomen pelvis [CT chest abd pel w con*] Cat Scan 06/27/22 13:49 Completed Routine XR chest 1V portable [id number] Routine Exams 06/28/22 05:00 Completed XR chest 1V portable [id number] Stat Exams 06/25/22 10:45 Completed XR chest 1V portable [id number] Stat Exams 06/27/22 13:20 Completed US chest [id number] Stat Ultrasound 06/25/22 13:43 Completed US echo limited [CV. echo limited [id number]] Routine Ultrasound 06/25/22 16:23 Completed Pending at discharge Category Date Time Status Anaerobic Culture Routine Lab 06/27/22 13:23 Received Blood Culture Stat Lab 06/25/22 11:05 Results Body Fluid Culture & GS Routine Lab 06/27/22 13:23 Received Mycobacteria, Culture w/Fluor Routine Lab 06/27/22 13:23 Received Osmolality Serum Routine Lab 06/27/22 00:37 Received Platelet Count Q2D Lab 06/29/22 04:00 Ordered Cytology [PTH] Routine Pth 06/27/22 13:39 Received Radiology Impressions Chest Ultrasound 06/25/22 13:43 IMPRESSION: 1. Small LEFT pleural effusion. 2. Very tiny RIGHT pleural effusion. Chest/Abdomen/Pelvis CT 06/27/22 13:49 IMPRESSION: 1. Small bilateral pleural effusions, smaller than on 06/16/2022. 2. Compressive atelectasis both lower lobes 3. Small pericardial effusion. IMPRESSION: No acute findings in the abdomen or pelvis. Chest X-Ray 06/28/22 05:00 IMPRESSION: 1. Left-sided pleural effusion and left lower lobe atelectasis showing little change since the last exam. 2. Cardiac enlargement. Laboratory Results WBC 11.3 10^3/uL (4.0-10.0) H 06/27/22 00:37 RBC 3.87 10^6/uL (4.1-5.3) L 06/27/22 00:37 Hgb 11.4 g/dL (11.5-15.3) L 06/27/22 00:37 Hct 34.9 % (37.0-47.0) L 06/27/22 00:37 MCV 90.2 fl (81-99) 06/27/22 00:37 MCH 29.5 pg (28.0-34.0) 06/27/22 00:37 MCHC 32.7 g/dL (30.0-36.0) 06/27/22 00:37 RDW 14.6 % (12.1-15.1) 06/27/22 00:37 Plt Count 510 10^3/cmm (130-400) H 06/27/22 00:37 MPV 9.2 fL (7.4-10.4) 06/27/22 00:37 Neut % (Auto) 78.6 % 06/27/22 00:37 Lymph % (Auto) 11.1 % 06/27/22 00:37 [place] % (Auto) 8.3 % 06/27/22 00:37 Eos % (Auto) 0.8 % 06/27/22 00:37 Baso % (Auto) 0.4 % 06/27/22 00:37 Neut # (Auto) 8.88 10^3/uL (1.8-7.7) H 06/27/22 00:37 Lymph # (Auto) 1.3 10^3/uL (0.8-4.8) 06/27/22 00:37 [place] # (Auto) 0.9 10^3/uL (0.2-0.9) 06/27/22 00:37 Eos # (Auto) 0.1 10^3/uL (0.0-0.8) 06/27/22 00:37 Baso # (Auto) 0.1 10^3/uL (0.0-0.1) 06/27/22 00:37 Nucleated RBC % (auto) 0 % 06/27/22 00:37 Nucleated RBCs # 0.0 /100WBC 06/27/22 00:37 APTT 40.2 SECONDS (23.9-36.7) H 06/27/22 22:19 Sodium 130 mmol/L (136-145) L 06/27/22 00:37 Potassium 4.3 mmol/L (3.5-5.1) 06/27/22 00:37 Chloride 95 mmol/L (98-107) L 06/27/22 00:37 Carbon Dioxide 27 mmol/L (22-29) 06/27/22 00:37 Anion Gap 12.3 (5-19) 06/27/22 00:37 BUN 10 mg/dL (8-23) 06/27/22 00:37 Creatinine 0.6 mg/dL (0.5-0.9) 06/27/22 00:37 GFR Calculation Not Reportable 06/27/22 00:37 Glucose 119 mg/dL (65-115) H 06/27/22 00:37 Calculated Osmolality 270 mOsm/kg (285-295) L 06/26/22 04:50 Calcium 8.7 mg/dL (8.5-10.5) 06/27/22 00:37 Phosphorus 3.1 mg/dL (2.5-4.5) 06/27/22 00:37 Magnesium 2.0 mg/dL (1.7-2.3) 06/26/22 04:50 Total Bilirubin 0.6 mg/dL (0.15-1.2) 06/26/22 04:50 AST 14 U/L (0-32) 06/26/22 04:50 ALT 22 U/L (0-33) 06/26/22 04:50 Alkaline Phosphatase 110 U/L (35-105) H 06/26/22 04:50 Lactate Dehydrogenase 148 U/L (135-214) 06/25/22 12:46 C-Reactive Protein 238.6 mg/L (0.0-4.9) H 06/25/22 12:46 NT-Pro-B Natriuret Pep 945 pg/mL (0-125) H 06/25/22 12:46 Total Protein 6.2 g/dL (6.6-8.7) L 06/26/22 04:50 Albumin 2.9 g/dL (3.5-5.2) L 06/27/22 00:37 Globulin 3.4 g/dL (1.3-4.6) 06/26/22 04:50 Tumor Marker AFP 1.8 ng/mL (0-8.3) 06/27/22 00:37 Carcinoembryonic Ag 1.2 ng/mL (0.0-4.7) 06/27/22 00:37 CA 19-9 Antigen 2.82 U/mL (0-35) 06/27/22 00:37 Procalcitonin 0.06 ng/mL (0-0.5) 06/25/22 12:46 Urine Color Yellow (Yellow) 06/26/22 05:45 Urine Appearance Clear (CLEAR) 06/26/22 05:45 Urine pH 5 (5-7) 06/26/22 05:45 Ur Specific [place] 1.020 (1.005-1.030) 06/26/22 05:45 Urine Protein Neg (Negative) 06/26/22 05:45 Urine Glucose (UA) Norm (Normal) 06/26/22 05:45 Urine Ketones 1+ (Negative) H 06/26/22 05:45 Urine Blood Neg (Negative) 06/26/22 05:45 Urine Nitrate Negative (Negative) 06/26/22 05:45 Urine Bilirubin Neg (Negative) 06/26/22 05:45 Urine Urobilinogen 1 mg/dL (Negative) H 06/26/22 05:45 Ur Leukocyte Esterase Negative (Negative) 06/26/22 05:45 Fluid Color Yellow 06/27/22 13:23 Fluid Appearance Clear 06/27/22 13:23 Fluid Specific Grav 1.005 06/27/22 13:23 Fluid pH 7.0 06/27/22 13:23 Fluid WBC 485 /uL 06/27/22 13:23 Fluid RBC 1.000 10^3/uL 06/27/22 13:23 Fld Polynuclear WBCs # 0.133 06/27/22 13:23 Fld Polynuclear WBCs % 27.500 % 06/27/22 13:23 Fl Mononucl WBCs #(Auto) 0.352 06/27/22 13:23 Fl Mononuclear % Auto 72.500 % 06/27/22 13:23 Fluid Glucose 137.0 mg/dL 06/27/22 13:23 Fluid Albumin 2.2 g/dL 06/27/22 13:23 Fluid LDH 139 U/L 06/27/22 13:23 Fluid Amylase 46 U/L 06/27/22 13:23 Fluid Alk Phosphatase 56 IU/L 06/27/22 13:23 Fluid Cholesterol 95 mg/dL (0-200) 06/27/22 13:23 Fluid Triglycerides 36 mg/dL (0-150) 06/27/22 13:23 Fluid Uric Acid 3 mg/dL 06/27/22 13:23 Pleural Total Protein 4.2 g/dL 06/27/22 13:23 SARS-CoV-2 Ag (Rapid) negative (Negative) 06/25/22 17:12 Vitals Last Vital Signs Temp 97.9 F 06/28/22 08:00 Pulse 103 H 06/28/22 08:00 Resp 16 06/28/22 08:00 BP 140/71 06/28/22 08:00 Pulse Ox 99 06/28/22 08:00 O2 Del Method 06/28/22 08:00 Discharge Plan Discharge Patient Disposition: Home Condition: Stable Prescriptions: Continued oxymetazoline [Afrin (oxymetazoline)] 0.05 % spray,non-aerosol 2 spray intranasal Q12H PRN (Reason: Allergy Symptoms) alprazolam [Xanax] 0.25 mg tablet 0.125 mg PO DAILY PRN (Reason: Anxiety) esomeprazole magnesium [Nexium] 40 mg Capsule,Delayed Release(Dr/Ec) 40 mg PO QPM PRN (Reason: Heartburn) albuterol sulfate 90 mcg/actuation HFA aerosol inhaler 2 inh inhalation Q8H PRN (Reason: shortness of breath or wheezing) Qty: 8.5 1RF metoprolol tartrate 50 mg Tablet 50 mg PO BID@0900,2100 Qty: 120 3RF ondansetron 4 mg tablet,disintegrating 4 mg PO Q8H PRN (Reason: Nausea And Vomiting) Eliquis DVT-PE Treat 30D Start 5 mg (74 tabs) tablets,dose pack 5 mg PO DAILY Discharge Orders: Discharge Order (Routine); Ordered 06/28/22 Ordered By: Alden You Referrals: Mikayla Webb DO [Primary Care Provider] - 07/02/22 10:00 am Patient Instructions: A-fib (Atrial Fibrillation) (GEN), Pleural Effusion (GEN), Pericardial Effusion (GEN), Opioid Safety Discharge Attestations Time Spent in Discharge Care*: less than 30 min Quality Metrics Clinical Quality Measures [ No reported AMI, CVA or VTE this stay] Coding Level of Care Code Acute Chg FW DC note Diagnoses Recurrent left pleural effusion J90 Pulmonary embolism I26.99 Leukocytosis D72.829 Generalized weakness R53.1 Atrial fibrillation I48.91
[2022-06-28 11:38] VITALS: BP 124/65; PULSE 81; RESP 15; TEMP 36.5; O2SAT 95
--- NOTE | 2022-06-28 13:29 | PC.NURSE ---
Patient left via wheelchair at this time. Discharged to home, all discharge paperwork given to patient. Any and all questions answered at this time. Belongings with patient at this time of discharge.
[2022-06-28 13:34] VITALS: BP 124/65; PULSE 81; RESP 15; TEMP 36.5; O2SAT 95
[2022-06-28 15:48] LABS: Osmolality Serum 271 mOsm/kg (278-305)
== END 2022-06-28 13:36 | disposition home or self-care (01) | DRG 187 ==
LOC: ER 15:28 → MEDSURG 18:59
PROVIDERS: Internal Medicine Pulmonary Disease; Admitting Provider Internal Medicine; Emergency Provider Family Medicine; PCP Family Medicine; Visit Provider Internal Medicine
DX: J90 Pleural effusion, not elsewhere classified (principal); E87.1 Hypo-osmolality and hyponatremia; J98.11 Atelectasis; I31.39 Other pericardial effusion (noninflammatory); Z86.711 Personal history of pulmonary embolism; G47.33 Obstructive sleep apnea (adult) (pediatric); Z99.89 Dependence on other enabling machines and devices; I48.91 Unspecified atrial fibrillation; F41.9 Anxiety disorder, unspecified; Z87.01 Personal history of pneumonia (recurrent); Z87.891 Personal history of nicotine dependence; D75.839 Thrombocytosis, unspecified; Z88.0 Allergy status to penicillin; Z88.2 Allergy status to sulfonamides; Z88.7 Allergy status to serum and vaccine; Z79.01 Long term (current) use of anticoagulants; Z79.51 Long term (current) use of inhaled steroids
CPT/HCPCS: 36415; 71045; 71260; 74177; 76604; 80053; 80069; 80503; 81003; 82042; 82105; 82150; 82378; 82465; 82945; 83615; 83735; 83880; 83930; 83986; 84075; 84100; 84145; 84157; 84315; 84478; 84560; 85025; 85049; 85730; 86140; 86301; 86403; 87015; 87040; 87070; 87075; 87116; 87205; 87206; 87426; 87449; 87801; 88305; 89050; 93005; 93308; 96365; 96375; 99285; G0378; J1200; J1644; J1956; J7040; P9046; Q9967

== ENCOUNTER 2022-07-10 16:20 | Outpatient (CLI) | payer MEDICARE, OTHER, SELFPAY ==
--- NOTE | 2022-07-10 16:42 | XR_ITS ---
WS: [id number] PA and lateral chest, 07/10/2022 Clinical Data: RECURRENT PLEURAL EFFUSION ON LEFT Comparison: Portable chest, 06/28/2022 Findings: The left pleural effusion has increased slightly. No right pleural effusion is seen. There are no nodules or masses. The heart size is probably normal. No pneumothorax or pneumonia is noted. XR/XR chest 2V* [id number] Impression: Slight increase in left pleural effusion.
== END 2022-07-10 16:21 | disposition home or self-care (01) ==
LOC: RAD 16:36
PROVIDERS: PCP Family Medicine; Visit Provider Family Medicine
DX: I48.91 Unspecified atrial fibrillation (principal); Z87.891 Personal history of nicotine dependence
CPT/HCPCS: 71046; 99213

== ENCOUNTER 2022-07-25 07:43 | Emergency (ER) | payer MEDICARE, OTHER, SELFPAY ==
[2022-07-25] VITALS (10 sets, daily range): BP systolic 128–156; BP diastolic 74–90; PULSE 73–110; RESP 15–32; TEMP 36.8; O2SAT 98–99; BMI 25.4
--- NOTE | 2022-07-25 08:05 | ECG_ITS ---
[facility] Test Date: 2022-07-25 Pat Name: Sheri Lopez Department: Room: Gender: Female [employer]: : 1945 Requested By: Jon Alas Order Number: [id number] Daria MD: Alfred Art M.D. Measurements Intervals Wallace Rate: 104 P: 56 NV: 172 QRS: -69 QRSD: 103 T: 97 QT: 329 QTc: 433 Interpretive Statements SINUS TACHYCARDIA POSSIBLE LEFT ATRIAL ENLARGEMENT [-0.1mV P-WAVE IN V1/V2] LEFT ANTERIOR FASCICULAR BLOCK [QRS AXIS <= -45, QR IN I, RS IN II] LEFT VENTRICULAR HYPERTROPHY AND ST-T CHANGE [VOLTAGE CRITERIA PLUS ST/T ABNORMALITY] POSSIBLE ANTEROSEPTAL MYOCARDIAL INFARCTION , OF INDETERMINATE AGE [30 ms Q WAVE IN V1-V4] Compared to ECG 06/25/2022 11:02:18 ST (T wave) deviation now present Sinus rhythm no longer present Myocardial infarct finding still present Electronically Signed On 07-26-2022 12:32:02 METAL BURNISHER by Alfred Art M.D. [email or web address]
--- NOTE | 2022-07-25 08:11 | W.ED.SOB ---
HPI - SOB/Dyspnea General: Chief Complaint: Shortness of Breath/Dyspnea Stated Complaint: SOB Time Seen by Provider: 07/25/22 07:44 Source: patient Mode of arrival: ambulatory History of Present Illness: HPI Narrative: 76-year-old female with recurrent left pleural effusion presents complaining of increasing orthopnea and shortness of breath. She denies any chest pain. Couple months ago she was found to have a pericardial effusion has increased in size ultimately resulting in her being hospitalized at a time she developed a pleural effusion as well pericardial effusion was tapped and drained pleural effusion continues to recur despite having been drained a couple of times. She is actually being scheduled to have a Sergio drain placed. She has seen pulmonology in the past as well she denies any chest pain any fever sweats or chills recently. MD elicited complaint: shortness of breath and cough Pertinent past history: congestive heart failure Onset (ago): month(s) Timing: intermittent Severity: moderate Exacerbating factors: lying flat and exertion Relieving factors: upright position Known history of: congestive heart failure Associated symptoms: Reports chest congestion and orthopnea; Deny abdominal pain, chest pain, cough, diaphoresis, dizziness, extremity pain, fever(s), hemoptysis, lightheadedness, myalgias, nausea, palpitations, paresthesias, polydipsia, polyuria, rash, sense of impending doom, syncope or vomiting Treatment prior to arrival: none Review of Systems Const: Denies: fever(s), chills, fatigue, malaise or diaphoresis ENMT: Denies: throat pain, ear or mastoid pain, nasal discharge or nasal congestion Card: Reports: dyspnea on exertion and orthopnea; Denies: chest pain, palpitations, lightheadedness or syncope Resp: Reports: dyspnea, non-productive cough, wheezing and chest congestion; Denies: hemoptysis GI: Denies: abdominal pain, nausea or vomiting : Denies: flank pain, difficulty voiding, dysuria, urinary frequency or urinary urgency Musc: Denies: neck pain, back pain or extremity pain Skin/Breast: Denies: rash or pruritus Neuro: Denies: dizziness Endo: Denies: polyuria or polydipsia PFS ED PFSH: Medical History A-fib Anxiety Atrial fibrillation Chronic hyponatremia Generalized weakness Hyponatremia Leukocytosis VERONICA on CPAP Palpitations Panic disorder Pericardial effusion Pericarditis Pleural effusion Pleural effusion Pneumonia Pulmonary embolism Recurrent left pleural effusion Restrictive lung disease SVT (supraventricular tachycardia) Surgical History History of colonoscopy with polypectomy 2005 History of esophagogastroduodenoscopy (EGD) 2016 History of facelift S/P breast biopsy S/P D&C (status post dilation and curettage) S/P tonsillectomy Status post laparoscopic cholecystectomy Family History Mother Hypertension Dementia Atrial fibrillation Father Parkinson's disease Social History Smoking and tobacco status: former smoker Quit status (tobacco): has quit using tobacco Year quit tobacco: 1995 [id number] Second hand smoke exposure: No Smoking risk assessment/counseling performed?: Yes Alcohol intake: never Lives independently: Yes Household members: spouse Marital status: service: No Current occupational status: retired Pets and animals: Yes History of recent travel: No Current gender identity: Female Lee Ann/Scientology: Uatsdin Physical Exam Const: GENERAL APPEARANCE: cooperative and comfortable ORIENTATION/CONSCIOUSNESS: Yes awake, Yes oriented to person, Yes oriented to place and Yes oriented to time HENMT: COMMON NORMALS: normocephalic, atraumatic and hearing grossly normal bilaterally HEAD & SCALP: normocephalic and atraumatic Resp: COMMON NORMALS: normal respiratory effort, No retractions and No use of accessory muscles AUSCULTATION: diminished lung sounds on the left in the lower lung [place] Cardio: COMMON NORMALS: regular rate, regular rhythm and No murmurs present (Cardio) RATE: regular rate RHYTHM: regular rhythm GI: COMMON NORMALS: Soft to palpation and No hepatosplenomegaly present AUSCULTATION: Yes normoactive bowel sounds PALPATION: Yes Soft to palpation, No Tenderness to palpation present (GI), No Guarding due to palpation present (GI) and Yes No hepatosplenomegaly present Extremity: COMMON NORMALS: normal to inspection, capillary refill normal, no clubbing, cyanosis or edema, no calf tenderness and no pedal edema Neuro: SENSORIUM/ORIENTATION: Yes oriented to person, Yes oriented to place and Yes oriented to time Skin: COMMON NORMALS: no rashes or lesions noted GENERAL SKIN EXAM: no rashes or lesions noted Course Vital Signs: Vital signs: Vital Signs Temperature 98.2 F 07/25/22 07:49 Pulse Rate 73 07/25/22 10:00 Respiratory Rate 17 07/25/22 10:00 Blood Pressure 129/86 07/25/22 10:00 Pulse Oximetry 99 07/25/22 10:00 Oxygen Delivery Me thod 07/25/22 07:49 MDM - SOB/Dyspnea Medical Decision Making X-ray shows persistent left pleural effusion. Slightly increased from previous chest x-ray. She is on Eliquis. Ordering to discharge her home her vital signs are stable nurse maintaining oxygen sat well in upright position on room air. We will set her up for outpatient thoracentesis as an outpatient after she has been off Eliquis for 2 days. Medical Records I reviewed the patient's medical records. Lab Data I reviewed the patient's lab results. 07/25/22 08:16 07/25/22 08:16 Labs/Radiology: Radiology Impressions Chest X-Ray 07/25/22 08:23 IMPRESSION: Large left pleural effusion. Laboratory Results WBC 7.6 10^3/uL (4.0-10.0) 07/25/22 08:16 RBC 4.38 10^6/uL (4.1-5.3) 07/25/22 08:16 Hgb 12.3 g/dL (11.5-15.3) 07/25/22 08:16 Hct 39.3 % (37.0-47.0) 07/25/22 08:16 MCV 89.7 fl (81-99) 07/25/22 08:16 MCH 28.1 pg (28.0-34.0) 07/25/22 08:16 MCHC 31.3 g/dL (30.0-36.0) 07/25/22 08:16 RDW 16.1 % (12.1-15.1) H 07/25/22 08:16 Plt Count 546 10^3/cmm (130-400) H 07/25/22 08:16 MPV 8.8 fL (7.4-10.4) 07/25/22 08:16 Neut % (Auto) 74.3 % 07/25/22 08:16 Lymph % (Auto) 17.5 % 07/25/22 08:16 [place] % (Auto) 6.6 % 07/25/22 08:16 Eos % (Auto) 0.7 % 07/25/22 08:16 Baso % (Auto) 0.5 % 07/25/22 08:16 Neut # (Auto) 5.63 10^3/uL (1.8-7.7) 07/25/22 08:16 Lymph # (Auto) 1.3 10^3/uL (0.8-4.8) 07/25/22 08:16 [place] # (Auto) 0.5 10^3/uL (0.2-0.9) 07/25/22 08:16 Eos # (Auto) 0.1 10^3/uL (0.0-0.8) 07/25/22 08:16 Baso # (Auto) 0.0 10^3/uL (0.0-0.1) 07/25/22 08:16 Nucleated RBC % (auto) 0 % 07/25/22 08:16 Nucleated RBCs # 0.0 /100WBC 07/25/22 08:16 PT 14.80 SECONDS (12.1-14.9) 07/25/22 08:16 INR 1.12 (0.8-1.2) 07/25/22 08:16 APTT 31.3 SECONDS (23.9-36.7) 07/25/22 08:16 Sodium 137 mmol/L (136-145) 07/25/22 08:16 Potassium 4.1 mmol/L (3.5-5.1) 07/25/22 08:16 Chloride 98 mmol/L (98-107) 07/25/22 08:16 Carbon Dioxide 27 mmol/L (22-29) 07/25/22 08:16 Anion Gap 16.1 (5-19) 07/25/22 08:16 BUN 6 mg/dL (8-23) L 07/25/22 08:16 Creatinine 0.5 mg/dL (0.5-0.9) 07/25/22 08:16 GFR Calculation Not Reportable 07/25/22 08:16 Glucose 116 mg/dL (65-115) H 07/25/22 08:16 Calculated Osmolality 283 mOsm/kg (285-295) L 07/25/22 08:16 Calcium 9.7 mg/dL (8.5-10.5) 07/25/22 08:16 Total Bilirubin 0.5 mg/dL (0.15-1.2) 07/25/22 08:16 AST 16 U/L (0-32) 07/25/22 08:16 ALT 12 U/L (0-33) 07/25/22 08:16 Alkaline Phosphatase 104 U/L (35-105) 07/25/22 08:16 NT-Pro-B Natriuret Pep 272 pg/mL (0-125) H 07/25/22 08:16 Total Protein 7.6 g/dL (6.6-8.7) 07/25/22 08:16 Albumin 3.9 g/dL (3.5-5.2) 07/25/22 08:16 Globulin 3.7 g/dL (1.3-4.6) 07/25/22 08:16 Urine Color Yellow (Yellow) 07/25/22 08:30 Urine Appearance Clear (CLEAR) 07/25/22 08:30 Urine pH 7 (5-7) 07/25/22 08:30 Ur Specific [place] 1.010 (1.005-1.030) 07/25/22 08:30 Urine Protein Neg (Negative) 07/25/22 08:30 Urine Glucose (UA) Norm (Normal) 07/25/22 08:30 Urine Ketones Negative (Negative) 07/25/22 08:30 Urine Blood Neg (Negative) 07/25/22 08:30 Urine Nitrate Negative (Negative) 07/25/22 08:30 Urine Bilirubin Neg (Negative) 07/25/22 08:30 Urine Urobilinogen Norm mg/dL (Negative) 07/25/22 08:30 Ur Leukocyte Esterase Negative (Negative) 07/25/22 08:30 Discharge Plan Discharge Patient Disposition: Home Clinical Impression: Recurrent left pleural effusion Condition: Stable Prescriptions: No Action oxymetazoline [Afrin (oxymetazoline)] 0.05 % spray,non-aerosol 2 spray intranasal Q12H PRN (Reason: Allergy Symptoms) alprazolam [Xanax] 0.25 mg tablet 0.125 mg PO DAILY PRN (Reason: Anxiety) esomeprazole magnesium [Nexium] 40 mg Capsule,Delayed Release(Dr/Ec) 40 mg PO QPM PRN (Reason: Heartburn) metoprolol tartrate 50 mg Tablet 50 mg PO BID@0900,2100 Qty: 120 3RF ondansetron 4 mg tablet,disintegrating 4 mg PO Q8H PRN (Reason: Nausea And Vomiting) calcium carbonate [Calcarb 600] 600 mg calcium (1,500 mg) Tablet 600 mg PO DAILY pantoprazole 40 mg tablet,delayed release (DR/EC) 40 mg PO DAILY PRN (Reason: Acid Reflux) cholecalciferol (vitamin D3) [Vitamin D3] 50 mcg (2,000 unit) Tablet 50 mcg PO DAILY Women's 50 Plus Daily Formula 400 mcg-500 mg calcium-20 mcg Tablet 1 tab PO DAILY apixaban 5 mg tablet 5 mg PO DAILY Discharge Orders: Discharge ED (Routine); Ordered 07/25/22 Ordered By: Jon Leonard Referrals: Mikayla Webb DO [Primary Care Provider] - Patient Instructions: Opioid Safety, Pain Management Activity Restrictions/Additional Instructions: You were seen today for shortness of breath and recurrent left pleural effusion. It is slightly worse than it has been at the most recent chest x-ray. We will have you hold your Eliquis for the next 2 days Case management make arrangements for you to have a thoracentesis done on 07/27/2022 after the thoracentesis done you may resume the Eliquis. We will also contact Dr. Dove's office to see if they can make a earlier follow-up appointment for you. Coding Level of Care Code ED Machine Operator Assistant for Serafin Fwd Exam Detailed
[2022-07-25 08:22] LABS: Basophils % 0.5 %; Eosinophils # 0.1 10^3/uL (0.0-0.8); Eosinophils % 0.7 %; Hematocrit 39.3 % (37.0-47.0); Hemoglobin 12.3 g/dL (11.5-15.3); Lymphocytes # 1.3 10^3/uL (0.8-4.8); Lymphocytes % 17.5 %; Mean Corpuscular HGB Conc 31.3 g/dL (30.0-36.0); Mean Corpuscular Hemoglobin 28.1 pg (28.0-34.0); Mean Corpuscular Volume 89.7 fl (81-99); Mean Platelet Volume 8.8 fL (7.4-10.4); Monocytes # 0.5 10^3/uL (0.2-0.9); Monocytes % 6.6 %; Neutrophils # 5.63 10^3/uL (1.8-7.7); Neutrophils % 74.3 %; Nucleated Red Blood Cells % 0 %; Platelet Count 546 10^3/cmm (130-400); Red Blood Count 4.38 10^6/uL (4.1-5.3); Red Cell Distribution Width 16.1 % (12.1-15.1); White Blood Count 7.6 10^3/uL (4.0-10.0)
--- NOTE | 2022-07-25 08:23 | XRR_ITS ---
PROCEDURE INFORMATION: Exam: XR Chest Exam date and time: 07/25/2022 9:26 AM Age: 76 years old Clinical indication: Condition or disease; Lung condition and disease; Pleural effusion; Other: Not specified; Dyspnea; Additional info: Dyspnea, pleural effusion TECHNIQUE: Imaging protocol: Radiologic exam of the chest. Views: 1 view. COMPARISON: CR XR chest 2V* [id number] 07/10/2022 4:45 PM FINDINGS: Lungs: COPD, interstitial prominence, and chronic granulomatous disease. Pleural spaces: Large left pleural effusion . Heart/Mediastinum: Obscuration of the left heart border by left pleural effusion. Bones/joints: Osteopenia and degenerative change. When correlating with the previous study, no significant interval changes are present. XR/XR chest 1V portable [id number] IMPRESSION: Large left pleural effusion.
[2022-07-25] MEDS: metoprolol tartrate 1 mg/1 mL SDV 5 mL 2.5 MG IVP (08:46)
[2022-07-25] MEDS: metoprolol tartrate 50 mg Tablet PO (08:47)
[2022-07-25 08:51] LABS: Alanine Aminotransferase 12 U/L (0-33); Albumin Level 3.9 g/dL (3.5-5.2); Alkaline Phosphatase 104 U/L (35-105); Aspartate Amino Transferase 16 U/L (0-32); Blood Urea Nitrogen 6 mg/dL (8-23); Calcium 9.7 mg/dL (8.5-10.5); Carbon Dioxide 27 mmol/L (22-29); Chloride 98 mmol/L (98-107); Globulin 3.7 g/dL (1.3-4.6); Glucose 116 mg/dL (65-115); NT Pro B Type Natriuretic Pept 272 pg/mL (0-125); Osmolality Calculated 283 mOsm/kg (285-295); Sodium 137 mmol/L (136-145); Total Bilirubin 0.5 mg/dL (0.15-1.2); Total Protein 7.6 g/dL (6.6-8.7)
[2022-07-25 08:53] LABS: Add Urine Microscopic? NO; Charge for UA Resulting for Rev
[2022-07-25 08:53] LABS: Anion Gap 16.1 (5-19); Potassium 4.1 mmol/L (3.5-5.1)
[2022-07-25 09:06] LABS: INR 1.12 (0.8-1.2)
[2022-07-25 09:07] LABS: Bilirubin Urine Neg (Negative); Blood Urine Neg (Negative); Glucose Urine UA Norm (Normal); Ketones Urine Negative (Negative); Leukocyte Esterase Urine Negative (Negative); Nitrate Urine Negative (Negative); Protein Urine Neg (Negative); Urine Appearance Clear (CLEAR); Urine Color Yellow (Yellow); Urobilinogen Urine Norm (Negative); pH Urine 7 (5-7)
[2022-07-25 09:07] LABS: Partial Thromboplastin Time 31.3 SECONDS (23.9-36.7)
--- NOTE | 2022-07-25 11:12 | DCPLANNER ---
Addendum entered by Nena Vasquez 08/02/22 08:51: This was cancelled by patient. Original Note: talent acquisition operations manager was asked to schedule an outpatient thoracentesis for patient. talent acquisition operations manager faxed signed order to GI lab for the procedure to be scheduled. The GI lab will call patient with appointment information.
--- NOTE | 2022-07-25 11:19 | DCPLANNER ---
Addendum entered by Nena Vasquez 08/23/22 10:17: Patient had a follow up appointment scheduled at [facility] - patient did attend appointment. Addendum entered by Nena Vasquez 08/16/22 14:26: Patient has a follow up appointment scheduled for Wednesday August 17, 2022 at 12:[address] Mack at pulmonology. Clinic will call patient with appointment information. Original Note: facility service manager had message to schedule a follow up appointment for patient with pulmonology. facility service manager sent patients information to the front office staff at [facility]. Patients information will be printed and reviewed. Clinic will call patient with appointment information.
== END 2022-07-25 10:07 | disposition home or self-care (01) ==
PROVIDERS: Emergency Provider Family Medicine; PCP Family Medicine
DX: J90 Pleural effusion, not elsewhere classified (principal); Z86.711 Personal history of pulmonary embolism; Z87.891 Personal history of nicotine dependence
CPT/HCPCS: 71045; 80053; 81003; 83880; 85025; 85610; 85730; 93005; 96374; 99285; J3490

== ENCOUNTER 2022-08-08 08:26 | Outpatient (CLI) | payer MEDICARE, OTHER, SELFPAY ==
--- NOTE | 2022-08-08 09:04 | USCV_ITS ---
Sheri Lopez Age: 76 Gender: F : 1945 Exam Date: 08/08/2022 09:24 Ordering Phys: Pipo Tamayo M.D ([email or web address]) Technologist: Real Reynoso Exam Location: [facility] [place] Indication: pericardial effusion BP: 128 / 84 HR: 68 Rhythm: Sinus Technical Quality: Adequate MEASUREMENTS (Male / Female) Normal Values 2D ECHO LV Diastolic Diameter PLAX 3.8 cm 4.2 - 5.9 / 3.9 - 5.3 cm LV Systolic Diameter PLAX 2.6 cm IVS Diastolic Thickness 0.9 cm 0.6 - 1.0 / 0.6 - 0.9 cm IVS Systolic Thickness 1.2 cm LVPW Diastolic Thickness 1.3 cm 0.6 - 1.0 / 0.6 - 0.9 cm LVPW Systolic Thickness 1.7 cm LVOT Diameter 2.0 cm LV Ejection Fraction 2D Teich 61.5 % LV Ejection Fraction MOD 2C 66.0 % LV Ejection Fraction 2C AL 67.2 % LA Diameter 3.1 cm LA Width 3.4 cm LA Height 4.4 cm RA Width 3.8 cm RA Height 4.5 cm Aorta at Sinotubular Diameter 2.6 cm IVC Diameter 1.6 cm M-MODE Aortic Annulus Diameter 2.6 cm LA Ao Ratio MM 1.2 MV E Point Septal Separation 0.5 cm DOPPLER Right Atrial Pressure 3.0 mmHg FINDINGS Left Ventricle Right Ventricle Right Atrium Left Atrium Mitral Valve Aortic Valve Tricuspid Valve Pulmonic Valve Pericardium Aorta IVC CONCLUSIONS There is a limited echocardiogram performed to assess pericardial effusion. Trivial pericardial effusion is seen. Pleural effusion seen. LV systolic function is normal RA pressure is normal Compared to prior echocardiogram from 06/25/2022, no significant change is seen Pipo Tamayo MD (Electronically Signed) Final Date: 08 August 2022 17:54 S
== END 2022-08-08 08:27 | disposition home or self-care (01) ==
PROVIDERS: PCP Family Medicine; Visit Provider Internal Medicine
DX: I31.39 Other pericardial effusion (noninflammatory) (principal); J90 Pleural effusion, not elsewhere classified
CPT/HCPCS: 93308

== ENCOUNTER → 2022-08-10 10:17 | Outpatient (BNVA) | payer MEDICARE, OTHER, SELFPAY | PROVIDERS: PCP Family Medicine; Visit Provider Emergency Medicine | DX: J02.9 Acute pharyngitis, unspecified (principal) | CPT/HCPCS: 87071; 87880 ==

== ENCOUNTER → 2022-08-17 09:04 | Outpatient (BNVA) | payer MEDICARE, OTHER, SELFPAY | PROVIDERS: PCP Family Medicine; Visit Provider Internal Medicine Pulmonary Disease | DX: R00.2 Palpitations (principal); G47.33 Obstructive sleep apnea (adult) (pediatric); Z79.899 Other long term (current) drug therapy; I47.1 Supraventricular tachycardia; I48.91 Unspecified atrial fibrillation; Z79.891 Long term (current) use of opiate analgesic; R91.8 Other nonspecific abnormal finding of lung field; R59.1 Generalized enlarged lymph nodes; Z87.891 Personal history of nicotine dependence; Z79.01 Long term (current) use of anticoagulants; R63.4 Abnormal weight loss; Z68.25 Body mass index [BMI] 25.0-25.9, adult; R53.1 Weakness; R53.83 Other fatigue; Z86.711 Personal history of pulmonary embolism; E88.09 Other disorders of plasma-protein metabolism, not elsewhere classified | CPT/HCPCS: 99214 ==

== ENCOUNTER 2022-08-31 14:25 | Outpatient (CLI) | payer MEDICARE, OTHER, SELFPAY ==
--- NOTE | 2022-08-31 14:32 | XR_ITS ---
WS: [id number] PA and lateral chest, 08/31/2022 Clinical Data: LEFT PLEURAL EFFUSION Comparison: Portable chest, 07/25/2022 Findings: There is a small left pleural effusion. This effusion is less than half is large as the eff usion on the prior study. The right lung is clear. There are no nodules, masses or pneumonia. The hea rt is at the upper limits of normal. No pneumothorax is seen. XR/XR chest 2V* [id number] Impression: Small left pleural effusion.
== END 2022-08-31 14:26 | disposition home or self-care (01) ==
LOC: RAD 14:25
PROVIDERS: PCP Family Medicine; Visit Provider Family Medicine
DX: J90 Pleural effusion, not elsewhere classified (principal)
CPT/HCPCS: 71046

== ENCOUNTER 2022-09-10 23:43 | Emergency (ER) | payer MEDICARE, OTHER, SELFPAY ==
[2022-09-10 23:43] VITALS: BP 170/75; PULSE 79; RESP 18; TEMP 36.4; O2SAT 99; BMI 26.6
--- NOTE | 2022-09-11 00:08 | W.ED.CHESTPA ---
HPI - Chest Pain General: Chief Complaint: Arrhythmia/Palpitations Stated Complaint: heart palps Time Seen by Provider: 09/11/22 00:00 History of Present Illness: Ms. Lopez is a 77-year-old lady with history of A. fib, PE, pleural effusion, history of pericardial effusion presenting to the emergency department due to racing heart feeling and discomfort. She reports for the past week few weeks waking up every 4 hours with burning in her abdomen as well as a short of breath panicky type feeling. She does endorse racing heart. Had another episode after approximately 45 minutes despite sleeping propped up this evening with more intense racing heart and chest discomfort. Intensity symptoms moderate. Course has mildly improved. No other specific changes in health, exacerbating, or alleviating factors identified. Onset (ago): week(s) Timing of current episode: episodic Onset: awoke with symptoms Severity: moderate Relieving factors: nothing Exacerbating factors: nothing Review of Systems General: Reports: 10 or more systems reviewed and unremarkable except in HPI and below PFSH ED PFSH: Medical History A-fib Anxiety Atrial fibrillation Chronic hyponatremia Generalized weakness Hyponatremia Leukocytosis VERONICA on CPAP Palpitations Panic disorder Pericardial effusion Pericarditis Pleural effusion Pleural effusion Pneumonia Pulmonary embolism Recurrent left pleural effusion Restrictive lung disease SVT (supraventricular tachycardia) Surgical History History of colonoscopy with polypectomy 2006 History of esophagogastroduodenoscopy (EGD) 2016 History of facelift S/P breast biopsy S/P D&C (status post dilation and curettage) S/P tonsillectomy Status post laparoscopic cholecystectomy Family History Mother Hypertension Dementia Atrial fibrillation Father Parkinson's disease Social History Smoking and tobacco status: former smoker Quit status (tobacco): has quit using tobacco Year quit tobacco: 1995 [id number] Second hand smoke exposure: No Smoking risk assessment/counseling performed?: Yes Alcohol intake: never Lives independently: Yes Household members: spouse Marital status: service: No Current occupational status: retired Pets and animals: Yes History of recent travel: No Current gender identity: Female Lee Ann/Mosque: Druze Physical Exam Const: COMMON NORMALS: alert GENERAL APPEARANCE: cooperative and well developed HENMT: COMMON NORMALS: normocephalic and atraumatic HEAD & SCALP: normocephalic and atraumatic Eye: COMMON NORMALS: conjunctivae normal CONJUNCTIVA: Yes conjunctivae normal SCLERA: sclerae normal Neck/C-Spine: COMMON NORMALS: supple GENERAL: Yes trachea midline Resp: COMMON NORMALS: clear to auscultation bilaterally EFFORT & INSPECTION: Yes able to speak in complete sentences AUSCULTATION: clear to auscultation bilaterally Cardio: COMMON NORMALS: regular rate and regular rhythm RATE: regular rate RHYTHM: regular rhythm GI: COMMON NORMALS: Soft to palpation PALPATION: Yes Soft to palpation and No Tenderness to palpation present (GI) Extremity: GENERAL: Yes normal exam except as noted and No edema Neuro: COMMON NORMALS: moves all extremities SENSORIUM/ORIENTATION: Yes alert and No Orientation impaired Psych: COMMON NORMALS: mental status grossly normal and Normal thought process present THOUGHT PROCESS: Normal thought process present Course Vital Signs: Vital signs: Vital Signs Temperature 97.5 F L 09/10/22 23:43 Pulse Rate 62 09/11/22 02:08 Respiratory Rate 18 09/11/22 02:08 Blood Pressure 142/77 09/11/22 02:08 Pulse Oximetry 99 09/11/22 02:08 Oxygen Delivery Me thod 09/11/22 00:13 MDM - Chest Pain Medical Decision Making 77-year-old lady presenting with episodic racing heart in the context of sleep associate with mild discomfort. Patient is nontoxic in appearance and heart rate is well controlled. EKG notable for sinus rhythm with interventricular conduction delay, no STEMI. Labs with no significant hematologic or metabolic abnormality to find symptoms, potassium is minimally decreased. Negative range 2-hour delta troponin. No evidence of urinary tract infection. Negative rapid viral studies. Potassium replenishment given Chest x-ray with no lobar consolidation or pneumothorax. Effusion present and discussed with patient. [id number] ultrasound performed with limited cardiac evaluation and is negative for pericardial effusion. Upon reassessment patient feels improved. Most likely etiology of patient symptoms is unclear, story is fairly consistent with PND. Patient is comfortable with negative ED evaluation and comfortable with close outpatient follow-up. The results of ED evaluation were discussed with the patient including prescriptions and/or symptomatic cares (if applicable) including appropriate and responsible use, followup plan, and return precautions. The patient verbalized understanding and felt safe for discharge. Medical Records I reviewed the patient's medical records. Lab Data I reviewed the patient's lab results. 09/11/22 00:05 09/11/22 00:05 Radiology Impressions Chest X-Ray 09/11/22 00:09 IMPRESSION: Small left pleural effusion, similar to the findings on 08/31/2022. Laboratory Results WBC 7.9 10^3/uL (4.0-10.0) 09/11/22 00:05 RBC 4.43 10^6/uL (4.1-5.3) 09/11/22 00:05 Hgb 12.6 g/dL (11.5-15.3) 09/11/22 00:05 Hct 40.2 % (37.0-47.0) 09/11/22 00:05 MCV 90.7 fl (81-99) 09/11/22 00:05 MCH 28.4 pg (28.0-34.0) 09/11/22 00:05 MCHC 31.3 g/dL (30.0-36.0) 09/11/22 00:05 RDW 16.3 % (12.1-15.1) H 09/11/22 00:05 Plt Count 408 10^3/cmm (130-400) H 09/11/22 00:05 MPV 9.5 fL (7.4-10.4) 09/11/22 00:05 Neut % (Auto) 52.9 % 09/11/22 00:05 Lymph % (Auto) 37.2 % 09/11/22 00:05 [place] % (Auto) 7.0 % 09/11/22 00:05 Eos % (Auto) 2.3 % 09/11/22 00:05 Baso % (Auto) 0.5 % 09/11/22 00:05 Neut # (Auto) 4.19 10^3/uL (1.8-7.7) 09/11/22 00:05 Lymph # (Auto) 2.9 10^3/uL (0.8-4.8) 09/11/22 00:05 [place] # (Auto) 0.6 10^3/uL (0.2-0.9) 09/11/22 00:05 Eos # (Auto) 0.2 10^3/uL (0.0-0.8) 09/11/22 00:05 Baso # (Auto) 0.0 10^3/uL (0.0-0.1) 09/11/22 00:05 Nucleated RBC % (auto) 0 % 09/11/22 00:05 Nucleated RBCs # 0.0 /100WBC 09/11/22 00:05 Sodium 139 mmol/L (136-145) 09/11/22 00:05 Potassium 3.4 mmol/L (3.5-5.1) L 09/11/22 00:05 Chloride 99 mmol/L (98-107) 09/11/22 00:05 Carbon Dioxide 29 mmol/L (22-29) 09/11/22 00:05 Anion Gap 14.4 (5-19) 09/11/22 00:05 BUN 9 mg/dL (8-23) 09/11/22 00:05 Creatinine 0.5 mg/dL (0.5-0.9) 09/11/22 00:05 GFR Calculation Not Reportable 09/11/22 00:05 Glucose 108 mg/dL (65-115) 09/11/22 00:05 Calculated Osmolality 287 mOsm/kg (285-295) 09/11/22 00:05 Calcium 9.0 mg/dL (8.5-10.5) 09/11/22 00:05 Magnesium 2.1 mg/dL (1.7-2.3) 09/11/22 00:05 Total Bilirubin 0.2 mg/dL (0.15-1.2) 09/11/22 00:05 AST 23 U/L (0-32) 09/11/22 00:05 ALT 24 U/L (0-33) 09/11/22 00:05 Alkaline Phosphatase 93 U/L (35-105) 09/11/22 00:05 Troponin T Baseline 9 ng/L (0-10) 09/11/22 00:05 Troponin T 120 Minute 9.19 ng/L (0-10) 09/11/22 01:55 Delta Troponin T 0.19 ABS# (0-10) 09/11/22 01:55 C-Reactive Protein 3.0 mg/L (0.0-4.9) 09/11/22 00:05 NT-Pro-B Natriuret Pep 238 pg/mL (0-450) 09/11/22 00:05 Total Protein 7.2 g/dL (6.6-8.7) 09/11/22 00:05 Albumin 4.2 g/dL (3.5-5.2) 09/11/22 00:05 Globulin 3.0 g/dL (1.3-4.6) 09/11/22 00:05 Procalcitonin 0.03 ng/mL (0-0.5) 09/11/22 00:05 TSH 2.49 uIU/mL (0.27-4.20) 09/11/22 00:05 Urine Color Colorless (Yellow) 09/11/22 00:28 Urine Appearance Clear (CLEAR) 09/11/22 00:28 Urine pH 7 (5-7) 09/11/22 00:28 Ur Specific [place] 1.010 (1.005-1.030) 09/11/22 00:28 Urine Protein Neg (Negative) 09/11/22 00:28 Urine Glucose (UA) Norm (Normal) 09/11/22 00:28 Urine Ketones Negative (Negative) 09/11/22 00:28 Urine Blood Neg (Negative) 09/11/22 00:28 Urine Nitrate Negative (Negative) 09/11/22 00:28 Urine Bilirubin Neg (Negative) 09/11/22 00:28 Urine Urobilinogen Norm mg/dL (Negative) 09/11/22 00:28 Ur Leukocyte Esterase Negative (Negative) 09/11/22 00:28 Influenza Type A Ag negative (Negative) 09/11/22 01:19 Influenza Type B Ag negative (Negative) 09/11/22 01:19 SARS-CoV-2 Ag (Rapid) negative (Negative) 09/11/22 01:19 Discharge Plan Discharge Patient Disposition: Home Clinical Impression: PND (paroxysmal nocturnal dyspnea) Condition: Stable Prescriptions: No Action oxymetazoline [Afrin (oxymetazoline)] 0.05 % spray,non-aerosol 2 spray intranasal Q12H PRN (Reason: Allergy Symptoms) alprazolam [Xanax] 0.25 mg tablet 0.125 mg PO DAILY PRN (Reason: Anxiety) apixaban 5 mg tablet 5 mg PO BID Qty: 180 3RF amoxicillin-pot clavulanate [Augmentin] 500-125 mg tablet 1 tab PO BID Qty: 10 0RF metoprolol tartrate 50 mg tablet 50 mg PO DIRECTED Qty: 225 3RF Rx Instructions: Take one tab (50mg) in AM and 1.5 tabs (75mg) in the PM. ondansetron 4 mg tablet,disintegrating 4 mg PO Q8H PRN (Reason: Nausea And Vomiting) calcium carbonate [Calcarb 600] 600 mg calcium (1,500 mg) Tablet 600 mg PO DAILY pantoprazole 40 mg tablet,delayed release (DR/EC) 40 mg PO DAILY PRN (Reason: Acid Reflux) cholecalciferol (vitamin D3) [Vitamin D3] 50 mcg (2,000 unit) Tablet 50 mcg PO DAILY Women's 50 Plus Daily Formula 400 mcg-500 mg calcium-20 mcg Tablet 1 tab PO DAILY Discharge Orders: Discharge ED (Routine); Ordered 09/11/22 Ordered By: Fernando Alcocer Referrals: Mikayla Webb DO [Primary Care Provider] - Discharge Diet: Usual diet Discharge Activity: Increase activity as tolerated Patient Instructions: Dyspnea (ED), Tachycardia (ED) Activity Restrictions/Additional Instructions: Thank you for visiting the emergency department. You were seen and evaluated for racing heart and high blood pressure. The exact cause of your symptoms is unclear though likely related to a condition called paroxysmal nocturnal dyspnea. I recommend continued outpatient follow-up with cardiology and your primary care provider. Please return to the emergency department for worsening symptoms or anything else that you are concerned about a feel needs emergency department evaluation. Coding Level of Care Code ED Inspector Floor Sub Assembly for Serafin Delgadillo
--- NOTE | 2022-09-11 00:09 | XRR_ITS ---
PROCEDURE INFORMATION: Exam: XR Chest Exam date and time: 09/11/2022 12:20 AM Age: 77 years old Clinical indication: Patient HX: C/O palpitations with hypertension. History of afib and svt. TECHNIQUE: Imaging protocol: Radiologic exam of the chest. Views: 1 view. COMPARISON: CR XR chest 2V* [id number] 08/31/2022 2:45 PM FINDINGS: Lungs: There is no consolidation. Pleural spaces: The left lateral costophrenic sulcus is blunted. No pneumothorax. Heart/Mediastinum: There is mild enlargement of the cardiac silhouette. Bones/joints: There is moderate degenerative disease at the left shoulder. XR/XR chest 1V portable [id number] IMPRESSION: Small left pleural effusion, similar to the findings on 08/31/2022.
--- NOTE | 2022-09-11 00:10 | ECG_ITS ---
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 Measurements Intervals [place] Rate: 71 P: 81 IN: 173 QRS: -78 QRSD: 105 T: 77 QT: 367 QTc: 401 Interpretive Statements SINUS RHYTHM POSSIBLE LEFT ATRIAL ENLARGEMENT [-0.1mV P-WAVE IN V1/V2] INCOMPLETE RIGHT BUNDLE BRANCH BLOCK [90+ ms QRS DURATION, TERMINAL R IN V1/V2, 40+ ms S IN I/aVL/V4/V5/V6] LEFT ANTERIOR FASCICULAR BLOCK [QRS AXIS <= -45, QR IN I, RS IN II] Compared to ECG 07/25/2022 08:05:21 Incomplete right bundle-branch block now present Sinus tachycardia no longer present Left ventricular hypertrophy no longer present ST (T wave) deviation no longer present Myocardial infarct finding still present Electronically Signed On 09-11-2022 11:54:39 RECEIVING DOCK CHECKER by Pipo Tamayo M.D. [id number]
[2022-09-11 00:13] VITALS: BP 170/77; PULSE 69; RESP 14; O2SAT 100
[2022-09-11 00:25] LABS: Basophils % 0.5 %; Eosinophils # 0.2 10^3/uL (0.0-0.8); Eosinophils % 2.3 %; Hematocrit 40.2 % (37.0-47.0); Hemoglobin 12.6 g/dL (11.5-15.3); Lymphocytes # 2.9 10^3/uL (0.8-4.8); Lymphocytes % 37.2 %; Mean Corpuscular HGB Conc 31.3 g/dL (30.0-36.0); Mean Corpuscular Hemoglobin 28.4 pg (28.0-34.0); Mean Corpuscular Volume 90.7 fl (81-99); Mean Platelet Volume 9.5 fL (7.4-10.4); Monocytes # 0.6 10^3/uL (0.2-0.9); Neutrophils # 4.19 10^3/uL (1.8-7.7); Neutrophils % 52.9 %; Nucleated Red Blood Cells % 0 %; Platelet Count 408 10^3/cmm (130-400); Red Blood Count 4.43 10^6/uL (4.1-5.3); Red Cell Distribution Width 16.3 % (12.1-15.1); White Blood Count 7.9 10^3/uL (4.0-10.0)
[2022-09-11 00:52] LABS: Troponin(5th) Baseline 9 ng/L (0-10)
[2022-09-11 00:52] LABS: Add Urine Microscopic? NO; Charge for UA Resulting for Rev
[2022-09-11 00:53] VITALS: BP 149/65; PULSE 66; RESP 16; O2SAT 98
[2022-09-11 00:57] LABS: NT Pro B Type Natriuretic Pept 238 pg/mL (0-450); Procalcitonin 0.03 ng/mL (0-0.5); Thyroid Stimulating Hormone 2.49 uIU/mL (0.27-4.20)
[2022-09-11 01:06] LABS: Bilirubin Urine Neg (Negative); Blood Urine Neg (Negative); Glucose Urine UA Norm (Normal); Ketones Urine Negative (Negative); Leukocyte Esterase Urine Negative (Negative); Nitrate Urine Negative (Negative); Protein Urine Neg (Negative); Urine Appearance Clear (CLEAR); Urine Color Colorless (Yellow); Urobilinogen Urine Norm (Negative); pH Urine 7 (5-7)
[2022-09-11 01:09] LABS: Alanine Aminotransferase 24 U/L (0-33); Albumin Level 4.2 g/dL (3.5-5.2); Alkaline Phosphatase 93 U/L (35-105); Anion Gap 14.4 (5-19); Aspartate Amino Transferase 23 U/L (0-32); Blood Urea Nitrogen 9 mg/dL (8-23); Carbon Dioxide 29 mmol/L (22-29); Chloride 99 mmol/L (98-107); Glucose 108 mg/dL (65-115); Magnesium 2.1 mg/dL (1.7-2.3); Osmolality Calculated 287 mOsm/kg (285-295); Potassium 3.4 mmol/L (3.5-5.1); Sodium 139 mmol/L (136-145); Total Bilirubin 0.2 mg/dL (0.15-1.2); Total Protein 7.2 g/dL (6.6-8.7)
[2022-09-11 01:30] VITALS: BP 161/70; PULSE 63; RESP 18; O2SAT 100
[2022-09-11 01:40] LABS: Influenza A by IFA negative (Negative); Influenza B by IFA negative (Negative); SARS Covid-2 Antigen negative (Negative)
[2022-09-11 02:08] VITALS: BP 142/77; PULSE 62; RESP 18; O2SAT 99
--- NOTE | 2022-09-11 02:10 | ECG_ITS ---
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 Measurements Intervals [place] Rate: 60 P: 68 PA: 177 QRS: -71 QRSD: 113 T: 58 QT: 422 QTc: 425 Interpretive Statements SINUS RHYTHM POSSIBLE LEFT ATRIAL ENLARGEMENT [-0.1mV P-WAVE IN V1/V2] LEFT AXIS DEVIATION [QRS AXIS < -30] INCOMPLETE RIGHT BUNDLE BRANCH BLOCK [90+ ms QRS DURATION, TERMINAL R IN V1/V2, 40+ ms S IN I/aVL/V4/V5/V6] POSSIBLE LEFT VENTRICULAR HYPERTROPHY [VOLTAGE CRITERIA PLUS LAE OR QRS WIDENING] POSSIBLE ANTEROSEPTAL MYOCARDIAL INFARCTION , OF INDETERMINATE AGE [30 ms Q WAVE IN V1-V4] Compared to ECG 07/25/2022 08:05:21 Left-axis deviation now present Incomplete right bundle-branch block now present Left anterior fascicular block no longer present ST (T wave) deviation no longer present Myocardial infarct finding still present Electronically Signed On 09-11-2022 11:59:43 REGIONAL RECRUITER by Pipo Tamayo M.D. [id number]
[2022-09-11 02:32] LABS: Troponin 5 2HR 9.19 ng/L (0-10)
[2022-09-11 02:41] LABS: Troponin 5 2HR Delta 0.19 ABS# (0-10)
== END 2022-09-11 03:46 | disposition home or self-care (01) ==
PROVIDERS: Emergency Provider Emergency Medicine; PCP Family Medicine
DX: R06.09 Other forms of dyspnea (principal); Z20.822 Contact with and (suspected) exposure to COVID-19; Z87.891 Personal history of nicotine dependence
CPT/HCPCS: 71045; 80053; 81003; 83735; 83880; 84145; 84443; 84484; 85025; 86140; 87426; 87804; 93005; 99285

== ENCOUNTER 2022-10-18 11:03 | Outpatient (CLI) | payer MEDICARE, OTHER, SELFPAY ==
--- NOTE | 2022-10-18 11:53 | XR_ITS ---
WS: [id number] Chest 2 views, 10/18/2022 Clinical Data: Check resolution Comparison: Portable chest, 09/11/2022 Findings: No nodules, masses or effusions are seen. The heart is normal. The pulmonary vascularity is not increased. No pneumonia or pneumothorax is seen. The aortic arch and descending thoracic aorta s hows mild tortuosity. XR/XR chest 2V* [id number] Impression: 1. Atherosclerosis. 2. Clearing of left pleural effusion.
== END 2022-10-18 11:04 | disposition home or self-care (01) ==
PROVIDERS: PCP Family Medicine; Visit Provider Internal Medicine Pulmonary Disease
DX: I26.99 Other pulmonary embolism without acute cor pulmonale (principal); I70.90 Unspecified atherosclerosis
CPT/HCPCS: 71046

== ENCOUNTER → 2022-11-19 10:45 | Outpatient (BNVA) | payer MEDICARE, OTHER, SELFPAY | PROVIDERS: PCP Family Medicine; Visit Provider Nurse Practitioner Family | DX: I48.91 Unspecified atrial fibrillation (principal); Z79.01 Long term (current) use of anticoagulants; Z87.891 Personal history of nicotine dependence | CPT/HCPCS: 99213 ==

== ENCOUNTER 2022-11-29 11:39 | Outpatient (CLI) | payer MEDICARE, OTHER, SELFPAY ==
--- NOTE | 2022-11-29 12:07 | XR_ITS ---
WS: [id number] Exam: XR chest 2V* [id number] Date/Time of Exam: 11/29/2022 12:23 PM Reason For Exam: WHEEZING ON AUSCULTATION/SUBACUTE COUGH/HX OF PE Comparison 10/18/2022. The lungs are clear and fully expanded. Cardiomediastinal silhouette is unremarkable. Pectus excavatu m. Moderate DJD of the left shoulder. Remaining bony elements are intact. XR/XR chest 2V* [id number] IMPRESSION: 1. No acute cardiopulmonary finding.
== END 2022-11-29 11:40 | disposition home or self-care (01) ==
LOC: RAD 11:45
PROVIDERS: PCP Family Medicine; Visit Provider Nurse Practitioner
DX: R06.2 Wheezing (principal)
CPT/HCPCS: 71046

== ENCOUNTER 2023-02-06 11:58 | Outpatient (CLI) | payer MEDICARE, OTHER, SELFPAY ==
--- NOTE | 2023-02-06 12:15 | USCV_ITS ---
Sheri Lopez Age: 77 Gender: F : 1945 Exam Date: 02/06/2023 12:13 Ordering Phys: Pipo Tamayo M.D ([email or web address]) Technologist: Kendal Ferreira Exam Location: [facility] Indication: Prior pericardial effusion and now sob BP: 126 / 70 HR: 63 Rhythm: Sinus Technical Quality: Adequate MEASUREMENTS (Male / Female) Normal Values 2D ECHO LV Diastolic Diameter PLAX 3.3 cm 4.2 - 5.9 / 3.9 - 5.3 cm LV Systolic Diameter PLAX 2.1 cm LV Chamber Size 2.6 cm IVS Diastolic Thickness 1.1 cm 0.6 - 1.0 / 0.6 - 0.9 cm IVS Systolic Thickness 0.9 cm LVPW Diastolic Thickness 1.3 cm 0.6 - 1.0 / 0.6 - 0.9 cm LVPW Systolic Thickness 2.0 cm RV Chamber Size 1.8 cm LVOT Diameter 2.1 cm LV Ejection Fraction 2D Teich 51.5 % LV Ejection Fraction MOD 2C 51.4 % LV Ejection Fraction 2C AL 50.2 % LA Diameter 3.2 cm LA Width 2.8 cm LA Height 4.4 cm RA Width 4.5 cm RA Height 3.4 cm Aorta at Sinotubular Diameter 2.7 cm IVC Diameter 1.8 cm M-MODE Aortic Annulus Diameter 3.3 cm LA Ao Ratio MM 1.2 MV E Point Septal Separation 0.6 cm DOPPLER AV Peak Velocity 140.0 cm/s LVOT Peak Velocity 107.0 cm/s AV Area Cont Eq vti 2.3 cm squared AV Area Cont Eq pk 2.5 cm squared MV Area PHT 3.0 cm squared Mitral E to A Ratio 1.6 MV E' Velocity 47.5 cm/s Mitral E to MV E' Ratio 9.7 Mitral E to LV E' Lateral Ratio 9.0 Mitral E to LV E' Septal Ratio 10.6 TR Peak Velocity 184.3 cm/s TR Peak Gradient 13.6 mmHg TR Mean Velocity 156.8 cm/s TR Mean Gradient 10.3 mmHg TR Velocity Time Integral 55.4 cm TV Peak E Velocity 67.0 cm/s Right Atrial Pressure 3.0 mmHg Pulmonary Artery Systolic Pressu 16.6 mmHg RV Acceleration Time 0.2 s RV Ejection Time 0.4 s RV AcT/ET 0.5 FINDINGS Left Ventricle Left ventricle is normal in size. LV systolic function is normal with EF of 50 to 55%. No regional wall motion abnormalities are seen. Right Ventricle Normal in size and function Right Atrium Normal in size Left Atrium Normal in size Mitral Valve Structurally normal mitral valve. Aortic Valve Structurally normal aortic valve. No stenosis or regurgitation. Tricuspid Valve Mild tricuspid regurgitation. Insufficient TR jet to calculate RVSP Pulmonic Valve Not well visualized Pericardium Normal Aorta Normal in size IVC Appears to be normal CONCLUSIONS LV systolic function is normal with EF of 50 to 55%. Mild tricuspid regurgitation. No pericardial effusion is seen. Compared to prior echocardiogram from 08/2022, patient has no pericardial effusion now Pipo Tamayo MD (Electronically Signed) Final Date: 09 February 2023 15:48 S
== END 2023-02-06 11:59 | disposition home or self-care (01) ==
PROVIDERS: PCP Family Medicine; Visit Provider Internal Medicine
DX: R06.02 Shortness of breath (principal); I07.1 Rheumatic tricuspid insufficiency
CPT/HCPCS: 93306

== ENCOUNTER → 2023-02-18 13:37 | Outpatient (BNVA) | payer MEDICARE, OTHER, SELFPAY | PROVIDERS: PCP Family Medicine; Visit Provider Internal Medicine | DX: J45.909 Unspecified asthma, uncomplicated (principal); J90 Pleural effusion, not elsewhere classified; Z87.891 Personal history of nicotine dependence; I48.20 Chronic atrial fibrillation, unspecified; Z79.01 Long term (current) use of anticoagulants; R53.83 Other fatigue; R63.4 Abnormal weight loss; R09.82 Postnasal drip; Z86.711 Personal history of pulmonary embolism; R00.2 Palpitations; G47.33 Obstructive sleep apnea (adult) (pediatric) | CPT/HCPCS: 99214 ==

== ENCOUNTER 2023-04-26 09:56 | Outpatient (CLI) | payer MEDICARE, OTHER, SELFPAY | END 2023-04-26 09:57 | disposition home or self-care (01) | PROVIDERS: PCP Family Medicine; Visit Provider Nurse Practitioner Family | DX: Z01.89 Encounter for other specified special examinations (principal); I47.29 Other ventricular tachycardia; Z87.891 Personal history of nicotine dependence | CPT/HCPCS: 36415; 80048; 85025; 85610; 99214 ==

== ENCOUNTER 2023-05-16 08:49 | Outpatient (CLI) | payer MEDICARE, OTHER, SELFPAY ==
[2023-05-16 09:00] VITALS: BP 171/79; PULSE 73; RESP 16; TEMP 36.6; O2SAT 100; BMI 27.1
--- NOTE | 2023-05-16 09:00 | XACV_ITS ---
Exam Room: 2 Ht: 175 cm Wt: 83 kg BSA: 2.03 m2 Gender: Female : 1945 Any Known Allergies: Other Exam Priority: Routine Procedure(s): Procedure Description: Diagnostic procedure Procedure Description: Left Heart Catheterization Procedure Description: Left ventriculography Procedure Description: Miscellaneous Procedure Description: Angio-Seal Procedure Description: Coronary Angiography Diagnostic Cath Status: Elective Diagnostic Findings * INDICATION: Ventricular tachycardia/ dyspnea on exertion. * No significant disease noted in the Left Main, Left Anterior Descending, Right, or Circumflex coronary arteries. 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 * Coronary angiography shows right dominance. Conclusions 1. No significant disease noted in the Left Main, Left Anterior Descending, Right, or Circumflex coronary arteries. 2. 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 3. Normal left ventricular systolic function. Ejection fraction of 55%. Recommendations * Aggressive risk factor modification. * Outpatient cardiology follow up in 4 weeks. Interventional RX Recommendation: medical therapy and/or counseling Diagnostic RX Recommendation: medical therapy and/or counseling Ventriculography Ejection Fraction: 55.0 % Pressures Phase:Rest AO : 142 / 93 ( 117 ) @ 11:49:00 AM 149 / 96 ( 122 ) @ 11:53:00 AM 173 / 68 ( 113 ) @ 11:58:00 AM LV : 170 / -27 / 9 @ 11:56:00 AM 172 / -24 / 6 @ 11:57:00 AM Valves Phase:DefaultPhase AV : 4.0 @ 11:08:46 AM 4.0 @ 11:08:46 AM AV Mean Gradient: 8.0 @ 11:08:46 AM 8.0 @ 11:08:46 AM Clinical Evaluation EBL: 5mL-10mL Procedural Details Procedure Consent Obtained. Admit Source: Out Patient. Identified patient by full name and date of as verbalized by the patient/guarantor. Identified patient by full name and date of as verbalized by the patient/guarantor. Does the consent match the physician's order: Yes. Accurate & Complete Informed Consent: Yes. Inpatient/Outpatient History & Physical on Chart: No. If H&P is completed, is and addenduem needed: No; If yes, is the addendum complete: N/A. Visualize and Verify Site with Patient/Guarantor: N/A. Relevant Radiology Images available: N/A. The risks, benefits, and alternatives of sedation and/or procedure were discussed by physician. The patient agrees to continue. [facility] Clinical Fraility Score: 4: Vulnerable. Streaming Media Specialist Indications: ventricular tachycardia. Chest Pain Symptom Assessment: Typical Angina Symptoms. Correct patient, site and procedure confirmed by cath team. Procedure started. PERRLA. Strong, equal hand dope weigh operator bilaterally. Lungs clear x 5 lobes. IV Site on Arrival: 20 gauge in the right anticubital. IV Fluids: 0.9% NaCl at KVO. 0 mL infused prior to clinical laboratory technician. Pre Procedural Pulses: bilateral posterior tibial was 2+. Pre Procedural Pulses: bilateral dorsalis pedis was 2+. Oxygen started at 2liters/min via nasal canula. bilateral groins was prepped with chloroprep then draped in the usual sterile fashion. Physician notified. Baseline sample Acquired. HR: 90 BPM. Physician arrived. Physician scrubbed in. Immediate Pre-Procedure Time Out. Correct Patient: Yes; Correct Procedure: Yes; Correct Site: Yes; Correct Patient Position: Yes; Correct Supplies: Yes; Dried Flammable Prep: Yes; Blood Products Available: N/A;. Portable ultrasound requested for access by Dr Tamayo. Lidocaine 1% infiltrated to the right groin. Arterial access obtained with micropuncture set. Hand injection through the micro dilator. A 5 prydeinig JL4 catheter in over wire. Multiple views taken of left coronary artery. Catheter out. A 5 prydeinig JR4 catheter in over wire. Multiple views taken of right coronary artery. Catheter out. A 5 prydeinig Angled Pig catheter in over wire. EDP Sample taken: LV 170/-28,9; HR: 81 BPM; SpO2: 100%. LV gram performed in ANAYA @ 10 mL/second for a total of 30 mL. EDP Sample taken: LV 172/-25,6; HR: 93 BPM; SpO2: 100%. Pullback taken: LV Off; AO 173/68(113); Mean: 8mmHg, Peak to Peak: 4mmHg, SEP: 46sec/min; HR: 86 BPM; SpO2: 100%. A Right femoral angiogram was performed to determine safe placement of closure device. Catheter out. Sheath upsized to 6F from 5F. Lidocaine 1% infiltrated to the right groin. Angioseal placed without complications. No signs or symptoms of hematoma noted. Sterile dressing applied per usual sterile fashion. A Angio-Seal VIP ([facility]) was successful obtaining hemostatsis at the Right Femoral artery insertion site. Lot number [id number] Exp date 12/01/23. Post Procedure: Pulses reassessed and unchanged. PERRLA. Strong, equal hand dope weigh operator bilaterally. No VTE prophylaxis required. Medication's Wasted: Heparin = 1000 units. Total IV fluids: 33 mL. Post-op diagnosis: Non obstructive CAD. Complications: none. Estimated blood loss: 5mL-10mL. Responsiveness - Normal response to verbal stimuli; alert and oriented, PERRLA. Airway - Unaffected, no intervention required; spontaneous ventilation. Circulation: W/N/L, pulses unchanged. Nausea/Vomiting: No. Procedure completed. Patient transferred by bed to CPRU. Vital chart was stopped. Access Site Site: Right Femoral artery Sheath Size: 5 Fr Hemostasis Method: Angio-Seal VIP ([facility]) Hemostasis Success: Successful Procedure Medications Start: 10:39 AM Stop: 10:39 AM Medication: Versed Amount: 1 mg Route: I.V. Start: 10:39 AM Stop: 10:39 AM Medication: Fentanyl Amount: 50 mcg Route: I.V. Start: 10:44 AM Stop: 10:44 AM Medication: Versed Amount: 1 mg Route: I.V. Start: 10:56 AM Stop: 10:56 AM Medication: Fentanyl Amount: 25 mcg Route: I.V. Start: 10:58 AM Stop: 10:58 AM Medication: Fentanyl Amount: 25 mcg Route: I.V. I, the attending physician, have reviewed and verified all procedure medications. Yes, all medications given per verbal order History/Risk Factors Hypertension: Yes Dyslipidemia: No Peripheral Arterial Disease (PAD): No Myocardial Infarction (OR): No Obesity: No Tobacco Use: Former Prior Interventions PCI: No CABG: No Valve Surgery: No Report Signatures Finalized by Pipo Tamayo MD on 05/25/2023 03:01 PM
[2023-05-16 09:20] LABS: Basophils # 0.1 10^3/uL (0.0-0.1); Basophils % 0.9 %; Eosinophils # 0.1 10^3/uL (0.0-0.8); Hematocrit 40.5 % (36-47); Lymphocytes # 1.7 10^3/uL (0.8-4.8); Lymphocytes % 29.9 %; Mean Corpuscular HGB Conc 33.3 g/dL (30-55); Mean Corpuscular Hemoglobin 30.8 pg (27-33); Mean Corpuscular Volume 92.3 fl (85-98); Mean Platelet Volume 9.9 fL (7.4-10.4); Monocytes # 0.4 10^3/uL (0.2-0.9); Monocytes % 6.6 %; Neutrophils # 3.56 10^3/uL (1.8-7.7); Neutrophils % 61.4 %; Nucleated Red Blood Cells % 0 %; Platelet Count 316 10^3/cmm (157-399); Red Blood Count 4.39 10^6/uL (3.85-5.65); Red Cell Distribution Width 12.9 % (12.1-15.1); White Blood Count 5.79 10^3/uL (3.29-11.43)
[2023-05-16] MEDS: aspirin 325 mg Tablet PO (09:24)
[2023-05-16 09:28] LABS: INR 0.92 (0.8-1.2)
[2023-05-16 09:32] LABS: Anion Gap 12.8 (5-19); Blood Urea Nitrogen 7 mg/dL (8-23); Calcium 9.2 mg/dL (8.5-10.5); Carbon Dioxide 28 mmol/L (22-29); Chloride 102 mmol/L (98-107); Glucose 105 mg/dL (65-115); Osmolality Calculated 286 mOsm/kg (285-295); Potassium 3.8 mmol/L (3.5-5.1); Sodium 139 mmol/L (136-145)
--- NOTE | 2023-05-16 10:25 | W.PM.OPSUD ---
Surgery/Procedure H&P Update DATE OF PROCEDURE: May 16, 2023 DATE H&P PERFORMED: 04/26/23 H&P UPDATE INFORMATION: I have reviewed H&P completed within last 30 days, I have examined patient prior to procedure and No changes to prior documentation PREOP DIAGNOSIS: Ventricular tachycardia/ dyspnea on exertion PRIMARY INDICATION FOR PROCEDURE: Ventricular tachycardia/ dyspnea on exertion PLANNED PROCEDURE: Operation Date: 05/16/23 10:00 Proposed Procedures p [facility] w/-w/o I47.29,I48.91, 37247(Left) - Pipo Tamayo M.D Possible percutaneous coronary intervention PATIENT REASSESSED PRIOR TO SEDATION, WITH NO CHANGE NOTED: Yes PHYSICAL EXAM: alert, oriented x 3, clear to auscultation bilaterally and regular rate & rhythm AIRWAY EVAL/ANESTHESIA PLAN: normal airway, ASA III, Local Anesthesia, Risks, benefits & alternatives of sedation and/or procedure discussed and Patient agrees to continue as planned ADDITIONAL INFORMATION: Moderate sedation
[2023-05-16 11:17] VITALS: BP 147/65; PULSE 66; RESP 16; O2SAT 99
[2023-05-16 11:32] VITALS: BP 139/69; PULSE 58; RESP 17; O2SAT 99
[2023-05-16 11:47] VITALS: BP 138/59; PULSE 58; O2SAT 99
[2023-05-16 12:22] VITALS: BP 134/57; PULSE 54; RESP 18; O2SAT 97
--- NOTE | 2023-05-16 12:23 | PC.NURSE ---
Pt transferred to CSU room 105 via bed. Site checked with EMIGDIO Osman. Family members at bedside.
== END 2023-05-16 17:25 | disposition home or self-care (01) ==
LOC: CCL 08:49 → CSU 12:45
PROVIDERS: PCP Family Medicine; Visit Provider Internal Medicine
DX: I48.91 Unspecified atrial fibrillation (principal); I47.29 Other ventricular tachycardia; G47.33 Obstructive sleep apnea (adult) (pediatric); Z87.891 Personal history of nicotine dependence
CPT/HCPCS: 36415; 80048; 85025; 85610; 93458; 96361; 96365; 99152; 99153; C1760; C1769; C1887; C1894; J1644; J2250; J3010; J3490; J7030; Q0163; Q9967

== ENCOUNTER → 2023-05-30 13:32 | Outpatient (BNVA) | payer MEDICARE, OTHER, SELFPAY | PROVIDERS: PCP Family Medicine; Visit Provider Nurse Practitioner Family | DX: Q24.5 Malformation of coronary vessels (principal); Z87.891 Personal history of nicotine dependence | CPT/HCPCS: 36415; 80048; 99214 ==

== ENCOUNTER → 2023-06-18 12:42 | Outpatient (BNVA) | payer MEDICARE, OTHER, SELFPAY | PROVIDERS: PCP Family Medicine; Visit Provider Internal Medicine | DX: I48.91 Unspecified atrial fibrillation (principal); R00.2 Palpitations; G47.33 Obstructive sleep apnea (adult) (pediatric); Z99.89 Dependence on other enabling machines and devices; Z87.891 Personal history of nicotine dependence; Z79.01 Long term (current) use of anticoagulants | CPT/HCPCS: 99214 ==

== ENCOUNTER 2023-08-13 10:09 | Emergency (ER) | payer MEDICARE, OTHER, SELFPAY ==
[2023-08-13 10:17] VITALS: BP 162/84; PULSE 76; RESP 16; TEMP 36.5; O2SAT 95; BMI 27.3
--- NOTE | 2023-08-13 10:20 | XR_ITS ---
WS: [id number] Exam: XR chest 1V portable [id number] Date/Time of Exam: 08/13/2023 10:27 AM Reason For Exam: dyspnea/cough Comparison 11/29/2022. The lungs are clear and fully expanded. Unremarkable cardiomediastinal silhouette. No pleural effusio ns. Degenerative changes of the T-spine and both shoulders. IMPRESSION: 1. No acute cardiopulmonary finding.
--- NOTE | 2023-08-13 10:32 | ECG_ITS ---
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 Measurements Intervals [place] Rate: 72 P: 70 [place]: 183 QRS: -67 QRSD: 110 T: 60 QT: 388 QTc: 426 Interpretive Statements SINUS RHYTHM POSSIBLE LEFT ATRIAL ENLARGEMENT [-0.1mV P-WAVE IN V1/V2] LEFT AXIS DEVIATION [QRS AXIS < -30] RIGHT BUNDLE BRANCH BLOCK [120+ ms QRS DURATION, UPRIGHT V1, 40+ ms S IN I/aVL/V4/V5/V6] ANTEROSEPTAL MYOCARDIAL INFARCTION , OF INDETERMINATE AGE [40+ ms Q WAVE IN V1-V4] Compared to ECG 09/11/2022 02:06:49 Right bundle-branch block now present Incomplete right bundle-branch block no longer present Myocardial infarct finding still present Electronically Signed On 08-13-2023 11:43:10 ACADEMIC ADVISER by Pipo Tamayo M.D. [id number]
[2023-08-13 10:37] LABS: Basophils % 0.5 %; Eosinophils # 0.1 10^3/uL (0.0-0.8); Eosinophils % 1.3 %; Hematocrit 40.3 % (36-47); Lymphocytes # 1.3 10^3/uL (0.8-4.8); Lymphocytes % 22.5 %; Mean Corpuscular Hemoglobin 30.4 pg (27-33); Mean Corpuscular Volume 92.2 fl (85-98); Monocytes # 0.4 10^3/uL (0.2-0.9); Monocytes % 6.7 %; Neutrophils % 68.8 %; Nucleated Red Blood Cells % 0 %; Platelet Count 310 10^3/cmm (157-399); Red Blood Count 4.37 10^6/uL (3.85-5.65); Red Cell Distribution Width 12.8 % (12.1-15.1); White Blood Count 5.96 10^3/uL (3.29-11.43)
[2023-08-13 10:46] LABS: Add Urine Microscopic? NO; Charge for UA Resulting for Rev
--- NOTE | 2023-08-13 10:51 | ED_ITS ---
HPI - Abdominal Pain 2 General: Chief Complaint: Abdominal Pain Stated Complaint: sob, right abd pain, Time Seen by Provider: 08/13/23 10:17 Source: patient Mode of arrival: ambulatory History of Present Illness: 77-year-old female presents emergency ro om with right upper quadrant epigastric discomfort associated with pain radiating to her back and some shortness of breath she has not noticed anything exacerbates or relieves it no chest pain. She not had any vomiting or diarrhea. She had a certain level of chronic pain since she had her gallbladder removed years ago and reports she has some difficulty with poor motility. No fever sweats or chills or productive cough. MD elicited complaint: abdominal pain Onset (ago): day(s) (4) Location: Epigastric and RUQ Severity: mild Quality: cramping Radiation: back Exacerbating factors: nothing Relieving factors: nothing Associated Symptoms: Reports GI cramping; Denies anorexia, belching, bloating, change in bowel habits, change in stool character, chills, coffee ground emesis, constipation, diarrhea, dyspepsia, dysuria, excessive flatus, fever(s), heartburn, hematochezia, hematuria, hematemesis, fecal incontinence, loose stools, melena, nausea, poor appetite, syncope and vomiting Review of Systems 2 Const: Denies: fever(s) or chills Card: Denies: chest pain or syncope Resp: Denies: dyspnea GI: Reports: GI cramping; Denies: abdominal pain, nausea, vomiting, hematemesis, coffee ground emesis, heartburn, diarrhea, constipation, bloating, belching, excessive flatus, fecal incontinence, change in bowel habits, change in stool character, hematochezia or melena : Denies: dysuria, urinary frequency, urinary urgency or hematuria Musc: Denies: neck pain or back pain Skin/Breast: Denies: rash PFSH ED 2 PFSH: Medical History Coronary-myocardial bridge Atrial fibrillation Generalized weakness Leukocytosis Recurrent left pleural effusion Hyponatremia Chronic hyponatremia Pulmonary embolism Pleural effusion Pericarditis Pneumonia Pericardial effusion Restrictive lung disease Anxiety Panic disorder VERONICA on CPAP SVT (supraventricular tachycardia) Palpitations Surgical History History of esophagogastroduodenoscopy (EGD) 2016 History of colonoscopy with polypectomy 2005 S/P tonsillectomy Status post laparoscopic cholecystectomy S/P D&C (status post dilation and curettage) S/P breast biopsy History of facelift Family History Mother Hypertension Dementia Atrial fibrillation Father Parkinson disease Social History Smoking and tobacco/nicotine status: former use of tobacco/nicotine Quit status (tobacco/nicotine): has quit using Year quit tobacco: 1995 [id number] Second hand smoke exposure: No Alcohol intake: never Substance/Drug Use: never Lives independently: Yes Household members: spouse Marital status: service: No Current occupational status: retired Pets and animals: Yes Do you think of yourself as: Straight/Heterosexual Current gender identity: Female Lee Ann/Mosque: Evangelical Physical Exam 2 Const: COMMON NORMALS: no acute distress GENERAL APPEARANCE: cooperative and comfortable ORIENTATION/CONSCIOUSNESS: Yes awake, Yes oriented to person, Yes oriented to place and Yes oriented to time HENMT: COMMON NORMALS: normocephalic, atraumatic and hearing grossly normal bilaterally HEAD & SCALP: normocephalic and atraumatic Resp: COMMON NORMALS: normal respiratory effort, No retractions, No use of accessory muscles and clear to auscultation bilaterally AUSCULTATION: clear to auscultation bilaterally Cardio: COMMON NORMALS: regular rate, regular rhythm and No murmurs present (Cardio) RATE: regular rate RHYTHM: regular rhythm GI: COMMON NORMALS: Soft to palpation and No hepatosplenomegaly present A USCULTATION: Yes normoactive bowel sounds PALPATION: Yes Soft to palpation, No Tenderness to palpation present (GI), No Guarding due to palpation present (GI) and Yes No hepatosplenomegaly present Extremity: COMMON NORMALS: normal to inspection, capillary refill normal, no clubbing, cyanosis or edema, no calf tenderness and no pedal edema Neuro: SENSORIUM/ORIENTATION: Yes oriented to person, Yes oriented to place and Yes oriented to time Skin: COMMON NORMALS: no rashes or lesions noted GENERAL SKIN EXAM: no rashes or lesions noted Course 2 Vital Signs: Vital signs: Vital Signs Temperature 97.7 F 08/13/23 10:17 Pulse Rate 68 08/13/23 12:49 Respiratory Rate 16 08/13/23 10:17 Blood Pressure 141/77 08/13/23 12:49 Pulse Oximetry 95 08/13/23 12:49 Oxygen Delivery Me thod Room Air 08/13/23 12:08 MDM - Abdominal Pain Medical Decision Making Labs and imaging and EKG reviewed. Thanks patient at this point is having some mild constipation in addition to this I think she may have some biliary reflux she has been on Nexium for years still has frequent stomach upset she mentioned she has feels like she has slow emptying of her stomach as well. Suspect she may have some biliary reflux recommend she trial cholestyramine twice daily for a month. Follow-up with her primary care doctor additionally recommend holding Nexium and adding Melani-Colace twice daily. Medical Records I reviewed the patient's medical records. Lab Data I reviewed the patient's lab results. 08/13/23 10:29 08/13/23 10:29 Labs/Radiology: Laboratory Results WBC 5.96 10^3/uL (3.29-11.43) 08/13/23 10:29 RBC 4.37 10^6/uL (3.85-5.65) 08/13/23 10:29 Hgb 13.30 g/dL (11.27-16.99) 08/13/23 10:29 Hct 40.3 % (36-47) 08/13/23 10:29 MCV 92.2 fl (85-98) 08/13/23 10:29 MCH 30.4 pg (27-33) 08/13/23 10:29 MCHC 33.0 g/dL (30-55) 08/13/23 10:29 RDW 12.8 % (12.1-15.1) 08/13/23 10:29 Plt Count 310 10^3/cmm (157-399) 08/13/23 10:29 MPV 10.0 fL (7.4-10.4) 08/13/23 10:29 Neut % (Auto) 68.8 % 08/13/23 10:29 Lymph % (Auto) 22.5 % 08/13/23 10:29 [facility] % (Auto) 6.7 % 08/13/23 10:29 Eos % (Auto) 1.3 % 08/13/23 10:29 Baso % (Auto) 0.5 % 08/13/23 10:29 Neut # (Auto) 4.10 10^3/uL (1.8-7.7) 08/13/23 10:29 Lymph # (Auto) 1.3 10^3/uL (0.8-4.8) 08/13/23 10:29 [facility] # (Auto) 0.4 10^3/uL (0.2-0.9) 08/13/23 10:29 Eos # (Auto) 0.1 10^3/uL (0.0-0.8) 08/13/23 10:29 Baso # (Auto) 0.0 10^3/uL (0.0-0.1) 08/13/23 10:29 Nucleated RBC % (auto) 0 % 08/13/23 10:29 Nucleated RBCs # 0.0 /100WBC 08/13/23 10:29 Sodium 139 mmol/L (136-145) 08/13/23 10:29 Potassium 4.6 mmol/L (3.5-5.1) 08/13/23 10:29 Chloride 100 mmol/L (98-107) 08/13/23 10:29 Carbon Dioxide 27 mmol/L (22-29) 08/13/23 10:29 Anion Gap 16.6 (5-19) 08/13/23 10:29 BUN 9 mg/dL (8-23) 08/13/23 10:29 Creatinine 0.6 mg/dL (0.5-0.9) 08/13/23 10:29 GFR Calculation Not Reportable 08/13/23 10:29 Glucose 111 mg/dL (65-115) 08/13/23 10:29 Calculated Osmolality 287 mOsm/kg (285-295) 08/13/23 10:29 Calcium 9.6 mg/dL (8.5-10.5) 08/13/23 10:29 Total Bilirubin 0.4 mg/dL (0.15-1.2) 08/13/23 10:29 AST 26 U/L (0-32) 08/13/23 10:29 ALT 14 U/L (0-33) 08/13/23 10:29 Alkaline Phosphatase 59 U/L (35-105) 08/13/23 10:29 Troponin T Baseline 10 ng/L (0-10) 08/13/23 10:29 Troponin T 120 Minute 9.19 ng/L (0-10) 08/13/23 12:18 Total Protein 6.8 g/dL (6.6-8.7) 08/13/23 10:29 Albumin 4.4 g/dL (3.5-5.2) 08/13/23 10:29 Globulin 2.4 g/dL (1.3-4.6) 08/13/23 10:29 Urine Color Yellow (Yellow) 08/13/23 10:37 Urine Appearance Clear (CLEAR) 08/13/23 10:37 Urine pH 6 (5-7) 08/13/23 10:37 Ur Specific [place] 1.020 (1.005-1.030) 08/13/23 10:37 Urine Protein Neg (Negative) 08/13/23 10:37 Urine Glucose (UA) Norm (Normal) 08/13/23 10:37 Urine Ketones 1+ (Negative) H 08/13/23 10:37 Urine Blood Neg (Negative) 08/13/23 10:37 Urine Nitrate Negative (Negative) 08/13/23 10:37 Urine Bilirubin Neg (Negative) 08/13/23 10:37 Urine Urobilinogen Norm mg/dL (Negative) 08/13/23 10:37 Ur Leukocyte Esterase Negative (Negative) 08/13/23 10:37 All radiology interpretation(s) finalized by discharge Discharge Plan Discharge Patient Disposition: Home Clinical Impression: Abdominal pain, Constipation Condition: Stable Prescriptions: New cholestyramine (with sugar) 4 gram powder 4 g PO BID Qty: 378 0RF Rx Instructions: administer w/meal; avoid other meds within 1hr before or 4-6hr after dose Senna with Docusate Sodium 8.6-50 mg tablet 1 tab-cap PO BID Qty: 60 0RF No Action oxymetazoline [Afrin (oxymetazoline)] 0.05 % spray,non-aerosol 2 spray intranasal Q12H PRN (Reason: Allergy Symptoms) alprazolam [Xanax] 0.25 mg tablet 0.125 mg PO DAILY PRN (Reason: Anxiety) esomeprazole magnesium [Nexium] 20 mg capsule,delayed release(DR/EC) 20 mg PO DAILY PRN (Reason: Heartburn) apixaban 5 mg tablet 5 mg PO BID Qty: 180 3RF Hold Instructions: Resume on 05/17/23. glucosamine sulfate 2KCl 500 mg capsule 500 mg PO DAILY metoprolol tartrate 25 mg tablet 25 mg PO BID Qty: 180 3RF Hold Instructions: bradycardia calcium carbonate 600 mg calcium (1,500 mg) Tablet 600 mg PO DAILY cholecalciferol (vitamin D3) [Vitamin D3] 50 mcg (2,000 unit) Tablet 50 mcg PO DAILY Women's 50 Plus Daily Formula 400 mcg-500 mg calcium-20 mcg Tablet 1 tab PO DAILY Discharge Orders: Discharge ED (Routine); Ordered 08/13/23 Ordered By: Jon Leonard Referrals: Mikayla Webb DO [Primary Care Provider] - Discharge Diet: Usual diet Discharge Activity: Increase activity as tolerated Patient Instructions: Constipation (ED), Abdominal Pain (ED), Opioid Safety, Pain Management Activity Restrictions/Additional Instructions: Thank you for choosing [facility] for your healthcare needs today. Please realize this is an emergency room and that we are providing you with a medical screening exam and this may not be complete and all inclusive of all the testing and or work up that you may need to determine your ailment or severity of your illness. It is very important that you follow up as instructed or that you return to the Emergency Department should you have concerns or if your condition changes or worsens in any way. CT and labs did not show any significant abnormalities. There was some mild constipation you may benefit from taking Melani-Colace 1 pill twice daily to relieve this. Given your history and your description of symptoms suspect you may have some biliary reflux as well. This happens after person has her gallbladder removed and bile reflux into the stomach causing irritation and discomfort. Recommend you trial cholestyramine twice daily for a month to see if this improves your symptoms. If it does you can follow-up with your primary care doctor and they can continue this medication. Coding Level of Care Code ED Clipper Machine for Serafin Delgadillo
[2023-08-13 10:53] LABS: Troponin(5th) Baseline 10 ng/L (0-10)
[2023-08-13 11:04] VITALS: BP 137/88; O2SAT 98
[2023-08-13 11:04] LABS: Bilirubin Urine Neg (Negative); Blood Urine Neg (Negative); Glucose Urine UA Norm (Normal); Ketones Urine 1+ (Negative); Nitrate Urine Negative (Negative); Protein Urine Neg (Negative); Urine Appearance Clear (CLEAR); Urine Color Yellow (Yellow); pH Urine 6 (5-7)
[2023-08-13 11:05] LABS: Leukocyte Esterase Urine Negative (Negative); Urobilinogen Urine Norm (Negative)
[2023-08-13 11:06] LABS: Alanine Aminotransferase 14 U/L (0-33); Albumin Level 4.4 g/dL (3.5-5.2); Alkaline Phosphatase 59 U/L (35-105); Blood Urea Nitrogen 9 mg/dL (8-23); Calcium 9.6 mg/dL (8.5-10.5); Carbon Dioxide 27 mmol/L (22-29); Chloride 100 mmol/L (98-107); Globulin 2.4 g/dL (1.3-4.6); Glucose 111 mg/dL (65-115); Osmolality Calculated 287 mOsm/kg (285-295); Sodium 139 mmol/L (136-145); Total Bilirubin 0.4 mg/dL (0.15-1.2); Total Protein 6.8 g/dL (6.6-8.7)
[2023-08-13 11:16] LABS: Anion Gap 16.6 (5-19); Aspartate Amino Transferase 26 U/L (0-32); Potassium 4.6 mmol/L (3.5-5.1)
--- NOTE | 2023-08-13 11:17 | CT_ITS ---
WS: [id number] CT ABDOMEN PELVIS TECHNIQUE: Contrast-enhanced CT of the abdomen and pelvis with coronal and sagittal reformatted image s. CLINICAL INFORMATION: abd pain COMPARISON: None. DLP: 698.[address] scans at [place] use at least one of these dose optimization techniques: automated e xposure control; mA and/or kV adjustment per patient size (includes targeted exams where dose is matc hed to clinical indication); or iterative reconstruction. FINDINGS: Lung bases are well aerated. Cholecystectomy clips. Diffuse fatty infiltration of the liver. Normal p ortal vein and splenic vein. Normal spleen. Small esophageal hiatal hernia. Adrenal glands are normal . Normal renal parenchymal enhancement. No hydronephrosis. Simple LEFT renal cyst. Physiologic common bile duct dilatation. Normal appendix in the RIGHT lower quadrant. No evidence of small or large bowel obstruction. Tortuou s hepatic and splenic flexures. Mild sigmoid and RIGHT colon constipation. Trace free fluid in the cu l-de-sac. IMPRESSION: 1. Prior cholecystectomy. 2. Small esophageal hernia. 3. Mild sigmoid and RIGHT colonic constipation. 4. No other acute findings in the abdomen or pelvis.
[2023-08-13] MEDS: iohexol 350 mg/mL 500 mL Btl (per mL) IV (11:45)
[2023-08-13 12:08] VITALS: BP 137/88; PULSE 70; O2SAT 99
--- NOTE | 2023-08-13 12:21 | ECG_ITS ---
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 Measurements Intervals [place] Rate: 70 P: 74 NM: 193 QRS: -63 QRSD: 115 T: 57 QT: 404 QTc: 437 Interpretive Statements SINUS RHYTHM INCOMPLETE RIGHT BUNDLE BRANCH BLOCK [90+ ms QRS DURATION, TERMINAL R IN V1/V2, 40+ ms S IN I/aVL/V4/V5/V6] LEFT ANTERIOR FASCICULAR BLOCK [QRS AXIS <= -45, QR IN I, RS IN II] SEPTAL MYOCARDIAL INFARCTION , OF INDETERMINATE AGE [40+ ms Q WAVE IN V1/V2] Compared to ECG 08/13/2023 10:32:26 Incomplete right bundle-branch block now present Left anterior fascicular block now present Left-axis deviation no longer present Right bundle-branch block no longer present Myocardial infarct finding still present Electronically Signed On 08-13-2023 13:54:23 PIZZA BAKER by Pipo Tamayo M.D. [id number]
[2023-08-13 12:49] VITALS: BP 141/77; PULSE 68; O2SAT 95
[2023-08-13 12:50] LABS: Troponin 5 2HR 9.19 ng/L (0-10)
[2023-08-13 13:01] LABS: Troponin 5 2HR Delta -0.81 ABS# (0-10)
== END 2023-08-13 12:50 | disposition home or self-care (01) ==
PROVIDERS: Emergency Provider Family Medicine; PCP Family Medicine
DX: K59.00 Constipation, unspecified (principal); Z87.891 Personal history of nicotine dependence
CPT/HCPCS: 36415; 71045; 74177; 80053; 81003; 84484; 85025; 93005; 99285; Q9967

== ENCOUNTER → 2023-12-18 13:46 | Outpatient (BNVA) | payer MEDICARE, OTHER, SELFPAY | PROVIDERS: PCP Family Medicine; Visit Provider Internal Medicine | DX: R00.2 Palpitations (principal); G47.33 Obstructive sleep apnea (adult) (pediatric); Z99.89 Dependence on other enabling machines and devices; I48.91 Unspecified atrial fibrillation; I47.10 Supraventricular tachycardia, unspecified; Z87.891 Personal history of nicotine dependence; Z79.01 Long term (current) use of anticoagulants | CPT/HCPCS: 99214 ==

== ENCOUNTER 2024-01-12 04:00 | Emergency (ER) | payer MEDICARE, OTHER, SELFPAY ==
[2024-01-12 04:04] VITALS: BP 167/76; PULSE 79; RESP 18; TEMP 36.6; O2SAT 98; BMI 27.4
[2024-01-12 04:14] VITALS: BP 167/76; PULSE 78; RESP 15; TEMP 36.6; O2SAT 97
--- NOTE | 2024-01-12 04:14 | ECG_ITS ---
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 Measurements Intervals [place] Rate: 83 P: 75 SC: 196 QRS: -73 QRSD: 107 T: 62 QT: 355 QTc: 419 Interpretive Statements SINUS RHYTHM POSSIBLE LEFT ATRIAL ENLARGEMENT [-0.1mV P-WAVE IN V1/V2] INCOMPLETE RIGHT BUNDLE BRANCH BLOCK [90+ ms QRS DURATION, TERMINAL R IN V1/V2, 40+ ms S IN I/aVL/V4/V5/V6] INFERIOR MYOCARDIAL INFARCTION , OF INDETERMINATE AGE [40+ ms Q WAVE AND/OR ST/T ABNORMALITY IN II/aVF] ANTEROSEPTAL MYOCARDIAL INFARCTION , OF INDETERMINATE AGE [40+ ms Q WAVE IN V1-V4] INTERPRETATION BASED ON A DEFAULT AGE OF 40 YEARS Compared to ECG 08/13/2023 12:25:06 Left anterior fascicular block no longer present Myocardial infarct finding still present Electronically Signed On 01-12-2024 22:20:14 CDT by Alfred Art M.D. [id number]
--- NOTE | 2024-01-12 04:33 | XRR_ITS ---
PROCEDURE INFORMATION: Exam: XR Chest Exam date and time: 01/12/2024 4:47 AM Age: 78 years old Clinical indication: Chest pressure; Patient HX: C/O chest pain; Additional info: Cp TECHNIQUE: Imaging protocol: Radiologic exam of the chest. Views: 1 view. COMPARISON: CR XR chest 1V portable [id number] 08/13/2023 10:42 AM FINDINGS: Lungs: See Heart/Mediastinum finding. Pleural spaces: Unremarkable. No pleural effusion. No pneumothorax. Heart/Mediastinum: The lateral left hemidiaphragm is obscured and there is haziness adjacent to the left heart border, atelectasis or infiltrate is present at the left lung base. Bones/joints: Unremarkable. XR/XR chest 1V portable [id number] IMPRESSION: Mild opacity at the left lung base.
[2024-01-12 04:43] LABS: Basophils # 0.1 10^3/uL (0.0-0.1); Basophils % 0.8 %; Eosinophils # 0.3 10^3/uL (0.0-0.8); Eosinophils % 3.6 %; Hematocrit 40.5 % (36-47); Lymphocytes # 2.5 10^3/uL (0.8-4.8); Lymphocytes % 34.2 %; Mean Corpuscular HGB Conc 32.6 g/dL (30-55); Mean Corpuscular Hemoglobin 30.3 pg (27-33); Mean Corpuscular Volume 93.1 fl (85-98); Mean Platelet Volume 9.9 fL (7.4-10.4); Monocytes # 0.5 10^3/uL (0.2-0.9); Monocytes % 6.9 %; Neutrophils # 3.92 10^3/uL (1.8-7.7); Neutrophils % 54.1 %; Nucleated Red Blood Cells % 0 %; Platelet Count 306 10^3/cmm (157-399); Red Blood Count 4.35 10^6/uL (3.85-5.65); Red Cell Distribution Width 13.4 % (12.1-15.1); White Blood Count 7.25 10^3/uL (3.29-11.43)
[2024-01-12 04:54] LABS: INR 0.89 (0.8-1.2)
[2024-01-12 04:59] LABS: Alanine Aminotransferase 15 U/L (0-33); Alkaline Phosphatase 77 U/L (35-105); Anion Gap 12.6 (5-19); Aspartate Amino Transferase 19 U/L (0-32); Blood Urea Nitrogen 12 mg/dL (8-23); Carbon Dioxide 28 mmol/L (22-29); Chloride 100 mmol/L (98-107); Creatine Phosphokinase 51 U/L (26-192); Creatinine Clr Calc Pharmacy 69.3857; Globulin 2.7 g/dL (1.3-4.6); Glucose 107 mg/dL (65-115); Lipase 29 U/L (13-60); Osmolality Calculated 284 mOsm/kg (285-295); Potassium 3.6 mmol/L (3.5-5.1); Sodium 137 mmol/L (136-145); Total Bilirubin 0.3 mg/dL (0.15-1.2); Total Protein 6.7 g/dL (6.6-8.7); Troponin(5th) Baseline 10 ng/L (0-10)
--- NOTE | 2024-01-12 05:21 | ED_ITS ---
HPI - Arrhythmia/Palpitations 2 General: Chief Complaint: Arrhythmia/Palpitations Stated Complaint: abd pain, heart race sob Time Seen by Provider: 01/12/24 04:51 History of Present Illness: 78-year-old female with a history of atr ial fibrillation and SVT. She presents after an episode that seem to wake her from sleep with rapid heart rate, feeling of heaviness in her chest, and near syncope. She is improved now. She took Xanax at home which seems to have helped. She felt well yesterday. Associated symptoms: Deny vomiting Review of Systems 2 Const: Denies: fever(s) Card: Reports: palpitations Resp: Reports: dyspnea GI: Denies: abdominal pain or vomiting PFSH ED 2 PFSH: Medical History Coronary-myocardial bridge Atrial fibrillation Generalized weakness Leukocytosis Recurrent left pleural effusion Hyponatremia Chronic hyponatremia Pulmonary embolism Pleural effusion Pericarditis Pneumonia Pericardial effusion Restrictive lung disease Anxiety Panic disorder VERONICA on CPAP SVT (supraventricular tachycardia) Palpitations Surgical History History of esophagogastroduodenoscopy (EGD) 2016 History of colonoscopy with polypectomy 2006 S/P tonsillectomy Status post laparoscopic cholecystectomy S/P D&C (status post dilation and curettage) S/P breast biopsy History of facelift Family History Mother Hypertension Dementia Atrial fibrillation Father Parkinson disease Social History Smoking and tobacco/nicotine status: former use of tobacco/nicotine Quit status (tobacco/nicotine): has quit using Year quit tobacco: 1995 [id number] Second hand smoke exposure: No Alcohol intake: never Substance/Drug Use: never Lives independently: Yes Household members: spouse Marital status: service: No Current occupational status: retired Pets and animals: Yes Do you think of yourself as: Straight/Heterosexual Current gender identity: Female Lee Ann/Yarsanism: Pentecostalism Physical Exam 2 Const: COMMON NORMALS: no acute distress GENERAL APPEARANCE: cooperative; not ill appearing and not frail appearing HENMT: COMMON NORMALS: normocephalic, atraumatic and Normal external nose present HEAD & SCALP: normocephalic and atraumatic FACE & SINUS: normal facial exam and face symmetric NOSE: Normal external nose present Eye: COMMON NORMALS: Equal, round and reactive pupils present and EOMs intact bilaterally PUPIL: Yes Equal, round and reactive pupils present Neck/C-Spine: GENERAL: Yes trachea midline Chest: CHEST: Yes Symmetrical chest wall rise Resp: COMMON NORMALS: normal respiratory effort, No retractions, No use of accessory muscles and clear to auscultation bilaterally AUSCULTATION: clear to auscultation bilaterally Cardio: COMMON NORMALS: regular rate and regular rhythm RATE: regular rate RHYTHM: regular rhythm GI: COMMON NORMALS: Normal to inspection, nondistended, normoactive bowel sounds present Extremity: COMMON NORMALS: no pedal edema Neuro: STUART COMA SCALE: document GCS findings [place] coma scale eye opening: Spontaneous [place] coma scale verbal response: Orientated [place] coma scale motor response: Obey commands [place] coma scale total score: 15 S ENSORY EXAM: Yes extremities (intact) Psych: COMMON NORMALS: speech normal SPEECH: Yes normal speech Skin: COMMON NORMALS: no rashes or lesions noted GENERAL SKIN EXAM: no rashes or lesions noted Course 2 Vital Signs: Vital signs: Vital Signs Temperature 97.8 F 01/12/24 04:14 Pulse Rate 66 01/12/24 05:59 Respiratory Rate 14 01/12/24 05:59 Blood Pressure 135/65 01/12/24 05:59 Pulse Oximetry 97 01/12/24 05:59 Oxygen Delivery Me thod Room Air 01/12/24 04:14 MDM - Arrhythmia/Palpitations Medical Decision Making Self resolved symptoms. Heart rate is sinus in 60s on the monitor here. Blood pressure is 135 systolic. CBC is normal. BMP is normal. EKG shows a sinus rhythm without acute ST wave changes. Her first troponin is 10. CK is 51. Lab Data 01/12/24 04:18 01/12/24 04:18 Radiology Impressions Chest X-Ray 01/12/24 04:33 IMPRESSION: Mild opacity at the left lung base. Laboratory Results WBC 7.25 10^3/uL (3.29-11.43) 01/12/24 04:18 RBC 4.35 10^6/uL (3.85-5.65) 01/12/24 04:18 Hgb 13.20 g/dL (11.27-16.99) 01/12/24 04:18 Hct 40.5 % (36-47) 01/12/24 04:18 MCV 93.1 fl (85-98) 01/12/24 04:18 MCH 30.3 pg (27-33) 01/12/24 04:18 MCHC 32.6 g/dL (30-55) 01/12/24 04:18 RDW 13.4 % (12.1-15.1) 01/12/24 04:18 Plt Count 306 10^3/cmm (157-399) 01/12/24 04:18 MPV 9.9 fL (7.4-10.4) 01/12/24 04:18 Neut % (Auto) 54.1 % 01/12/24 04:18 Lymph % (Auto) 34.2 % 01/12/24 04:18 [place] % (Auto) 6.9 % 01/12/24 04:18 Eos % (Auto) 3.6 % 01/12/24 04:18 Baso % (Auto) 0.8 % 01/12/24 04:18 Neut # (Auto) 3.92 10^3/uL (1.8-7.7) 01/12/24 04:18 Lymph # (Auto) 2.5 10^3/uL (0.8-4.8) 01/12/24 04:18 [place] # (Auto) 0.5 10^3/uL (0.2-0.9) 01/12/24 04:18 Eos # (Auto) 0.3 10^3/uL (0.0-0.8) 01/12/24 04:18 Baso # (Auto) 0.1 10^3/uL (0.0-0.1) 01/12/24 04:18 Nucleated RBC % (auto) 0 % 01/12/24 04:18 Nucleated RBCs # 0.0 /100WBC 01/12/24 04:18 PT 12.40 SECONDS (12.1-14.9) 01/12/24 04:18 INR 0.89 (0.8-1.2) 01/12/24 04:18 APTT 30.0 SECONDS (23.9-36.7) 01/12/24 04:18 Sodium 137 mmol/L (136-145) 01/12/24 04:18 Potassium 3.6 mmol/L (3.5-5.1) 01/12/24 04:18 Chloride 100 mmol/L (98-107) 01/12/24 04:18 Carbon Dioxide 28 mmol/L (22-29) 01/12/24 04:18 Anion Gap 12.6 (5-19) 01/12/24 04:18 BUN 12 mg/dL (8-23) 01/12/24 04:18 Creatinine 0.7 mg/dL (0.5-0.9) 01/12/24 04:18 GFR Calculation Not Reportable 01/12/24 04:18 Glucose 107 mg/dL (65-115) 01/12/24 04:18 Calculated Osmolality 284 mOsm/kg (285-295) L 01/12/24 04:18 Calcium 9.0 mg/dL (8.5-10.5) 01/12/24 04:18 Total Bilirubin 0.3 mg/dL (0.15-1.2) 01/12/24 04:18 AST 19 U/L (0-32) 01/12/24 04:18 ALT 15 U/L (0-33) 01/12/24 04:18 Alkaline Phosphatase 77 U/L (35-105) 01/12/24 04:18 Creatine Kinase 51 U/L (26-192) 01/12/24 04:18 Troponin T Baseline 10 ng/L (0-10) 01/12/24 04:18 Total Protein 6.7 g/dL (6.6-8.7) 01/12/24 04:18 Albumin 4.0 g/dL (3.5-5.2) 01/12/24 04:18 Globulin 2.7 g/dL (1.3-4.6) 01/12/24 04:18 Lipase 29 U/L (13-60) 01/12/24 04:18 XR interpretation done by ED provider, pending radiology final review Discharge Plan Discharge Patient Disposition: Home Clinical Impression: Atrial fibrillation, Sinus tachycardia Condition: Stable Prescriptions: No Action oxymetazoline [Afrin (oxymetazoline)] 0.05 % spray,non-aerosol 2 spray intranasal Q12H PRN (Reason: Allergy Symptoms) alprazolam [Xanax] 0.25 mg tablet 0.125 mg PO DAILY PRN (Reason: Anxiety) esomeprazole magnesium [Nexium] 20 mg capsule,delayed release(DR/EC) 20 mg PO DAILY PRN (Reason: Heartburn) glucosamine sulfate 2KCl 500 mg capsule 500 mg PO DAILY metoprolol tartrate 25 mg tablet 25 mg PO BID Qty: 180 3RF Hold Instructions: bradycardia diltiazem HCl [Cardizem] 30 mg tablet 30 mg PO QID PRN (Reason: Palpitations) Qty: 90 1RF apixaban 5 mg tablet 5 mg PO BID Qty: 180 3RF Hold Instructions: Resume on 05/17/23. cholestyramine (with sugar) 4 gram powder 4 g PO BID Qty: 378 0RF Rx Instructions: administer w/meal; avoid other meds within 1hr before or 4-6hr after dose Senna with Docusate Sodium 8.6-50 mg tablet 1 tab-cap PO BID Qty: 60 0RF calcium carbonate 600 mg calcium (1,500 mg) Tablet 600 mg PO DAILY cholecalciferol (vitamin D3) [Vitamin D3] 50 mcg (2,000 unit) Tablet 50 mcg PO DAILY Women's 50 Plus Daily Formula 400 mcg-500 mg calcium-20 mcg Tablet 1 tab PO DAILY Discharge Orders: Discharge ED (Routine); Ordered 01/12/24 Ordered By: Bernardo Beltran Referrals: Mikayla Webb DO [Primary Care Provider] - 1-3 days Patient Instructions: A-fib (Atrial Fibrillation) (ED), Heart Palpitations (ED), Opioid Safety, Pain Management Activity Restrictions/Additional Instructions: Return for any return of chest discomfort, palpitations, syncope or passing out, any other concerning symptoms. See your doctor this week. Further outpatient testing may be warranted. Coding Level of Care Code ED Carpet Renovator for Sreafin Delgadillo
[2024-01-12 05:59] VITALS: BP 135/65; PULSE 66; RESP 14; O2SAT 97
== END 2024-01-12 06:00 | disposition home or self-care (01) ==
PROVIDERS: Emergency Provider Emergency Medicine; PCP Family Medicine
DX: I48.91 Unspecified atrial fibrillation (principal); R00.0 Tachycardia, unspecified; Z87.891 Personal history of nicotine dependence
CPT/HCPCS: 71045; 80053; 82550; 83690; 84484; 85025; 85610; 85730; 93005; 99285

== ENCOUNTER → 2024-06-17 15:11 | Outpatient (BNVA) | payer MEDICARE, OTHER, SELFPAY | PROVIDERS: PCP Family Medicine; Visit Provider Internal Medicine | DX: R00.2 Palpitations (principal); G47.33 Obstructive sleep apnea (adult) (pediatric); I48.91 Unspecified atrial fibrillation; Z79.01 Long term (current) use of anticoagulants; Z87.891 Personal history of nicotine dependence | CPT/HCPCS: 99214 ==

== ENCOUNTER 2024-07-16 08:47 | Emergency (ER) | payer MEDICARE, OTHER, SELFPAY ==
--- NOTE | 2024-07-16 08:49 | XRR_ITS ---
PROCEDURE INFORMATION: Exam: XR Chest Exam date and time: 07/16/2024 9:34 AM Age: 78 years old Clinical indication: Pain; Angina pectoris; Additional info: Cp TECHNIQUE: Imaging protocol: Radiologic exam of the chest. Views: 1 view. COMPARISON: CR XR chest 1V portable [id number] 01/12/2024 4:47 AM FINDINGS: Lungs: Persistent opacity in the retrocardiac left lung base. There is a suggestion of air bronchogram formation. This may be due to pneumonia, but the chronicity would be highly unusual. No CT CHEST available for comparison. Pleural spaces: No right pleural effusion. cannot exclude a trace left pleural effusion. No pneumothorax. Heart/Mediastinum: The cardiac silhouette is not enlarged. The mediastinal contours are normal. Bones/joints: There are multilevel bridging osteophytes in the spine. XR/XR chest 1V portable [id number] IMPRESSION: Persistent left basilar retrocardiac density. Consider further evaluation with CT CHEST.
--- NOTE | 2024-07-16 08:49 | ECG_ITS ---
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 Measurements Intervals [place] Rate: 65 P: 72 [place]: 184 QRS: -73 QRSD: 116 T: 70 QT: 384 QTc: 401 Interpretive Statements SINUS RHYTHM POSSIBLE LEFT ATRIAL ENLARGEMENT [-0.1mV P-WAVE IN V1/V2] INCOMPLETE RIGHT BUNDLE BRANCH BLOCK [90+ ms QRS DURATION, TERMINAL R IN V1/V2, 40+ ms S IN I/aVL/V4/V5/V6] LEFT ANTERIOR FASCICULAR BLOCK [QRS AXIS <= -45, QR IN I, RS IN II] LEFT VENTRICULAR HYPERTROPHY AND ST-T CHANGE [VOLTAGE CRITERIA PLUS ST/T ABNORMALITY] POSSIBLE ANTEROSEPTAL MYOCARDIAL INFARCTION , OF INDETERMINATE AGE [30 ms Q WAVE IN V1-V4] Compared to ECG 01/12/2024 04:09:44.Left anterior fascicular block now present Left ventricular hypertrophy now present.ST (T wave) deviation now present Myocardial infarct finding still present Electronically Signed On 07-16-2024 21:30:49 FIELD RADIO TECHNICIAN by Alfred Art M.D. [id number]
[2024-07-16 08:52] VITALS: BP 178/75; PULSE 75; RESP 16; TEMP 36.8; O2SAT 98; BMI 28.3
--- NOTE | 2024-07-16 09:03 | ED_ITS ---
HPI - Syncope 2 General: Chief Complaint: Syncope Stated Complaint: fast heartbeat, has a fib, chest tight Time Seen by Provider: 07/16/24 08:50 Source: patient Mode of arrival: ambulatory Limitations: no limitations History of Present Illness: 78-year-old female who states over the l ast 3 days she has had feelings of lightheadedness her blood pressures been running high. She states she has had some slight chest pressure she rates it a 2 out of 10 over the last 2 days. She denies any shortness of breath denies any nausea or vomiting she denies any worse improving factors. Associated symptoms: Reports chest pain; Deny abdominal pain, fever(s), headache(s) or nausea Related Data Home Medications Medication Instructions Recorded Confirmed oxymetazoline 0.05 % nasal spray 2 spray intranasal Q12H PRN 03/14/22 07/16/24 (Afrin (oxymetazoline)) Allergy Symptoms calcium carbonate 600 mg PO DAILY 07/25/22 07/16/24 cholecalciferol (vitamin D3) 50 50 mcg PO DAILY 07/25/22 07/16/24 mcg (2,000 unit) tablet (Vitamin D3) szeoebrq-imv-roqiv ac 400 1 tab PO DAILY 07/25/22 07/16/24 mcg-calcium carb 500 mg-vit K1 20 mcg tablet (Women's 50 Plus Daily Formula) glucosamine sulfate 2KCl 500 mg 1,500 mg PO DAILY 06/17/24 07/16/24 capsule Lion's Bobby 2,100 mg PO DAILY 07/16/24 07/16/24 Prevagen 1 cap PO DAILY 07/16/24 07/16/24 alprazolam 0.25 mg tablet 0.25 mg PO BID PRN Anxiety 07/16/24 07/16/24 apple cider vinegar 600 mg capsule 600 mg PO DAILY 07/16/24 07/16/24 ascorbic acid (vitamin C) 250 mg 250 mg PO DAILY 07/16/24 07/16/24 chewable tablet (Vitamin C) ascorbic acid 7.5 mg-vit E 7.5 2 tab PO DAILY 07/16/24 07/16/24 unit-biotin 1,250 mcg chewable tablet (Hair,Skin,Nails with Biotin) magnesium citrate 100 mg capsule 100 mg PO DAILY 07/16/24 07/16/24 Previous Rx's Medication Instructions Recorded apixaban 5 mg tablet 5 mg PO BID #180 tabs 08/22/23 metoprolol tartrate 25 mg tablet 25 mg PO BID #180 tabs 05/12/24 Allergies Allergy/AdvReac Type Severity Reaction Status Date / Time Penicillins Allergy Severe ALGY-Anaphy Verified 06/17/24 15:24 laxis influenza virus vaccine, Allergy Unknown Unknown Verified 06/17/24 15:24 specific levofloxacin Allergy Unknown ALGY-Hives Verified 06/17/24 15:24 meperidine [From Demerol] Allergy Unknown Unknown Verified 06/17/24 15:24 penicillin G Allergy Unknown Unknown Verified 06/17/24 15:24 Sulfa (Sulfonamide Allergy Unknown Unknown Verified 06/17/24 15:24 Antibiotics) cephalexin [From Keflex] Allergy feels like Verified 06/17/24 15:24 shes going to pass out colchicine Allergy ADR-Vomitin Verified 06/17/24 15:24 g vancomycin Allergy ALGY-Anaphy Verified 06/17/24 15:24 laxis chlorhexidine AdvReac Intermediate ALGY-Rash Verified 06/17/24 15:24 all vaccines Allergy Unknown Uncoded 06/17/24 15:24 Review of Systems 2 Const: Denies: fever(s), chills, body aches or change in appetite ENMT: Denies: throat pain or dental pain Card: Reports: chest pain and pre-syncope Resp: Denies: dyspnea GI: Denies: abdominal pain, nausea, vomiting or diarrhea Musc: Denies: neck pain or back pain Skin/Breast: Denies: rash Neuro: Denies: headache(s) PFSH ED 2 PFSH: Medical History Coronary-myocardial bridge Atrial fibrillation Generalized weakness Leukocytosis Recurrent left pleural effusion Hyponatremia Chronic hyponatremia Pulmonary embolism Pleural effusion Pericarditis Pneumonia Pericardial effusion Restrictive lung disease Anxiety Panic disorder VERONICA on CPAP SVT (supraventricular tachycardia) Palpitations Surgical History History of esophagogastroduodenoscopy (EGD) 2016 History of colonoscopy with polypectomy 2005 S/P tonsillectomy Status post laparoscopic cholecystectomy S/P D&C (status post dilation and curettage) S/P breast biopsy History of facelift Family History Mother Hypertension Dementia Atrial fibrillation Father Parkinson disease Social History Smoking and tobacco/nicotine status: former use of tobacco/nicotine Quit status (tobacco/nicotine): has quit using Year quit tobacco: 1995 [id number] Second hand smoke exposure: No Alcohol intake: never Substance/Drug Use: never Lives independently: Yes Household members: spouse Marital status: service: No Current occupational status: retired Pets and animals: Yes Do you think of yourself as: Straight/Heterosexual Current gender identity: Female [place]/Pentecostal: Restorationism Physical Exam 2 Const: COMMON NORMALS: no acute distress, patient oriented x3 and healthy appearing HENMT: COMMON NORMALS: normocephalic and atraumatic HEAD & SCALP: n ormocephalic and atraumatic Eye: COMMON NORMALS: conjunctivae normal CONJUNCTIVA: Yes conjunctivae normal Neck/C-Spine: COMMON NORMALS: full ROM and supple Chest: COMMONS NORMALS: normal inspection of the chest Resp: COMMON NORMALS: normal respiratory effort, No retractions, No use of accessory muscles and clear to auscultation bilaterally AUSCULTATION: clear to auscultation bilaterally Cardio: COMMON NORMALS: regular rate, regular rhythm and No murmurs present (Cardio) RATE: regular rate RHYTHM: regular rhythm GI: COMMON NORMALS: Normal to inspection, nondistended, normoactive bowel sounds present, Soft to palpation, non-tender and no masses PALPATION: Yes Soft to palpation Extremity: COMMON NORMALS: normal to inspection and full ROM Neuro: COMMON NORMALS: patient oriented x3, moves all extremities and no focal motor deficits Psych: COMMON NORMALS: mental status grossly normal, Normal thought process present and cooperative THOUGHT PROCESS: Normal thought process present Skin: COMMON NORMALS: no rashes or lesions noted and no wounds GENERAL SKIN EXAM: no rashes or lesions noted Course 2 Vital Signs: Vital signs: Vital Signs Temperature 98.3 F 07/16/24 08:52 Pulse Rate 63 07/16/24 11:00 Respiratory Rate 18 07/16/24 11:00 Blood Pressure 158/65 07/16/24 11:00 Pulse Oximetry 96 07/16/24 11:00 Oxygen Delivery Me thod Room Air 07/16/24 11:00 MDM - Syncope Medical Decision Making Patient presents here having some lightheadedness over the past few weeks she is also felt irregular heart beats and felt like she is dropping a beat she has had this in the past and wore a heart monitor she does have some PVCs here her troponins CT are normal no heart block she stable for discharge she is to follow-up with her PCP and 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 Lab Data I reviewed the patient's lab results. 07/16/24 09:03 07/16/24 09:03 Radiology Impressions Chest X-Ray 07/16/24 08:49 IMPRESSION: Persistent left basilar retrocardiac density. Consider further evaluation with CT CHEST. Chest CTA 07/16/24 10:37 IMPRESSION: 1. No pulmonary embolism. 2. No pneumonia. No retrocardiac density in the LEFT lower lobe. 3. Heart is displaced into the LEFT thorax due to the pectus excavatum deformity. 4. Prior cholecystectomy. Laboratory Results WBC 7.45 10^3/uL (3.29-11.43) 07/16/24 09:03 RBC 4.38 10^6/uL (3.85-5.65) 07/16/24 09:03 Hgb 13.30 g/dL (11.27-16.99) 07/16/24 09:03 Hct 40.7 % (36-47) 07/16/24 09:03 MCV 92.9 fl (85-98) 07/16/24 09:03 MCH 30.4 pg (27-33) 07/16/24 09:03 MCHC 32.7 g/dL (30-55) 07/16/24 09:03 RDW 13.3 % (12.1-15.1) 07/16/24 09:03 Plt Count 338 10^3/cmm (157-399) 07/16/24 09:03 MPV 10.2 fL (7.4-10.4) 07/16/24 09:03 Neut % (Auto) 68.9 % 07/16/24 09:03 Lymph % (Auto) 22.0 % 07/16/24 09:03 [place] % (Auto) 6.2 % 07/16/24 09:03 Eos % (Auto) 1.9 % 07/16/24 09:03 Baso % (Auto) 0.7 % 07/16/24 09:03 Neut # (Auto) 5.14 10^3/uL (1.8-7.7) 07/16/24 09:03 Lymph # (Auto) 1.6 10^3/uL (0.8-4.8) 07/16/24 09:03 [place] # (Auto) 0.5 10^3/uL (0.2-0.9) 07/16/24 09:03 Eos # (Auto) 0.1 10^3/uL (0.0-0.8) 07/16/24 09:03 Baso # (Auto) 0.1 10^3/uL (0.0-0.1) 07/16/24 09:03 Nucleated RBC % (auto) 0 % 07/16/24 09:03 Nucleated RBCs # 0.0 /100WBC 07/16/24 09:03 PT 13.20 SECONDS (12.1-14.9) 07/16/24 09:03 INR 0.97 (0.8-1.2) 07/16/24 09:03 Sodium 138 mmol/L (136-145) 07/16/24 09:03 Potassium 4.2 mmol/L (3.5-5.1) 07/16/24 09:03 Chloride 100 mmol/L (98-107) 07/16/24 09:03 Carbon Dioxide 30 mmol/L (22-29) H 07/16/24 09:03 Anion Gap 12.2 (5-19) 07/16/24 09:03 BUN 8 mg/dL (8-23) 07/16/24 09:03 Creatinine 0.6 mg/dL (0.5-0.9) 07/16/24 09:03 GFR Calculation Not Reportable 07/16/24 09:03 Glucose 109 mg/dL (65-115) 07/16/24 09:03 Calculated Osmolality 285 mOsm/kg (285-295) 07/16/24 09:03 Calcium 8.7 mg/dL (8.5-10.5) 07/16/24 09:03 Total Bilirubin 0.3 mg/dL (0.15-1.2) 07/16/24 09:03 AST 22 U/L (0-32) 07/16/24 09:03 ALT 15 U/L (0-33) 07/16/24 09:03 Alkaline Phosphatase 79 U/L (35-105) 07/16/24 09:03 Troponin T Baseline 9 ng/L (0-10) 07/16/24 09:03 Troponin T 120 Minute 6.97 ng/L (0-10) 07/16/24 10:56 Delta Troponin T -2.03 ABS# (0-10) L 07/16/24 10:56 Total Protein 7.1 g/dL (6.6-8.7) 07/16/24 09:03 Albumin 4.2 g/dL (3.5-5.2) 07/16/24 09:03 Globulin 2.9 g/dL (1.3-4.6) 07/16/24 09:03 Lipase 26 U/L (13-60) 07/16/24 09:03 All radiology interpretation(s) finalized by discharge EKG Data EKG 1: I personally reviewed and interpreted this EKG as follows: EKG interpretation date: 07/16/24 EKG interpretation time: 08:54 Interpretation: nsr hr [address] elevation qrs 116 qtc 396 unchanged from previous Discharge Plan Discharge Patient Disposition: Home Clinical Impression: Feeling light headed Condition: Stable Prescriptions: No Action oxymetazoline [Afrin (oxymetazoline)] 0.05 % spray,non-aerosol 2 spray intranasal Q12H PRN (Reason: Allergy Symptoms) glucosamine sulfate 2KCl 500 mg capsule 1,500 mg PO DAILY apixaban 5 mg tablet 5 mg PO BID Qty: 180 3RF Hold Instructions: Resume on 05/17/23. metoprolol tartrate 25 mg tablet 25 mg PO BID Qty: 180 3RF Hold Instructions: bradycardia alprazolam 0.25 mg tablet 0.25 mg PO BID PRN (Reason: Anxiety) ascorbic acid (vitamin C) [Vitamin C] 250 mg Tablet,Chewable 250 mg PO DAILY apple cider vinegar 600 mg Capsule 600 mg PO DAILY Hair, Skin, Nails with Biotin 7.5-7.5-1,250 mg-unit-mcg Tablet,Chewable 2 tab PO DAILY magnesium citrate 100 mg Capsule 100 mg PO DAILY Lion's Bobby 2,100 mg PO DAILY Prevagen 1 cap PO DAILY calcium carbonate 600 mg calcium (1,500 mg) Tablet 600 mg PO DAILY cholecalciferol (vitamin D3) [Vitamin D3] 50 mcg (2,000 unit) Tablet 50 mcg PO DAILY Women's 50 Plus Daily Formula 400 mcg-500 mg calcium-20 mcg Tablet 1 tab PO DAILY Discharge Orders: Discharge ED (Routine); Ordered 07/16/24 Ordered By: Awa Carrion Referrals: Pipo Tamayo M.D [Family Provider] - Mikayla Webb DO [Primary Care Provider] - 4-7 days Discharge Diet: Advance as tolerated Discharge Activity: Resume usual activity Patient Instructions: Lightheadedness (ED) Coding Level of Care Code ED Lithography Contact Worker for Serafin Delgadillo
[2024-07-16 09:18] LABS: Basophils # 0.1 10^3/uL (0.0-0.1); Basophils % 0.7 %; Eosinophils # 0.1 10^3/uL (0.0-0.8); Eosinophils % 1.9 %; Hematocrit 40.7 % (36-47); Lymphocytes # 1.6 10^3/uL (0.8-4.8); Mean Corpuscular HGB Conc 32.7 g/dL (30-55); Mean Corpuscular Hemoglobin 30.4 pg (27-33); Mean Corpuscular Volume 92.9 fl (85-98); Mean Platelet Volume 10.2 fL (7.4-10.4); Monocytes # 0.5 10^3/uL (0.2-0.9); Monocytes % 6.2 %; Neutrophils # 5.14 10^3/uL (1.8-7.7); Neutrophils % 68.9 %; Nucleated Red Blood Cells % 0 %; Platelet Count 338 10^3/cmm (157-399); Red Blood Count 4.38 10^6/uL (3.85-5.65); Red Cell Distribution Width 13.3 % (12.1-15.1); White Blood Count 7.45 10^3/uL (3.29-11.43)
[2024-07-16 09:32] LABS: INR 0.97 (0.8-1.2)
[2024-07-16 09:36] LABS: Alanine Aminotransferase 15 U/L (0-33); Albumin Level 4.2 g/dL (3.5-5.2); Alkaline Phosphatase 79 U/L (35-105); Anion Gap 12.2 (5-19); Aspartate Amino Transferase 22 U/L (0-32); Blood Urea Nitrogen 8 mg/dL (8-23); Calcium 8.7 mg/dL (8.5-10.5); Carbon Dioxide 30 mmol/L (22-29); Chloride 100 mmol/L (98-107); Globulin 2.9 g/dL (1.3-4.6); Glucose 109 mg/dL (65-115); Lipase 26 U/L (13-60); Osmolality Calculated 285 mOsm/kg (285-295); Potassium 4.2 mmol/L (3.5-5.1); Sodium 138 mmol/L (136-145); Total Bilirubin 0.3 mg/dL (0.15-1.2); Total Protein 7.1 g/dL (6.6-8.7); Troponin(5th) Baseline 9 ng/L (0-10)
[2024-07-16 10:15] VITALS: BP 123/61; PULSE 58; O2SAT 98
--- NOTE | 2024-07-16 10:37 | CT_ITS ---
WS: [id number] CT CHEST ANGIOGRAPHY WITH REFORMATS HISTORY: mass TECHNIQUE: Contiguous axial images are obtained through the chest during arterial injection of intrav enous contrast. Images are reconstructed to evaluate the pulmonary arteries. MIP imaging also reviewe d. All CT scans at [facility] use at least one of these dose optimization techniques: automat ed exposure control; mA and/or kV adjustment per patient size (includes targeted exams where dose is matched to clinical indication); or iterative reconstruction. CONTRAST: Omnipaque 350; 100 mL IV. DLP: 356.57 mGy.cm COMPARISON: 06/27/2022 Good opacification of the pulmonary arteries. Normal size pulmonary artery. No filling defects are no manny centrally. Poorly opacified subsegmental branches in the LEFT lower lobe. Mild atherosclerosis ao rta. There are a few scattered granulomata. No pulmonary mass or nodule. There is no retrocardiac mas s. No pericardial or pleural effusions. Heart is being displaced into the LEFT thorax which is probably due to the pectus excavatum deformity . No mediastinal or hilar adenopathy. No pneumothorax. No chest wall abnormality. Prior cholecystectomy. No adrenal mass. Mild increase in thoracic kyphosis. CT/CT angio chest PE protcl [id number] IMPRESSION: 1. No pulmonary embolism. 2. No pneumonia. No retrocardiac density in the LEFT lower lobe. 3. Heart is displaced into the LEFT thorax due to the pectus excavatum deform ity. 4. Prior cholecystectomy.
[2024-07-16] MEDS: iohexol 350 mg/mL 500 mL Btl (per mL) IV (10:49)
--- NOTE | 2024-07-16 10:49 | ECG_ITS ---
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 Measurements Intervals [place] Rate: 72 P: 74 [place]: 200 QRS: -72 QRSD: 105 T: 70 QT: 388 QTc: 425 Interpretive Statements SINUS RHYTHM WITH OCCASIONAL VENTRICULAR PREMATURE COMPLEXES POSSIBLE LEFT ATRIAL ENLARGEMENT [-0.1mV P-WAVE IN V1/V2] INCOMPLETE RIGHT BUNDLE BRANCH BLOCK [90+ ms QRS DURATION, TERMINAL R IN V1/V2, 40+ ms S IN I/aVL/V4/V5/V6] LEFT ANTERIOR FASCICULAR BLOCK [QRS AXIS <= -45, QR IN I, RS IN II] ANTEROSEPTAL MYOCARDIAL INFARCTION , OF INDETERMINATE AGE [40+ ms Q WAVE IN V1-V4] Compared to ECG 07/16/2024 08:54:16 Ventricular premature complex(es) now present Left ventricular hypertrophy no longer present ST (T wave) deviation no longer present Myocardial infarct finding still present Electronically Signed On 07-19-2024 21:02:07 SAFEMAKER by Alfred Art M.D. [id number]
[2024-07-16 11:00] VITALS: BP 158/65; PULSE 63; RESP 18; O2SAT 96
[2024-07-16 11:21] LABS: Troponin 5 2HR 6.97 ng/L (0-10); Troponin 5 2HR Delta -2.03 ABS# (0-10)
[2024-07-16 11:43] VITALS: BP 127/79; PULSE 79; O2SAT 99
== END 2024-07-16 11:44 | disposition home or self-care (01) ==
PROVIDERS: Emergency Provider Emergency Medicine; Family Provider Internal Medicine; PCP Family Medicine
DX: R42 Dizziness and giddiness (principal); I48.91 Unspecified atrial fibrillation; I47.10 Supraventricular tachycardia, unspecified
CPT/HCPCS: 36415; 71045; 71275; 80053; 83690; 84484; 85025; 85610; 93005; 96374; 99285

== ENCOUNTER 2024-09-03 14:05 | Outpatient (CLI) | payer MEDICARE, OTHER, SELFPAY | END 2024-09-03 14:06 | disposition home or self-care (01) | LOC: SLEEP 14:06 | PROVIDERS: Family Provider Internal Medicine; PCP Family Medicine; Visit Provider Internal Medicine | DX: G47.10 Hypersomnia, unspecified (principal) | CPT/HCPCS: G0399 ==

== ENCOUNTER → 2024-12-18 11:00 | Outpatient (BNVA) | payer MEDICARE, OTHER, SELFPAY | PROVIDERS: Family Provider Internal Medicine; PCP Family Medicine | DX: R05.9 Cough, unspecified (principal); R06.00 Dyspnea, unspecified; I70.90 Unspecified atherosclerosis | CPT/HCPCS: 71046 ==

== ENCOUNTER → 2024-12-24 13:45 | Outpatient (BNVA) | payer MEDICARE, OTHER, SELFPAY | PROVIDERS: Family Provider Internal Medicine; PCP Family Medicine; Visit Provider Internal Medicine | DX: R07.89 Other chest pain (principal); R00.2 Palpitations; I47.10 Supraventricular tachycardia, unspecified; I48.91 Unspecified atrial fibrillation; Z79.01 Long term (current) use of anticoagulants; G47.33 Obstructive sleep apnea (adult) (pediatric); Z87.891 Personal history of nicotine dependence | CPT/HCPCS: 99214 ==